=== PATIENT | male | born 1945 | race Caucasian/White ===

== ENCOUNTER → 2017-02-02 | Outpatient (CLI) | payer BC ==
[~2017-02-02] MED LIST: ASPI81TA28 PO; CLOP1TAB5 PO; GLC500 PO; LSN25 PO; METO25TA3 PO; NTRGSL/4 UT; ZCR40 PO; ZTA10 PO
--- NOTE | 2017-02-02 10:43 | DIAGNOSTIC IMAGING REPORT ---
KUB CLINICAL HISTORY: N20.0 [id number] nephrocalcinosis COMPARISON STUDY: 01/15/2016 FINDINGS: Nonobstructive bowel pattern. No evidence for nephrocalcinosis. Stable vascular calcification left lateral soft tissue pelvis IMPRESSION: No evidence for nephrocalcinosis. No change from the prior study. Electronically signed by: Kole Thibodeaux M.D. 02/02/2017 10:42 AM Dictated Date/Time: 02/02/2017 10:41 AM
== END | disposition home or self-care (01) ==
LOC: C.RAD 10:15
PROVIDERS: ATTEND Nurse Practitioner Family
DX: N20.0 Calculus of kidney (principal); R21 Rash and other nonspecific skin eruption

== ENCOUNTER → 2017-02-02 | Outpatient (CLI) | payer BC ==
[2017-02-05 11:11] LABS: 18KDIGG BAND REACTIVE (NONREACTIVE); 23KDIGG BAND NONREACTIVE (NONREACTIVE); 23KDIGM BAND NONREACTIVE (NONREACTIVE); 28KDIGG BAND NONREACTIVE (NONREACTIVE); 30KDIGG BAND REACTIVE (NONREACTIVE); 39KDIGG BAND NONREACTIVE (NONREACTIVE); 39KDIGM BAND NONREACTIVE (NONREACTIVE); 41KDIGG BAND REACTIVE (NONREACTIVE); 41KDIGM BAND NONREACTIVE (NONREACTIVE); 45KDIGG BAND NONREACTIVE (NONREACTIVE); 58KDIGG BAND NONREACTIVE (NONREACTIVE); 66KDIGG BAND NONREACTIVE (NONREACTIVE); 93KDIGG BAND NONREACTIVE (NONREACTIVE)
== END | disposition home or self-care (01) ==
LOC: C.LAB1850 15:06
PROVIDERS: ATTEND Dermatology
DX: R21 Rash and other nonspecific skin eruption (principal)

== ENCOUNTER → 2017-02-10 | Outpatient (CLI) | payer BC ==
[2017-02-10 12:29] LABS: ALT/SGPT 38 U/L (12-78); AST/SGOT 30 U/L (15-37); BLOOD UREA NITROGEN 19 mg/dl (7-18); BUN/CREATININE RATIO 21.8 (10-20); CALCIUM 8.7 mg/dl (8.5-10.1); CARBON DIOXIDE 29 mmol/L (21-32); CHLORIDE 105 mmol/L (98-107); CHOLESTEROL 101 mg/dl (0-200); CREATININE 0.85 mg/dl (0.60-1.40); GLUCOSE 87 mg/dl (70-99); POTASSIUM 4.1 mmol/L (3.5-5.1); SODIUM 140 mmol/L (136-145); TRIGLYCERIDES 59 mg/dl (0-150); VERY LOW DENSITY LIPOPROT CALC 12 mg/dl
[2017-02-10 12:32] LABS: ALB/GLOB RATIO 1.2 (0.9-2); ALKALINE PHOSPHATASE 75 U/L (45-117); CHOLESTEROL/HDL RATIO 2.6; HDL CHOLESTEROL 39 mg/dl; LDL CHOLESTEROL CALCULATED 50 mg/dl
[2017-02-10 13:04] LABS: ESTIMATED AVERAGE GLUCOSE 140 mg/dl; HA1C FLAG Normal (Normal)
== END | disposition home or self-care (01) ==
LOC: C.LABPVFM 08:12
PROVIDERS: ATTEND Internal Medicine Pulmonary Disease
DX: I25.10 Atherosclerotic heart disease of native coronary artery without angina pectoris (principal); E78.5 Hyperlipidemia, unspecified; N40.0 Benign prostatic hyperplasia without lower urinary tract symptoms; I10 Essential (primary) hypertension; E11.65 Type 2 diabetes mellitus with hyperglycemia

== ENCOUNTER → 2017-05-20 | Outpatient (CLI) | payer BC ==
[2017-05-20 13:38] LABS: LYME DISEASE AB IGG NEG (NEG)
[2017-05-20 13:41] LABS: LYME DISEASE AB IGM NEG (NEG)
[2017-05-22 12:39] LABS: 18KDIGG BAND NONREACTIVE (NONREACTIVE); 23KDIGG BAND NONREACTIVE (NONREACTIVE); 23KDIGM BAND NONREACTIVE (NONREACTIVE); 28KDIGG BAND NONREACTIVE (NONREACTIVE); 30KDIGG BAND REACTIVE (NONREACTIVE); 39KDIGG BAND NONREACTIVE (NONREACTIVE); 39KDIGM BAND NONREACTIVE (NONREACTIVE); 41KDIGG BAND REACTIVE (NONREACTIVE); 41KDIGM BAND NONREACTIVE (NONREACTIVE); 45KDIGG BAND NONREACTIVE (NONREACTIVE); 58KDIGG BAND NONREACTIVE (NONREACTIVE); 66KDIGG BAND NONREACTIVE (NONREACTIVE); 93KDIGG BAND NONREACTIVE (NONREACTIVE)
== END | disposition home or self-care (01) ==
LOC: C.LAB1850 11:25
PROVIDERS: ATTEND Dermatology
DX: Z86.19 Personal history of other infectious and parasitic diseases (principal); L82.0 Inflamed seborrheic keratosis

== ENCOUNTER → 2017-05-20 | Outpatient (CLI) | payer BC | END | disposition home or self-care (01) | LOC: C.PATHSPEC 17:20 | PROVIDERS: ATTEND Dermatology | DX: L82.0 Inflamed seborrheic keratosis (principal) ==

== ENCOUNTER → 2017-08-14 | Outpatient (CLI) | payer BC ==
[2017-08-14 13:00] LABS: BASO % 1.7 %; BASO ABS # 0.11 K/uL (0-0.2); COMPLETE YES; EOS % 7.9 %; HEMATOCRIT 45.2 % (42-52); IG% 0.3 %; LYMPH ABS # 1.93 K/uL (1.2-3.4); MEAN CELL VOLUME 88.6 fL (80-100); MEAN CORPUSCULAR HEMOGLOBIN 30.6 pg (25-34); MEAN CORPUSCULAR HGB CONC 34.5 g/dl (32-36); MEAN PLATELET VOLUME 10.1 fL (7.4-10.4); MONO % 8.7 %; NEUT % 51.4 %; PLATELET COUNT 278 K/uL (130-400); WHITE BLOOD COUNT 6.44 K/uL (4.8-10.8)
[2017-08-14 13:13] LABS: ESTIMATED AVERAGE GLUCOSE 143 mg/dl; HA1C FLAG Normal (Normal)
[2017-08-14 13:57] LABS: ALB/GLOB RATIO 1.3 (0.9-2); ALKALINE PHOSPHATASE 66 U/L (45-117); ALT/SGPT 31 U/L (12-78); AST/SGOT 29 U/L (15-37); BLOOD UREA NITROGEN 12 mg/dl (7-18); CALCIUM 8.5 mg/dl (8.5-10.1); CARBON DIOXIDE 26 mmol/L (21-32); CHLORIDE 106 mmol/L (98-107); CHOLESTEROL 86 mg/dl (0-200); CHOLESTEROL/HDL RATIO 2.2; CREATININE 0.75 mg/dl (0.60-1.40); GLUCOSE 91 mg/dl (70-99); HDL CHOLESTEROL 39 mg/dl; LDL CHOLESTEROL CALCULATED 36 mg/dl; SODIUM 140 mmol/L (136-145); TRIGLYCERIDES 54 mg/dl (0-150); VERY LOW DENSITY LIPOPROT CALC 11 mg/dl
== END | disposition home or self-care (01) ==
LOC: C.LABPVFM 08:48
PROVIDERS: ATTEND Internal Medicine Pulmonary Disease
DX: I25.10 Atherosclerotic heart disease of native coronary artery without angina pectoris (principal); E78.5 Hyperlipidemia, unspecified; E11.9 Type 2 diabetes mellitus without complications; I12.9 Hypertensive chronic kidney disease with stage 1 through stage 4 chronic kidney disease, or unspecified chronic kidney disease

== ENCOUNTER → 2018-01-08 | Outpatient (CLI) | payer BC ==
[~2018-01-08] MED LIST changes: -METO25TA3 PO; +METO25TA4 PO
--- NOTE | 2018-01-08 12:21 | DIAGNOSTIC IMAGING REPORT ---
VIDEO SWALLOW HISTORY: Dysphagia DIFFICULTY SWALLING TECHNIQUE: Video fluoroscopic evaluation of swallowing was performed in the AP and lateral projections by the speech pathology staff. The patient is fed nectar-thick and thin liquid barium, a barium coated wafer, and barium pudding. FLUOROSCOPY TIME: 2.2 minutes. COMPARISON STUDY: None. FINDINGS: There is normal hyoid excursion and epiglottic deflection. Mild dysmotility. No evidence for aspiration or significant vallecular pooling. IMPRESSION: 1. Mild esophageal dysmotility and slightly disordered oral motility. No evidence for aspiration. 2. Please see the speech pathologist report for detailed findings and recommendations. The above report was generated using voice recognition software. It may contain grammatical, syntax or spelling errors. Electronically signed by: oKle Thibodeaux M.D. 01/08/2018 12:20 PM Dictated Date/Time: 01/08/2018 12:18 PM
--- NOTE | 2018-01-08 15:17 | SWALLOWING EVALUATION ---
HISTORY: This 72 year old man was referred for a video swallow study at [facility] in order to rule out aspiration and identify the safest consistencies for optimal oral intake. The patient reports episodes of a "spasm" that occurs ~ every 2 weeks where he will have this spasm, and he will be unable to swallow until it passes. He indicates this occurs in his pharynx. He has found that drinking a hot beverage will assist in releasing the spasm. PMH is significant for DM, heart disease, HTN, and kidney stones. Current diet is regular. PROCEDURE: The patient was seen in the Radiology Department of [facility] for the VFSS. Cursory examination of the oral cavity revealed the patient to have natural dentition in good condition. Oral motor function was wnl. The patient was seated upright on a stool and was viewed in both the Anterior-Posterior (A-P) and Lateral planes. Volitional phonation exercises completed in the A-P plane revealed bilateral vocal fold movement. Vocal intensity was wnl. In the lateral plane, the patient was given the following boluses: 1 tsp. thin liquid barium x 2, single swallow thin liquid barium self-presented from a cup, sequential swallows of thin liquid barium self-presented from a straw, 1 tsp. nectar-thick liquid barium, single swallow nectar-thick liquid barium self-presented from a cup, 1 tsp. barium pudding, and 1 club cracker coated in barium pudding. The patient was then repositioned into the A-P plane and given the following boluses: 1 tsp. nectar thick barium and 1 tsp. barium pudding. RESULTS: Oral Stage: Lip closure was adequate. The patient was able to maintain a cohesive liquid bolus in the oral cavity. Mastication was timely and efficient. Lingual motion for bolus transport was also noted to be slow. There was retention lining the tongue and palate after the initial swallow. The initiation of the pharyngeal swallow occurred when the bolus head reached the valleculae. Pharyngeal Stage: Soft palate elevation was complete. Laryngeal elevation revealed partial superior movement of the thyroid cartilage and partial approximation of the arytenoids to the epiglottic base. Anterior hyoid excursion and epiglottic deflection are complete. Laryngeal vestibular closure was complete. The pharyngeal stripping wave was present and complete. Pharyngeal contraction was complete. There was complete distention and duration of the opening to the pharyngoesophageal segment (PES). Tongue base retraction was partially reduced with a trace column of contrast located between the tongue base and pharyngeal wall during the swallow. There was trace retention located in the valleculae and pyriforms after the swallow. There was no evidence of laryngeal penetration or aspiration for this study. The pharyngeal stage of the swallow was essentially wnl. Esophageal stage: The patient presented with mild mid-distal esophageal retention. This is suggestive of esophageal dysmotility. He was also noted to have a prominent cricopharyngeus in the lateral view, suggesting possible reflux. SUMMARY/RECOMMENDATIONS: This patient presents with normal endy-pharyngeal swallowing. He presents with s/s of mild esophageal dysfunction. The following is recommended: 1. Regular diet and thin liquids. 2. GERD precautions. Straws OK. Fully upright for meals and for 30 minutes after meals. Do not lay flat, head of bed elevated to 30 degrees at all times. 3. Consider starting meals with a warm decaffeinated beverage. 4. Consider follow up with GI for further testing/medication management as appropriate. A summary of the results and recommendations was discussed with the patient and his spouse (with patient permission) immediately after the study with verbal understanding. Thank you for referral of this patient. Please contact me at if any additional information is needed.
== END | disposition home or self-care (01) ==
LOC: C.RAD 10:57
PROVIDERS: ATTEND Internal Medicine
DX: R13.10 Dysphagia, unspecified (principal)

== ENCOUNTER → 2018-03-05 | Outpatient (CLI) | payer BC ==
[2018-03-05 12:58] LABS: HEMOGLOBIN A1C 7.1 % (4.5-5.6)
[2018-03-05 13:24] LABS: ALBUMIN 3.9 gm/dl (3.4-5.0); ALT/SGPT 32 U/L (12-78); BLOOD UREA NITROGEN 15 mg/dl (7-18); CALCIUM 8.4 mg/dl (8.5-10.1); CARBON DIOXIDE 28 mmol/L (21-32); CHOLESTEROL 92 mg/dl (0-200); CREATININE 0.85 mg/dl (0.60-1.40); GLUCOSE 79 mg/dl (70-99); POTASSIUM 3.8 mmol/L (3.5-5.1); SODIUM 138 mmol/L (136-145)
[2018-03-05 13:37] LABS: ALKALINE PHOSPHATASE 67 U/L (45-117); AST/SGOT 29 U/L (15-37); LDL CHOLESTEROL CALCULATED 43 mg/dl; TOTAL PROTEIN 6.5 gm/dl (6.4-8.2)
== END | disposition home or self-care (01) ==
LOC: C.LABPVFM 08:17
PROVIDERS: ATTEND Internal Medicine Pulmonary Disease
DX: I10 Essential (primary) hypertension (principal)

== ENCOUNTER → 2018-07-12 | Outpatient (CLI) | payer BC | END | disposition home or self-care (01) | LOC: C.LABPVFM 10:42 | PROVIDERS: ATTEND Physician Assistant Medical | DX: Z86.19 Personal history of other infectious and parasitic diseases (principal) ==

== ENCOUNTER 2019-02-02 10:57 | Inpatient (IN) ==
[2019-02-02 11:42] LABS: Hematocrit (blood only) 48.5 % (42-52); Hemoglobin 16.8 g/dL (14.0-18.0); Mean Corpuscular Hgb Conc 34.6 g/dL (32-36); Mean Corpuscular Volume 87.2 fL (80-100); Mean Platelet Volume 10.2 fL (7.4-10.4); Platelet Count 276 K/uL (130-400); RDW Coefficient of Variation 12.5 % (11.5-14.5); RDW Standard Deviation 39.8 fL (36.4-46.3); Red Blood Count 5.56 M/uL (4.7-6.1); White Blood Count 6.78 K/uL (4.8-10.8)
--- NOTE | 2019-02-02 11:45 | XRay Report ---
SINGLE VIEW CHEST CLINICAL HISTORY: Change in mental status. Atypical chest pain. FINDINGS: An AP, portable, upright chest radiograph is compared to study dated 11/30/2014. The examinat ion is degraded by portable technique and apical lordotic positioning. The heart is top normal for p rojection. A coronary artery stent is noted. The mediastinal contour is within normal limits. There i s mild elevation of the right hemidiaphragm. The lungs and pleural spaces are clear. No pneumothorax is seen. The skeletal structures are osteopenic. The bony thorax is grossly intact. IMPRESSION: No acute cardiopulmonary abnormality. Electronically signed by: Biju Larry M.D. 02/02/2019 11:44 AM
[2019-02-02 11:49] LABS: iSTAT Creatinine 0.8 mg/dl (0.6-1.3); iSTAT Hemoglobin 17.3 g/dl (14.0-18.0); iSTAT Ionized Calcium 1.21 mmol/l (1.12-1.32); iSTAT Potassium 4.2 mEq/L (3.3-5.0)
[2019-02-02 11:55] LABS: INR 1.1 (0.9-1.1); Partial Thromboplastin Time 26.7 Seconds (21.0-31.0); Prothrombin Time 11.1 Seconds (9.0-12.0)
--- NOTE | 2019-02-02 11:55 | CT Scan Report ---
CT head/brain wo con CLINICAL HISTORY: confusion, ataxia COMPARISON STUDY: No previous studies for comparison. TECHNIQUE: Axial CT of the brain is performed from the vertex to the skull base. IV contrast was not administered for this examination. A dose lowering technique was utilized adhering to the principles of ALARA. CT DOSE: 638.56 mGycm FINDINGS: No intra or extra-axial mass lesions are visualized. There is no CT evidence of acute cortical infarc tion. There is no evidence of midline shift. There is no acute hemorrhage. No calvarial fractures ar e visualized. There are minimal white matter hypodensities likely on a small vessel basis. There is minimal ventricular prominence, likely within normal limits for age There is no evidence of acute sinusitis IMPRESSION: No acute intracranial findings Electronically signed by: Sim Oneill M.D. 02/02/2019 11:54 AM
[2019-02-02 11:58] LABS: Albumin Level 3.9 gm/dl (3.4-5.0); BUN Creatinine Ratio 13.1 (10-20); Calcium 8.7 mg/dl (8.5-10.1); Creatinine Clr Calc Pharmacy 70.4 ml/min; Est GFR (African American) 94.6; Est GFR (Non-African American) 81.6; Magnesium 1.8 mg/dl (1.8-2.4); Potassium 4.1 mmol/L (3.5-5.1)
[2019-02-02 12:01] LABS: Albumin Globulin Ratio 1.1 (0.9-2); Bilirubin,Total 0.5 mg/dl (0.2-1); Globulin 3.4 gm/dl (2.5-4.0); Total Protein 7.3 gm/dl (6.4-8.2)
[2019-02-02] MEDS ORDERED: ASPIRIN CHEW 324 MG PO STA (12:24)
--- NOTE | 2019-02-02 12:32 | History & Physical Report ---
Date of Service February 02, 2019 Assessment & Plan (1) Altered mental state: (2) TIA (transient ischemic attack): - Admit to tele for stroke workup -Neurochecks Q2H for today -Check lipid panel and A1c with a.m. labs -Continue on ASA 81 mg daily, Plavix, simvastatin 40 mg daily, ezetimibe 10 mg daily -CT of the head reviewed and is negative for acute findings -will check CTA of the head and neck -Neurology consulted -CXR is negative -EKG reviewed and is negative for acute ST wave changes or signs of ischemia -Pt sx have resolved at the time of my exam: Negative CN testing, no gross motor or sensory deficits, strength testing intact and equal bilaterally, no eye exam findings. (3) Hypertensive urgency: (4) HTN (hypertension): - BP significantly elevated at 209/124 upon presentation - has improved - Pt may have missed morning home medications due to the episode of confusion. - Administer home metoprolol 12.5 mg p.o. now - Allow for permissive HTN in the setting of possible stroke/TIA (5) Diabetes: -Last A1c was 6.8 in September 2018, rechecking -Continue Lantus 18 units QPM, ISS with Accu-Cheks achs L inpatient -Holding metformin (6) Heart disease: (7) Hx of non-ST elevation myocardial infarction (NSTEMI): -Occurred in 2003, follows with Dr. Serrato as outpt -Taxus stent placed in the distal LAD and another in the mid LAD in 2003 -had subsequent N STEMI in 2005 for myocardial infarction however stents were patent at that time. -Most recent echo conducted in April 2012, stress treadmill testing, normal LVEF, negative for myocardial ischemia. -Continue on Plavix, asa -Lipid panel with am labs (8) BPH (benign prostatic hyperplasia): - Stable (9) DVT prophylaxis: - Teds, scds, plavix and aspirin History of Present Illness Chief Complaint: Episode of confusion Primary Care Provider: Osei Garcia MD This is a 73-year-old male with past medical history of an STEMI in 2003, status post 2 stents on Plavix, HTN, HLD, DM type II, history of nephrolithiasis who presents with acute onset of confusion this morning. Patient notes where he was in his normal state of health when he woke up and got a shower this morning. At ~0830 he proceeded to make a pot of coffee, however was unable to complete the task, although he makes coffee every morning normally. Patient is unsure if he took his morning medications, but believes he did not. There was some report of possible facial droop however he denies this. His is unsure if there truly was any facial droop earlier however there is none present now. Patient denies any other symptoms including headache, lightheadedness, visual disturbances, slurred speech, motor weakness, gait abnormality or balance disturbance. CT of the head is negative for acute findings. BP is elevated at 187/26, PRP and CBC are WNL. Allergies Allergy/AdvReac Type Severity Reaction Status Date / Time metoprolol Allergy Unknown HIVES Verified 11/30/14 08:30 Home Medications Home Medications Medication Instructions Recorded Confirmed Type Metformin Hcl (Glucophage *) 1,000 mg PO BID #0 08/15/06 02/02/19 History ASPIRIN (ASPIRIN EC) 81 mg PO DAILY #0 11/21/14 02/02/19 History CLOPIDOGREL BISULFATE (PLAVIX) 75 mg PO Q2D #45 11/21/14 02/02/19 History Ezetimibe (Zetia) 10 mg PO DAILY #90 11/21/14 02/02/19 History Lisinopril 2.5 mg PO DAILY #90 11/21/14 02/02/19 History Metoprolol Succinate (TOPROL XL) 12.5 mg PO DAILY #45 11/21/14 02/02/19 History Simvastatin 40 mg PO DAILY #90 11/21/14 02/02/19 History Nitroglycerin (Nitrostat) 0.4 mg UT PRN #0 btl 11/30/14 02/02/19 History insulin glargine [Lantus Solostar 18 unit SUBCUT QPM 02/02/19 02/02/19 History U-100 Insulin] Past Med/Surg History Medical History Hypertensive urgency BPH (benign prostatic hyperplasia) Hx of non-ST elevation myocardial infarction (NSTEMI) TIA (transient ischemic attack) Altered mental state Diabetes (Chronic) Heart disease (Chronic) HTN (hypertension) (Chronic) Kidney stone (Acute) Surgical History S/P tonsillectomy and adenoidectomy H/O heart artery stent Hx of cataract surgery Family History Other Diabetes Hypertension Prostate cancer Stroke Social History Preferred Language: Pakistani Communication Ability: Effective Body Specialist Required: Yes Beliefs That Will Affect Care: None and Alevism marital status: Current Living Situation: Spouse Current Living Situation Comment: patient lives in [place], [place] 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 Safe at Home: Yes Safety Concerns: Feels Safe At This Time Smoking Status: Never smoker Hx Alcohol Use: No Hx Substance Use: No Review of Systems Constitutional: No fever, sweats or chills Eyes: No diplopia, no worsening or blurred vision ENT: normal hearing, no trouble swallowing Respiratory: No cough, sputum, dyspnea at rest or on exertion Cardiovascular: No chest pain, tightness or palpitations Abdomen: No pain, nausea, vomiting, diarrhea or constipation Musculoskeletal: No joint pain, calf pain, swelling Neurologic: No weakness, numbness/tingling, or balance problems Psychiatric: No anxiety or depression Skin: No rash or itch Physical Exam Vital Signs (Past 24 Hours): Last Vital Signs Temp 36.3 C L 02/02/19 11:00 Pulse 88 02/02/19 11:51 Resp 20 02/02/19 11:51 BP 187/126 H 02/02/19 11:51 Pulse Ox 97 02/02/19 11:51 Physical Exam: General: awake, alert, no apparent distress Head: Normocephalic, atraumatic ENT: PERRL, EOMI, no pharyngeal exudate, mucous membranes moist Chest: Clear to auscultation, on room air, no adventitious breath sounds Cardiac: Regular rate and rhythm, no murmur, no JVD, normal peripheral pulses, good capillary refill Abdominal: NABS x 4 quadrants, soft, nontender to palpation, no rebound, guarding or tenderness Extremities: Normal inspection, no peripheral edema or erythema, calfs nontender to palpation Psych: Normal mood and affect Neuro: AAO x 3, CN II-XII intact, strength intact bilaterally and related 5/5, no motor deficits, speech is clear, no peripheral sensory deficits Constitutional: WD/WN, vitals as above Eyes: normal visual pacheco by confrontation and + anicteric sclerae Neck: normal visual inspection and trachea midline Respiratory: normal respiratory effort, lungs clear to auscultation Cardiovascular: Rate/Rhythm: regular rate and regular rhythm Gastrointestinal (Abdomen): Inspection/Auscultation: abdomen not distended Percussion/Palpation: abdomen soft; abdomen nontender Musculoskeletal: Head/Neck/Chest: normocephalic and head atraumatic Neg for peripheral LE edema, + pedal pulses Skin: no rashes, warm and dry Neurologic: CN's II-XI intact bilaterally and awake; not confused Speech / Cognition: normal speech Psychiatric: A+Ox3, euthymic affect Lymphatic: Exam as done by Kyara Mo DO Results & Data Diagnostic Findings CT head/brain wo con CLINICAL HISTORY: confusion, ataxia COMPARISON STUDY: No previous studies for comparison. TECHNIQUE: Axial CT of the brain is performed from the vertex to the skull base. IV contrast was not administered for this examination. A dose lowering technique was utilized adhering to the principles of ALARA. CT DOSE: 638.56 mGycm FINDINGS: No intra or extra-axial mass lesions are visualized. There is no CT evidence of acute cortical infarction. There is no evidence of midline shift. There is no acute hemorrhage. No calvarial fractures are visualized. There are minimal white matter hypodensities likely on a small vessel basis. There is minimal ventricular prominence, likely within normal limits for age There is no evidence of acute sinusitis IMPRESSION: No acute intracranial findings SINGLE VIEW CHEST CLINICAL HISTORY: Change in mental status. Atypical chest pain. FINDINGS: An AP, portable, upright chest radiograph is compared to study dated 11/30/2014. The examination is degraded by portable technique and apical lordotic positioning. The heart is top normal for projection. A coronary artery stent is noted. The mediastinal contour is within normal limits. There is mild elevation of the right hemidiaphragm. The lungs and pleural spaces are clear. No pneumothorax is seen. The skeletal structures are osteopenic. The bony thorax is grossly intact. IMPRESSION: No acute cardiopulmonary abnormality. ECG Additional Comments: 02-FEB-2019 11:18:11 [facility] Normal sinus rhythm Septal infarct , age undetermined Abnormal ECG When compared with ECG of 30-NOV-2014 09:25, No significant change was found 25mm/s 10mm/mV 150Hz 8.0 SP2 12SL 241 RACHELLE: 16 Referred by: ED Unconfirmed Vent. rate [address] interval 192 ms QRS duration 92 ms QT/QTc 360/433 ms P-R-T axes 51 17 67 Code Status & VTE Plan Code Status Full code- discussed with at bedside. Supervising Physician Co-Signing Physician Notes Pt seen and examined by me. Denies chest pain or SOB. Tolerating PO without issue. States he has had no return of sx. is present and states that he had L sided facial droop but that this has fully resolved. Agree with HPI/ROS as noted by PA See above for my exam in PE section Agree with plan as outlined above CVA vs TIA vs HTN emergency mimicking stroke-like sx Pt is on aspirin/plavix at baseline making CVA and TIA less likely BP 209/124 on presentation It is not certain if he took his meds this AM BP is much improved Imaging pending Advised home cuff with frequent monitoring during the next 4-6 weeks to ensure BP control
[2019-02-02] MEDS ORDERED: PHARMACIST DISCHARGE MED REC CONSULT PRN (12:37)
[2019-02-02] MEDS ORDERED: NITROGLYCERIN SL 0.4 MG/TAB TAB SL PRN (13:15)
[2019-02-02 13:28] LABS: Estimated Average Glucose 169 mg/dl; Hemoglobin A1C 7.5 % (4.5-5.6)
[2019-02-02] MEDS ORDERED: IOVERSOL 100ml IV PRN (14:43)
--- NOTE | 2019-02-02 15:00 | CT Scan Report ---
CT ANGIOGRAM OF THE NECK CLINICAL HISTORY: Strokelike symptoms. COMPARISON STUDY: No priors. TECHNIQUE: Following the IV administration of 118 of Optiray 320, CT angiogram of the neck was perfor med from the aortic arch to the skull base. Images are reviewed in the axial, sagittal, and coronal p lanes. 3-D MIPS images are created and assessed. IV contrast was administered without complication. A ll measurements were calculated based on NASCET criteria. A dose lowering technique was utilized adh ering to the principles of ALARA. FINDINGS: Thoracic aorta: Visualized portions of the thoracic aorta are normal in caliber. The aortic arch demo nstrates standard 3-vessel anatomy. Right carotid arterial system: The right common carotid artery is widely patent, as are the right int ernal and external carotid arteries. Left carotid arterial system: The left common carotid artery is widely patent, as are the left internist medical doctor md al and external carotid arteries. Vertebral arteries: The vertebral arteries are widely patent and codominant. Subclavian arteries: Widely patent bilaterally. Intracranial vasculature: The visualized intracranial vessels at the skull base are clear. Jugular veins: Widely patent bilaterally. Brain parenchyma: The visualized brain parenchyma the skull base is within normal limits. Lung apices: Partially visualized upper lobe lung parenchyma appears clear. Soft tissues: The visualized pharyngeal soft tissues are normal in appearance noting angiographic pha se technique. The oropharyngeal airway appears widely patent. A calcified sialolith is noted in the l eft parotid gland. The salivary and thyroid glands are otherwise normal in appearance. No cervical ly mphadenopathy is seen. Skeletal structures: The skeletal structures are osteopenic. The visualized calvarium at the skull ba se appears intact. The imaged cervical spine is maintained noting mild spondylosis. No lytic or blast ic lesion is seen. IMPRESSION: Unremarkable CT angiogram of the neck. Electronically signed by: Biju Larry M.D. 02/02/2019 2:59 PM
[2019-02-02] MEDS ORDERED: GLUCOSE 40% GEL 15 GM TUBE PO PRN ×2 (15:03→15:15)
[2019-02-02] MEDS ORDERED: DEXTROSE 50% 50 ML SYRINGE IV PRN ×2 (15:03→15:15)
[2019-02-02] MEDS ORDERED: CARBOHYDRATES FOR HYPOGLYCEMIA PO PRN ×2 (15:03→15:15)
[2019-02-02] MEDS ORDERED: GLUCOSE 10 TABS/TUBE PO PRN ×2 (15:03→15:15)
[2019-02-02] MEDS ORDERED: GLUCAGON FOR INJ 1 MG VIAL SQ PRN (15:03)
[2019-02-02] MEDS ORDERED: GLUCAGON FOR INJ 1 MG VIAL IM PRN (15:15)
--- NOTE | 2019-02-02 15:22 | CT Scan Report ---
HEAD CTA HISTORY: Confusion. r/o stroke TECHNIQUE: Multiaxial CT images of the head were performed both before and after the intravenous admi nistration of contrast to evaluate the major cerebral vessels. Maximum intensity projection images we re also obtained. A dose lowering technique was utilized adhering to the principles of ALARA. COMPARISON: None. FINDINGS: There is no mass, hematoma, midline shift, or acute infarct. Visualized intracranial video production intern al carotid arteries and distal vertebral arteries are patent. There is no significant stenosis, occlu ghislaine, or aneurysm seen within the bilateral ACAs, MCAs, or lump roller. The major dural venous sinuses are p atent. Small linear defect within the proximal basilar artery best seen on axial image 57 of 254. IMPRESSION: 1. Small focal linear filling defect seen within the proximal basilar artery. This could represent a focal fenestration or a small focal dissection. Both lumens opacify and there is no significant steno sis or occlusion within the basilar artery. 2. No significant stenosis, occlusion, or aneurysm seen within the bilateral ACAs, MCAs, or lump roller. Electronically signed by: Jeff Guillory M.D. 02/02/2019 3:20 PM
[2019-02-02] MEDS: SIMVASTATIN 40 MG TAB PO SCH (17:04)
[2019-02-02] MEDS: METOPROLOL SUCC 25MG EXT REL TAB PO SCH (17:05)
[2019-02-02] MEDS: LISINOPRIL 2.5 MG TAB PO SCH (17:05)
[2019-02-02] MEDS: EZETIMIBE 10 MG TABLET PO SCH (17:06)
--- NOTE | 2019-02-02 17:09 | Emergency Department Note ---
Entered by Tabitha Mccrary acting as a scribe for Long Tucker DO History of Present Illness General Chief complaint: Confusion Stated complaint: CONFUSED,POSSIBLE STROKE OR REACTION TO INSULIN Source: patient, family and other (nurse) History of Present Illness Onset (ago): day(s) (this morning) Location: head Pain Consistency: + other (episode) Quality: + other (confusion) Associated symptoms: + denies other symptoms (numbness, speech slur) and + other (left eye droop, ataxic for nurse); no weakness The patient is a 73 year old male who presents to the Emergency Room with complaints of an episode of confusion starting this morning. The patients states that the patient was fine before going to bed last night. She states that this morning she woke up to him yelling out in the kitchen that he was confused. She states that when she went to check on him, he couldnt remember how to make the coffee in the Keurig like he has been doing for 2 years. She states that she noticed that all his medications in his pill box for morning and night were gone so she assumed he took them. She reports that while they were getting ready to come here he would ask where his wallet was and then she would say he would have it, but 2 minutes later he would ask ago. She notes that she noticed he had a left eye droop. She denies the patient having a speech slur and any weakness in his arms or legs. The patient states that he remembers being fine before and after showering, but being confused when he tried to make coffee. Nursing staff notes that when they bought him back to the room he was ataxic. Home Medications Home Medications Medication Instructions Recorded Confirmed Type Metformin Hcl (Glucophage *) 1,000 mg PO BID #0 08/15/06 02/02/19 History ASPIRIN (ASPIRIN EC) 81 mg PO DAILY #0 11/21/14 02/02/19 History CLOPIDOGREL BISULFATE (PLAVIX) 75 mg PO Q2D #45 11/21/14 02/02/19 History Ezetimibe (Zetia) 10 mg PO DAILY #90 11/21/14 02/02/19 History Lisinopril 2.5 mg PO DAILY #90 11/21/14 02/02/19 History Metoprolol Succinate (TOPROL XL) 12.5 mg PO DAILY #45 11/21/14 02/02/19 History Simvastatin 40 mg PO DAILY #90 11/21/14 02/02/19 History Nitroglycerin (Nitrostat) 0.4 mg UT PRN #0 btl 11/30/14 02/02/19 History insulin glargine [Lantus Solostar 18 unit SUBCUT QPM 02/02/19 02/02/19 History U-100 Insulin] Allergies Allergy/AdvReac Type Severity Reaction Status Date / Time metoprolol Allergy Unknown HIVES Verified 11/30/14 08:30 Past Med/Surg History Medical History Hypertensive urgency BPH (benign prostatic hyperplasia) Hx of non-ST elevation myocardial infarction (NSTEMI) TIA (transient ischemic attack) Altered mental state Diabetes (Chronic) Heart disease (Chronic) HTN (hypertension) (Chronic) Kidney stone (Acute) Surgical History S/P tonsillectomy and adenoidectomy H/O heart artery stent Hx of cataract surgery Family History Other Diabetes Hypertension Prostate cancer Stroke Social History Preferred Language: Czech Communication Ability: Effective [employer] Required: Yes Beliefs That Will Affect Care: None and Voodoo marital status: Current Living Situation: Spouse Current Living Situation Comment: patient lives in [place], [place] 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 and A total of 10 systems reviewed and were otherwise negative Physical Exam Vital Signs Vital Signs - 24 hr 02/02/19 11:00 02/02/19 11:35 02/02/19 11:51 Temperature 36.3 C L Temperature Source Oral Sepsis Recent Fever Within 48 Hours No Sepsis New/Unexplained Change in Mental Status No Sepsis Action Taken by Nursing No Action Required Pulse Rate 91 H Pulse Rate [Apical] 88 Pulse Rhythm [Apical] Pulse Strength [Apical] Respiratory Rate 20 20 Respiratory Effort / Characteristics Respiratory Depth Respiratory Pattern Blood Pressure 209/124 H Blood Pressure [Left Arm] Blood Pressure [Right Arm] 187/126 H Blood Pressure Mean 152 Blood Pressure Mean [Left Arm] Blood Pressure Mean [Right Arm] 146 Blood Pressure Position [Left Arm] Blood Pressure Position [Right Arm] Pulse Oximetry 97 97 Oxygen Delivery Method Room Air Room Air Room Air 02/02/19 13:35 02/02/19 14:45 02/02/19 15:24 Temperature 37 C 36.6 C Temperature Source Oral Oral Sepsis Recent Fever Within 48 Hours Sepsis New/Unexplained Change in Mental Status Sepsis Action Taken by Nursing Pulse Rate 82 Pulse Rate [Apical] 84 82 79 Pulse Rhythm [Apical] Regular Regular Pulse Strength [Apical] Normal Normal Respiratory Rate 16 16 18 Respiratory Effort / Characteristics Non-Labored Spontaneous Non-Labored Respiratory Depth Normal Normal Normal Respiratory Pattern Regular Blood Pressure 169/85 H Blood Pressure [Left Arm] 157/81 H Blood Pressure [Right Arm] 148/82 H 169/85 H Blood Pressure Mean Blood Pressure Mean [Left Arm] 106 Blood Pressure Mean [Right Arm] 104 113 Blood Pressure Position [Left Arm] Lying Blood Pressure Position [Right Arm] Lying Pulse Oximetry 96 97 98 Oxygen Delivery Method Room Air Room Air Room Air GENERAL: Sitting up in bed, alert, well appearing, well nourished, no distress, non-toxic EYE EXAM: normal conjunctiva. OROPHARYNX: no exudate, no erythema, lips, buccal mucosa, and tongue normal and mucous membranes are moist NECK: supple, no nuchal rigidity, no adenopathy, non-tender LUNGS: Clear to auscultation. Normal chest wall mechanics HEART: no murmurs, S1 normal and S2 normal ABDOMEN: abdomen soft, non-tender, normo-active bowel, sounds, no masses, no rebound or guarding. BACK: Back is symmetrical on inspection and there is no deformity, no midline tenderness, no CVA tenderness. SKIN: no rashes and no bruising UPPER EXTREMITIES: upper extremities are grossly normal. LOWER EXTREMITIES: No pitting edema. NEURO EXAM: Normal sensorium, cranial nerves II-XII intact, normal speech, no weakness of arms, no weakness of legs. No drift. Finger to noseintact. Gross sensation intact. Course ED COURSE: Vital signs were reviewed and showed hypertension. The patients medical record was reviewed The above diagnostic studies were performed and reviewed. ED treatments and interventions as stated above. 1145: The patient was evaluated in room A1. A complete history and physical examination was performed. 1227: I reviewed the patient's case with Dr. Isaías WRIGHT Hospitalist. She will evaluate the patient for further management. 1232: Upon reevaluation, the patient is resting comfortably. I discussed my findings with the patient and he understands and agrees with the treatment plan. Based on the patients age, coexisting illnesses, exam and lab findings the decision to treat as an inpatient was made. The patient remained stable while under my care. The patient will be evaluated for further management. Consultations Consultation #1: I reviewed the patient's case with Dr. Isaías WRIGHT Hospitalist. She will evaluate the patient for further management. Time: 12:27 Administered Medications Ioversol (Optiray 320 100ml) 118 ml IV ONCE PRN PRN Reason: Interaction Checking Stop: 02/06/19 14:42 Last Admin: 02/02/19 14:44 Dose: 118 ml Documented by: [id number] Discontinued Medications Aspirin (Aspirin) 324 mg PO NOW STA Stop: 02/02/19 12:25 Last Admin: 02/02/19 12:38 Dose: 324 mg Documented by: [id number] Medical Decision Making Differential Diagnosis Differential Diagnosis includes but is not limited to ischemic Stroke, hemorrhagic stroke, bells palsy, mass, neoplasm, migraine headache, seizure, subarachnoid hemorrhage, TIA, and transient global amnesia. Medical Records Attestation: I reviewed the patient's medical records. Home Medications Current Medication List: was personally reviewed by me Laboratory Data Attestation: I reviewed the patient's lab results. Result diagrams: 02/02/19 11:25 02/02/19 11:25 Lab Results 02/02/19 02/02/19 02/02/19 Range/Units 11:14 11:25 11:25 WBC 6.78 (4.8-10.8) K/uL RBC 5.56 (4.7-6.1) M/uL Hgb 16.8 (14.0-18.0) g/dL POC Hgb (14.0-18.0) g/dl Hct 48.5 (42-52) % POC Hct (42-52) % MCV 87.2 (80-100) fL MCH 30.2 (25-34) pg MCHC 34.6 (32-36) g/dL RDW Std Deviation 39.8 (36.4-46.3) fL RDW Coeff of Leanna 12.5 (11.5-14.5) % Plt Count 276 (130-400) K/uL MPV 10.2 (7.4-10.4) fL PT 11.1 (9.0-12.0) Seconds INR 1.1 (0.9-1.1) APTT 26.7 (21.0-31.0) Seconds PTT Ratio 1.0 POC Sodium (135-144) mEq/L Sodium (136-145) mmol/L POC Potassium (3.3-5.0) mEq/L Potassium (3.5-5.1) mmol/L POC Chloride (101-112) mEq/L Chloride (98-107) mmol/L Carbon Dioxide (21-32) mmol/L POC Total CO2 (24-31) mEq/l Anion Gap (3-11) POC Anion Gap (16-25) mmol/L POC BUN (7-18) mg/dl BUN (7-18) mg/dl Creatinine (0.6-1.4) mg/dl POC Creatinine (0.6-1.3) mg/dl Est Cr Clr Drug Dosing ml/min Est GFR ( Amer) Est GFR (Non-Af Amer) BUN/Creatinine Ratio (10-20) Glucose (70-99) mg/dl POC Glucose 170 H (70-99) POC Glucose (other) (70-99) mg/dl Estimat Average Glucose mg/dl Hemoglobin A1c (4.5-5.6) % Calcium (8.5-10.1) mg/dl POC Ioniz Calcium Magalys (1.12-1.32) mmol/l Magnesium (1.8-2.4) mg/dl Total Bilirubin (0.2-1) mg/dl AST (15-37) U/L ALT (12-78) U/L Alkaline Phosphatase (45-117) U/L Total Protein (6.4-8.2) gm/dl Albumin (3.4-5.0) gm/dl Globulin (2.5-4.0) gm/dl Albumin/Globulin Ratio (0.9-2) 02/02/19 02/02/19 02/02/19 Range/Units 11:25 11:25 11:36 WBC (4.8-10.8) K/uL RBC (4.7-6.1) M/uL Hgb (14.0-18.0) g/dL POC Hgb 17.3 (14.0-18.0) g/dl Hct (42-52) % POC Hct 51 (42-52) % MCV (80-100) fL MCH (25-34) pg MCHC (32-36) g/dL RDW Std Deviation (36.4-46.3) fL RDW Coeff of Leanna (11.5-14.5) % Plt Count (130-400) K/uL MPV (7.4-10.4) fL PT (9.0-12.0) Seconds INR (0.9-1.1) APTT (21.0-31.0) Seconds PTT Ratio POC Sodium 139 (135-144) mEq/L Sodium 136 (136-145) mmol/L POC Potassium 4.2 (3.3-5.0) mEq/L Potassium 4.1 (3.5-5.1) mmol/L POC Chloride 95 L (101-112) mEq/L Chloride 100 (98-107) mmol/L Carbon Dioxide 32 (21-32) mmol/L POC Total CO2 29 (24-31) mEq/l Anion Gap 4.0 (3-11) POC Anion Gap 19.0 (16-25) mmol/L POC BUN 12 (7-18) mg/dl BUN 12 (7-18) mg/dl Creatinine 0.92 (0.6-1.4) mg/dl POC Creatinine 0.8 (0.6-1.3) mg/dl Est Cr Clr Drug Dosing 70.4 ml/min Est GFR ( Amer) 94.6 Est GFR (Non-Af Amer) 81.6 BUN/Creatinine Ratio 13.1 (10-20) Glucose 185 H (70-99) mg/dl POC Glucose (70-99) POC Glucose (other) 188 H (70-99) mg/dl Estimat Average Glucose 169 mg/dl Hemoglobin A1c 7.5 H (4.5-5.6) % Calcium 8.7 (8.5-10.1) mg/dl POC Ioniz Calcium Magalys 1.21 (1.12-1.32) mmol/l Magnesium 1.8 (1.8-2.4) mg/dl Total Bilirubin 0.5 (0.2-1) mg/dl AST 22 (15-37) U/L ALT 33 (12-78) U/L Alkaline Phosphatase 80 (45-117) U/L Total Protein 7.3 (6.4-8.2) gm/dl Albumin 3.9 (3.4-5.0) gm/dl Globulin 3.4 (2.5-4.0) gm/dl Albumin/Globulin Ratio 1.1 (0.9-2) 02/02/19 Range/Units 16:17 WBC (4.8-10.8) K/uL RBC (4.7-6.1) M/uL Hgb (14.0-18.0) g/dL POC Hgb (14.0-18.0) g/dl Hct (42-52) % POC Hct (42-52) % MCV (80-100) fL MCH (25-34) pg MCHC (32-36) g/dL RDW Std Deviation (36.4-46.3) fL RDW Coeff of Leanna (11.5-14.5) % Plt Count (130-400) K/uL MPV (7.4-10.4) fL PT (9.0-12.0) Seconds INR (0.9-1.1) APTT (21.0-31.0) Seconds PTT Ratio POC Sodium (135-144) mEq/L Sodium (136-145) mmol/L POC Potassium (3.3-5.0) mEq/L Potassium (3.5-5.1) mmol/L POC Chloride (101-112) mEq/L Chloride (98-107) mmol/L Carbon Dioxide (21-32) mmol/L POC Total CO2 (24-31) mEq/l Anion Gap (3-11) POC Anion Gap (16-25) mmol/L POC BUN (7-18) mg/dl BUN (7-18) mg/dl Creatinine (0.6-1.4) mg/dl POC Creatinine (0.6-1.3) mg/dl Est Cr Clr Drug Dosing ml/min Est GFR ( Amer) Est GFR (Non-Af Amer) BUN/Creatinine Ratio (10-20) Glucose (70-99) mg/dl POC Glucose 141 H (70-99) POC Glucose (other) (70-99) mg/dl Estimat Average Glucose mg/dl Hemoglobin A1c (4.5-5.6) % Calcium (8.5-10.1) mg/dl POC Ioniz Calcium Magalys (1.12-1.32) mmol/l Magnesium (1.8-2.4) mg/dl Total Bilirubin (0.2-1) mg/dl AST (15-37) U/L ALT (12-78) U/L Alkaline Phosphatase (45-117) U/L Total Protein (6.4-8.2) gm/dl Albumin (3.4-5.0) gm/dl Globulin (2.5-4.0) gm/dl Albumin/Globulin Ratio (0.9-2) Imaging Data Radiologist's Impression: Radiology results as stated below per my review and the radiologist's interpretation: SINGLE VIEW CHEST CLINICAL HISTORY: Change in mental status. Atypical chest pain. FINDINGS: An AP, portable, upright chest radiograph is compared to study dated 11/30/2014. The examination is degraded by portable technique and apical lordotic positioning. The heart is top normal for projection. A coronary artery stent is noted. The mediastinal contour is within normal limits. There is mild elevation of the right hemidiaphragm. The lungs and pleural spaces are clear. No pneumothorax is seen. The skeletal structures are osteopenic. The bony thorax is grossly intact. IMPRESSION: No acute cardiopulmonary abnormality. Electronically signed by: Biju Larry M.D. 02/02/2019 11:[address] head/brain wo con CLINICAL HISTORY: confusion, ataxia COMPARISON STUDY: No previous studies for comparison. TECHNIQUE: Axial CT of the brain is performed from the vertex to the skull base. IV contrast was not administered for this examination. A dose lowering technique was utilized adhering to the principles of ALARA. CT DOSE: 638.56 mGycm FINDINGS: No intra or extra-axial mass lesions are visualized. There is no CT evidence of acute cortical infarction. There is no evidence of midline shift. There is no acute hemorrhage. No calvarial fractures are visualized. There are minimal white matter hypodensities likely on a small vessel basis. There is minimal ventricular prominence, likely within normal limits for age There is no evidence of acute sinusitis IMPRESSION: No acute intracranial findings Electronically signed by: Sim Oneill M.D. 02/02/2019 11:54 AM ECG Data Attestation: I personally reviewed and interpreted this ECG as follows: Indication: altered mental status Rate (beats per minute): 87 Rhythm: sinus rhythm Findings: + other (normal axis) and + Q waves (septal); no PVC Blood Pressure Blood Pressure Findings: Elevated blood pressure Blood Pressure Disposition: further management by hospitalist MDM Narrative Patient is a 73-year-old male who presents the ER with who notes that patient was confused earlier this morning and did not know how to to make coffee. She also notes that he had some left-sided facial droop. Upon arrival to triage this is also noted by nursing. By the time I was able to evaluate this patient after protocols were in place patient was completely back to b aseline and neurologically intact. There is report of finger past point on the left on initial exam but on my exam that was not present either. Labs show no significant leukocytosis or anemia. BMP along with LFTs bilirubin was unremarkable. CT head was negative. Patient and family were updated at bedside. He was significantly hypertensive but it did allow permissive hypertension with the concern for recent stroke. Patient was discussed with hospitalist admitted for further workup. Impression & Plan TIA (transient ischemic attack) The scribe's documentation has been prepared under my direction and personally reviewed by me in its entirety. I confirm that the note above accurately reflects all work, treatment, procedures, and medical decision making performed by me.
[2019-02-02] MEDS: INSULIN ASPART 100 UNITS/ML 3 ML PEN SC SCH ×2 (17:13→20:42)
[2019-02-02] MEDS ORDERED: INSULIN GLARGINE SOLOSTAR 100 UNITS/ML 3 ML PEN SQ SCH (21:00)
[2019-02-03 06:17] LABS: Basophils # (auto) 0.12 K/uL (0-0.2); Basophils % (auto) 1.5 %; Eosinophils # (auto) 0.51 K/uL (0-0.5); Eosinophils % (auto) 6.3 %; Hematocrit (blood only) 44.6 % (42-52); Hemoglobin 15.3 g/dL (14.0-18.0); Immature Granulocytes # (auto) 0.03 K/uL (0.00-0.02); Immature Granulocytes % (auto) 0.4 %; Lymphocytes # (auto) 3.03 K/uL (1.2-3.4); Lymphocytes % (auto) 37.3 %; Mean Corpuscular Hgb Conc 34.3 g/dL (32-36); Mean Corpuscular Volume 88.1 fL (80-100); Mean Platelet Volume 9.8 fL (7.4-10.4); Monocytes # (auto) 0.62 K/uL (0.11-0.59); Monocytes % (auto) 7.6 %; Neutrophils # (auto) 3.81 K/uL (1.4-6.5); Neutrophils % (auto) 46.9 %; Platelet Count 258 K/uL (130-400); RDW Coefficient of Variation 12.6 % (11.5-14.5); RDW Standard Deviation 40.4 fL (36.4-46.3); Red Blood Count 5.06 M/uL (4.7-6.1); White Blood Count 8.12 K/uL (4.8-10.8)
[2019-02-03 06:53] LABS: Calcium 8.1 mg/dl (8.5-10.1); Creatinine Clr Calc Pharmacy 72.8 ml/min; Est GFR (African American) 97.6; Est GFR (Non-African American) 84.2; Potassium 4.1 mmol/L (3.5-5.1)
[2019-02-03] MEDS: LISINOPRIL 2.5 MG TAB PO SCH (07:42)
[2019-02-03] MEDS: SIMVASTATIN 40 MG TAB PO SCH (07:42)
[2019-02-03] MEDS: METOPROLOL SUCC 25MG EXT REL TAB PO SCH (07:43)
[2019-02-03] MEDS: EZETIMIBE 10 MG TABLET PO SCH (07:43)
[2019-02-03] MEDS: INSULIN ASPART 100 UNITS/ML 3 ML PEN SC SCH ×2 (07:45→12:40)
[2019-02-03] MEDS ORDERED: CLOPIDOGREL BISULFATE 75 MG TAB PO SCH (09:00)
[2019-02-03] MEDS ORDERED: ASPIRIN 81 MG ECTAB PO SCH (09:00)
--- NOTE | 2019-02-03 10:00 | Neurology Consultation ---
Date of Consultation February 03, 2019 Assessment & Plan (1) Altered mental state: Patient has some acute confusion yesterday lasting an hour or 2. Currently, he is back to baseline with no encephalopathy or confusion. He has no focal neurologic findings or meningeal signs. Etiology of his confusion is likely acute Hypertension (hypertensive encephalopathy). I doubt this represents true TIA. There is no evidence on exam for stroke. He does have risk factors for stroke including hypertension, diabetes, and dyslipidemia. (2) Hypertensive urgency: The patient has a history of hypertension with a markedly elevated reading yesterday. Today his blood pressure is back to baseline. There was a concern by the patient's that he had forgot 1 or 2 doses of his medication. (3) Tremor: Patient has a gnpl-vs-pnvvbkif symmetrical action tremor bilaterally. This is likely essential tremor. There is no evidence on examination today for resting tremor, rigidity, bradykinesia, or abnormal gait. Therefore, he has no signs of extra pyramidal disease. Recommendations: 1. Continue 81 milligram aspirin and 75 milligrams clopidogrel daily. 2. Consider MRI of the brain without contrast. 3. Consider echocardiogram 4. Increase activity as able. 5. There is no reason for treatment of his essential tremor at this time. This could be readdressed as an outpatient. 6. Control blood pressure as you are doing, aiming for a mean arterial pressure of approximately 100. 7. Treat hyperglycemia/diabetes aiming to lower his hemoglobin A1c below 7. 8. Lipid levels are quite good and I see no need to increase his current statin dose. Overall, I spent a total of 70 minutes with this case including review of records, review of CT films, direct evaluation the patient at bedside, and discussion of the case with the patient and his was at bedside, clinical staff, and Dr. Wiggins, including differential diagnosis and treatment options. History of Present Illness Reason for Consultation: Patient is a 73-year-old, who I was asked to see at the request of Yumiko Jacobo, for neurologic consultation regarding acute confusion. Requesting Physician: Dr. Mo Attending Physician: Ariel Wiggins History of Present Illness This patient tells me that he has a 15-18 year history of diabetes (on metoprolol, lisinopril, and Zetia) as well as a 10-15 year history of hypertension (on insulin and metformin). He had an [facility] in 2003 and is followed closely by Cardiology. He has had 2 stents for coronary artery disease placed. He has been on 81 milligram aspirin and 75 milligram clopidogrel daily. He also has dyslipidemia for which she takes simvastatin 40 milligrams daily. Patient tells me he has never had a stroke or warning stroke. The patient had a normal day February 01 and went to bed feeling well. He woke in the morning as usual after a good night's sleep on February 02 and showered and dressed as usual. He was downstairs in the kitchen around 0830 trying to make coffee as usual. He could not figure out how the [employer] machine operated however (something he has done for 2 years). He felt confused and knew that he was confused. He just could not figure out how to operate the machine and he was forgetful worry puts things and perhaps what was going on that he was supposed to do. During this time the patient did not have any headache or pain, vision issues or speech problems. He had no numbness or weakness in the arms or legs, balance issues, or incontinence. He was not sick or ill. He called for his who verify that he was not thinking well. She wondered about a little bit of droop of the upper eyelid on the left but was not convinced this. They did not notice any facial droop. He arrived February 02 in the emergency room at 1100 with a temperature 36.3, pulse 91, respiratory rate 20, blood pressure 209/124, and O2 saturation 97 percent. Neurologic examination was unremarkable with no focal signs and his memory was reasonable. He was not described as having any mental status or memory issues. CT scan of the head was unremarkable. Chest x-ray was unremarkable. CT angiography of the neck was unremarkable with no vessel anomalies or stenoses. CT angiography of the head was unremarkable as well although there was some slight abnormality of the basal artery consistent with a small area of fenestration verses small focal dissection. There was no stenosis. CBC was normal. Chem profile was remarkable for glucose of 185. Hemoglobin A1c was elevated at 7.5. Triglyceride was 68, cholesterol 103, LDL 53. The patient believes that his confusion cleared by an hour or 2 with the most and was fine in the hospital. He has had no further episodes and he has been normal since. Blood pressure this morning is 130/77. Additional history from the patient's who is present at bedside suggest the patient has had tremor. He describes this is action tremor with trying to hold drinking glass or eating soup and he has had for about 5 years left greater than right arm. There is no family history of tremor. There is additional history that suggest perhaps the patient has had some mild short-term memory problems in the recent a yearor two. Allergies Allergy/AdvReac Type Severity Reaction Status Date / Time metoprolol Allergy Unknown HIVES Verified 11/30/14 08:30 Home Medications Home Medications Medication Instructions Recorded Confirmed Type Metformin Hcl (Glucophage *) 1,000 mg PO BID #0 08/15/06 02/02/19 History ASPIRIN (ASPIRIN EC) 81 mg PO DAILY #0 11/21/14 02/02/19 History CLOPIDOGREL BISULFATE (PLAVIX) 75 mg PO Q2D #45 11/21/14 02/02/19 History Ezetimibe (Zetia) 10 mg PO DAILY #90 11/21/14 02/02/19 History Lisinopril 2.5 mg PO DAILY #90 11/21/14 02/02/19 History Metoprolol Succinate (TOPROL XL) 12.5 mg PO DAILY #45 11/21/14 02/02/19 History Simvastatin 40 mg PO DAILY #90 11/21/14 02/02/19 History Nitroglycerin (Nitrostat) 0.4 mg UT PRN #0 btl 11/30/14 02/02/19 History insulin glargine [Lantus Solostar 18 unit SUBCUT QPM 02/02/19 02/02/19 History U-100 Insulin] Patient History Medical History Hypertensive urgency BPH (benign prostatic hyperplasia) Hx of non-ST elevation myocardial infarction (NSTEMI) TIA (transient ischemic attack) Altered mental state Diabetes (Chronic) Heart disease (Chronic) HTN (hypertension) (Chronic) Kidney stone (Acute) Surgical History S/P tonsillectomy and adenoidectomy H/O heart artery stent Hx of cataract surgery Social History Preferred Language: Argentine Communication Ability: Effective Byproducts Maker Required: Yes Beliefs That Will Affect Care: None and Jew marital status: Current Living Situation: Spouse Current Living Situation Comment: patient lives in [place], [place] 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[employer] Feels Safe at Home: Yes Safety Concerns: Feels Safe At This Time Smoking Status: Never smoker Hx Alcohol Use: No Hx Substance Use: No Review of Systems Constitutional: no fever, no fatigue and no weakness Eyes: no diplopia, no eye pain and no worsening vision Ear, Nose, Mouth, Throat: no ear pain, no tinnitus, no hearing loss and no dysphagia Respiratory: no cough and no dyspnea Cardiovascular: no chest pain, no dyspnea and no palpitations Gastrointestinal: no abdominal pain, no nausea and no vomiting Genitourinary (Male): no dysuria, no urinary frequency and no urinary incon tinence Musculoskeletal: no back pain, no neck pain, no radicular pain, no myalgia, no muscle weakness and no muscle atrophy Integumentary: no rash and no lesions Neurologic: + tremor(s) and + memory loss; no gait abnormality, no falls, no localized weakness, no generalized weakness, no tingling, no numbness, no abnorm al movements, no dizziness, no headache(s), no abnormal speech, no behavioral changes and no confusion Psychiatric: no depression, no abnormal sleep pattern, no anxiety, no difficulty concentrating, no confusion and no hallucinations Endocrine: no fatigue and no flushing Hematologic / Lymphatic: + easy bruising; no easy bleeding Allergy / Immunological: no urticaria Physical Exam Vital Signs (Past 24 Hours): Last Vital Signs Temp 36.5 C 02/03/19 06:47 Pulse 67 02/03/19 06:47 Resp 18 02/03/19 06:47 BP 130/77 02/03/19 06:47 Pulse Ox 97 02/03/19 03:58 Physical Exam: The patient is left-handed. The patient is awake, alert, and attentive. Speech is normal without any aphasia or dysarthria. Mentation and thought processes are intact, with full orientation and normal fund of knowledge. Attention and concentration are normal. Mood and affect are normal and appropriate. General appearance and grooming are normal. Short and long-term memory seem intact conversation. The discs are sharp with positive venous pulsations bilaterally. There are no exudates, hemorrhages, or blood vessel changes seen. Pupils are 3 mm bilaterally and reactive to light. Extraocular eye muscles are intact without nystagmus. Visual acuity and visual pacheco seem normal grossly to confrontation. There is no evidence for masklike face. There are no deficits to sensation in the face in all 3 distributions of the fifth cranial nerve bilaterally. Corneal reflexes are positive bilaterally. Facial strength and symmetry was normal bilaterally. Hearing seems intact grossly to voice and finger rub bilaterally. Palate moves well without asymmetry. There is normal sternocleidomastoid and trapezius (shoulder shrug) strength bilaterally. Tongue is midline with good strength bilaterally. Neck has a full range of motion without discomfort. There are no cervical bruits bilaterally. There are no cranial or ocular bruits. Heart is without murmur. There is a regular rhythm and rate. Cervical, thoracic, and lumbar spine are nontender to palpation. Gait is narrow based, with good arm swing, turns, and stance. Balance is normal eyes open or closed. There is no bradykinesia in general. With outstretched arms there is no drift. There are no resting tremors. Patient has mild posture and action tremor bilaterally. There is no ataxia with finger to nose testing. There is good facility in the hands. No other abnormal involuntary movements are noted. Motor strength is 5/5 diffusely in the arms bilaterally including deltoids, biceps, triceps, brachioradialis, wrist flexors and extensors, [place], and intrinsic hand muscles. Motor strength is 5/5 diffusely in the legs bilaterally including hip flexors, quadriceps, hamstrings, gastrocnemius, tibialis anterior, tibialis posterior, and Peroneii muscles bilaterally. Toe extensors are normal and there is good bulk in the extensor digitorum brevis muscles bilaterally. The limbs have good tone without rigidity or spasticity. There is no atrophy noted in the muscles. Muscle bulk is normal, there is no tenderness to palpation, no myotonia to percussion, and no fasciculations seen. Sensory examination is intact to touch and pin throughout all 4 limbs diffusely. Reflexes are 2/4 in the biceps, triceps, brachioradialis, quadriceps, and Achilles tendons bilaterally. Toes are downgoing with plantar stimulation bilaterally. Peripheral pulses are present and of normal quality distally in all 4 limbs. There is no peripheral edema noted in the limbs.
--- NOTE | 2019-02-03 14:03 | Magnetic Resonance Report ---
Brain MRI WITHOUT CONTRAST HISTORY: confusion after elevated BP. TECHNIQUE: Multiplanar multisequence MRI of the brain was performed without the use of contrast. COMPARISON STUDY: Head CT and head CTA 02/02/2019. FINDINGS: There is no mass, hematoma, midline shift, or acute infarct. The paranasal sinuses are esmer r. The mastoid air cells are clear. The ventricles and sulci demonstrate mild age-related involutiona l changes. Scattered foci of T2 hyperintensity seen within the periventricular and subcortical white matter are nonspecific but suggestive of mild microvascular ischemic changes. The major vascular flow voids at the skull base are well-maintained. IMPRESSION: No acute intracranial abnormality. Scattered foci of T2 hyperintensity seen within the periventricula r and subcortical white matter are nonspecific but favor microvascular ischemic change. Electronically signed by: Jeff Guillory M.D. 02/03/2019 2:02 PM
[2019-02-03] MEDS ORDERED: STROKE PATIENT DISCHARGE STA (16:32)
--- NOTE | 2019-02-04 06:44 | Discharge Summary ---
Date of Service February 03, 2019 Admission HPI Per Admitting Provider This is a 73-year-old male with past medical history of an STEMI in 2004, status post 2 stents on Plavix, HTN, HLD, DM type II, history of nephrolithiasis who presents with acute onset of confusion this morning. Patient notes where he was in his normal state of health when he woke up and got a shower this morning. At ~0830 he proceeded to make a pot of coffee, however was unable to complete the task, although he makes coffee every morning normally. Patient is unsure if he took his morning medications, but believes he did not. There was some report of possible facial droop however he denies this. His is unsure if there truly was any facial droop earlier however there is none present now. Patient denies any other symptoms including headache, lightheadedness, visual disturbances, slurred speech, motor weakness, gait abnormality or balance disturbance. CT of the head is negative for acute findings. BP is elevated at 187/26, PRP and CBC are WNL. Principal Diagnosis Hypertensive encephalopathy Discharge Exam General: awake, alert, no apparent distress Head: Normocephalic, atraumatic ENT: PERRL, EOMI, no pharyngeal exudate, mucous membranes moist Chest: Clear to auscultation, on room air, no adventitious breath sounds Cardiac: Regular rate and rhythm, no murmur, no JVD, normal peripheral pulses, good capillary refill Abdominal: NABS x 4 quadrants, soft, nontender to palpation, no rebound, guarding or tenderness Extremities: Normal inspection, no peripheral edema or erythema, calfs nontender to palpation Psych: Normal mood and affect Neuro: AAO x 3, CN II-XII intact, strength intact bilaterally and related 5/5, no motor deficits, speech is clear, no peripheral sensory deficits Discharge Data Allergies Allergy/AdvReac Type Severity Reaction Status Date / Time metoprolol Allergy Unknown HIVES Verified 11/30/14 08:30 Consultations 02/02/19 12:24 ED Decision to Admit Stat 02/02/19 12:39 Consult Case Management - Discharge Planning Routine 02/02/19 15:03 Consult Neurology Routine Ordered Studies 02/02/19 11:27 CT head/brain wo con Stat 02/02/19 13:59 CT angio head w con Stat CT angio neck with con Stat 02/03/19 11:25 MR brain wo con Routine Hospital Course (1) Altered mental state: (2) TIA (transient ischemic attack): On 02/02 - Admit to tele for stroke workup -Neurochecks Q2H for today -Check lipid panel and A1c with a.m. labs -Continue on ASA 81 mg daily, Plavix, simvastatin 40 mg daily, ezetimibe 10 mg daily -CT of the head reviewed and is negative for acute findings -will check CTA of the head and neck -Neurology consulted -CXR is negative -EKG reviewed and is negative for acute ST wave changes or signs of ischemia -Pt sx have resolved at the time of my exam: Negative CN testing, no gross motor or sensory deficits, strength testing intact and equal bilaterally, no eye exam findings. On 02/03 Appreciate neuro input: Currently, he is back to baseline with no encephalopathy or confusion. He has no focal neurologic findings or meningeal signs. Etiology of his confusion is likely acute Hypertension (hypertensive encephalopathy). I doubt this represents true TIA. There is no evidence on exam for stroke. MRI of head was negative for stroke. He does have risk factors for stroke including hypertension, diabetes, and dyslipidemia. The patient has a history of hypertension with a markedly elevated reading yesterday. Today his blood pressure is back to baseline. There was a concern by the patient's that he had forgot 1 or 2 doses of his medication. Patient has a [id number]-xa-[id number] symmetrical action tremor bilaterally. This is likely essential tremor. There is no evidence on examination today for resting tremor, rigidity, bradykinesia, or abnormal gait. Therefore, he has no signs of extra pyramidal disease. Will discharge patient today and have hime f/u with his PCP. explained to patient that he needs to continue his antihypertensive meds as prescribed. (3) Hypertensive urgency: (4) HTN (hypertension): - BP significantly elevated at 209/124 upon presentation - has improved - Pt may have missed morning home medications due to the episode of confusion. Will discharge on home regimen. (5) Diabetes: -Last A1c was 6.8 in September 2018, rechecking -Continue Lantus 18 units QPM, ISS with Accu-Cheks achs L inpatient -Holding metformin (6) Heart disease: (7) Hx of non-ST elevation myocardial infarction (NSTEMI): -Occurred in 2003, follows with Dr. Serrato as outpt -Taxus stent placed in the distal LAD and another in the mid LAD in 2003 -had subsequent N STEMI in 2005 for myocardial infarction however stents were patent at that time. -Most recent echo conducted in April 2012, stress treadmill testing, normal LVEF, negative for myocardial ischemia. -Continue on Plavix, asa (8) BPH (benign prostatic hyperplasia): - Stable (9) DVT prophylaxis: - Teds, scds, plavix and aspirin Total Time Total Time Spent Total Time Spent (In Minutes): 31 Total Time Includes: Examination of the Patient, Discharge Planning and Medication Reconciliation Discharge Plan Discharge Items Patient Disposition: Home - Self-Care Reason For Visit: HYPERTENSIVE URGENCY, FACIAL DROOP, AMS Discharge Diagnosis: Elevated blood pressure which likely caused confusion. Discharge Goals: Decrease discomfort Activity: Resume your previous activity Non-emergency contact: Primary Care Provider Call non-emergency contact if: you have any medication questions Follow-up/Referrals: Osei Garcia MD [Primary Care Provider] - Diet: Carb Consistent or DM2 and Heart Healthy Addtl Provider Instructions: You were seen for elevated blood pressure. MRI did not show signs of stroke. You will followup with your PCP in 1-2 weeks. Prescriptions: Continued Metformin Hcl (Glucophage *) 500 MG tablet 1,000 mg PO BID Qty: 0 RF: 0 ASPIRIN (ASPIRIN EC) 81 MG tablet 81 mg PO DAILY Qty: 0 RF: 0 CLOPIDOGREL BISULFATE (PLAVIX) 75 MG tablet 75 mg PO Q2D Qty: 45 RF: 0 Ezetimibe (Zetia) 10 MG tablet 10 mg PO DAILY Qty: 90 RF: 0 Metoprolol Succinate (TOPROL XL) 25 MG [id number] 12.5 mg PO DAILY Qty: 45 RF: 0 Simvastatin 40 MG tablet 40 mg PO DAILY Qty: 90 RF: 0 Nitroglycerin (Nitrostat) 0.4 MG tablet 0.4 mg UT PRN Qty: 0 RF: 0 Lantus Solostar U-100 Insulin 100 unit/mL (3 mL) Insulin Pen 18 unit subcut QPM RF: 0 Changed Lisinopril 2.5 MG tablet 2.5 mg PO HS Qty: 90 RF: 0 Stand-Alone Forms: [facility] Discharge Orders: Discharge Order (Routine); Ordered 02/03/19 Ordered By: Ariel Wiggins Admission Data Admit Date/Time: 02/02/19 12:38 Attending Provider: Ariel Wiggins Admit Provider: Kyara Mo Primary Care Provider: Osei Garcia Other Providers: Chris Tate III ; Kyara Mo Service: Telemetry Other Interventions: Discharge Summary Assessment (RN) Last Done: 02/03/19 16:48 DC Date/Time DO NOT enter until pt leaves facility: 02/03/19 17:15
--- NOTE | 2019-02-14 07:13 | Coding Query ---
CODING QUERY To promote full compliance with coding requirements relating to patient care, provider participation is requested in all cases of music critic uncertainty. Please assist us with the question(s) below: Coding Question(s): Patient admitted with acute onset of mental status changes 1-2 hrs duration. Neurology Consult states likely etiology is hypertensive encephalopathy. Discharge Summary mentions TIA. Discharge diagnosis increased blood pressure which caused mental status changes. Please check below the etiology of the altered mental status . Thank you !! JANICE Pedersen [facility] Physician's Response(s): This was documented on discharge diagnosis. ____x____ hypertensive encephalopathy TIA Cannot clinically correlate if patient had TIA/hypertensive encephalopathy Other: Principal Diagnosis: "that condition established after study, to be chiefly responsible for occasioning the admission of the patient to the hospital for care." Co-Existing Principal Diagnosis: "when two or more diagnoses equally meet the criteria for principal diagnosis as determined by the circumstances of admission, diagnostic work up, and/or therapy provided, and the Alphabetic Index, Tabular List, or another coding guideline does not provide sequencing direction, any one of the diagnoses may be sequenced first." "When the physician has documented what appears to be a current diagnosis in the body of the record, but has not included the diagnosis in the final diagnostic statement, the physician should be asked whether the diagnosis should be added." (Source Coding [facility] 2 QTR90. p3-4) [place]
== END 2019-02-03 17:15 | disposition home or self-care (01) | DRG 79 ==
LOC: ED 10:57 → SUATTDRO 12:38 → 2S 12:38

== ENCOUNTER 2021-09-18 02:54 | Observation (INO) ==
[2021-09-18] MEDS ORDERED: LABETALOL HCL IV 5 MG/ML 20ML IV PRN (03:18)
--- NOTE | 2021-09-18 03:24 | Emergency Department Note ---
Impression & Plan Word finding difficulty Admission ED Provider Note HPI: The patient is a 76-year-old gentleman with history of coronary artery disease s/p stents, HLD, DM, HTN, presents the emergency department with a chief complaint of an episode of confusion earlier this evening. Patient states that he went to bed around 11 PM, he states shortly thereafter he woke up" I did not feel right". Patient tells me "I could not speak coherently". He states the symptoms concerned him and he contacted 911. He states by the time he was in the ambulance his symptoms had resolved. On arrival here to the ED he is alert and oriented, he does not have any focal deficits, he is speaking to me clearly without any slurred speech and he is forming coherent sentences. He ambulates his extremities spontaneously and does not have any focal weakness or numbness. Patient is hypertensive on arrival at 196/105, he is otherwise saturating well on room air and in no acute distress. ROS: -Neuro: Transient episode of altered mentation/difficulty with speech *10 point review systems was conducted and is otherwise negative unless stated above *Outpatient medications and allergy history reviewed PE: General: Alert, NAD HEENT: Normocephalic, atraumatic, trachea midline Eyes: Extraocular eye movement is intact, no scleral erythema Pulmonary: Clear to auscultation bilaterally, no wheezing Cardio: Regular rate and rhythm GI: Abdomen is soft, nontender : No suprapubic tenderness MSK: No evidence of trauma or malformation of the extremities, no edema Skin: No evidence of rash Neuro: Alert, no focal deficits, clear speech, symmetrical facial movements are appreciated, patient does not have any drift of the upper extremities or lower extremities with testing against gravity Psychiatric: Cooperative NIH STROKE SCALE: 1A: Level of consciousness Alert; keenly responsive 0 1B: Ask month and age Both questions right 0 1C: 'Blink eyes' & 'squeeze hands' Performs both tasks 0 2: Horizontal extraocular movements Normal 0 3: Visual pacheco No visual loss 0 4: Facial palsy Normal symmetry 0 5A: Left arm motor drift No drift for 10 seconds 0 5B: Right arm motor drift No drift for 10 seconds 0 6A: Left leg motor drift No drift for 5 seconds 0 6B: Right leg motor drift No drift for 5 seconds 0 7: Limb Ataxia No ataxia 0 8: Sensation Normal; no sensory loss 0 9: Language/aphasia Normal; no aphasia 0 10: Dysarthria Normal 0 11: Extinction/inattention No abnormality 0 TOTAL NIH SCORE = 0 Chest x-ray: No acute process per my interpretation CTA HEAD: No evidence of aneurysm, significant stenosis or major intracranial branch occlusion. Major intracranial venous structures enhance normally. CTA NECK: No evidence of occlusion, significant stenosis or dissection in the major arteries of the neck. CT HEAD: No acute or focal intracranial abnormality. monitoring coordinator: Order placed, patient is noted to be in sinus rhythm on the monitor EKG: Rate: 77 Rhythm: Normal sinus rhythm Intervals: Within normal limits ST changes: No ST elevation Time: 0257 Medical Decision Making: Patient presented to the emergency department with an episode of confusion and word finding difficulty. Patient states that he believes this occurred at some point between 11 PM and midnight although his timeline is unclear. Patient is very specific in stating that he was having some word finding difficulty, he continues to state that he "could not speak in coherent sentences". This concerned him and therefore he contacted the ambulance for transport. His word finding difficulty was transient in nature as he was able to call the ambulance himself. On arrival to the ED the patient does not exhibit any focal deficits, he is alert and oriented x3, he has symmetrical facial movements and no focal motor deficits on my exam. I would not consider him to be a TPA candidate given that his symptoms are resolved and the timeline of his symptoms are somewhat unclear. He was noted to be hypertensive in the 190s systolic for which he was ordered labetalol prn however BP downtrended without this being given. He denies any chest pain or shortness of breath. Stroke work-up was initiated including CT imaging of the head without contrast that does not show any evidence of acute intracranial bleeding, CT angiography of the head and neck does not show any evidence of large vessel occlusion. Patient remained otherwise stable in the ED. EKG does not show any ischemic changes, troponin is negative x1. I do not see any acute pathology on chest x- ray. Patient has had similar episodes in the past although not associated with word finding difficulty, he has had some confusion, he had an MRI done 2 years ago that did not show any evidence of stroke following one of these episodes, it was thought to possibly be secondary to hypertensive encephalopathy. Given his multiple risk factors including hypertension, coronary artery disease, hyperlip idemia, diabetes, I do think repeat MRI imaging for TIA work-up/secondary stroke work-up is indicated. Patient was in agreement to the above plan, he was given aspirin in the ED, he was admitted to the [facility] hospitalist service in stable condition for further management. * Diagnosis: Transient word finding difficulty, possible TIA, hypertensive urgency * Disposition: Admission Kole Brewer DO Emergency Medicine Past Med/Surg History Medical History (Updated 09/18/21 @ 05:45 by Kole Brewer DO) Hx of non-ST elevation myocardial infarction (NSTEMI) Hypertensive urgency Surgical History H/O heart artery stent Hx of cataract surgery S/P tonsillectomy and adenoidectomy Family History Mother , age 91 Stroke CHF (congestive heart failure) Father , age 86 with stroke Stroke Prostate cancer Other Diabetes Hypertension Social History Smoking Status: Never smoker Second Hand Exposure: No; Hx Alcohol Use: No Hx Substance Use: No Preferred Language: Wolof Communication Ability: Effective Hearing Ability: Normal Knocker Out Required: No Beliefs That Will Affect Care: None marital status: Current Living Situation: Spouse Current Living Situation Comment: patient lives in [place], [place] 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[employer] Feels Safe at Home: Yes Childhood Exposure to Second-Hand Smoke: No Seatbelt Use: always Sunscreen Use: No Assistive Devices: Glasses Allergies Allergies Allergy/AdvReac Type Severity Reaction Status Date / Time No Known Drug Allergies Allergy Verified 06/27/21 15:26 Home Meds Home Medications Medication Instructions Recorded Confirmed aspirin 81 mg tablet 81 mg PO DAILY tab 08/28/19 09/18/21 blood sugar diagnostic (OneTouch ea 06/19/21 09/18/21 Ultra Blue Test Strip) clopidogrel 75 mg tablet See Rx Instructions .ROUTE 06/19/21 09/18/21 .COMPLEX tab insulin glargine 100 unit/mL (3 20 unit SUBCUT QPM ml 06/19/21 09/18/21 mL) subcutaneous pen (Lantus Solostar U-100 Insulin) Previous Rx's Medication Instructions Recorded lancets #100 ea 10/12/20 lisinopril 10 mg tablet 10 mg PO QPM #90 tab 10/15/20 metformin 500 mg tablet,extended See Rx Instructions .ROUTE 11/20/20 release 24 hr .COMPLEX #360 tab pen needle, diabetic 32 gauge x #100 ea 01/21/21" (BD Ultra-Fine Bal[place]ina Pen Needle) metoprolol succinate 25 mg See Rx Instructions .ROUTE 03/19/21 tablet,extended release 24 hr .COMPLEX #45 tab simvastatin 40 mg tablet See Rx Instructions .ROUTE 03/19/21 .COMPLEX #90 tab ezetimibe 10 mg tablet 10 mg PO DAILY #90 tab 06/12/21 Results & Data (ED) Vital Signs Vital Signs - 24 hr 09/18/21 02:52 09/18/21 02:55 09/18/21 03:09 Temperature 36.6 C Temperature Source Oral Pulse Rate [Apical] 81 Respiratory Rate 18 Blood Pressure [Right Arm] 196/105 H Blood Pressure Mean [Right Arm] 135 Pulse Oximetry 96 97 Oxygen Delivery Method Room Air Room Air Sepsis Recent Fever Within 48 Hours No Sepsis New/Unexplained Change in Mental Status Yes Sepsis Action Taken by Nursing No Action Required 09/18/21 04:07 09/18/21 05:00 09/18/21 06:08 Temperature Temperature Source Pulse Rate [Apical] 71 69 74 Respiratory Rate 16 18 Blood Pressure [Right Arm] 163/97 H 144/79 H 193/96 H Blood Pressure Mean [Right Arm] 119 100 128 Pulse Oximetry 97 96 96 Oxygen Delivery Method Room Air Room Air Room Air Sepsis Recent Fever Within 48 Hours Sepsis New/Unexplained Change in Mental Status Sepsis Action Taken by Nursing Laboratory Data Result diagrams: 09/18/21 02:45 09/18/21 04:05 Lab Results 09/18/21 09/18/21 09/18/21 Range/Units 02:45 02:45 02:45 WBC 8.38 (4.8-10.8) K/uL RBC 5.77 (4.7-6.1) M/uL Hgb 17.5 (14.0-18.0) g/dL Hct 50.4 (42-52) % MCV 87.3 (80-100) fL MCH 30.3 (25-34) pg MCHC 34.7 (32-36) g/dL RDW Std Deviation 40.1 (36.4-46.3) fL RDW Coeff of Leanna 12.7 (11.5-14.5) % Plt Count 309 (130-400) K/uL MPV 10.5 H (7.4-10.4) fL Immature Gran % (Auto) 0.2 % Neut % (Auto) 48.9 % Lymph % (Auto) 36.4 % [place] % (Auto) 6.8 % Eos % (Auto) 6.3 % Baso % (Auto) 1.4 % Neut # (Auto) 4.09 (1.4-6.5) K/uL Lymph # (Auto) 3.05 (1.2-3.4) K/uL [place] # (Auto) 0.57 (0.11-0.59) K/uL Eos # (Auto) 0.53 H (0-0.5) K/uL Baso # (Auto) 0.12 (0-0.2) K/uL Immature Gran # (Auto) 0.02 (0.00-0.02) K/uL PT Cancelled INR Cancelled APTT Cancelled PTT Ratio Cancelled Sodium 137 (136-145) mmol/L Potassium (3.5-5.1) mmol/L Chloride 102 (98-107) mmol/L Carbon Dioxide 29 (21-32) mmol/L Anion Gap 6.0 (3-11) BUN 12 (7-18) mg/dl Creatinine 0.86 (0.6-1.4) mg/dl Est Cr Clr Drug Dosing 71.9 ml/min Est GFR ( Amer) 96.9 ml/min Est GFR (Non-Af Amer) 83.6 ml/min BUN/Creatinine Ratio 13.5 (10-20) Glucose 143 H (70-99) mg/dl POC Glucose (70-99) mg/dl Calcium 8.9 (8.5-10.1) mg/dl Magnesium (1.8-2.4) mg/dl Total Bilirubin 0.5 (0.2-1) mg/dl AST TNP ALT 38 (12-78) U/L Alkaline Phosphatase 99 (45-117) U/L Troponin I < 0.015 (0-0.045) ng/ml Total Protein 7.4 (6.4-8.2) gm/dl Albumin 4.0 (3.4-5.0) gm/dl Globulin 3.4 (2.5-4.0) gm/dl Albumin/Globulin Ratio 1.2 (0.9-2) COVID-19 Eval Order SARS-CoV-2 (PCR) (Negative) 09/18/21 09/18/21 09/18/21 Range/Units 03:29 04:05 04:05 WBC (4.8-10.8) K/uL RBC (4.7-6.1) M/uL Hgb (14.0-18.0) g/dL Hct (42-52) % MCV (80-100) fL MCH (25-34) pg MCHC (32-36) g/dL RDW Std Deviation (36.4-46.3) fL RDW Coeff of Leanna (11.5-14.5) % Plt Count (130-400) K/uL MPV (7.4-10.4) fL Immature Gran % (Auto) % Neut % (Auto) % Lymph % (Auto) % [place] % (Auto) % Eos % (Auto) % Baso % (Auto) % Neut # (Auto) (1.4-6.5) K/uL Lymph # (Auto) (1.2-3.4) K/uL [place] # (Auto) (0.11-0.59) K/uL Eos # (Auto) (0-0.5) K/uL Baso # (Auto) (0-0.2) K/uL Immature Gran # (Auto) (0.00-0.02) K/uL PT 10.8 INR 1.1 APTT 26.4 PTT Ratio 1.0 Sodium (136-145) mmol/L Potassium 3.9 (3.5-5.1) mmol/L Chloride (98-107) mmol/L Carbon Dioxide (21-32) mmol/L Anion Gap (3-11) BUN (7-18) mg/dl Creatinine (0.6-1.4) mg/dl Est Cr Clr Drug Dosing ml/min Est GFR ( Amer) ml/min Est GFR (Non-Af Amer) ml/min BUN/Creatinine Ratio (10-20) Glucose (70-99) mg/dl POC Glucose 127 H (70-99) mg/dl Calcium (8.5-10.1) mg/dl Magnesium 1.8 (1.8-2.4) mg/dl Total Bilirubin (0.2-1) mg/dl AST 20 ALT (12-78) U/L Alkaline Phosphatase (45-117) U/L Troponin I (0-0.045) ng/ml Total Protein (6.4-8.2) gm/dl Albumin (3.4-5.0) gm/dl Globulin (2.5-4.0) gm/dl Albumin/Globulin Ratio (0.9-2) COVID-19 Eval Order SARS-CoV-2 (PCR) (Negative) 09/18/21 09/18/21 Range/Units 04:14 04:14 WBC (4.8-10.8) K/uL RBC (4.7-6.1) M/uL Hgb (14.0-18.0) g/dL Hct (42-52) % MCV (80-100) fL MCH (25-34) pg MCHC (32-36) g/dL RDW Std Deviation (36.4-46.3) fL RDW Coeff of Leanna (11.5-14.5) % Plt Count (130-400) K/uL MPV (7.4-10.4) fL Immature Gran % (Auto) % Neut % (Auto) % Lymph % (Auto) % [place] % (Auto) % Eos % (Auto) % Baso % (Auto) % Neut # (Auto) (1.4-6.5) K/uL Lymph # (Auto) (1.2-3.4) K/uL [place] # (Auto) (0.11-0.59) K/uL Eos # (Auto) (0-0.5) K/uL Baso # (Auto) (0-0.2) K/uL Immature Gran # (Auto) (0.00-0.02) K/uL PT INR APTT PTT Ratio Sodium (136-145) mmol/L Potassium (3.5-5.1) mmol/L Chloride (98-107) mmol/L Carbon Dioxide (21-32) mmol/L Anion Gap (3-11) BUN (7-18) mg/dl Creatinine (0.6-1.4) mg/dl Est Cr Clr Drug Dosing ml/min Est GFR ( Amer) ml/min Est GFR (Non-Af Amer) ml/min BUN/Creatinine Ratio (10-20) Glucose (70-99) mg/dl POC Glucose (70-99) mg/dl Calcium (8.5-10.1) mg/dl Magnesium (1.8-2.4) mg/dl Total Bilirubin (0.2-1) mg/dl AST ALT (12-78) U/L Alkaline Phosphatase (45-117) U/L Troponin I (0-0.045) ng/ml Total Protein (6.4-8.2) gm/dl Albumin (3.4-5.0) gm/dl Globulin (2.5-4.0) gm/dl Albumin/Globulin Ratio (0.9-2) COVID-19 Eval Order Covid19 at [facility] SARS-CoV-2 (PCR) NEGATIVE (Negative) Administered Medications Discontinued Medications Ioversol (Optiray 320 125ml) 125 ml IV ONCE ONE Stop: 09/18/21 04:46 Last Admin: 09/18/21 04:46 Dose: 119 ml Documented by: [id number] Discharge Plan Visit Data Chief Complaint: Confusion Stated Complaint: CONFUSION ED Provider: Kole Brewer Discharge Problem: Word finding difficulty Forms Stand Alone Forms: My [employer] Prescriptions Prescriptions: No Action lisinopril 10 mg tablet 10 mg PO QPM Qty: 90 RF: 3 metformin 500 mg tablet extended release 24 hr See Rx Instructions .ROUTE .COMPLEX Qty: 360 RF: 3 (DME) pen needle, diabetic [BD Ultra-Fine Balbina Pen Needle] 32 gauge x 5/32" needle See Rx Instructions .ROUTE .MEDSUPPLY Qty: 100 RF: 3 metoprolol succinate 25 mg tablet extended release 24 hr See Rx Instructions .ROUTE .COMPLEX Qty: 45 RF: 3 simvastatin 40 mg tablet See Rx Instructions .ROUTE .COMPLEX Qty: 90 RF: 2 ezetimibe 10 mg tablet 10 mg PO DAILY Qty: 90 RF: 3 (DME) OneTouch Ultra Blue Test Strip Strip See Rx Instructions .ROUTE .MEDSUPPLY RF: 0 clopidogrel 75 mg tablet See Rx Instructions .ROUTE .COMPLEX RF: 0 Lantus Solostar U-100 Insulin 100 unit/mL (3 mL) insulin pen 20 unit subcut QPM RF: 0 aspirin 81 mg tablet 81 mg PO DAILY RF: 0 (DME) lancets Misc See Rx Instructions .ROUTE .MEDSUPPLY Qty: 100 RF: 3 Referrals Referrals: Osei Garcia MD [Primary Care Provider] -
[2021-09-18 03:29] LABS: Basophils # (auto) 0.12 K/uL (0-0.2); Basophils % (auto) 1.4 %; Eosinophils # (auto) 0.53 K/uL (0-0.5); Eosinophils % (auto) 6.3 %; Hematocrit (blood only) 50.4 % (42-52); Hemoglobin 17.5 g/dL (14.0-18.0); Immature Granulocytes # (auto) 0.02 K/uL (0.00-0.02); Immature Granulocytes % (auto) 0.2 %; Lymphocytes # (auto) 3.05 K/uL (1.2-3.4); Lymphocytes % (auto) 36.4 %; Mean Corpuscular Hemoglobin 30.3 pg (25-34); Mean Corpuscular Hgb Conc 34.7 g/dL (32-36); Mean Corpuscular Volume 87.3 fL (80-100); Mean Platelet Volume 10.5 fL (7.4-10.4); Monocytes # (auto) 0.57 K/uL (0.11-0.59); Monocytes % (auto) 6.8 %; Neutrophils # (auto) 4.09 K/uL (1.4-6.5); Neutrophils % (auto) 48.9 %; Platelet Count 309 K/uL (130-400); RDW Coefficient of Variation 12.7 % (11.5-14.5); RDW Standard Deviation 40.1 fL (36.4-46.3); Red Blood Count 5.77 M/uL (4.7-6.1); White Blood Count 8.38 K/uL (4.8-10.8)
[2021-09-18 04:00] LABS: Alanine Aminotransferase 38 U/L (12-78); Alkaline Phosphatase 99 U/L (45-117); BUN Creatinine Ratio 13.5 (10-20); Bilirubin,Total 0.5 mg/dl (0.2-1); Blood Urea Nitrogen 12 mg/dl (7-18); Calcium 8.9 mg/dl (8.5-10.1); Carbon Dioxide 29 mmol/L (21-32); Chloride 102 mmol/L (98-107); Creatinine Clr Calc Pharmacy 71.9 ml/min; Est GFR (African American) 96.9 ml/min; Est GFR (Non-African American) 83.6 ml/min; Globulin 3.4 gm/dl (2.5-4.0); Glucose 143 mg/dl (70-99); Sodium 137 mmol/L (136-145); Total Protein 7.4 gm/dl (6.4-8.2)
[2021-09-18 04:01] LABS: Albumin Globulin Ratio 1.2 (0.9-2); Troponin I < 0.015 ng/ml (0-0.045)
[2021-09-18 04:26] LABS: Potassium 3.9 mmol/L (3.5-5.1)
[2021-09-18 04:28] LABS: INR 1.1 (0.9-1.1); Partial Thromboplastin Time 26.4 Seconds (21.0-31.0); Prothrombin Time 10.8 Seconds (9.0-12.0)
[2021-09-18 04:32] LABS: Magnesium 1.8 mg/dl (1.8-2.4)
[2021-09-18] MEDS ORDERED: OPTIRAY 320 125ml IV ONE (04:45)
--- NOTE | 2021-09-18 05:56 | History & Physical Report ---
Date of Service September 18, 2021 Assessment & Plan (1) TIA (transient ischemic attack): Plan: TIA/resolved 30-minute episode of confusion and disorientation when falling asleep- The patient will be admitted to telemetry for serial cardiac enzymes, serial EKG's, cardiac rhythm monitoring and a 2-D echocardiogram with Dopplers. CT head negative, CTA head neck negative Stroke without TPA order set Consult PT/OT/speech/neurology Continue aspirin 81 mg daily, clopidogrel 75 mg daily Change simvastatin 40 mg to atorvastatin 40 mg for high-dose statin (2) Confusion and disorientation: Plan: His primary symptoms had resolved after 20 to 30 minutes, well before arriving in the emergency department (3) CAD (coronary artery disease): Plan: CAD/hypertension- Continue aspirin, clopidogrel, lisinopril and metoprolol succinate Permissive hypertension (4) HTN (hypertension): Plan: See above (5) Dyslipidemia: Plan: For at least during the admission, change simvastatin to atorvastatin as noted above Continue Zetia 10 mg daily Checking a fasting lipid panel (6) Diabetes type 2, controlled: Plan: Continue glargine 20 units subcu every evening Place on Accu-Cheks before meals and at bedtime with NovoLog coverage per scale Hold Metformin while in hospital Check hemoglobin A1c (7) Antiplatelet or antithrombotic long-term use: Plan: Continue aspirin and Plavix as noted above (8) Depression: Plan: On no specific treatment, but notes that his 9 months ago and has not yet adjusted (9) BPH (benign prostatic hyperplasia): Plan: No recent issues and on no specific treatment History of Present Illness Chief Complaint: The patient presents to the emergency department with complaint of a 20 to 30-minute episode of confusion that occurred as he was falling asleep this evening, reporting that he had a similar but more brief episode of confus ion when walking into his kitchen that lasted a few seconds duration about 3 years ago Primary Care Provider: Osei Garcia MD The patient is a 76-year-old male with a past medical history including nephrolithiasis, intertrigo, depression, CAD, memory deficits, dyslipidemia, diabetes mellitus type 2, tremor, TIA, BPH and hypertension. He presents with symptoms as noted above, but notes that they had resolved completely by the time he was in route to the hospital. He reports taking his medications as directed, including his aspirin and clopidogrel. He denies any recent travels or sick exposures. Chest x-ray: No acute findings CT head, CTA head neck showed no acute findings Laboratory findings of significance: Hemoglobin 17.5, hematocrit 50.4 and glucose 143. COVID-19 testing was negative in the ED Allergies Allergy/AdvReac Type Severity Reaction Status Date / Time No Known Drug Allergies Allergy Verified 06/27/21 15:26 Home Medications Medication Instructions Recorded Confirmed Type aspirin 81 mg tablet 81 mg PO DAILY tab 08/28/19 09/18/21 History lancets #100 ea 10/12/20 09/18/21 Rx lisinopril 10 mg tablet 10 mg PO QPM #90 tab 10/15/20 09/18/21 Rx metformin 500 mg tablet,extended See Rx Instructions .ROUTE 11/20/20 09/18/21 Rx release 24 hr .COMPLEX #360 tab pen needle, diabetic 32 gauge x #100 ea 01/21/21 09/18/21 Rx 5/32" (BD Ultra-Fine [place] Pen Needle) metoprolol succinate 25 mg See Rx Instructions .ROUTE 03/19/21 09/18/21 Rx tablet,extended release 24 hr .COMPLEX #45 tab simvastatin 40 mg tablet See Rx Instructions .ROUTE 03/19/21 09/18/21 Rx .COMPLEX #90 tab ezetimibe 10 mg tablet 10 mg PO DAILY #90 tab 06/12/21 09/18/21 Rx blood sugar diagnostic (OneTouch ea 06/19/21 09/18/21 History Ultra Blue Test Strip) clopidogrel 75 mg tablet See Rx Instructions .ROUTE 06/19/21 09/18/21 History .COMPLEX tab insulin glargine 100 unit/mL (3 20 unit SUBCUT QPM ml 06/19/21 09/18/21 History mL) subcutaneous pen (Lantus Solostar U-100 Insulin) Past Med/Surg History Medical History (Updated 09/18/21 @ 06:21 by Darnell Daniels MD) Hx of non-ST elevation myocardial infarction (NSTEMI) Hypertensive urgency Surgical History H/O heart artery stent Hx of cataract surgery S/P tonsillectomy and adenoidectomy Family History Mother , age 91 Stroke CHF (congestive heart failure) Father , age 86 with stroke Stroke Prostate cancer Other Diabetes Hypertension Social History Smoking Status: Never smoker Second Hand Exposure: No; Hx Alcohol Use: No Hx Substance Use: No Preferred Language: Chadian Communication Ability: Effective Hearing Ability: Normal Manager Communication Required: No Beliefs That Will Affect Care: None marital status: Current Living Situation: Spouse Current Living Situation Comment: patient lives in [place], [place] 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 [employer] Feels Safe at Home: Yes Childhood Exposure to Second-Hand Smoke: No Seatbelt Use: always Sunscreen Use: No Assistive Devices: Glasses Review of Systems Review of Systems: The patient denies chest pain, palpitations, shortness of breath, dyspnea on exertion, cough, lower extremity swelling, sore throat, fevers, chills, sweats, weight change, fatigue, nausea, vomiting, diarrhea , constipation, abdominal pain, pelvic pain, blood in urine or stool, dysuria, urinary frequency or urgency, loss of consciousness, rash, abnormal bruising or bleeding, imbalance, focal or generalized weakness, numbness or tingling in arms or legs, generalized arthralgias or myalgias, back or neck pain, or night sweats. The review of systems is otherwise negative other than for that already noted above, and at least 10 systems have been reviewed. Physical Exam Physical Exam: The patient is awake, alert and oriented 3, well developed and well nourished, normocephalic and atraumatic, lying in bed and in no acute distress. HEENT--PERRL, EOMI, mucous membranes and oropharynx normal. Neck--supple. No JVD. No bruits. Thyroid normal, trachea midline, no adenopathy. Heart--normal S1 and S2. No murmurs, rubs or gallops. Lungs--clear bilaterally, no respiratory distress, no accessory muscle use. Abdomen--normal bowel sounds and soft. Nontender. Nondistended, no hernias or masses, no organomegaly. Extremities--no cyanosis or clubbing. No edema. There are good distal pulses b/l. Dermatologic--normal skin turgor, normal color, no abnormal lymph nodes, no rash. Neurologic--cranial nerves II through XII grossly intact. BET noted bilateral upper extremities Rheumatologic--normal range of motion. Psychiatric--normal affect. Results & Data Results & Data ([facility]) Vital Signs (Past 12 Hours) Vital Signs Temp Pulse Resp BP Pulse Ox 09/18/21 05:00 69 144/79 H 96 09/18/21 04:07 71 16 163/97 H 97 09/18/21 03:09 97 09/18/21 02:55 97.9 F 81 18 196/105 H 96 Laboratory Results Laboratory Results WBC 8.38 K/uL (4.8-10.8) 09/18/21 02:45 RBC 5.77 M/uL (4.7-6.1) 09/18/21 02:45 Hgb 17.5 g/dL (14.0-18.0) 09/18/21 02:45 Hct 50.4 % (42-52) 09/18/21 02:45 MCV 87.3 fL (80-100) 09/18/21 02:45 MCH 30.3 pg (25-34) 09/18/21 02:45 MCHC 34.7 g/dL (32-36) 09/18/21 02:45 RDW Std Deviation 40.1 fL (36.4-46.3) 09/18/21 02:45 RDW Coeff of Leanna 12.7 % (11.5-14.5) 09/18/21 02:45 Plt Count 309 K/uL (130-400) 09/18/21 02:45 MPV 10.5 fL (7.4-10.4) H 09/18/21 02:45 Immature Gran % (Auto) 0.2 % 09/18/21 02:45 Neut % (Auto) 48.9 % 09/18/21 02:45 Lymph % (Auto) 36.4 % 09/18/21 02:45 [place] % (Auto) 6.8 % 09/18/21 02:45 Eos % (Auto) 6.3 % 09/18/21 02:45 Baso % (Auto) 1.4 % 09/18/21 02:45 Neut # (Auto) 4.09 K/uL (1.4-6.5) 09/18/21 02:45 Lymph # (Auto) 3.05 K/uL (1.2-3.4) 09/18/21 02:45 [place] # (Auto) 0.57 K/uL (0.11-0.59) 09/18/21 02:45 Eos # (Auto) 0.53 K/uL (0-0.5) H 09/18/21 02:45 Baso # (Auto) 0.12 K/uL (0-0.2) 09/18/21 02:45 Immature Gran # (Auto) 0.02 K/uL (0.00-0.02) 09/18/21 02:45 PT 10.8 Seconds (9.0-12.0) 09/18/21 04:05 INR 1.1 (0.9-1.1) 09/18/21 04:05 APTT 26.4 Seconds (21.0-31.0) 09/18/21 04:05 PTT Ratio 1.0 09/18/21 04:05 Sodium 137 mmol/L (136-145) 09/18/21 02:45 Potassium 3.9 mmol/L (3.5-5.1) 09/18/21 04:05 Chloride 102 mmol/L (98-107) 09/18/21 02:45 Carbon Dioxide 29 mmol/L (21-32) 09/18/21 02:45 Anion Gap 6.0 (3-11) 09/18/21 02:45 BUN 12 mg/dl (7-18) 09/18/21 02:45 Creatinine 0.86 mg/dl (0.6-1.4) 09/18/21 02:45 Est Cr Clr Drug Dosing 71.9 ml/min 09/18/21 02:45 Est GFR ( Amer) 96.9 ml/min 09/18/21 02:45 Est GFR (Non-Af Amer) 83.6 ml/min 09/18/21 02:45 BUN/Creatinine Ratio 13.5 (10-20) 09/18/21 02:45 Glucose 143 mg/dl (70-99) H 09/18/21 02:45 POC Glucose 127 mg/dl (70-99) H 09/18/21 03:29 Calcium 8.9 mg/dl (8.5-10.1) 09/18/21 02:45 Magnesium 1.8 mg/dl (1.8-2.4) 09/18/21 04:05 Total Bilirubin 0.5 mg/dl (0.2-1) 09/18/21 02:45 AST 20 U/L (15-37) 09/18/21 04:05 ALT 38 U/L (12-78) 09/18/21 02:45 Alkaline Phosphatase 99 U/L (45-117) 09/18/21 02:45 Troponin I < 0.015 ng/ml (0-0.045) 09/18/21 02:45 Total Protein 7.4 gm/dl (6.4-8.2) 09/18/21 02:45 Albumin 4.0 gm/dl (3.4-5.0) 09/18/21 02:45 Globulin 3.4 gm/dl (2.5-4.0) 09/18/21 02:45 Albumin/Globulin Ratio 1.2 (0.9-2) 09/18/21 02:45 COVID-19 Eval Order Covid19 at [facility] 09/18/21 04:14 SARS-CoV-2 (PCR) NEGATIVE (Negative) 09/18/21 04:14 Diagnostic Findings [facility] Patient: SOHAIL VAZ (Male) : 43 Status: ER Date: 09/18/21 04:48 Room #: History: CONFUSION, WEAKNESS ON RIGHT SIDE Slices: 59 Priors: Tech: Kwabena Manriquez @ [phone] Exams: CT HEAD Contrast: Accession Numbers: [id number] Referring Physician: REFERRED SELF Preliminary Findings Only See Final Report For Complete Findings CT HEAD: No acute or focal intracranial abnormality. Radiologist: Murray Brown MD Study ready at 04:50 and initial results transmitted at 05:18 *This report constitutes a preliminary interpretation only. Non-acute findings felt to be unrelated to the clinical presentation may not be discussed in this report. The study will be interpreted and a final report will be generated by the local Radiologist the following shift. To reach the hospital radiology department call [phone]. If a discrepancy is found between the preliminary and final interpretations of this study, please notify us via our Client Portal at [email or web address], under [email or web address].You can also fax this report with a description of the discrepancy, or include the final report, to our daytime fax number [phone].If faxing, please indicate the severity of discrepancy using one of the following categories: [ ] 1 - Agree/Informational [ ] 2 - Unlikely to Affect Management [ ] 3 - Possible Eventual Change of Management [ ] 4 - Probable Immediate Change of Management For all other patient related information, please fax us at [phone]. [id number] [facility] Patient: SOHAIL VAZ (Male) : 43 Status: ER Date: 09/18/21 04:49 Room #: History: CONFUSION AND WEAKNESS RIGHT SIDE Slices: [phone] Priors: Tech: Kwabena Manriquez @ [phone] Exams: CTA NECK Contrast: IV Amt: 119 ML OPTIRAY 320 Accession Numbers: [id number] Referring Physician: REFERRED SELF Preliminary Findings Only See Final Report For Complete Findings CTA NECK: No evidence of occlusion, significant stenosis or dissection in the major arteries of the neck. Radiologist: Murray Brown MD Study ready at 04:52 and initial results transmitted at 05:19 *This report constitutes a preliminary interpretation only. Non-acute findings felt to be unrelated to the clinical presentation may not be discussed in this report. The study will be interpreted and a final report will be generated by the local Radiologist the following shift. To reach the hospital radiology department call [phone]. If a discrepancy is found between the preliminary and final interpretations of this study, please notify us via our Client Portal at [email or web address].You can also fax this report with a description of the discrepancy, or include the final report, to our daytime fax number [phone].If faxing, please indicate the severity of discrepancy using one of the following categories: [ ] 1 - Agree/Informational [ ] 2 - Unlikely to Affect Management [ ] 3 - Possible Eventual Change of Management [ ] 4 - Probable Immediate Change of Management For all other patient related information, please fax us at [phone]. [id number] [facility] Patient: SOHAIL VAZ (Male) : 43 Status: ER Date: 09/18/21 04:50 Room #: History: CONFUSION AND WEAKNESS ON RIGHT SIDE Slices: 486 Priors: Tech: Kwabena Manriquez @ [phone] Exams: CTA HEAD Contrast: IV Amt: 119 ML OPTIRAY 320 Accession Numbers: [id number] Referring Physician: REFERRED SELF Preliminary Findings Only See Final Report For Complete Findings CTA HEAD: No evidence of aneurysm, significant stenosis or major intracranial branch occlusion. Major intracranial venous structures enhance normally. Radiologist: Murray Brown MD Study ready at 04:52 and initial results transmitted at 05:20 *This report constitutes a preliminary interpretation only. Non-acute findings felt to be unrelated to the clinical presentation may not be discussed in this report. The study will be interpreted and a final report will be generated by the local Radiologist the following shift. To reach the hospital radiology department call [phone]. If a discrepancy is found between the preliminary and final interpretations of this study, please notify us via our Client Portal at [email or web address].You can also fax this report with a description of the discrepancy, or include the final report, to our daytime fax number [phone].If faxing, please indicate the severity of discrepancy using one of the following categories: [ ] 1 - Agree/Informational [ ] 2 - Unlikely to Affect Management [ ] 3 - Possible Eventual Change of Management [ ] 4 - Probable Immediate Change of Management For all other patient related information, please fax us at [phone]. [id number] Code Status & VTE Plan Code Status Full code VTE Prophylaxis Plan VTE Prophylaxis will be ordered: Yes PG Care Time/CCT Total # of Minutes Spent Total Time Spent with Patient: Total time spent is greater than 50% in coordin ation of care (as documented) at patient's floor/unit and/or counseling patient: Coding Level of Care Code INT OBSERVATION CARE 70M LVL 3 Diagnoses TIA (transient ischemic attack) G45.9 BPH (benign prostatic hyperplasia) N40.0 HTN (hypertension) I10 CAD (coronary artery disease) I25.10 Depression F32.9 Dyslipidemia E78.5 Diabetes type 2, controlled E11.9 Confusion and disorientation R41.0 Antiplatelet or antithrombotic long-term use Z79.02
[2021-09-18] MEDS ORDERED: ASPIRIN CHEW 324 MG PO STA (06:16)
--- NOTE | 2021-09-18 06:46 | XRay Report ---
XR chest 1V portable CLINICAL HISTORY: Stroke Like Symptoms COMPARISON STUDY: Chest radiograph February 02, 2019. FINDINGS: Lung volumes are normal. Lungs are clear. There is no pneumothorax or pleural effusion. Car diac size is normal. Mediastinal contours are normal. There is no evidence for pulmonary edema. IMPRESSION: No acute cardiopulmonary findings. ACT 112: Negative or not required by law. Electronically signed by: Blake Summers M.D. 09/18/2021 6:45 AM
--- NOTE | 2021-09-18 06:46 | CT Scan Report ---
CT OF THE HEAD WITHOUT CONTRAST CLINICAL HISTORY: Stroke Like Symptoms COMPARISON STUDY: Head CT, CTA of the head February 02, 2019. MRI of the brain February 03, 2019. TECHNIQUE: Helical axial images of the head were obtained without IV contrast. Automated exposure con trol was utilized for the study. A dose lowering technique was utilized adhering to the principles o f ALARA. FINDINGS: No acute intracranial hemorrhage, midline shift or mass effect is present. The ventricular system is stable. The basal cisterns are patent. No extra-axial collections are present. There are no findings to suggest acute dural sinus thrombosis or acute territorial infarct. No significant calvar ial abnormalities are present. Visualized portions of the sinuses and mastoid air cells are clear. IMPRESSION: No acute intracranial findings. ACT 112: Negative or not required by law. Electronically signed by: Blake Summers M.D. 09/18/2021 6:44 AM
--- NOTE | 2021-09-18 07:11 | CT Scan Report ---
CT angio neck with con, CT angio head w con CLINICAL HISTORY: 76 years-old Male with Stroke Like Symptoms. Acute strokelike symptoms COMPARISON STUDY: Head CT of same day, CTA head and neck 02/02/2019 TECHNIQUE: Following the IV administration of 119 mL of Optiray, CT angiogram of the head and neck wa s performed from the aortic arch to the skull apex. Images are reviewed in the axial, sagittal, and c oronal planes. 3-D MIPS images are created and assessed. IV contrast was administered without complic ation. All measurements were calculated based on NASCET criteria. A dose lowering technique was util ized adhering to the principles of ALARA. CT DOSE: 1096.50 mGy.cm FINDINGS: Mild atherosclerosis of the thoracic aorta. There is patency of the innominate and imaged subclavian arteries. The common and internal carotid arteries are patent. Mild atherosclerotic plaque of the pro ximal cervical segment left ICA with additional mild atherosclerosis of the supraclinoid segments of the internal carotid arteries. The middle and anterior cerebral arteries are patent. Codominant and p atent vertebral arteries. There is mild multifocal atherosclerosis of the left vertebral artery witho ut high-grade stenosis. Unchanged small filling defects within the basilar artery on image 368 series 6 suggestive of a small fenestration. The basilar artery is otherwise unremarkable. Patent posterior cerebral arteries. Cerebral venous sinuses are patent. There is no abnormal intracranial enhancement . No pneumothorax. Subcentimeter hypodense thyroid nodules. Unremarkable soft tissues of the neck. Dege nerative changes of the cervical spine. IMPRESSION: 1. Mild atherosclerosis without aneurysm, dissection, high-grade stenosis or arterial occlusion. 2. 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 ACT 112: Negative or not required by law. The above report was generated using voice recognition software. It may contain grammatical, syntax o r spelling errors. Electronically signed by: Volodymyr Bianchi M.D. 09/18/2021 7:10 AM
[2021-09-18] MEDS ORDERED: DEXTROSE 50% 50 ML SYRINGE IV PRN (07:40)
[2021-09-18] MEDS ORDERED: ONDANSETRON INJ 2 MG/ML 2 ML VIAL IV PRN (07:40)
[2021-09-18] MEDS ORDERED: PHARMACIST DISCHARGE MED REC CONSULT PRN (07:40)
[2021-09-18] MEDS ORDERED: GLUCOSE 10 TABS/TUBE PO PRN (07:40)
[2021-09-18] MEDS ORDERED: GLUCOSE 40% GEL 15 GM TUBE PO PRN (07:40)
[2021-09-18] MEDS ORDERED: GLUCAGON FOR INJ 1 MG VIAL SQ PRN (07:40)
[2021-09-18] MEDS ORDERED: CARBOHYDRATES FOR HYPOGLYCEMIA PO PRN (07:40)
[2021-09-18] MEDS ORDERED: ACETAMINOPHEN 325 MG TAB PO PRN (07:40)
[2021-09-18] MEDS: ASPIRIN 81 MG ECTAB PO SCH (08:04)
[2021-09-18] MEDS: INSULIN ASPART 100 UNITS/ML 3 ML PEN SC SCH ×4 (08:27→21:04)
[2021-09-18] MEDS: CLOPIDOGREL BISULFATE 75 MG TAB PO SCH (09:25)
[2021-09-18] MEDS: HEPARIN SOD 5,000 UNIT/0.5 ML VIAL SQ SCH ×2 (09:26→20:58)
--- NOTE | 2021-09-18 11:18 | Neurology Consultation ---
Date of Consultation September 18, 2021 Assessment & Plan (1) TIA (transient ischemic attack): (2) Tremor: Patient's reported symptoms are potentially consistent with a TIA presenting with what sounds like an episode of expressive aphasia, but without associated hemiparesis or other obvious neurologic deficits. He does have several stroke risk factors and is already taking dual antiplatelet therapy and two cholesterol-lowering medications. This patient's simvastatin has been discontinued in favor of atorvastatin which is reasonable. His clopidogrel and low-dose aspirin have been continued which is reasonable as well. He does not have any significant vascular lesions on CT angiography of the head and neck. Patient will need a brain MRI and up-to-date echocardiogram. Would also recommend 30-day mobile cardiac outpatient telemetry. It is notable that his symptoms began while he was in bed and he may have been in the early stages of sleep at symptom onset. I wonder if a REM sleep behavioral disorder or other abnormality of sleep architecture could be responsible for his symptoms. I see that during an admission to the [facility] in January 2019, he had neurological symptoms upon awakening in the morning characterized by yelling and confusion and associated amnesia. It may be worthwhile to refer this patient for a sleep medicine assessment as an outpatient. Patient may follow-up with Dr. Tate in the outpatient setting for further ongoing neurologic care. History of Present Illness Reason for Consultation: TIA Requesting Physician: Darnell Daniels MD Attending Physician: Darnell Daniels MD History of Present Illness The patient is a 76-year-old male with a chief complaint of confusion. Symptoms began at around 12 or 12:30 last night, he was lying in bed at that time, thinks he may have been about to fall asleep at symptom onset. Recalls feeling confused, attempted to speak but could not find words. He does live by himself, for the past 8 months. He recalls feeling a little off balance as well but otherwise denies any other specific or focal neurologic symptoms. No vision loss, diplopia, focal weakness, vertigo, or dysarthria. He waited about half hour or so prior to calling emergency medical services. His symptoms resolved by the time he was assessed in the emergency department, however. He was hypertensive. He had an intact neurological examination. CT of the head and CT angiography of the head and neck were completed and were unremarkable. No hemorrhage or acute process. Does have mild atherosclerotic change although no significant stenosis or occlusive disease. This patient did have a brain MRI completed this past January for confusion occurring in the context of hypertensive urgency. The study had revealed chronic small vessel ischemic disease and was otherwise negative for acute or subacute infarct. Past medical history is notable for hypertension, dyslipidemia, insulin-dependent diabetes mellitus and coronary artery disease. He is prescribed dual antiplatelet therapy as an out patient and is also taking Zetia and Zocor. This morning, the patient denies experiencing any recurrence of word finding difficulty. He does relate a history of tremor for which she has been evaluated by Dr. Tate in the past although he is not prescribed any specific medication. He does complain of some subtle difficulty focusing his vision, perhaps more so with the right eye than the left. He also complains of a low-grade headache. Allergies Allergy/AdvReac Type Severity Reaction Status Date / Time No Known Drug Allergies Allergy Verified 06/27/21 15:26 Home Medications Medication Instructions Recorded Confirmed Type aspirin 81 mg tablet 81 mg PO DAILY tab 08/28/19 09/18/21 History lancets #100 ea 10/12/20 09/18/21 Rx lisinopril 10 mg tablet 10 mg PO QPM #90 tab 10/15/20 09/18/21 Rx metformin 500 mg tablet,extended See Rx Instructions .ROUTE 11/20/20 09/18/21 Rx release 24 hr .COMPLEX #360 tab pen needle, diabetic 32 gauge x #100 ea 01/21/21 09/18/21 Rx 5/32" (BD Ultra-Fine [place] Pen Needle) metoprolol succinate 25 mg See Rx Instructions .ROUTE 03/19/21 09/18/21 Rx tablet,extended release 24 hr .COMPLEX #45 tab simvastatin 40 mg tablet See Rx Instructions .ROUTE 03/19/21 09/18/21 Rx .COMPLEX #90 tab ezetimibe 10 mg tablet 10 mg PO DAILY #90 tab 06/12/21 09/18/21 Rx blood sugar diagnostic (OneTouch ea 06/19/21 09/18/21 History Ultra Blue Test Strip) clopidogrel 75 mg tablet See Rx Instructions .ROUTE 06/19/21 09/18/21 History .COMPLEX tab insulin glargine 100 unit/mL (3 20 unit SUBCUT QPM ml 06/19/21 09/18/21 History mL) subcutaneous pen (Lantus Solostar U-100 Insulin) Patient History Medical History (Updated 09/18/21 @ 06:21 by Darnell Daniels MD) Hx of non-ST elevation myocardial infarction (NSTEMI) Hypertensive urgency Surgical History H/O heart artery stent Hx of cataract surgery S/P tonsillectomy and adenoidectomy Family History Mother , age 91 Stroke CHF (congestive heart failure) Father , age 86 with stroke Stroke Prostate cancer Other Diabetes Hypertension Social History Smoking Status: Never smoker Second Hand Exposure: No; Hx Alcohol Use: No Hx Substance Use: No Preferred Language: Panamanian Communication Ability: Effective Hearing Ability: Normal Video Poker Floorman Required: No Beliefs That Will Affect Care: None marital status: Current Living Situation: Alone Current Living Situation Comment: for 9 months 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 [employer] Feels Safe at Home: Yes Childhood Exposure to Second-Hand Smoke: No Seatbelt Use: always Sunscreen Use: No Assistive Devices: Glasses Review of Systems Constitutional: no fever and no chills Eyes: no blind spots and no diplopia Ear, Nose, Mouth, Throat: no ear pain and no hearing loss Respiratory: no cough and no dyspnea Cardiovascular: no chest pain and no palpitations Gastrointestinal: no constipation and no diarrhea/loose stools Genitourinary: no urinary incontinence or no urinary urgency Musculoskeletal: no muscle weakness and no muscle atrophy Integumentary: no rash and no lesions Neurologic: as per Subjective / HPI Psychiatric: no behavioral changes, no depression, no abnormal sleep pattern and no anxiety Hematologic / Lymphatic: no easy bruising and no lymphadenopathy Exam (Neuro) Constitutional: well developed and well nourished; no acute distress Eyes: normal visual pacheco by confrontation, PERRL, normal accommodation and EOM intact bilaterally; no fundoscopic abnormality, no nystagmus and no papilledema Cardiovascular: Vessels: normal carotid upstroke; no carotid bruit Neurologic: Oriented to:: Person, Place and Time Memory: Short Term Intact and Remote Intact Attention: Span Intact and Concentration Intact Language: Naming Objects and Repeating Phrases Speech Fluency: negative Dysarthria Speech Aphasia: negative Aphasia Fund of Knowledge: Current Events, Past History and Vocabulary Cranial Nerves: Normal II (Visual pacheco full to confrontation, visual acuity normal), III, IV, (Pupils equal round reactive to light and accommodation, eye movements normal), V (Facial sensation intact), VII (There is no facial droop or weakness), VIII (Hearing intact), IX, X (Palate elevates to midline), XI (Shoulder shrug intact) and XII (Tongue protrudes to midline) Motor Strength: Normal Lower Extremities and Normal Upper Extremities; negative Pronator Drift Motor Tone: Normal Lower Extremities and Normal Upper Extremities Muscle Bulk/Involuntary Movements: Action Tremor; negative Muscle Atrophy or Rest Tremor (Arm) Sensation: Light Touch Intact, Pain/Temperature Intact, Vibration Intact and Proprioception Intact Coordination: Normal; negative Limited Balance, Dysdiadochokinesia, Finger-Nose Abnormal or Heel-Rubi Abnormal Deep Tendon Reflexes: Rt Triceps: 1+, Lt Triceps: 1+, Rt Biceps: 1+, Lt Biceps: 1+, Rt Brachioradialis: 1+, Lt Brachioradialis: 1+, Rt Patellar: 1+, Lt Patellar: 1+, Rt Ankle: 1+ and Lt Ankle: 1+ Special Tests: negative Babinski Present Gait: Normal Station and Gait Results & Data ([facility]) Vital Signs (Past 12 Hours) Vital Signs Temp Pulse Pulse Resp BP BP BP 09/18/21 10:51 36.6 C 74 16 154/85 H 09/18/21 07:44 36.6 C 73 20 161/91 H 09/18/21 07:43 74 09/18/21 06:30 68 20 151/88 H 09/18/21 06:08 74 18 193/96 H 09/18/21 05:00 69 144/79 H 09/18/21 04:07 71 16 163/97 H 09/18/21 03:09 09/18/21 02:55 36.6 C 81 18 196/105 H Pulse Ox 09/18/21 10:51 09/18/21 07:44 98 09/18/21 07:43 09/18/21 06:30 96 09/18/21 06:08 96 09/18/21 05:00 96 09/18/21 04:07 97 09/18/21 03:09 97 09/18/21 02:55 96 Laboratory Results WBC 8.38, hemoglobin 17.5, hematocrit 50.4, platelet count 309, sodium 137, potassium 3.9, BUN 12, creatinine 0.86, glucose 143, hemoglobin A1c 7.7, magnesium 1.8, AST 20, ALT [address] of the head and CT angiography of the head and neck have been reviewed and are as described in the history of present illness. 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 I reviewed the images as well as the radiologist interpretation of these tests. Electrocardiogram reveals a normal sinus rhythm, 77 bpm. Coding Level of Care Code 61342 Initial Inpt Care Lvl 3 Diagnoses TIA (transient ischemic attack) G45.9 Tremor R25.1
[2021-09-18] MEDS: ATORVASTATIN 40 MG TAB PO SCH (12:26)
--- NOTE | 2021-09-18 13:06 | XCELERA ---
[id number]
--- NOTE | 2021-09-18 14:52 | Magnetic Resonance Report ---
MR brain wo con CLINICAL HISTORY: TIA episode of confusion and difficulty speaking this morning, symptoms have since resolved. TECHNIQUE: Multiplanar and multisequence MR images of the brain were obtained without intravenous con trast. Comparison: Comparison is made to MRI brain 02/03/2019 FINDINGS: No abnormal restricted diffusion is identified. Foci of T2 and FLAIR hyperintensity are noted in the paraventricular areas consistent with chronic small vessel ischemic disease. Ex vacuo ventriculomegal y and sulcal enlargement is noted compatible with diffuse encephalomalacia. Hemorrhage No extra axial fluid collections are seen. There are no masses, mass effect, or midline shift. The corpus callosum , pituitary gland, and cerebellar tonsils appear grossly unremarkable. Flow voids of the major intracranial arterial vessels are identified. The imaged portions of the para nasal sinuses, mastoid air cells, and orbits are unremarkable. 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 No evidence of acute infarct. ACT 112: Negative or not required by law. Electronically signed by: Bony Rahman M.D. 09/18/2021 2:51 PM
--- NOTE | 2021-09-18 19:21 | Communication Note ---
Date of Service: September 18, 2021 Patient was admitted early this morning for confusion and disorientation. This episode resolved spontaneously and has not returned throughout the day. MRI negative for CVA. Echo without abnormality. Work-up has been unremarkable. Will monitor on telemetry for any arrythmia and plan for outpatient event monitor to assess for any contribution (afib/flutter). As well, may benefit from sleep medicine referral as a sleep disturbance may be contributing. No focal neurological deficits appreciated. Anticipate ability to return home tomorrow. Asked if he would like anyone updated and he said he would be able to do that.
--- NOTE | 2021-09-19 05:44 | Electrocardiogram Report ---
Test Reason : Blood Pressure : / mmHG Vent. Rate : 077 BPM Atrial Rate : 077 BPM P-R Int : 192 ms QRS Dur : 088 ms QT Int : 374 ms P-R-T Axes : 045 002 058 degrees QTc Int : 423 ms Normal sinus rhythm Anteroseptal infarct (cited on or before 02-FEB-2019) Abnormal ECG When compared with ECG of 02-FEB-2019 11:18, Questionable change in initial forces of Anterior leads Confirmed by Kristopher Pitts ([id number]) on 09/19/2021 5:44:20 AM Referred By: REFERRED SELF Confirmed By:Kristopher Pitts
[2021-09-19 06:33] LABS: Basophils # (auto) 0.09 K/uL (0-0.2); Basophils % (auto) 1.2 %; Eosinophils # (auto) 0.34 K/uL (0-0.5); Eosinophils % (auto) 4.5 %; Hematocrit (blood only) 45.2 % (42-52); Hemoglobin 15.9 g/dL (14.0-18.0); Immature Granulocytes # (auto) 0.02 K/uL (0.00-0.02); Immature Granulocytes % (auto) 0.3 %; Lymphocytes # (auto) 2.09 K/uL (1.2-3.4); Lymphocytes % (auto) 27.8 %; Mean Corpuscular Hemoglobin 30.1 pg (25-34); Mean Corpuscular Hgb Conc 35.2 g/dL (32-36); Mean Corpuscular Volume 85.6 fL (80-100); Mean Platelet Volume 10.3 fL (7.4-10.4); Monocytes # (auto) 0.64 K/uL (0.11-0.59); Monocytes % (auto) 8.5 %; Neutrophils # (auto) 4.34 K/uL (1.4-6.5); Neutrophils % (auto) 57.7 %; Platelet Count 307 K/uL (130-400); RDW Standard Deviation 40.6 fL (36.4-46.3); Red Blood Count 5.28 M/uL (4.7-6.1); White Blood Count 7.52 K/uL (4.8-10.8)
[2021-09-19 07:05] LABS: Albumin Level 3.5 gm/dl (3.4-5.0); BUN Creatinine Ratio 17.7 (10-20); Calcium 8.9 mg/dl (8.5-10.1); Creatinine Clr Calc Pharmacy 79.3 ml/min; Est GFR (African American) 100.9 ml/min; Est GFR (Non-African American) 87.1 ml/min; Potassium 3.8 mmol/L (3.5-5.1)
[2021-09-19 07:08] LABS: Albumin Globulin Ratio 1.2 (0.9-2); Bilirubin,Total 0.6 mg/dl (0.2-1); Globulin 2.9 gm/dl (2.5-4.0); Total Protein 6.4 gm/dl (6.4-8.2)
[2021-09-19 07:26] LABS: Estimated Average Glucose 183 mg/dl
[2021-09-19] MEDS: ASPIRIN 81 MG ECTAB PO SCH (08:04)
[2021-09-19] MEDS: CLOPIDOGREL BISULFATE 75 MG TAB PO SCH (08:05)
[2021-09-19] MEDS: ATORVASTATIN 40 MG TAB PO SCH (08:05)
[2021-09-19] MEDS: INSULIN ASPART 100 UNITS/ML 3 ML PEN SC SCH ×3 (08:07→17:19)
[2021-09-19] MEDS ORDERED: METOPROLOL SUCC 25MG EXT REL TAB PO SCH (09:00)
[2021-09-19] MEDS: HEPARIN SOD 5,000 UNIT/0.5 ML VIAL SQ SCH (09:23)
[2021-09-19 15:11] VITALS: BP 183/91; TEMP 98.2; O2SAT 97
[2021-09-19] MEDS ORDERED: lisinopril 10 MG TAB PO STA (15:51)
[2021-09-19] MEDS ORDERED: STROKE PATIENT DISCHARGE STA (16:05)
[2021-09-19 16:57] VITALS: PULSE 80
--- NOTE | 2021-09-19 19:29 | Discharge Summary ---
Date of Service September 19, 2021 Admission HPI Per Admitting Provider The patient is a 76-year-old male with a past medical history including nephrolithiasis, intertrigo, depression, CAD, memory deficits, dyslipidemia, diabetes mellitus type 2, tremor, TIA, BPH and hypertension. He presents with symptoms as noted above, but notes that they had resolved completely by the time he was in route to the hospital. He reports taking his medications as directed, including his aspirin and clopidogrel. He denies any recent travels or sick exposures. Chest x-ray: No acute findings CT head, CTA head neck showed no acute findings Laboratory findings of significance: Hemoglobin 17.5, hematocrit 50.4 and glucose 143. COVID-19 testing was negative in the ED Principal Diagnosis Possible TIA; Possible Sleep Disturbance vs Depression vs Cognitive Decline Discharge Exam PHYSICAL EXAM General Appearance: WDWN in NAD who is A&O x 3 HEENT: Head is normocephalic/atraumatic; Hearing grossly intact; Mucous membranes moist Neck: Supple; Trachea midline; Neg JVD Heart: RRR with no M/G/R Lungs: CTA in all lung pacheco bilaterally; Respirations unlabored; Neg accessory muscle use Abdomen: Soft, non-tender, non-distended; Positive BS x 4 quadrants Extremities: Neg cyanosis or edema Neurological: Speech clear; Gross motor/sensory function intact; Neg focal neurologic deficits; gait is steady Psychiatric: Appropriate mood/affect; short term memory deficit (forgetful) however alert and oriented and when given time his recall is accurate Skin: Normal Color; Warm/Dry Discharge Data Allergies Allergy/AdvReac Type Severity Reaction Status Date / Time No Known Drug Allergies Allergy Verified 06/27/21 15:26 Consultations 09/18/21 06:31 ED Decision to Admit Stat 09/18/21 07:40 Consult Neurology Routine Ordered Studies Chest X-Ray 09/18/21 03:18 XR chest 1V portable CLINICAL HISTORY: Stroke Like Symptoms COMPARISON STUDY: Chest radiograph February 02, 2019. FINDINGS: Lung volumes are normal. Lungs are clear. There is no pneumothorax or pleural effusion. Cardiac size is normal. Mediastinal contours are normal. There is no evidence for pulmonary edema. IMPRESSION: No acute cardiopulmonary findings. ACT 112: Negative or not required by law. Electronically signed by: Blake Summers M.D. 09/18/2021 6:[address] 09/18/21 03:18 CT OF THE HEAD WITHOUT CONTRAST CLINICAL HISTORY: Stroke Like Symptoms COMPARISON STUDY: Head CT, CTA of the head February 02, 2019. MRI of the brain February 03, 2019. TECHNIQUE: Helical axial images of the head were obtained without IV contrast. Automated exposure control was utilized for the study. A dose lowering technique was utilized adhering to the principles of ALARA. FINDINGS: No acute intracranial hemorrhage, midline shift or mass effect is present. The ventricular system is stable. The basal cisterns are patent. No extra-axial collections are present. There are no findings to suggest acute dural sinus thrombosis or acute territorial infarct. No significant calvarial abnormalities are present. Visualized portions of the sinuses and mastoid air cells are clear. IMPRESSION: No acute intracranial findings. ACT 112: Negative or not required by law. Electronically signed by: Blake Summers M.D. 09/18/2021 6:44 AM Head CTA 09/18/21 03:18 CT angio neck with con, CT angio head w con CLINICAL HISTORY: 76 years-old Male with Stroke Like Symptoms. Acute strokelike symptoms COMPARISON STUDY: Head CT of same day, CTA head and neck 02/02/2019 TECHNIQUE: Following the IV administration of 119 mL of Optiray, CT angiogram of the head and neck was performed from the aortic arch to the skull apex. Images are reviewed in the axial, sagittal, and coronal planes. 3-D MIPS images are created and assessed. IV contrast was administered without complication. All measurements were calculated based on NASCET criteria. A dose lowering technique was utilized adhering to the principles of ALARA. CT DOSE: 1096.50 mGy.cm FINDINGS: Mild atherosclerosis of the thoracic aorta. There is patency of the innominate and imaged subclavian arteries. The common and internal carotid arteries are patent. Mild atherosclerotic plaque of the proximal cervical segment left ICA with additional mild atherosclerosis of the supraclinoid segments of the internal carotid arteries. The middle and anterior cerebral arteries are patent. Codominant and patent vertebral arteries. There is mild multifocal atheroscleros is of the left vertebral artery without high-grade stenosis. Unchanged small filling defects within the basilar artery on image 368 series 6 suggestive of a small fenestration. The basilar artery is otherwise unremarkable. Patent posterior cerebral arteries. Cerebral venous sinuses are patent. There is no abnormal intracranial enhancement. No pneumothorax. Subcentimeter hypodense thyroid nodules. Unremarkable soft tissues of the neck. Degenerative changes of the cervical spine. IMPRESSION: 1. Mild atherosclerosis without aneurysm, dissection, high-grade stenosis or arterial occlusion. 2. 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 ACT 112: Negative or not required by law. The above report was generated using voice recognition software. It may contain grammatical, syntax or spelling errors. Electronically signed by: Volodymyr Bianchi M.D. 09/18/2021 7:10 AM Neck CTA 09/18/21 03:18 CT angio neck with con, CT angio head w con CLINICAL HISTORY: 76 years-old Male with Stroke Like Symptoms. Acute strokelike symptoms COMPARISON STUDY: Head CT of same day, CTA head and neck 02/02/2019 TECHNIQUE: Following the IV administration of 119 mL of Optiray, CT angiogram of the head and neck was performed from the aortic arch to the skull apex. Images are reviewed in the axial, sagittal, and coronal planes. 3-D MIPS images are created and assessed. IV contrast was administered without complication. All measurements were calculated based on NASCET criteria. A dose lowering technique was utilized adhering to the principles of ALARA. CT DOSE: 1096.50 mGy.cm FINDINGS: Mild atherosclerosis of the thoracic aorta. There is patency of the innominate and imaged subclavian arteries. The common and internal carotid arteries are patent. Mild atherosclerotic plaque of the proximal cervical segment left ICA with additional mild atherosclerosis of the supraclinoid segments of the internal carotid arteries. The middle and anterior cerebral arteries are patent. Codominant and patent vertebral arteries. There is mild multifocal atherosclerosis of the left vertebral artery without high-grade stenosis. Unchanged small filling defects within the basilar artery on image 368 series 6 suggestive of a small fenestration. The basilar artery is otherwise unremarkable. Patent posterior cerebral arteries. Cerebral venous sinuses are patent. There is no abnormal intracranial enhancement. No pneumothorax. Subcentimeter hypodense thyroid nodules. Unremarkable soft tissues of the neck. Degenerative changes of the cervical spine. IMPRESSION: 1. Mild atherosclerosis without aneurysm, dissection, high-grade stenosis or arterial occlusion. 2. 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 ACT 112: Negative or not required by law. The above report was generated using voice recognition software. It may contain grammatical, syntax or spelling errors. Electronically signed by: Volodymyr Bianchi M.D. 09/18/2021 7:10 AM Brain MRI 09/18/21 07:40 MR brain wo con CLINICAL HISTORY: TIA episode of confusion and difficulty speaking this morning, symptoms have since resolved. TECHNIQUE: Multiplanar and multisequence MR images of the brain were obtained without intravenous contrast. Comparison: Comparison is made to MRI brain 02/03/2019 FINDINGS: No abnormal restricted diffusion is identified. Foci of T2 and FLAIR hyperintensity are noted in the paraventricular areas consistent with chronic small vessel ischemic disease. Ex vacuo ventriculomegaly and sulcal enlargement is noted compatible with diffuse encephalomalacia. Hemorrhage No extra axial fluid collections are seen. There are no masses, mass effect, or midline shift. The corpus callosum, pituitary gland, and cerebellar tonsils appear grossly unremarkable. Flow voids of the major intracranial arterial vessels are identified. The imaged portions of the paranasal sinuses, mastoid air cells, and orbits are unremarkable. 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 No evidence of acute infarct. ACT 112: Negative or not required by law. Electronically signed by: Bony Rahman M.D. 09/18/2021 2:51 PM Hospital Course (1) TIA (transient ischemic attack): - Patient awoke from his sleep with disorientation that spontaneously resolved in about 30 minutes - no focal deficits just disorientation - Work-up has been unremarkable except for age related changed on MRI - it is possible this was a TIA as it cannot be excluded - Continue ASA and Plavix. Converted Simvastatin to Atorvastatin - Per neurology recommendations - recommend outpatient ekg monitor tech and sleep evaluation given that this has happened a couple times with sleep Extensive time spent with patient today and talking with great-nephew Valentin and Daughter Anna Marie. During admission, patient would be forgetful (kept forgetting he didn't have shoes here, how he got here, etc.). Most forgetfulness revolved around short term events. However, if given the time to rationalize he would be able to piece everything together accurately to the point of recalling his elevated blood pressure readings overnight, talking with Dr. Milton and Dr. Jennings, the events that led him to the hospital, etc. I walked the hallways with him for about 20 minutes today just talking about random topics which he exhibits good executive functioning but again some short term recall was challenging. I feel the hospital environment may have exacerbated some of these findings. He also reports he has had poor sleep. Waking up frequently at night and feeling tired in the AM. Discussed with his daughter in [place] and she states she noticed his sleeping may have worsened after the loss of his . She has noted his memory has be gradually worsening (short term) for quite some time. Even notes that when he comes to [place] to visit he gets confused more easily. However, when he is in his normal environment his seems to function well. 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 He looks well-nourished and well kept. The nephew also reports he has noticed intermittent short term memory issues and has been visiting with him periodically over the last couple weeks. This could be multifactorial. I suspect some underlying memory deficits. However, given the recent passing of his and one daughter he has been relatively isolated according to family and do wonder if depression is playing a role. In addition, poor sleep habits. There is no obvious source of infection and neurological test was unremarkable. He is in agreement for services and will discuss with case management as they were gone for the day by the time of discharge. He may benefit from OOA evaluation. He is alert and oriented and can recall recommendations and I cannot say he is incompetent to make the decision to go home. Discussed with Anna Marie that sometimes phone calls to just have a familiar voice can help keep him grounded. His nephew stated he can check on him and help him settle in as well. Did bridge the topic that he may need independent living or an environment that would allow for more monitoring possibly in the near future. Would recommend sleep evaluation and possibly consider treatment for depression. Will try and arrange close follow-up with PCP and will try and reach out to Dr. Garcia tomorrow. Mr. Woodson is at high risk for coming back to the hospital however is medically stable for discharge at this time. (2) Confusion and disorientation: - His primary symptoms had resolved after 20 to 30 minutes, well before arriving in the emergency department - Does have intermittent forgetfulness during admission - see above (3) CAD (coronary artery disease): - CAD/hypertension- - Continue aspirin, clopidogrel, lisinopril and metoprolol succinate (4) HTN (hypertension): See above (5) Dyslipidemia: Change to Atorvastatin Continue Zetia 10 mg daily (6) Diabetes type 2, controlled: - Continue home regimen (7) Antiplatelet or antithrombotic long-term use: Continue aspirin and Plavix as noted above (8) Depression: - Situational given the loss of his daughter and less than a year ago - See above (9) BPH (benign prostatic hyperplasia): No recent issues and on no specific treatment Total Time Total Time Spent Total Time Spent (In Minutes): Spent greater than 30 minutes preparing patient for discharge. This includes discussion with patient/family, assessment, intervention, medication reconciliation, and coordination of care. Discharge Plan Discharge Items Patient Disposition: Home - Self-Care Reason For Visit: TIA Discharge Diagnosis: Transient Ischemic Attack Activity: Resume your previous activity Non-emergency contact: Primary Care Provider Call non-emergency contact if: you have any medication questions, your symptoms worsen and you have a fever Follow-up/Referrals: Osei Garcia MD [Primary Care Provider] - (Please arrange close follow-up -- 5 days if possible) Diet: Regular Addtl Attending Provider Instructions: Transient Ischemic Attack: - Some people may call this a mini-stroke. However, it is when you have neurological symptoms that resolve without causing any changes to your brain - Thankfully your imaging does not show any strokes, just age related changed which is to be expected - You will continue you home medications. The only change was we changed your Simvastatin over to Atorvastatin because it has slightly better control to help prevent mini-strokes or strokes in the future - We also will discuss with your family doctor about seeing to get sleep studies completed as this may be contributing to your episodes since they predominantly happen when you wake up -- If you are not getting good sleep that definitely could cause you to have some disorientation and forgetfulness - We will also coordinate for a heart monitor to be delivered to your house to see if any abnormal heart rhythms could be contributing. Risk Factors for Stroke: You can reduce your chances of stroke by working with your medical provider to adopt a healthy lifestyle. Some specific ways to lower your chance of stroke are: * If you are a smoker, now is the time to stop smoking cigarettes * If you are diabetic, improve the control of your blood sugars * Avoid excessive amounts of alcohol * Control high blood pressure * Lose weight if you are overweight * Be sure to lead an active lifestyle * Eat a healthy diet low in salt, cholesterol and fat You should know about other risk factors for stroke that you are unable to control. These include: * Age 55 years or older * Male gender * Certain racial groups: , or / * Family History of Stroke, Mini stroke or Heart Attack * Sickle Cell Disease Follow Up: It is important for you to keep your follow up appointments with your medical provider. Who to Call and When: Medical Emergencies: Call 911 immediately if you experience any of the following warning signs and symptoms of Stroke: * Sudden numbness or weakness of the face, arm or leg, especially on one side of the body * Sudden confusion, trouble speaking or understanding * Sudden trouble seeing in one or both eyes * Sudden trouble walking, dizziness, loss of balance or coordination * Sudden severe headache with no cause Do not delay calling 911 if you experience any warning signs or symptoms of a stroke. Delay in seeking medical attention may affect what treatments can be given to you. . . Pending Studies at Discharge: No Stand-Alone Forms: My [facility], Smoking Cessation Medications and DC Order Prescriptions: New atorvastatin 40 mg Tablet 40 mg PO QAM 30 Days Qty: 30 RF: 0 Continued lisinopril 10 mg tablet 10 mg PO QPM Qty: 90 RF: 3 metformin 500 mg tablet extended release 24 hr See Rx Instructions .ROUTE .COMPLEX Qty: 360 RF: 3 (DME) pen needle, diabetic [BD Ultra-Fine Balb[place] Pen Needle] 32 gauge x 5/32" needle See Rx Instructions .ROUTE .MEDSUPPLY Qty: 100 RF: 3 metoprolol succinate 25 mg tablet extended release 24 hr See Rx Instructions .ROUTE .COMPLEX Qty: 45 RF: 3 ezetimibe 10 mg tablet 10 mg PO DAILY Qty: 90 RF: 3 (DME) OneTouch Ultra Blue Test Strip Strip See Rx Instructions .ROUTE .MEDSUPPLY RF: 0 clopidogrel 75 mg tablet See Rx Instructions .ROUTE .COMPLEX RF: 0 Lantus Solostar U-100 Insulin 100 unit/mL (3 mL) insulin pen 20 unit subcut QPM RF: 0 aspirin 81 mg tablet 81 mg PO DAILY RF: 0 (DME) lancets Misc See Rx Instructions .ROUTE .MEDSUPPLY Qty: 100 RF: 3 Discontinued simvastatin 40 mg tablet See Rx Instructions .ROUTE .COMPLEX Qty: 90 RF: 2 Discharge Orders: Discharge Order (Routine); Ordered 09/19/21 Ordered By: Galina Abdi/Other Patient Handouts: A1C, Managing Type 2 Diabetes Admission Data Admit Date/Time: 09/18/21 05:55 Attending Provider: Bony Milton Admit Provider: Darnell Daniels Primary Care Provider: Osei Garcia Other Providers: Darnell Daniels ; Eddi Jennings Other Interventions: Discharge Summary Assessment (RN) Last Done: 09/19/21 16:56 Supervising Physician Co-Signing Physician Notes Attending note: patient seen and examined with Galina Akins PA-C. I agree with her discharge summary. I personally reviewed the labs and imaging findings. patient likely with some sleep disturbances and cognitive impairment no evidence of stroke on MRI brain, could not rule out TIA Galinameghann Akins spoke with his family, cognitive decline has been a concern, likely worsened by the loss of his daughter and then his this past year - Transient confusion, happens when he wakes up TIA vs sleep disturbance vs mild cognitive impairment no stroke on MRI, no significant findings on echo or imaging of carotids will get Holter as outpatient refer to sleep medicine Coding Level of Care Code D/C DAY MANAGEMENT >30 MINS Diagnoses TIA (transient ischemic attack) G45.9 Confusion and disorientation R41.0 CAD (coronary artery disease) I25.10 HTN (hypertension) I10 Dyslipidemia E78.5 Diabetes type 2, controlled E11.9 Antiplatelet or antithrombotic long-term use Z79.02 Depression F32.9 BPH (benign prostatic hyperplasia) N40.0
[2021-09-19] MEDS ORDERED: lisinopril 10 MG TAB PO SCH (21:00)
== END 2021-09-19 19:14 | disposition home or self-care (01) ==
LOC: 2N 02:54 → ED 02:54 → SUATTDRO 05:55 → 2N 06:44

== ENCOUNTER 2022-10-08 09:05 | Inpatient (IN) ==
[2022-10-08 09:28] LABS: Basophils # (auto) 0.11 K/uL (0-0.2); Basophils % (auto) 1.8 %; Eosinophils # (auto) 0.24 K/uL (0-0.50); Eosinophils % (auto) 3.8 %; Hematocrit (blood only) 44.9 % (40.1-51.0); Hemoglobin 15.4 g/dl (14.0-18.0); Immature Granulocytes # (auto) 0.02 K/uL (0.00-0.02); Immature Granulocytes % (auto) 0.3 %; Lymphocytes # (auto) 1.44 K/uL (1.2-3.4); Mean Corpuscular Hemoglobin 30.3 pg (25.0-34.0); Mean Corpuscular Hgb Conc 34.3 g/dL (32.0-36.0); Mean Corpuscular Volume 88.2 fL (80.0-100.0); Mean Platelet Volume 9.7 fL (9.4-12.4); Monocytes # (auto) 0.56 K/uL (0.24-0.82); Monocytes % (auto) 8.9 %; Neutrophils % (auto) 62.2 %; Platelet Count 289 K/uL (130-400); RDW Coefficient of Variation 11.7 % (11.5-14.5); RDW Standard Deviation 37.4 fL (36.4-46.3); Red Blood Count 5.09 M/uL (4.63-6.08); White Blood Count 6.27 K/ul (4.8-10.8)
[2022-10-08 09:51] LABS: INR 1.2 (0.9-1.1); Partial Thromboplastin Time 27.4 Seconds (21.0-31.0); Prothrombin Time 12.2 Seconds (9.0-12.0)
[2022-10-08 09:57] LABS: Albumin Globulin Ratio 1.8 (0.9-2); BUN Creatinine Ratio 13.5 (10-20); Bilirubin,Total 0.8 mg/dl (0.2-1.0); Calcium 8.6 mg/dl (8.5-10.1); Creatinine Clr Calc Pharmacy 77.5 ml/min; Est GFR (African American) 102.4 ml/min; Est GFR (Non-African American) 88.3 ml/min; Globulin 2.2 gm/dl (2.5-4.0); Potassium 3.8 mmol/L (3.5-5.1); Total Protein 6.2 gm/dl (6.0-8.3)
--- NOTE | 2022-10-08 10:39 | Emergency Department Note ---
Impression & Plan Acute confusion ED Provider Note INFORMANT: Patient and family ED PROVIDER(S): Osei Robert MD CHIEF COMPLAINT: Confusion PLAN: Disposition: Admitted Condition: Good Outpatient prescription management: none Referral: None MEDICAL DECISION MAKING: patient presented because of confusion. He was feeling better than he had the last few days. On physical examination there were no focal findings. He underwent a work-up. His laboratory testing did not reveal any acute lab normalities. The patient's CT imaging including angiography was negative for acute process. Patient's ECG showed No acute ST changes. Given the abrupt change as noted per family and consolation of symptoms I discussed further management in the hospital. Patient was in agreement. Consultation was made with Dr. Wesley Mojica of the [facility] service. Patient was evaluated in the ER for further management. Triage Nursing notes reviewed and agree them. Vital Signs: reviewed and remarkable for no significant abnormalities Differential diagnosis: CVA, TIA, infection, dehydration, metabolic abnormality, hypo/hyperglycemia, electrolyte disturbance, anemia, hypoxia, cardiac sources, intracerebral event, toxicologic, neurologic, dementia, as well as other pathologies. Diagnostics interpreted by me: ECG: Twelve-lead ECG reveals a normal sinus rhythm at 81 bpm. Low voltage QRS. Septal Q waves. No ST elevation or depression. Cardiac Monitoring: Cardiac monitoring ordered by me: The patient was placed on continuous cardiac monitoring and observed. It revealed a normal sinus rhythm at 81 beats per minute without ectopy or evidence of dysrhythmia. Imaging studies: Chest x-ray. Findings: A chest x-ray was performed and revealed no pneumothorax, effusion, infiltrate, pulmonary edema, free air under the diaphragm, or wide m ediastinum. Impression: No acute disease. Head CT: A noncontrast CT scan of the head was performed and was negative for tumor, fracture, intracranial hemorrhage, or other acute pathology. CT angiography negative for acute process. I refer you to the EMR for further details. HPI: The patient is a 77-year old male who presents to the Emergency Room with complaints of confusion. This started about 3 days ago and is worsening. The patient also notes the following associated symptoms, mild headache that started today. The patient has taken no medication for relieving factors. Current pain is rated as 6/10. Patient has a history of TIA/stroke and was concerned. States that he was having trouble calculating and his family member thought he was not making sense. Pt denies LOC, trauma, fevers, chills, diaphoresis, visual changes, neck pain, chest pain, breathing difficulties, nausea, vomiting, abdominal pain, back pain, melena, hematochezia, urinary symptoms, numbness, weakness, lymphadenopathy, rash, or other complaints. ROS: See above HPI for pertinent positives & negatives. A total of 10 systems reviewed and were otherwise negative. PAST MEDICAL HISTORY:See Below , hypertension, CAD, diabetes PAST SURGICAL HISTORY:See Below, FAMILY HISTORY:See Below SOCIAL HISTORY:See Below, . Lives alone HOME MEDICATIONS:See Below ALLERGIES:See Below VITALS:See Below PHYSICAL EXAMINATION: GENERAL: Awake, alert, nontoxic-appearing, in no distress HENT: Normocephalic, atraumatic. Oropharynx unremarkable. EYES: Normal conjunctiva. Sclera non-icteric. PERRLA. EOMI. NECK: Inspection normal. Non-tender. Supple. No nuchal rigidity. FROM. No masses. RESPIRATORY: Clear to auscultation. No wheezes. No rales. Normal respiratory effort. CARDIAC: Normal rate. Normal rhythm. No murmurs. No rubs. Extremities warm and well perfused. Pulses equal. No JVD. GI: Soft, non-distended. No tenderness to palpation. No rebound or guarding. No masses. RECTAL: Deferred. MUSCULOSKELETAL: Atraumatic. Chest examination reveals no tenderness. The back is symmetrical on inspection without obvious abnormality. There is no CVA tenderness to palpation. No joint edema. LOWER EXTREMITIES: Calves are equal size bilaterally and non-tender. No edema. No discoloration. NEURO: Normal sensorium. No sensory or motor deficits noted. No drift. Normal speech. Normal rapid alternating movements. SKIN: No rash or jaundice noted. Osei Robert MD Past Med/Surg History Medical History Depression HTN (hypertension) Hx of non-ST elevation myocardial infarction (NSTEMI) Hypertensive urgency Surgical History H/O heart artery stent Hx of cataract surgery S/P tonsillectomy and adenoidectomy Family History Mother Stroke CHF (congestive heart failure) Father Stroke Prostate cancer Myocardial infarction Daughter Breast cancer Other Diabetes Hypertension Denies family history of Ovarian cancer Colorectal cancer Social History Smoking Status: Never smoker Second Hand Exposure: No; Hx Alcohol Use: No Hx Substance Use: No Preferred Language: Uzbek Communication Ability: Effective Visual Impairment: No Limitations Hearing Ability: Normal 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 Feels Safe at Home: Yes Childhood Exposure to Second-Hand Smoke: No Dental Care, Regularly: Yes Physical Activity Frequency: 5-6 Times per Week Seatbelt Use: always Sunscreen Use: No Assistive Devices: None Allergies Allergies Allergy/AdvReac Type Severity Reaction Status Date / Time No Known Drug Allergies Allergy Verified 09/01/22 10:36 Home Meds Home Medications Medication Instructions Recorded Confirmed aspirin 81 mg tablet 81 mg PO DAILY 08/28/19 10/08/22 clopidogrel 75 mg tablet 75 mg .Route .every other day 02/27/22 10/08/22 insulin glargine 100 unit/mL (3 See Rx Instructions .Route .COMPLEX 05/14/22 10/08/22 mL) subcutaneous pen (Lantus Solostar U-100 Insulin) Previous Rx's Medication Instructions Recorded lancets #100 ea 10/12/20 lisinopril 10 mg tablet 10 mg PO QPM #90 tabs 09/23/21 metformin 500 mg tablet,extended See Rx Instructions .Route 10/14/21 release 24 hr .COMPLEX #360 tabs pen needle, diabetic 32 gauge x #100 ea 11/26/21" (BD Ultra-Fine Balbina Pen Needle) metoprolol succinate 25 mg See Rx Instructions .Route 12/30/21 tablet,extended release 24 hr .COMPLEX #45 tabs nitroglycerin 0.4 mg sublingual 0.4 mg sublingual Q5M PRN chest 01/28/22 tablet pain #25 tabs blood sugar diagnostic #25 ea 02/11/22 ezetimibe 10 mg tablet 10 mg PO DAILY #90 tabs 04/08/22 atorvastatin 40 mg tablet See Rx Instructions .Route 07/29/22 .COMPLEX #90 tabs Results & Data (ED) Vital Signs Vital Signs - 24 hr 10/08/22 09:18 10/08/22 09:18 10/08/22 09:18 Temperature 36.9 C 36.9 C Temperature Source Oral Oral Pulse Rate 81 Pulse Rate [Apical] 81 Pulse Rhythm Regular Pulse Strength Normal Respiratory Rate 17 17 Respiratory Effort / Characteristics Non-Labored Respiratory Depth Normal Respiratory Pattern Regular Blood Pressure 177/124 H Blood Pressure [Right Arm] 177/124 H Blood Pressure Mean 141 Blood Pressure Mean [Right Arm] 141 Blood Pressure Position Sitting Pulse Oximetry 97 97 97 Oxygen Delivery Method Room Air Room Air Sepsis Recent Fever Within 48 Hours No Sepsis New/Unexplained Change in Mental Status N/A Sepsis Action Taken by Nursing No Action Required 10/08/22 09:32 10/08/22 11:08 10/08/22 13:00 Temperature Temperature Source Pulse Rate Pulse Rate [Apical] 74 77 Pulse Rhythm Pulse Strength Respiratory Rate 18 18 Respiratory Effort / Characteristics Respiratory Depth Respiratory Pattern Blood Pressure Blood Pressure [Right Arm] 151/88 H 139/83 156/95 H Blood Pressure Mean Blood Pressure Mean [Right Arm] 109 101 115 Blood Pressure Position Pulse Oximetry 97 98 Oxygen Delivery Method Room Air Room Air Sepsis Recent Fever Within 48 Hours Sepsis New/Unexplained Change in Mental Status Sepsis Action Taken by Nursing Laboratory Data Result diagrams: 10/08/22 09:16 10/08/22 09:16 Lab Results 10/08/22 10/08/22 10/08/22 Range/Units 09:16 09:16 09:16 WBC 6.27 (4.8-10.8) K/ul RBC 5.09 (4.63-6.08) M/uL Hgb 15.4 (14.0-18.0) g/dl Hct 44.9 (40.1-51.0) % MCV 88.2 (80.0-100.0) fL MCH 30.3 (25.0-34.0) pg MCHC 34.3 (32.0-36.0) g/dL RDW Std Deviation 37.4 (36.4-46.3) fL RDW Coeff of Leanna 11.7 (11.5-14.5) % Plt Count 289 (130-400) K/uL MPV 9.7 (9.4-12.4) fL Immature Gran % (Auto) 0.3 % Neut % (Auto) 62.2 % Lymph % (Auto) 23.0 % [place] % (Auto) 8.9 % Eos % (Auto) 3.8 % Baso % (Auto) 1.8 % Neut # (Auto) 3.90 (1.4-6.5) K/uL Lymph # (Auto) 1.44 (1.2-3.4) K/uL [place] # (Auto) 0.56 (0.24-0.82) K/uL Eos # (Auto) 0.24 (0-0.50) K/uL Baso # (Auto) 0.11 (0-0.2) K/uL Immature Gran # (Auto) 0.02 (0.00-0.02) K/uL PT 12.2 H (9.0-12.0) Seconds INR 1.2 H (0.9-1.1) APTT 27.4 (21.0-31.0) Seconds PTT Ratio 1.0 Sodium 136 (136-145) mmol/L Potassium 3.8 (3.5-5.1) mmol/L Chloride 104 (98-107) mmol/L Carbon Dioxide 27 (21-32) mmol/L Anion Gap 5 (3-11) BUN 10 (6-23) mg/dl Creatinine 0.74 (0.6-1.4) mg/dl Est Cr Clr Drug Dosing 77.5 ml/min Est GFR ( Amer) 102.4 ml/min Est GFR (Non-Af Amer) 88.3 ml/min BUN/Creatinine Ratio 13.5 (10-20) Glucose 154 H (70-99(Fasting)) mg/dl Calcium 8.6 (8.5-10.1) mg/dl Total Bilirubin 0.8 (0.2-1.0) mg/dl AST 20 (13-39) U/L ALT 23 (7-52) U/L Alkaline Phosphatase 74 (34-104) U/L Total Protein 6.2 (6.0-8.3) gm/dl Albumin 4.0 (3.4-5.0) gm/dl Globulin 2.2 L (2.5-4.0) gm/dl Albumin/Globulin Ratio 1.8 (0.9-2) Urine Color Urine Appearance (Clear) Urine pH (4.5-7.5) Ur Specific [place] (1.000-1.030) Urine Protein (Negative) Urine Glucose (UA) (Negative) Urine Ketones (Negative) Urine Blood (Negative) Urine Nitrite (Negative) Urine Bilirubin (Negative) Urine Urobilinogen (Negative) Ur Leukocyte Esterase (Negative) SARS-CoV-2, RNA, NAAT (NEGATIVE) 10/08/22 10/08/22 Range/Units 11:34 13:47 WBC (4.8-10.8) K/ul RBC (4.63-6.08) M/uL Hgb (14.0-18.0) g/dl Hct (40.1-51.0) % MCV (80.0-100.0) fL MCH (25.0-34.0) pg MCHC (32.0-36.0) g/dL RDW Std Deviation (36.4-46.3) fL RDW Coeff of Leanna (11.5-14.5) % Plt Count (130-400) K/uL MPV (9.4-12.4) fL Immature Gran % (Auto) % Neut % (Auto) % Lymph % (Auto) % [place] % (Auto) % Eos % (Auto) % Baso % (Auto) % Neut # (Auto) (1.4-6.5) K/uL Lymph # (Auto) (1.2-3.4) K/uL [place] # (Auto) (0.24-0.82) K/uL Eos # (Auto) (0-0.50) K/uL Baso # (Auto) (0-0.2) K/uL Immature Gran # (Auto) (0.00-0.02) K/uL PT (9.0-12.0) Seconds INR (0.9-1.1) APTT (21.0-31.0) Seconds PTT Ratio Sodium (136-145) mmol/L Potassium (3.5-5.1) mmol/L Chloride (98-107) mmol/L Carbon Dioxide (21-32) mmol/L Anion Gap (3-11) BUN (6-23) mg/dl Creatinine (0.6-1.4) mg/dl Est Cr Clr Drug Dosing ml/min Est GFR ( Amer) ml/min Est GFR (Non-Af Amer) ml/min BUN/Creatinine Ratio (10-20) Glucose (70-99(Fasting)) mg/dl Calcium (8.5-10.1) mg/dl Total Bilirubin (0.2-1.0) mg/dl AST (13-39) U/L ALT (7-52) U/L Alkaline Phosphatase (34-104) U/L Total Protein (6.0-8.3) gm/dl Albumin (3.4-5.0) gm/dl Globulin (2.5-4.0) gm/dl Albumin/Globulin Ratio (0.9-2) Urine Color Yellow Urine Appearance Clear (Clear) Urine pH 6.5 (4.5-7.5) Ur Specific [place] > 1.045 H (1.000-1.030) Urine Protein Negative (Negative) Urine Glucose (UA) Negative (Negative) Urine Ketones Negative (Negative) Urine Blood Negative (Negative) Urine Nitrite Negative (Negative) Urine Bilirubin Negative (Negative) Urine Urobilinogen Negative (Negative) Ur Leukocyte Esterase Negative (Negative) SARS-CoV-2, RNA, NAAT NEGATIVE (NEGATIVE) Administered Medications Lactated Ringer's (Lr) 1,000 mls @ 80 mls/hr IV .[id number] DEBI Stop: 10/09/22 14:59 Last Admin: 10/08/22 14:18 Dose: 80 mls/hr Documented By: QGV Discontinued Medications Ioversol (Optiray 320 500ml) 110 ml IV ONCE ONE Stop: 10/08/22 10:52 Last Admin: 10/08/22 10:51 Dose: 110 ml Documented By: MANOJ Imaging Data Radiologist's Impression: Head CT 10/08/22 09:52 CT angio neck with con, CT angio head w con, CT head/brain wo con CLINICAL HISTORY: confusion TECHNIQUE: Contiguous axial CT images of the head were acquired from the base of the skull to the vertex without intravenous contrast administration. CT angiography of the head and neck was performed following intravenous admini stration of iodinated contrast. Coronal and sagittal MIPS were obtained from the axial data set and were submitted for review. Automated dose lowering techniques and/or adjustment according to patient size were utilized for this examination. All measurements were calculated based on NASCET criteria. CT DOSE: 1247.57 mGy.cm Comparison: Comparison is made to MRI brain 09/18/2021 FINDINGS: CT head: Areas of decreased attenuation are present in the periventricular and subcortical white matter bilaterally consistent with small vessel ischemic disease. Generalized cerebral atrophy with commensurate enlargement of the ventricles, sulci, and cisterns is also present. There is no acute intracranial hemorrhage or evidence of acute territorial infarction. No shift of the midline structures, mass effect, or extra-axial abnormalities are shown. Atherosclerotic calcifications are present in the intracranial segments of the internal carotid arteries. Small thyroid nodules are seen which do not require follow-up by ACR criteria. CTA Neck: A 3 vessel aortic arch is shown. Atherosclerotic plaque is present in the aortic arch and at the origin of the great vessels. The common carotid, external carotid, cervical segments of the internal carotid arteries, and the cervical segments of the vertebral arteries are patent without hemodynamically significant stenosis. The left vertebral artery is dominant. CTA Head: The anterior and posterior cerebral circulations are patent. No hemodynamically significant stenosis, aneurysm, dissection, or arteriovenous malformation is shown. IMPRESSION: 1. No acute intracranial hemorrhage, evidence of acute territorial infarction, or other acute intracranial disease process. 2. No occlusion, hemodynamically significant stenosis, or dissection in the major cervical arteries. 3. No occlusion, hemodynamically significant stenosis, aneurysm, dissection, or arteriovenous malformation in the major intracranial arteries. Assessment of stenosis of the internal carotid arteries is based on NASCET criteria. ACT 112: Negative or not required by law. Electronically signed by: Bony Rahman M.D. 10/08/2022 11:07 AM Head CTA 10/08/22 09:53 CT angio neck with con, CT angio head w con, CT head/brain wo con CLINICAL HISTORY: confusion TECHNIQUE: Contiguous axial CT images of the head were acquired from the base of the skull to the vertex without intravenous contrast administration. CT angiography of the head and neck was performed following intravenous administration of iodinated contrast. Coronal and sagittal MIPS were obtained from the axial data set and were submitted for review. Automated dose lowering techniques and/or adjustment according to patient size were utilized for this examination. All measurements were calculated based on NASCET criteria. CT DOSE: 1247.57 mGy.cm Comparison: Comparison is made to MRI brain 09/18/2021 FINDINGS: CT head: Areas of decreased attenuation are present in the periventricular and subcortical white matter bilaterally consistent with small vessel ischemic disease. Generalized cerebral atrophy with commensurate enlargement of the ventricles, sulci, and cisterns is also present. There is no acute intracranial hemorrhage or evidence of acute territorial infarction. No shift of the midline structures, mass effect, or extra-axial abnormalities are shown. Atherosclerotic calcifications are present in the intracranial segments of the internal carotid arteries. Small thyroid nodules are seen which do not require follow-up by ACR criteria. CTA Neck: A 3 vessel aortic arch is shown. Atherosclerotic plaque is present in the aortic arch and at the origin of the great vessels. The common carotid, external carotid, cervical segments of the internal carotid arteries, and the cervical segments of the vertebral arteries are patent without hemodynamically significant stenosis. The left vertebral artery is dominant. CTA Head: The anterior and posterior cerebral circulations are patent. No hemodynamically significant stenosis, aneurysm, dissection, or arteriovenous malformation is shown. IMPRESSION: 1. No acute intracranial hemorrhage, evidence of acute territorial infarction, or other acute intracranial disease process. 2. No occlusion, hemodynamically significant stenosis, or dissection in the major cervical arteries. 3. No occlusion, hemodynamically significant stenosis, aneurysm, dissection, or arteriovenous malformation in the major intracranial arteries. Assessment of stenosis of the internal carotid arteries is based on NASCET criteria. ACT 112: Negative or not required by law. Electronically signed by: Bony Rahman M.D. 10/08/2022 11:07 AM Neck CTA 10/08/22 09:53 CT angio neck with con, CT angio head w con, CT head/brain wo con CLINICAL HISTORY: confusion TECHNIQUE: Contiguous axial CT images of the head were acquired from the base of the skull to the vertex without intravenous contrast administration. CT angiography of the head and neck was performed following intravenous administration of iodinated contrast. Coronal and sagittal MIPS were obtained from the axial data set and were submitted for review. Automated dose lowering techniques and/or adjustment according to patient size were utilized for this examination. All measurements were calculated based on NASCET criteria. CT DOSE: 1247.57 mGy.cm Comparison: Comparison is made to MRI brain 09/18/2021 FINDINGS: CT head: Areas of decreased attenuation are present in the periventricular and subcortical white matter bilaterally consistent with small vessel ischemic disease. Generalized cerebral atrophy with commensurate enlargement of the ventricles, sulci, and cisterns is also present. There is no acute intracranial hemorrhage or evidence of acute territorial infarction. No shift of the midline structures, mass effect, or extra-axial abnormalities are shown. Atherosclerotic calcifications are present in the intracranial segments of the internal carotid arteries. Small thyroid nodules are seen which do not require follow-up by ACR criteria. CTA Neck: A 3 vessel aortic arch is shown. Atherosclerotic plaque is present in the aortic arch and at the origin of the great vessels. The common carotid, external carotid, cervical segments of the internal carotid arteries, and the cervical segments of the vertebral arteries are patent without hemodynamically significant stenosis. The left vertebral artery is dominant. CTA Head: The anterior and posterior cerebral circulations are patent. No hemodynamically significant stenosis, aneurysm, dissection, or arteriovenous malformation is shown. IMPRESSION: 1. No acute intracranial hemorrhage, evidence of acute territorial infarction, or other acute intracranial disease process. 2. No occlusion, hemodynamically significant stenosis, or dissection in the major cervical arteries. 3. No occlusion, hemodynamically significant stenosis, aneurysm, dissection, or arteriovenous malformation in the major intracranial arteries. Assessment of stenosis of the internal carotid arteries is based on NASCET criteria. ACT 112: Negative or not required by law. Electronically signed by: Bony Rahman M.D. 10/08/2022 11:07 AM Chest X-Ray 10/08/22 13:04 SINGLE VIEW CHEST CLINICAL HISTORY: Change in mental status. FINDINGS: An AP, portable, upright chest radiograph is compared to study dated 09/18/2021. The examination is degraded by portable technique and apical lordotic positioning. The heart is enlarged noting atherosclerotic calcification of the thoracic aorta. The pulmonary vasculature is noncongested. Chronic interstitial thickening is similar to previous. The lungs and pleural spaces are clear. No pneumothorax is seen. The skeletal structures are osteopenic. The bony thorax is grossly intact. IMPRESSION: Cardiomegaly with no acute cardiopulmonary abnormality identified. ACT 112: Negative or not required by law. Electronically signed by: Biju Larry M.D. 10/08/2022 1:26 PM Discharge Plan Visit Data Chief Complaint: Confusion Stated Complaint: CONFUSION ED Provider: Osei Robert Discharge Problem: Acute confusion Forms Stand Alone Forms: [facility] [employer] Prescriptions Prescriptions: No Action metformin 500 mg tablet extended release 24 hr See Rx Instructions .ROUTE .COMPLEX Qty: 360 3RF Dose Instruction: TAKE 2 TABLETS BY MOUTH TWICE DAILY Rx Instructions: TAKE 2 TABLETS BY MOUTH TWICE DAILY (DME) pen needle, diabetic [BD Ultra-Fine Balbina Pen Needle] 32 gauge x 5/32" needle See Rx Instructions .ROUTE .MEDSUPPLY Qty: 100 3RF Rx Instructions: use one daily metoprolol succinate 25 mg tablet extended release 24 hr See Rx Instructions .ROUTE .COMPLEX Qty: 45 3RF Dose Instruction: TAKE 1/2 TABLET BY MOUTH ONCE DAILY Rx Instructions: TAKE 1/2 TABLET BY MOUTH ONCE DAILY nitroglycerin 0.4 mg tablet, sublingual 0.4 mg sublingual Q5M PRN (Reason: chest pain) Qty: 25 1RF Rx Instructions: until response; do not exceed 3 doses per episode ezetimibe 10 mg tablet 10 mg PO DAILY Qty: 90 3RF atorvastatin 40 mg tablet See Rx Instructions .ROUTE .COMPLEX Qty: 90 3RF Dose Instruction: TAKE ONE TABLET BY MOUTH EVERY MORNING Rx Instructions: TAKE ONE TABLET BY MOUTH EVERY MORNING Lantus Solostar U-100 Insulin 100 unit/mL (3 mL) insulin pen See Rx Instructions .ROUTE .COMPLEX Dose Instruction: INJECT 19 UNITS SUBCUTANEOUSLY IN THE EVENING Rx Instructions: INJECT 21 UNITS SUBCUTANEOUSLY IN THE EVENING (DME) blood sugar diagnostic Strip See Rx Instructions .ROUTE .MEDSUPPLY Qty: 25 11RF Rx Instructions: test 3 times weekly aspirin 81 mg tablet 81 mg PO DAILY (DME) lancets Misc See Rx Instructions .ROUTE .MEDSUPPLY Qty: 100 3RF Rx Instructions: testing three times daily clopidogrel 75 mg tablet 75 mg .ROUTE .every other day Rx Instructions: 75 mg .every other day; lisinopril 10 mg tablet 10 mg PO QPM Qty: 90 3RF Referrals Referrals: Osei Garcia MD [Primary Care Provider] -
[2022-10-08] MEDS ORDERED: OPTIRAY 320 500ml IV ONE (10:51)
--- NOTE | 2022-10-08 11:08 | CT Scan Report ---
CT angio neck with con, CT angio head w con, CT head/brain wo con CLINICAL HISTORY: confusion TECHNIQUE: Contiguous axial CT images of the head were acquired from the base of the skull to the jimmy emily without intravenous contrast administration. CT angiography of the head and neck was performed f ollowing intravenous administration of iodinated contrast. Coronal and sagittal MIPS were obtained fr om the axial data set and were submitted for review. Automated dose lowering techniques and/or adjus tment according to patient size were utilized for this examination. All measurements were calculated based on NASCET criteria. CT DOSE: 1247.57 mGy.cm Comparison: Comparison is made to MRI brain 09/18/2021 FINDINGS: CT head: Areas of decreased attenuation are present in the periventricular and subcortical white reica er bilaterally consistent with small vessel ischemic disease. Generalized cerebral atrophy with comme nsurate enlargement of the ventricles, sulci, and cisterns is also present. There is no acute intracr anial hemorrhage or evidence of acute territorial infarction. No shift of the midline structures, mas s effect, or extra-axial abnormalities are shown. Atherosclerotic calcifications are present in the intracranial segments of the internal carotid arteries. Small thyroid nodules are seen which do not require follow-up by ACR criteria. CTA Neck: A 3 vessel aortic arch is shown. Atherosclerotic plaque is present in the aortic arch and at the origin of the great vessels. The common carotid, external carotid, cervical segments of the i nternal carotid arteries, and the cervical segments of the vertebral arteries are patent without hemo dynamically significant stenosis. The left vertebral artery is dominant. CTA Head: The anterior and posterior cerebral circulations are patent. No hemodynamically significan t stenosis, aneurysm, dissection, or arteriovenous malformation is shown. IMPRESSION: 1. No acute intracranial hemorrhage, evidence of acute territorial infarction, or other acute intrac ranial disease process. 2. No occlusion, hemodynamically significant stenosis, or dissection in the major cervical arteries. 3. No occlusion, hemodynamically significant stenosis, aneurysm, dissection, or arteriovenous malfor mation in the major intracranial arteries. Assessment of stenosis of the internal carotid arteries is based on NASCET criteria. ACT 112: Negative or not required by law. Electronically signed by: Bony Rahman M.D. 10/08/2022 11:07 AM
[2022-10-08 11:52] LABS: Appearance Urine Clear (Clear); Bilirubin Urine Negative (Negative); Blood Urine Negative (Negative); Color Urine Yellow; Glucose Urine UA Negative (Negative); Ketones Urine Negative (Negative); Leukocyte Esterase Urine Negative (Negative); Nitrite Urine Negative (Negative); Protein Urine Negative (Negative); Specific Gravity Urine > 1.045 (1.000-1.030); Urobilinogen Urine Negative (Negative); pH Urine 6.5 (4.5-7.5)
--- NOTE | 2022-10-08 13:15 | History & Physical Report ---
Date of Service October 08, 2022 Assessment & Plan (1) Memory deficits: Plan: -Admit to [facility] tele -Patient is currently afebrile, hemodynamically stable, and stable on RA -At this time it is unclear what is causing the patient's increased confusion over the past few days. It does appear that he has a history of previous TIA and previous memory issues. He is actively trying to place himself into the [facility] at [facility] because of these issues. The patient does not appear to have an infective source, metabolic source, or acute finding on CT of the head and CTA of the head/neck. Cannot rule polypharmacy out at this time if he has been more confused and possibly taking his medications incorrectly at home. He has no focal neuro defects on exam and has findgins consistent with chronic microvessel disease on CT today. -Will obtain MRI of the brain WO contrast and TTE with bubble study for further evaluation -Patient appears dry on exam and his UA looks as though he is dehydrated. Will start light hydration of LR X 2 bags now -If the rest of his workup is negative could consider Neurology consultation -Will consult CM to help assist patient with application to the [facility], PT/OT consults placed as well -AM CBC and BMP (2) HTN (hypertension): Plan: -Hemodynamically stable -Continue lisinopril and metoprolol (3) CAD (coronary artery disease): Plan: -Continue Aspirin and plavix (4) Dyslipidemia: Plan: -Continue Zetia and atorvastatin (5) Diabetes type 2, controlled: Plan: -Hold metformin -Patient normally on 21 units HS glargine at home -Will decrease dose of Lantus to 5 units BID for now and can increase as needed -Continue with correction factor of 55 and carb ratio of 19 -BSG checks ACHS (6) Tremor: Plan: -At baseline, currently not on medication (7) BPH (benign prostatic hyperplasia): Plan: -Does not appear to be on medication -No current urinary issues, if any while admitted could start flomax Plan The patient was discussed with Dr. mojica at the time of the admisison History of Present Illness Chief Complaint: Confusion Primary Care Provider: Osei Garcia MD Juan Diego is a 77 year old male with PMH significant for Depression, previous TIA, DMII, memory deficits, BPH, CAD, hyperlipidemia, and HTN who presented to the [facility] ED on 10/08/22 with a chief complaint of confusion. In the ED the patient was found to be afebrile, hemodynamically stable, and stable on RA. Labs were remarkable for WBC WNL, INR of 1.2, stable renal function and electrolytes, glucose of 154, and Urine Specific gravity >1.045. CT of the head, and CTA of the head and neck were negative for acute findings. The patient was given no medications prior to admission. At the time of the exam the patient was resting comfortably in bed in no acute distress, history was obtained from the patient. He states that over the past year he has had moments of forgetfulness and intermittent memory loss which has slowly progressed. Because of this he has been trying to apply to live at the [facility]. The patient said over the past three days he has been trying to work on the financial paperwork for the Village but it is more difficult and taking longer to complete than normal. 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 He feels as though he has noticed his confusion more over the past 3 days due to the fact that he has been trying to work on the financial information. He notes that due to the stress of the application process he has not been sleeping well over the past few days. He has been taking his medications as prescribed and notes that he took all of his medications yesterday. He takes 21 units of Lantus at night and does remember taking it last night. He checked his blood sugar last night due to his confusion and noted that it was 147. He woke up today and was the most confused he has been to the point that he didn't get out of bed. He denies having any new weakness or issues with movement. He checked his blood sugar while in bed and it was 118, which he was pleasantly surprised with. He called his Great Nephew (Valentin Bee III) who lives in town and helps care for him, his Great Nephew thought he was more conf used than baseline and told him to call EMS. At the time of my exam the patient feels as though his confusions is slightly improved compared to this morning. He has not had anything to eat or drink yet today, but notes he has been eating and drinking well recently. He has a baseline tremor of which he was diagnosed by Dr. Tate of [facility] Neurology in the past. He denies recent fevers, chills, changes in vision, hearing, taste, and smell, chest pain, SOB, abdominal pain, nausea, vomiting, diarrhea, dysuria, hematuria, melena, and recent falls. During my exam the patient was speaking fluently and without issue. His speech was coherent and on topic throughout. He did have periods of time where he had to pause and think for a prolonged period of time before resending. He had good awareness of recent events and has detailed memories of the past. However, he was repeating himself towards the end of my exam when speaking about checking his blood sugar and doing the application for the Village. I spoke to the patient regarding code status as he does not appear acutely confused or disoriented at the time of my exam. He clearly stated that he would like to be a Full Code. His Daughter (Anna Marie Moore [phone]) is his POA and would make decisions for him if he could not make them himself. Please refer to Dr. Mojica's attestation for any changes to the treatment plan. Allergies Allergy/AdvReac Type Severity Reaction Status Date / Time No Known Drug Allergies Allergy Verified 09/01/22 10:36 Home Medications Medication Instructions Recorded Confirmed Type aspirin 81 mg tablet 81 mg PO DAILY 08/28/19 10/08/22 History lancets #100 ea 10/12/20 09/01/22 Rx lisinopril 10 mg tablet 10 mg PO QPM #90 tabs 09/23/21 10/08/22 Rx metformin 500 mg tablet,extended See Rx Instructions .Route 10/14/21 10/08/22 Rx release 24 hr .COMPLEX #360 tabs pen needle, diabetic 32 gauge x #100 ea 11/26/21 09/01/22 Rx 5/32" (BD Ultra-Fine Balbina Pen Needle) metoprolol succinate 25 mg See Rx Instructions .Route 12/30/21 10/08/22 Rx tablet,extended release 24 hr .COMPLEX #45 tabs nitroglycerin 0.4 mg sublingual 0.4 mg sublingual Q5M PRN chest 01/28/22 10/08/22 Rx tablet pain #25 tabs blood sugar diagnostic #25 ea 02/11/22 09/01/22 Rx clopidogrel 75 mg tablet 75 mg .Route .every other day 02/27/22 10/08/22 History ezetimibe 10 mg tablet 10 mg PO DAILY #90 tabs 04/08/22 10/08/22 Rx insulin glargine 100 unit/mL (3 See Rx Instructions .Route .COMPLEX 05/14/22 10/08/22 History mL) subcutaneous pen (Lantus Solostar U-100 Insulin) atorvastatin 40 mg tablet See Rx Instructions .Route 07/29/22 10/08/22 Rx .COMPLEX #90 tabs Past Med/Surg History Medical History Depression HTN (hypertension) Hx of non-ST elevation myocardial infarction (NSTEMI) Hypertensive urgency Surgical History H/O heart artery stent Hx of cataract surgery S/P tonsillectomy and adenoidectomy Family History Mother Stroke CHF (congestive heart failure) Father Stroke Prostate cancer Myocardial infarction Daughter Breast cancer Other Diabetes Hypertension Denies family history of Ovarian cancer Colorectal cancer Social History Smoking Status: Never smoker Second Hand Exposure: No; Hx Alcohol Use: No Hx Substance Use: No Preferred Language: Greenlandic Communication Ability: Effective Visual Impairment: No Limitations Hearing Ability: Normal Operations Architect Required: No Beliefs That Will Affect Care: None marital status: / Current Living Situation: Alone Current Living Situation Comment: passed in 11/2020 current occupational status: retired 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 All systems have been reviewed and are otherwise negative. Physical Exam Physical Exam: Physical Exam: General: In no acute distress, stated age, well-nourished, good hygiene HEENT: Normocephalic, atraumatic, no scleral icterus, pupils around round, symmetrical, and reactive to light, dry mucus membranes, trachea midline, no thyromegaly Chest/Pulm: No respiratory distress, symmetrical chest expansion, clear breath sounds throughout Cardiac: RRR, no murmurs noted Abdomen: Negative for ascites and bruising, normoactive bowel sounds, soft, non-tender to palpation throughout Musculoskeletal: Symmetrical and without signs of acute trauma, upper and lower extremities with full ROM, no atrophy, spasticity, or flaccidity Extremities: Radial, dorsalis pedis, and posterior tibial pulses are intact and symmetrical, no edema noted in the BL LE's Skin: Warm, dry, no rashes , lesions, or scars noted Neuro: Alert and oriented to person, place, month, year, and president, no focal defects, CN II-XII tested and intact, finger to nose test negative, baseline essential tremor Psych: No acute distress, calm and cooperative during the exam Results & Data Results & Data ([facility]) Vital Signs (Past 12 Hours) Vital Signs Temp Pulse Pulse Resp BP BP Pulse Ox 10/08/22 11:08 74 18 139/83 97 10/08/22 09:32 151/88 H 10/08/22 09:18 36.9 C 81 17 177/124 H 97 10/08/22 09:18 97 10/08/22 09:18 36.9 C 81 17 177/124 H 97 O2 Del Method 10/08/22 11:08 Room Air 10/08/22 09:32 10/08/22 09:18 10/08/22 09:18 Room Air 10/08/22 09:18 Room Air Laboratory Results Abnormal lab results 10/08/22 10/08/22 10/08/22 Range/Units 09:16 09:16 11:34 PT 12.2 H (9.0-12.0) Seconds INR 1.2 H (0.9-1.1) Glucose 154 H (70-99(Fasting)) mg/dl Globulin 2.2 L (2.5-4.0) gm/dl Ur Specific [place] > 1.045 H (1.000-1.030) Diagnostic Findings Head CT 10/08/22 09:52 CT angio neck with con, CT angio head w con, CT head/brain wo con CLINICAL HISTORY: confusion TECHNIQUE: Contiguous axial CT images of the head were acquired from the base of the skull to the vertex without intravenous contrast administration. CT angiography of the head and neck was performed following intravenous administration of iodinated contrast. Coronal and sagittal MIPS were obtained from the axial data set and were submitted for review. Automated dose lowering techniques and/or adjustment according to patient size were utilized for this e xamination. All measurements were calculated based on NASCET criteria. CT DOSE: 1247.57 mGy.cm Comparison: Comparison is made to MRI brain 09/18/2021 FINDINGS: CT head: Areas of decreased attenuation are present in the periventricular and subcortical white matter bilaterally consistent with small vessel ischemic disease. Generalized cerebral atrophy with commensurate enlargement of the ventricles, sulci, and cisterns is also present. There is no acute intracranial hemorrhage or evidence of acute territorial infarction. No shift of the midline structures, mass effect, or extra-axial abnormalities are shown. Atherosclerotic calcifications are present in the intracranial segments of the internal carotid arteries. Small thyroid nodules are seen which do not require follow-up by ACR criteria. CTA Neck: A 3 vessel aortic arch is shown. Atherosclerotic plaque is present in the aortic arch and at the origin of the great vessels. The common carotid, external carotid, cervical segments of the internal carotid arteries, and the cervical segments of the vertebral arteries are patent without hemodynamically significant stenosis. The left vertebral artery is dominant. CTA Head: The anterior and posterior cerebral circulations are patent. No hemodynamically significant stenosis, aneurysm, dissection, or arteriovenous malformation is shown. IMPRESSION: 1. No acute intracranial hemorrhage, evidence of acute territorial infarction, or other acute intracranial disease process. 2. No occlusion, hemodynamically significant stenosis, or dissection in the major cervical arteries. 3. No occlusion, hemodynamically significant stenosis, aneurysm, dissection, or arteriovenous malformation in the major intracranial arteries. Assessment of stenosis of the internal carotid arteries is based on NASCET criteria. ACT 112: Negative or not required by law. Electronically signed by: Bony Rahman M.D. 10/08/2022 11:07 AM Head CTA 10/08/22 09:53 CT angio neck with con, CT angio head w con, CT head/brain wo con CLINICAL HISTORY: confusion TECHNIQUE: Contiguous axial CT images of the head were acquired from the base of the skull to the vertex without intravenous contrast administration. CT angiography of the head and neck was performed following intravenous administration of iodinated contrast. Coronal and sagittal MIPS were obtained from the axial data set and were submitted for review. Automated dose lowering techniques and/or adjustment according to patient size were utilized for this examination. All measurements were calculated based on NASCET criteria. CT DOSE: 1247.57 mGy.cm Comparison: Comparison is made to MRI brain 09/18/2021 FINDINGS: CT head: Areas of decreased attenuation are present in the periventricular and subcortical white matter bilaterally consistent with small vessel ischemic disease. Generalized cerebral atrophy with commensurate enlargement of the ventricles, sulci, and cisterns is also present. There is no acute intracranial hemorrhage or evidence of acute territorial infarction. No shift of the midline structures, mass effect, or extra-axial abnormalities are shown. Athe rosclerotic calcifications are present in the intracranial segments of the internal carotid arteries. Small thyroid nodules are seen which do not require follow-up by ACR criteria. CTA Neck: A 3 vessel aortic arch is shown. Atherosclerotic plaque is present in the aortic arch and at the origin of the great vessels. The common carotid, external carotid, cervical segments of the internal carotid arteries, and the cervical segments of the vertebral arteries are patent without hemodynamically significant stenosis. The left vertebral artery is dominant. CTA Head: The anterior and posterior cerebral circulations are patent. No hemodynamically significant stenosis, aneurysm, dissection, or arteriovenous malformation is shown. IMPRESSION: 1. No acute intracranial hemorrhage, evidence of acute territorial infarction, or other acute intracranial disease process. 2. No occlusion, hemodynamically significant stenosis, or dissection in the major cervical arteries. 3. No occlusion, hemodynamically significant stenosis, aneurysm, dissection, or arteriovenous malformation in the major intracranial arteries. Assessment of stenosis of the internal carotid arteries is based on NASCET criteria. ACT 112: Negative or not required by law. Electronically signed by: Bony Rahman M.D. 10/08/2022 11:07 AM Neck CTA 10/08/22 09:53 CT angio neck with con, CT angio head w con, CT head/brain wo con CLINICAL HISTORY: confusion TECHNIQUE: Contiguous axial CT images of the head were acquired from the base of the skull to the vertex without intravenous contrast administration. CT angiography of the head and neck was performed following intravenous administration of iodinated contrast. Coronal and sagittal MIPS were obtained from the axial data set and were submitted for review. Automated dose lowering techniques and/or adjustment according to patient size were utilized for this examination. All measurements were calculated based on NASCET criteria. CT DOSE: 1247.57 mGy.cm Comparison: Comparison is made to MRI brain 09/18/2021 FINDINGS: CT head: Areas of decreased attenuation are present in the periventricular and subcortical white matter bilaterally consistent with small vessel ischemic disease. Generalized cerebral atrophy with commensurate enlargement of the ventricles, sulci, and cisterns is also present. There is no acute intracranial hemorrhage or evidence of acute territorial infarction. No shift of the midline structures, mass effect, or extra-axial abnormalities are shown. Atherosclerotic calcifications are present in the intracranial segments of the internal carotid arteries. Small thyroid nodules are seen which do not require follow-up by ACR criteria. CTA Neck: A 3 vessel aortic arch is shown. Atherosclerotic plaque is present in the aortic arch and at the origin of the great vessels. The common carotid, external carotid, cervical segments of the internal carotid arteries, and the cervical segments of the vertebral arteries are patent without hemodynamically significant stenosis. The left vertebral artery is dominant. CTA Head: The anterior and posterior cerebral circulations are patent. No hemodynamically significant stenosis, aneurysm, dissection, or arteriovenous malformation is shown. IMPRESSION: 1. No acute intracranial hemorrhage, evidence of acute territorial infarction, or other acute intracranial disease process. 2. No occlusion, hemodynamically significant stenosis, or dissection in the major cervical arteries. 3. No occlusion, hemodynamically significant stenosis, aneurysm, dissection, or arteriovenous malformation in the major intracranial arteries. Assessment of stenosis of the internal carotid arteries is based on NASCET criteria. ACT 112: Negative or not required by law. Electronically signed by: Bony Rahman M.D. 10/08/2022 11:07 AM ECG Additional Comments: Normal sinus rhythm Low voltage QRS Septal infarct (cited on or before 02-FEB-2019) Abnormal ECG When compared with ECG of 18-SEP-2021 02:57, Questionable change in initial forces of Septal leads Code Status & VTE Plan Code Status Full code Supervising Physician Co-Signing Physician Notes I personally saw and examined the patient. I verified all inman points and agree with Kahlil Cehn PA-C with the following exceptions and/or additions: 77 year old male presents to the ER with acute on chronic confusion. Memory issues for the last 2-3 years. Repeating the same story multiple times during our conversation and. He reports his grand-nephew (Valentin Bee [phone]) is the best person to call for collateral history. Acutely worsened memory over the last 2 weeks although this has coincided with him trying to put together the paperwork to move to the village. He reports difficulty understanding why his alonso cannot put the paperwork in the right "format" for the Village. He feels he just needs everything in one place and he needs to concentrate on it more and he will be able to get it done. Difficulty concentrating the last 2 weeks - difficulty understanding why he just can't get things done. He reports odd hours of sleep chronically - not new. O/E PERRL, HS1+2, no murmurs, Chest CTAB, Abdo SNT, no extremity weakness or change in sensation, CN 2-> 12 intact. A/P Acute confusion - no reversible cause found on imaging, lab work or from history. Suspect most likely he has underlying dementia given size of ventricles on CT and MRI and history of memory issues. B12 with AM labs. Best explanation for acute confusion is increased stress and workload with trying to do the paperwork for the Village. Consider neurology consult inpatient/outpatient depending on improvement. PG Care Time/CCT Total # of Minutes Spent Total Time Spent with Patient: Total time spent is greater than 50% in coordination of care (as documented) at patient's floor/unit and/or counseling patient: [place] [address] Initial Inpt Care Lvl 3 Patient Type Established Medical Decision Making High Complexity Diagnoses Memory deficits R41.3 HTN (hypertension) I10 CAD (coronary artery disease) I25.10 Dyslipidemia E78.5 Diabetes type 2, controlled E11.9 Tremor R25.1 BPH (benign prostatic hyperplasia) N40.0
--- NOTE | 2022-10-08 13:27 | XRay Report ---
SINGLE VIEW CHEST CLINICAL HISTORY: Change in mental status. FINDINGS: An AP, portable, upright chest radiograph is compared to study dated 09/18/2021. The examin ation is degraded by portable technique and apical lordotic positioning. The heart is enlarged noting atherosclerotic calcification of the thoracic aorta. The pulmonary vasculature is noncongested. Bobbin Cleaner santi interstitial thickening is similar to previous. The lungs and pleural spaces are clear. No pneumo thorax is seen. The skeletal structures are osteopenic. The bony thorax is grossly intact. IMPRESSION: Cardiomegaly with no acute cardiopulmonary abnormality identified. ACT 112: Negative or not required by law. Electronically signed by: Biju Larry M.D. 10/08/2022 1:26 PM
--- NOTE | 2022-10-08 14:05 | Electrocardiogram Report ---
Test Reason : Blood Pressure : / mmHG Vent. Rate : 081 BPM Atrial Rate : 081 BPM P-R Int : 196 ms QRS Dur : 080 ms QT Int : 370 ms P-R-T Axes : 060 -02 049 degrees QTc Int : 429 ms Poor data quality, interpretation may be adversely affected Normal sinus rhythm Low voltage QRS Septal infarct (cited on or before 02-FEB-2019) Abnormal ECG When compared with ECG of 18-SEP-2021 02:57, No significant change Confirmed by Mauro Teran ([id number]) on 10/08/2022 2:04:59 PM Referred By: REFERRED SELF Confirmed By:Mauro Teran
[2022-10-08] MEDS: LACTATED RINGER'S 1,000 ML IV SCH (14:18)
--- NOTE | 2022-10-08 17:20 | Magnetic Resonance Report ---
MR brain wo con CLINICAL HISTORY: stroke workup TECHNIQUE: Multiplanar and multisequence MR images of the brain were obtained without intravenous con trast. Comparison: Comparison is made to MRI brain 09/18/2021 FINDINGS: Exam is limited by patient motion. No abnormal restricted diffusion is identified. Foci of T2 and FLAIR hyperintensity are noted in the paraventricular areas consistent with chronic small vessel ischemic disease. Ex vacuo ventriculomegal y and sulcal enlargement is noted compatible with diffuse encephalomalacia. No mass is seen. There is no mass effect or midline shift. There is no evidence of acute intraparenchymal hemorrhage. No extra axial fluid collections are seen. The corpus callosum, pituitary gland, and cerebellar tonsils appea r grossly unremarkable. Flow voids of the major intracranial arterial vessels are identified. The imaged portions of the para nasal sinuses, mastoid air cells, and orbits are unremarkable. IMPRESSION: No acute abnormalities. ACT 112: Negative or not required by law. Electronically signed by: Bony Rahman M.D. 10/08/2022 5:19 PM
[2022-10-08] MEDS ORDERED: ACETAMINOPHEN 325 MG TAB PO PRN (17:54)
[2022-10-08] MEDS ORDERED: CARBOHYDRATES FOR HYPOGLYCEMIA PO PRN (17:54)
[2022-10-08] MEDS ORDERED: GLUCOSE 10 TAB/TUBE PO PRN (17:54)
[2022-10-08] MEDS ORDERED: GLUCOSE 40% GEL 15 GM TUBE PO PRN (17:54)
[2022-10-08] MEDS ORDERED: GLUCAGON FOR INJ 1 MG VIAL SQ PRN (17:54)
[2022-10-08] MEDS ORDERED: PHARMACIST DISCHARGE MED REC CONSULT PRN (17:54)
[2022-10-08] MEDS ORDERED: DEXTROSE 50% 50 ML SYRINGE IV PRN (17:54)
[2022-10-08] MEDS ORDERED: CLOPIDOGREL BISULFATE 75 MG TAB PO SCH (18:15)
[2022-10-08] MEDS ORDERED: ENOXAPARIN INJ 40 MG/0.4 ML SYR SQ SCH (18:30)
[2022-10-08] MEDS: ATORVASTATIN 40 MG TAB PO SCH (20:12)
[2022-10-08] MEDS: ASPIRIN 81 MG ECTAB PO SCH (20:12)
[2022-10-08] MEDS: INSULIN ASPART PER UNIT SC SCH ×2 (20:42→23:12)
[2022-10-08] MEDS: LANTUS PER UNIT CHARGE SQ SCH (20:43)
[2022-10-08] MEDS ORDERED: lisinopril 10 MG TAB PO SCH (21:00)
[2022-10-08] MEDS ORDERED: LANTUS PER UNIT CHARGE SQ SCH (21:00)
[2022-10-09] MEDS: LACTATED RINGER'S 1,000 ML IV SCH (02:48)
[2022-10-09 07:13] LABS: Hematocrit (blood only) 42.4 % (40.1-51.0); Hemoglobin 14.6 g/dl (14.0-18.0); Mean Corpuscular Hemoglobin 30.4 pg (25.0-34.0); Mean Corpuscular Hgb Conc 34.4 g/dL (32.0-36.0); Mean Corpuscular Volume 88.1 fL (80.0-100.0); Mean Platelet Volume 9.6 fL (9.4-12.4); Platelet Count 262 K/uL (130-400); RDW Coefficient of Variation 11.8 % (11.5-14.5); RDW Standard Deviation 37.7 fL (36.4-46.3); Red Blood Count 4.81 M/uL (4.63-6.08); White Blood Count 6.58 K/ul (4.8-10.8)
[2022-10-09 07:37] LABS: BUN Creatinine Ratio 11.7 (10-20); Calcium 8.5 mg/dl (8.5-10.1); Creatinine Clr Calc Pharmacy 76.5 ml/min; Est GFR (African American) 100.7 ml/min; Est GFR (Non-African American) 86.9 ml/min
[2022-10-09] MEDS: ATORVASTATIN 40 MG TAB PO SCH (08:27)
[2022-10-09] MEDS: ASPIRIN 81 MG ECTAB PO SCH (08:27)
[2022-10-09] MEDS: INSULIN ASPART PER UNIT SC SCH ×2 (08:33→12:13)
[2022-10-09] MEDS: LANTUS PER UNIT CHARGE SQ SCH (08:34)
[2022-10-09 08:47] LABS: Estimated Average Glucose 217 mg/dl; Hemoglobin A1C 9.2 % (4.5-5.6)
[2022-10-09] MEDS ORDERED: EZETIMIBE 10 MG TABLET PO SCH (09:00)
[2022-10-09] MEDS ORDERED: METOPROLOL SUCC 25MG EXT REL TAB PO SCH (09:00)
--- NOTE | 2022-10-09 12:28 | Neurology Consultation ---
Date of Consultation October 09, 2022 Assessment & Plan (1) Memory deficits: (2) Tremor: Plan 77-year-old male who complains of ongoing difficulty with short-term memory, problematic for the past few years, but perhaps becoming acutely worse over the past few days prompting [facility] He is , lives alone, has been looking into [facility]. In spite of his cognitive complaints/symptoms, he continues to function in dependently, still able to drive, no difficulty with basic and instrumental ADLs although does endorse some difficulty with completion of complex forms which have been required recently in anticipation of moving to the [facility]. He actually did very well this morning, completely oriented, no difficulty with delayed recall testing at bedside. He is able to provide a fairly detailed coherent medical history. His brain MRI does reveal generalized atrophy with an element of bilateral hippocampal atrophy. Nonetheless, I think he more likely has mild cognitive impairment, based on reported symptoms, rather than a significant degenerative dementia, at least at this time. He informs me that he does have an appointment pending with Dr. Edmonds for formal neuropsychological testing. This testing was apparently recommended by Dr. Tate previously. Patient should follow-up with this testing, would verify that he is still on Dr. Edmonds's schedule. I would not recommend starting a cholinesterase inhibitor or other symptomatic treatment for dementia at this time. In terms of his tremor, he appears to have a bilateral upper extremity postural/action tremor. Does not have signs or symptoms suggestive of Parkinson's disease. He is already on metoprolol which may be providing some tremor dampening. I would not recommend starting primidone or other medication for his tremor at this point in time. Again, please verify that patient does have an appointment with Dr. Edmonds for formal neuropsychological evaluation of memory loss. Encourage patient to keep this appointment. This testing was apparently ordered by Dr. Tate who has seen him previously in neurology clinic. Patient should also schedule an outpatient follow-up with either Dr. Tate or one of our SARA's. History of Present Illness Reason for Consultation: memory loss Requesting Physician: Dr. Mcadams Attending Physician: Murray Mcadams MD History of Present Illness The patient is a 77-year-old male who is known to the neurology service, who is followed with Dr. Tate previously for memory loss and tremor. He had previously been referred for formal neuropsychological evaluation although this testing has not been completed yet. He informs me that he is scheduled to see Dr. Edmonds shortly for this purpose, however. I did see Mr. Woodson as well during the hospitalization last August for confusion, possible TIA, unremarkable evaluation at that time. He tends to do fairly well on outpatient screening mini cognitive testing done intermittently over the past few years. Nonetheless, he does complain of ongoing difficulty with short-term memory. He has been for the past 2 years, lives alone. He also informs me that his daughter a few years ago due to complications related to breast cancer. He does not endorse significant depression or issues with mood. He informs me that he has been in the process of applying to live at the [facility]. He has been thinking about his ability to continue to live independently going forward. Currently, he continues to drive, and manages household. He endorses difficulty completing complex forms, but no particular difficulty paying bills, managing medications, etc. He presented to the emergency department yesterday for further assessment of ongoing confusion, potentially worse over the previous 3 days. Also complained of a low-grade headache. No other associated neurologic symptoms, however. He did not have any obvious neurologic deficits during his initial assessment in the emergency department and had unremarkable imaging including CT angiography of the head and neck and CT of the head. A brain MRI was negative for acute process but did reveal generalized atrophy, described in further detail below. Allergies Allergy/AdvReac Type Severity Reaction Status Date / Time No Known Drug Allergies Allergy Verified 09/01/22 10:36 Home Medications Medication Instructions Recorded Confirmed Type aspirin 81 mg tablet 81 mg PO DAILY 08/28/19 10/08/22 History lancets #100 ea 10/12/20 09/01/22 Rx lisinopril 10 mg tablet 10 mg PO QPM #90 tabs 09/23/21 10/08/22 Rx metformin 500 mg tablet,extended See Rx Instructions .Route 10/14/21 10/08/22 Rx release 24 hr .COMPLEX #360 tabs pen needle, diabetic 32 gauge x #100 ea 11/26/21 09/01/22 Rx 5/32" (BD Ultra-Fine Balbina Pen Needle) metoprolol succinate 25 mg See Rx Instructions .Route 12/30/21 10/08/22 Rx tablet,extended release 24 hr .COMPLEX #45 tabs nitroglycerin 0.4 mg sublingual 0.4 mg sublingual Q5M PRN chest 01/28/22 10/08/22 Rx tablet pain #25 tabs blood sugar diagnostic #25 ea 02/11/22 09/01/22 Rx clopidogrel 75 mg tablet 75 mg .Route .every other day 02/27/22 10/08/22 History ezetimibe 10 mg tablet 10 mg PO DAILY #90 tabs 04/08/22 10/08/22 Rx insulin glargine 100 unit/mL (3 See Rx Instructions .Route .COMPLEX 05/14/22 10/08/22 History mL) subcutaneous pen (Lantus Solostar U-100 Insulin) atorvastatin 40 mg tablet See Rx Instructions .Route 07/29/22 10/08/22 Rx .COMPLEX #90 tabs Patient History Medical History Depression HTN (hypertension) Hx of non-ST elevation myocardial infarction (NSTEMI) Hypertensive urgency Surgical History H/O heart artery stent Hx of cataract surgery S/P tonsillectomy and adenoidectomy Family History Mother Stroke CHF (congestive heart failure) Father Stroke Prostate cancer Myocardial infarction Daughter Breast cancer Other Diabetes Hypertension Denies family history of Ovarian cancer Colorectal cancer Social History Smoking Status: Never smoker Second Hand Exposure: No; Hx Alcohol Use: No Hx Substance Use: No Preferred Language: Bangladeshi Communication Ability: Effective Visual Impairment: No Limitations Hearing 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: Normal 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 Beliefs That Will Affect Care: None marital status: / Current Living Situation: Alone Current Living Situation Comment: passed in 11/2020 current occupational status: retired 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 Feels Safe at Home: Yes Safety Concerns: Feels Safe At This Time Childhood Exposure to Second-Hand Smoke: No Dental Care, Regularly: Yes Physical Activity Frequency: 5-6 Times per Week Seatbelt Use: always Sunscreen Use: No Assistive Devices: None Review of Systems Constitutional: no fever and no chills Eyes: no blind spots and no diplopia Ear, Nose, Mouth, Throat: no hearing loss Respiratory: no cough and no dyspnea Cardiovascular: no chest pain and no palpitations Gastrointestinal: no nausea and no vomiting Genitourinary: no urinary incontinence Musculoskeletal: no myalgia Integumentary: no rash and no lesions Neurologic: + tremor(s), + headache(s), + confusion and + memory loss; no gait abnormality, no localized weakness and no loss of sensation Psychiatric: no depression and no anxiety Hematologic / Lymphatic: no easy bleeding and no easy bruising Exam (Neuro) Constitutional: well developed and well nourished; no acute distress Eyes: normal visual pacheco by confrontation, PERRL, normal accommodation and EOM intact bilaterally; no fundoscopic abnormality, no nystagmus and no papilledema Cardiovascular: Vessels: normal carotid upstroke; no carotid bruit Neurologic: Oriented to:: Person, Place and Time Memory: Short Term Intact and Remote Intact Attention: Span Intact and Concentration Intact Language: Naming Objects and Repeating Phrases Speech Fluency: negative Dysarthria Speech Aphasia: negative Aphasia Fund of Knowledge: Current Events, Past History and Vocabulary Cranial Nerves: Normal II (Visual pacheco full to confrontation, visual acuity normal), III, IV, (Pupils equal round reactive to light and accommodation, eye movements normal), V (Facial sensation intact), VII (There is no facial droop or weakness), VIII (Hearing intact), IX, X (Palate elevates to midline), XI (Shoulder shrug intact) and XII (Tongue protrudes to midline) Motor Strength: Normal Lower Extremities and Normal Upper Extremities; negative Pronator Drift Motor Tone: Normal Lower Extremities and Normal Upper Extremities Muscle Bulk/Involuntary Movements: Action Tremor; negative Muscle Atrophy or Pill Rolling Tremor Sensation: Light Touch Intact, Pain/Temperature Intact, Vibration Intact and Proprioception Intact Coordination: Normal; negative Limited Balance, Dysdiadochokinesia, Finger-Nose Abnormal or Heel-Rubi Abnormal Deep Tendon Reflexes: Rt Triceps: 2+, Lt Triceps: 2+, Rt Biceps: 2+, Lt Biceps: 2+, Rt Brachioradialis: 2+, Lt Brachioradialis: 2+, Rt Patellar: 2+, Lt Patellar: 2+, Rt Ankle: 2+ and Lt Ankle: 2+ Special Tests: negative Babinski Present Gait: Normal Station and Gait Results & Data ([facility]) Vital Signs (Past 12 Hours) Vital Signs Temp Pulse Pulse Resp BP BP Pulse Ox 10/09/22 11:14 36.9 C 86 18 183/94 H 94 10/09/22 08:30 10/09/22 07:52 36.7 C 69 18 149/82 H 96 10/09/22 07:04 62 10/09/22 03:37 36.8 C 67 16 138/79 95 O2 Del Method 10/09/22 11:14 Room Air 10/09/22 08:30 Room Air 10/09/22 07:52 Room Air 10/09/22 07:04 10/09/22 03:37 Room Air Laboratory Results WBC 6.58, hemoglobin 14.6, hematocrit 42.4, MCV 88.1, platelet count 262, sodium 139, potassium 4.0, BUN 9, creatinine 0.77, glucose 128, hemoglobin A1c 9.2, calcium 8.5, AST 20, ALT 23, vitamin B12 300, TSH 1.691, SARS-CoV-[address] angiography of the head and neck negative for hemorrhage or acute process, no significant vascular lesion identified. I independently reviewed the brain MRI, no abnormal restricted diffusion, no pathologic blooming artifact. There is generalized atrophy with associated hydrocephalus ex vacuo, bilateral hippocampal atrophy. There is mild chronic microvascular ischemic disease. Electrocardiogram reveals a normal sinus rhythm, 81 bpm. Coding Level of Care Code 77933 Initial Inpt Care Lvl 3 Diagnoses Memory deficits R41.3 Tremor R25.1
--- NOTE | 2022-10-09 12:36 | Discharge Summary ---
Date of Service October 09, 2022 Admission HPI Per Admitting Provider Juan Diego is a 77 year old male with PMH significant for Depression, previous TIA, DMII, memory deficits, BPH, CAD, hyperlipidemia, and HTN who presented to the [facility] ED on 10/08/22 with a chief complaint of confusion. In the ED the patient was found to be afebrile, hemodynamically stable, and stable on RA. Labs were remarkable for WBC WNL, INR of 1.2, stable renal function and electrolytes, glucose of 154, and Urine Specific gravity >1.045. CT of the head, and CTA of the head and neck were negative for acute findings. The patient was given no medications prior to admission. At the time of the exam the patient was resting comfortably in bed in no acute distress, history was obtained from the patient. He states that over the past year he has had moments of forgetfulness and intermittent memory loss which has slowly progressed. Because of this he has been trying to apply to live at the [facility] at [facility]. The patient said over the past three days he has been trying to work on the financial paperwork for the [facility] but it is more difficult and taking longer to complete than normal. 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 He feels as though he has noticed his confusion more over the past 3 days due to the fact that he has been trying to work on the financial information. He notes that due to the stress of the application process he has not been sleeping well over the past few days. He has been taking his medications as prescribed and notes that he took all of his medications yesterday. He takes 21 units of Lantus at night and does remember taking it last night. He checked his blood sugar last night due to his confusion and noted that it was 147. He woke up today and was the most confused he has been to the point that he didn't get out of bed. He denies having any new weakness or issues with movement. He checked his blood sugar while in bed and it was 118, which he was pleasantly surprised with. He called his Great Nephew (Valentin Bee III) who lives in town and helps care for him, his Great Nephew thought he was more confused than baseline and told him to call EMS. At the time of my exam the patient feels as though his confusions is slightly improved compared to this morning. He has not had anything to eat or drink yet today, but notes he has been eating and drinking well recently. He has a baseline tremor of which he was diagnosed by Dr. Tate of [facility] in the past. He denies recent fevers, chills, changes in vision, hearing, taste, and smell, chest pain, SOB, abdominal pain, nausea, vomiting, diarrhea, dysuria, hematuria, melena, and recent falls. During my exam the patient was speaking fluently and without issue. His speech was coherent and on topic throughout. He did have periods of time where he had to pause and think for a prolonged period of time before resending. He had good awareness of recent events and has detailed memories of the past. However, he was repeating himself towards the end of my exam when speaking about checking his blood sugar and doing the application for the [facility]. I spoke to the patient regarding code status as he does not appear acutely confused or disoriented at the time of my exam. He clearly stated that he would like to be a Full Code. His Daughter (Anna Marie Moore [phone]) is his POA and would make decisions for him if he could not make them himself. Please refer to Dr. Mojica's attestation for any changes to the treatment plan. Principal Diagnosis Acute exacerbation memory loss Discharge Exam General-alert and oriented x3, no fevers, no chills HEENT-head atraumatic and normocephalic, pupils equal and reactive to light, extraocular muscles intact Neck-no lymphadenopathy or thyromegaly, trachea midline Chest-clear to auscultation percussion. No rales wheezing or rhonchi Cardiac-regular rate and rhythm, normal S1 and S2, no murmurs Abdomen-normal bowel sounds, nontender, no hepatosplenomegaly Extremities-no cyanosis, clubbing, or edema Neuro-cranial nerves II through XII intact, motor and sensory function within normal limits, strength symmetrical , no focal deficits Psych-normal affect, normal mood Discharge Data Allergies Allergy/AdvReac Type Severity Reaction Status Date / Time No Known Drug Allergies Allergy Verified 09/01/22 10:36 Consultations 10/08/22 13:40 ED Decision to Admit Stat 10/09/22 08:34 Consult Neurology Routine Ordered Studies 10/08/22 09:52 CT head/brain wo con Stat 10/08/22 09:53 CT angio head w con Stat CT angio neck with con Stat 10/08/22 15:24 MR brain wo con Routine Diabetes Follow up Diabetes Follow-up Needed for HgbA1c >9% Hospital Course (1) Memory deficits: The patient appears to be alert and oriented at this time. He has been seen by neurology and the case was discussed with neurology. MRI scan reveals only age- related changes. He is scheduled for further outpatient testing. Statin therapy has been discontinued since this can contribute to memory issues. (2) HTN (hypertension): Hemodynamically stable . Continue lisinopril and metoprolol (3) CAD (coronary artery disease): Stable.Continue Aspirin and plavix (4) Dyslipidemia: Continue Zetia . Atorvastatin has been discontinued since statins can contribute to memory issues in the elderly (5) Diabetes type 2, controlled: ADA diet. Sliding scale coverage. Metformin was held while hospitalized. Continue other usual home medications (6) Tremor: At baseline, currently not on medication (7) BPH (benign prostatic hyperplasia): Currently asymptomatic. Does not appear to be on medication Plan The patient will be discharged home today, October 09. He has plans to enter the [facility] in the near future and has outpatient neurocognitive testing scheduled by his primary care provider. Total Time Total Time Spent Total Time Spent (In Minutes): 35 minutes Discharge Plan Discharge Items Patient Disposition: Home - Self-Care Reason For Visit: AMS Discharge Diagnosis: Acute on chronic memory loss Activity: Resume your previous activity Non-emergency contact: Primary Care Provider Call non-emergency contact if: you have any medication questions Follow-up/Referrals: Osei Garcia MD [Primary Care Provider] - Diet: Carb Consistent or DM2 and Heart Healthy Addtl Attending Provider Instructions: Atorvastatin has been discontinued since this can contribute to memory loss in the elderly Pending Studies at Discharge: No Stand-Alone Forms: My [employer], Smoking Cessation Medications and DC Order Prescriptions: Continued metformin 500 mg tablet extended release 24 hr See Rx Instructions .ROUTE .COMPLEX Qty: 360 3RF Dose Instruction: TAKE 2 TABLETS BY MOUTH TWICE DAILY Rx Instructions: TAKE 2 TABLETS BY MOUTH TWICE DAILY (DME) pen needle, diabetic [BD Ultra-Fine Balbina Pen Needle] 32 gauge x 5/32" needle See Rx Instructions .ROUTE .MEDSUPPLY Qty: 100 3RF Rx Instructions: use one daily metoprolol succinate 25 mg tablet extended release 24 hr See Rx Instructions .ROUTE .COMPLEX Qty: 45 3RF Dose Instruction: TAKE 1/2 TABLET BY MOUTH ONCE DAILY Rx Instructions: TAKE 1/2 TABLET BY MOUTH ONCE DAILY nitroglycerin 0.4 mg tablet, sublingual 0.4 mg sublingual Q5M PRN (Reason: chest pain) Qty: 25 1RF Rx Instructions: until response; do not exceed 3 doses per episode ezetimibe 10 mg tablet 10 mg PO DAILY Qty: 90 3RF Lantus Solostar U-100 Insulin 100 unit/mL (3 mL) insulin pen See Rx Instructions .ROUTE .COMPLEX Dose Instruction: INJECT 19 UNITS SUBCUTANEOUSLY IN THE EVENING Rx Instructions: INJECT 21 UNITS SUBCUTANEOUSLY IN THE EVENING (DME) blood sugar diagnostic Strip See Rx Instructions .ROUTE .MEDSUPPLY Qty: 25 11RF Rx Instructions: test 3 times weekly aspirin 81 mg tablet 81 mg PO DAILY (DME) lancets Misc See Rx Instructions .ROUTE .MEDSUPPLY Qty: 100 3RF Rx Instructions: testing three times daily clopidogrel 75 mg tablet 75 mg .ROUTE .every other day Rx Instructions: 75 mg .every other day; lisinopril 10 mg tablet 10 mg PO QPM Qty: 90 3RF Discontinued atorvastatin 40 mg tablet See Rx Instructions .ROUTE .COMPLEX Qty: 90 3RF Dose Instruction: TAKE ONE TABLET BY MOUTH EVERY MORNING Rx Instructions: TAKE ONE TABLET BY MOUTH EVERY MORNING Discharge Orders: Discharge Order (Routine); Ordered 10/09/22 Ordered By: Murray Mcadams Admission Data Admit Date/Time: 10/08/22 13:18 Attending Provider: Murray Mcadams Admit Provider: Wesley Mojica Primary Care Provider: Osei Garcia Other Providers: Wesley Mojica ; Eddi Jennings ; Chris Tate ; Inge Ortiz ; Milka Becerra ; Osei Ring Kathleen ; Navid Gaines ; Jazmin Ortega ; Ken Hood ; Ira Guan ; Kera Boyle ; Osei Elam Coding Level of Care Code D/C DAY MANAGEMENT >30 MINS Diagnoses Memory deficits R41.3 HTN (hypertension) I10 CAD (coronary artery disease) I25.10 Dyslipidemia E78.5 Diabetes type 2, controlled E11.9 Tremor R25.1 BPH (benign prostatic hyperplasia) N40.0
[2022-10-09] MEDS ORDERED: STROKE PATIENT DISCHARGE STA (12:37)
== END 2022-10-09 15:32 | disposition home or self-care (01) | DRG 948 ==
LOC: ED 09:05 → 2N 13:18 → SUATTDRO 13:18 → 2N 15:56

== ENCOUNTER 2023-11-11 15:53 | Observation (INO) ==
[2023-11-11] MEDS ORDERED: SODIUM CHLORIDE 0.9% 500 ML IV ONE (16:20)
--- NOTE | 2023-11-11 16:25 | Emergency Department Note ---
Impression & Plan Syncope, Hyperglycemia ED Provider Note NAME: SOHAIL VAZ AGE: 78 SEX: M : 1945 ARRIVES VIA: Ambulance INFORMANT: Patient ED PROVIDER(S): Long Tucker DO CHIEF COMPLAINT: syncope HPI: Patient is a 78-year-old male who presents ER with past medical history of diabetes, hypertension, CAD, hyperlipidemia for an episode where he became unresponsive. He notes that he was sitting in his car when he felt a little hot. The next thing he knew was simply was knocking on the window waking him up. He denies any headache or change in vision. No chest pain or shortness of breath preceding or following this episode. No belly pain. No nausea, vomiting, or diarrhea. No dysuria, urgency, or frequency. No other exacerbating or remitting factors. ADDITIONAL HISTORY OBTAINED: Per HPI Chronic Medical/Social Conditions Affecting Care: Per HPI PAST MEDICAL HISTORY:See Below PAST SURGICAL HISTORY:See Below FAMILY HISTORY:See Below SOCIAL HISTORY:See Below HOME MEDICATIONS:See Below ALLERGIES:See Below VITALS:See Below PHYSICAL EXAMINATION: GENERAL: Sitting up in bed, alert, well appearing, well nourished, no distress, non-toxic EYE EXAM: normal conjunctiva. PERRL and EOM's intact. OROPHARYNX: mucous membranes are moist NECK: supple, no nuchal rigidity, no adenopathy, non-tender LUNGS: Clear to auscultation. Normal chest wall mechanics HEART: no murmurs, S1 normal and S2 normal ABDOMEN: abdomen soft, non-tender, normo-active bowel sounds, no masses, no rebound or guarding. UPPER EXTREMITIES: upper extremities are grossly normal. LOWER EXTREMITIES: No pitting edema. NEURO EXAM: Normal sensorium, cranial nerves II-XII intact, normal speech, no weakness of arms, no weakness of legs. No drift. Finger to nose intact. Gross sensation intact. MEDICAL DECISION MAKING: Patient is a 78-year-old male who presents to the ER for an unresponsive episode. IV was established blood work was obtained. Labs show no significant leukocytosis or anemia. BMP along LFTs bilirubin and lipase is unremarkable. Troponin was negative. EKG was nondiagnostic. Chest x-ray was unremarkable. Patient was updated bedside. Patient was given IV fluids. Was monitored closely while in the ER. Patient has multiple cardiac risk factors. With the syncopal episode case was discussed with the hospitalist for further observation. Consults/Care Managements Discussions: Per MDM Triage Nursing notes reviewed. Limited review of prior medical records performed Vital Signs: reviewed and remarkable for HTN Differential diagnosis: Differential diagnosis includes etiologies such as vasovagal event, infection, hypoglycemia, electrolyte abnormalities, cardiac sources, intracerebral event, toxicologic, neurologic, as well as others were entertained. ER treatment provided: See below Diagnostics interpreted by me include EKG and cardiac monitoring as listed below: -Cardiac Monitoring: An order was placed for continuous cardiac monitoring. The monitor shows a rate of 72 with sinus rhythm. -ECG: Sinus rhythm rate 73 Normal axis No PVCs QTc 405 -Laboratory studies:Interpreted by me as stated above in MDM and shown below. Imaging studies: Xrays: As interpreted by me: Portable AP upright 1 view of the chest shows no focal infiltrate CTs show: CT head was negative Procedures:none Critical Care: None Past Med/Surg History Medical History BPH (benign prostatic hyperplasia) CAD (coronary artery disease) Depression Diabetes type 2, controlled Dyslipidemia HTN (hypertension) Hx of non-ST elevation myocardial infarction (NSTEMI) Hypertensive urgency Memory deficits Tremor Surgical History H/O heart artery stent Hx of cataract surgery S/P tonsillectomy and adenoidectomy Family History Mother Stroke CHF (congestive heart failure) Father Stroke Prostate cancer Myocardial infarction Daughter Breast cancer Sister Psychiatric problem Other Diabetes Hypertension Denies family history of Ovarian cancer Colorectal cancer Social History Smoking Status: Never smoker Second Hand Exposure: No; Do You Dip or Chew Tobacco: No; Hx Alcohol Use: No Hx Substance Use: No Preferred Language: Mongolian Communication Ability: Effective Visual Impairment: No Limitations Hearing Ability: Normal Pressfitter Required: No Beliefs That Will Affect Care: None marital status: / Current Living Situation: Alone Current Living Situation Comment: passed in 11/2020, is now living at the [facility] current occupational status: retired 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 Feels Safe at Home: Yes Childhood Exposure to Second-Hand Smoke: No Diet: regular Dental Care, Regularly: Yes Physical Activity Frequency: 3-4 Times per Week Seatbelt Use: always Sunscreen Use: No Assistive Devices: None Allergies Allergies Allergy/AdvReac Type Severity Reaction Status Date / Time No Known Allergies Allergy Verified 11/11/23 19:01 Home Meds Home Medications Medication Instructions Recorded Confirmed clopidogrel 75 mg tablet 75 mg PO .EVERY OTHER DAY 04/10/23 11/11/23 ezetimibe 10 mg tablet 10 mg PO DAILY 05/31/23 11/11/23 aspirin 81 mg tablet,delayed 81 mg PO QAM 11/11/23 11/11/23 release metformin 500 mg tablet,extended 1,000 mg PO BID 11/11/23 11/11/23 release 24 hr rosuvastatin 10 mg tablet 10 mg PO HS 11/11/23 11/11/23 Previous Rx's Medication Instructions Recorded lancets #100 ea 10/12/20 lancets 33 gauge (OneTouch Delica #200 ea 11/27/22 Lancets) blood sugar diagnostic (OneTouch #200 ea 07/10/23 Verio test strips) lisinopril 10 mg tablet 10 mg PO HS #90 tabs 08/19/23 insulin glargine 100 unit/mL (3 22 unit (0.22 mL) subcut HS #15 mL 09/21/23 mL) subcutaneous pen (Lantus Solostar U-100 Insulin) propranolol 80 mg capsule,24 80 mg PO DAILY #90 caps 09/21/23 hr,extended release nitroglycerin 0.4 mg sublingual 0.4 mg sublingual Q5M PRN chest 10/29/23 tablet pain #25 tabs pen needle, diabetic 32 gauge x #100 ea 11/10/2332" (Comfort EZ Pen [place]) Results & Data (ED) Vital Signs Vital Signs - 24 hr 11/11/23 15:45 11/11/23 16:08 11/11/23 16:35 Temperature 36.6 C Temperature Source Oral Pulse Rate - Lying Pulse Rate - Sitting Pulse Rate - Standing Pulse Rate 72 72 68 Pulse Rate from SpO2 Sensor Respiratory Rate 18 18 Respiratory Effort / Characteristics Non-Labored Spontaneous Respiratory Depth Normal Respiratory Pattern Regular Blood Pressure - Lying Blood Pressure - Sitting Blood Pressure- Standing Blood Pressure 173/104 H 159/82 H Blood Pressure Mean 127 107 Pulse Oximetry 98 96 Oxygen Delivery Method Room Air Room Air Sepsis Recent Fever Within 48 Hours No Sepsis New/Unexplained Change in Mental Status N/A Sepsis Action Taken by Nursing No Action Required 11/11/23 17:00 11/11/23 17:45 11/11/23 19:00 Temperature Temperature Source Pulse Rate - Lying Pulse Rate - Sitting Pulse Rate - Standing Pulse Rate 72 67 Pulse Rate from SpO2 Sensor Respiratory Rate 21 21 Respiratory Effort / Characteristics Respiratory Depth Respiratory Pattern Blood Pressure - Lying Blood Pressure - Sitting Blood Pressure- Standing Blood Pressure 177/90 H 175/103 H Blood Pressure Mean 119 127 Pulse Oximetry 95 97 Oxygen Delivery Method Room Air Room Air Room Air Sepsis Recent Fever Within 48 Hours Sepsis New/Unexplained Change in Mental Status Sepsis Action Taken by Nursing 11/11/23 19:30 11/11/23 20:00 11/11/23 20:12 Temperature Temperature Source Pulse Rate - Lying Pulse Rate - Sitting Pulse Rate - Standing Pulse Rate 66 65 66 Pulse Rate from SpO2 Sensor 65 65 Respiratory Rate 17 20 Respiratory Effort / Characteristics Respiratory Depth Respiratory Pattern Blood Pressure - Lying Blood Pressure - Sitting Blood Pressure- Standing Blood Pressure 149/87 H 153/89 H Blood Pressure Mean 107 110 Pulse Oximetry 98 98 Oxygen Delivery Method Room Air Room Air Sepsis Recent Fever Within 48 Hours Sepsis New/Unexplained Change in Mental Status Sepsis Action Taken by Nursing 11/11/23 20:55 Temperature Temperature Source Pulse Rate - Lying 74 Pulse Rate - Sitting 77 Pulse Rate - Standing 79 Pulse Rate Pulse Rate from SpO2 Sensor Respiratory Rate Respiratory Effort / Characteristics Respiratory Depth Respiratory Pattern Blood Pressure - Lying 189/104 H Blood Pressure - Sitting 187/102 H Blood Pressure- Standing 181/106 H Blood Pressure Blood Pressure Mean Pulse Oximetry Oxygen Delivery Method Sepsis Recent Fever Within 48 Hours Sepsis New/Unexplained Change in Mental Status Sepsis Action Taken by Nursing Laboratory Data 11/11/23 16:20 11/11/23 16:20 Lab Results 11/11/23 Range/Units 16:20 WBC 8.71 (4.8-10.8) K/ul RBC 5.57 (4.70-6.10) M/uL Hgb 16.6 (14.0-18.0) g/dl Hct 48.1 (42.0-52.0) % MCV 86.4 (80.0-100.0) fL MCH 29.8 (25.0-34.0) pg MCHC 34.5 (32.0-36.0) g/dL RDW Std Deviation 38.4 (36.4-46.3) fL RDW Coeff of Leanna 12.0 (11.5-14.5) % Plt Count 307 (130-400) K/uL MPV 10.4 (9.4-12.4) fL Immature Gran % (Auto) 0.3 % Neut % (Auto) 60.5 % Lymph % (Auto) 25.8 % [place] % (Auto) 7.3 % Eos % (Auto) 4.7 % Baso % (Auto) 1.4 % Neut # (Auto) 5.26 (1.40-6.50) K/uL Lymph # (Auto) 2.25 (1.20-3.40) K/uL [place] # (Auto) 0.64 H (0.11-0.59) K/uL Eos # (Auto) 0.41 (0.00-0.50) K/uL Baso # (Auto) 0.12 (0.00-0.20) K/uL Immature Gran # (Auto) 0.03 (0.01-0.20) K/uL Sodium 135 L (136-145) mmol/L Potassium 3.9 (3.5-5.1) mmol/L Chloride 99 (98-107) mmol/L Carbon Dioxide 29 (21-32) mmol/L Anion Gap 7 (3-11) BUN 15 (6-23) mg/dl Creatinine 0.97 (0.6-1.4) mg/dl Est Cr Clr Drug Dosing 60.7 ml/min Est GFR ( Amer) 85.7 ml/min Est GFR (Non-Af Amer) 73.9 ml/min BUN/Creatinine Ratio 15.5 (10-20) Glucose 200 H (70-99(Fasting)) mg/dl Calcium 9.0 (8.6-10.3) mg/dl Total Bilirubin 0.4 (0.2-1.0) mg/dl AST 19 (13-39) U/L ALT 24 (7-52) U/L Alkaline Phosphatase 91 (34-104) U/L Troponin I High Sens 4.1 (0-20) pg/ml Total Protein 6.8 (6.0-8.3) gm/dl Albumin 4.4 (3.4-5.0) gm/dl Globulin 2.4 L (2.5-4.0) gm/dl Albumin/Globulin Ratio 1.8 (0.9-2) Lipase 41 (11-82) U/L Administered Medications Discontinued Medications Sodium Chloride (Nss) 500 mls @ 999 mls/hr IV .Q31M ONE Stop: 11/11/23 16:50 Last Infusion: 11/11/23 17:32 Dose: Infused Documented By: Admin: 11/11/23 16:38 Dose: 999 mls/hr Documented By: TBS Imaging Data Radiologist's Impression: Chest X-Ray 11/11/23 16:07 XR chest 1V portable CLINICAL HISTORY: Chest pain, nonspecific TECHNIQUE: Single frontal radiograph of the chest was obtained. Comparison: Comparison is made to chest radiograph 05/31/2023 FINDINGS: No lines and tubes are seen. The cardiomediastinal silhouette is normal. The lungs are clear. No evidence of pleural effusion or pneumothorax. IMPRESSION: No acute chest disease. ACT 112: Negative or not required by law. Electronically signed by: Bony Rahman M.D. 11/11/2023 5:[address] 11/11/23 16:21 CT head/brain wo con CLINICAL HISTORY: +loc Technique: Contiguous axial CT images of the head were acquired from the base of the skull to the vertex without intravenous contrast administration. Images were viewed in brain, subdural and bone windows. Automated dose lowering techniques and/or adjustment according to patient size were utilized for this exam. Comparison: None available at the time of this dictation. Findings: Areas of decreased attenuation are present in the periventricular and subcortical white matter bilaterally consistent with small vessel ischemic disease. Generalized cerebral atrophy with commensurate enlargement of the ventricles, sulci, and cisterns is also present. There is no acute intracranial hemorrhage or evidence of acute territorial infarction. No shift of the midline structures, mass effect, or extra-axial abnormalities are shown. Atherosclerotic calcifications are present in the intracranial segments of the internal carotid arteries. Imaged portions of the paranasal sinuses and mastoid air cells are clear. The orbits appear normal. There are no acute fractures of the calvaria or scalp swelling. Impression: No acute intracranial hemorrhage, no evidence of acute territorial infarction or other acute intracranial disease process. ACT 112: Negative or not required by law. Electronically signed by: Bony Rahman M.D. 11/11/2023 5:23 PM Discharge Plan Visit Data Chief Complaint: Syncope Stated Complaint: SYNCOPE; [facility]PONS[facility] AT [facility] ED Provider: Long Tucker Discharge Problem: Syncope, Hyperglycemia Forms Stand Alone Forms: [facility] [facility] Prescriptions Prescriptions: No Action (DME) lancets [OneTouch Delica Lancets] 33 gauge misc See Rx Instructions .Route Qty: 200 11RF Rx Instructions: Test 3 times a day insulin glargine [Lantus Solostar U-100 Insulin] 100 unit/mL (3 mL) insulin pen 22 unit subcut HS Qty: 15 5RF nitroglycerin 0.4 mg tablet, sublingual 0.4 mg sublingual Q5M PRN (Reason: chest pain) Qty: 25 1RF Rx Instructions: until response; do not exceed 3 doses per episode (DME) pen needle, diabetic [Comfort EZ Pen [place]] 32 gauge x 5/32" needle See Rx Instructions .ROUTE .COMPLEX Qty: 100 3RF Dose Instruction: use one daily Rx Instructions: use one daily clopidogrel 75 mg tablet 75 mg PO .EVERY OTHER DAY Dose Instruction: TAKE 1 TABLET BY MOUTH DAILY propranolol 80 mg capsule,extended release 24hr 80 mg PO DAILY Qty: 90 3RF lisinopril 10 mg tablet 10 mg PO HS Qty: 90 1RF (DME) lancets Misc See Rx Instructions .ROUTE .MEDSUPPLY Qty: 100 3RF Rx Instructions: testing three times daily (DME) OneTouch Verio test strips Strip See Rx Instructions .ROUTE .MEDSUPPLY Qty: 200 3RF Rx Instructions: Check blood sugars 2x a day ezetimibe 10 mg tablet 10 mg PO DAILY aspirin 81 mg Tablet,Delayed Release (Dr/Ec) 81 mg PO QAM metformin 500 mg tablet extended release 24 hr 1,000 mg PO BID Rx Instructions: TAKE 2 TABLETS BY MOUTH TWICE DAILY rosuvastatin 10 mg tablet 10 mg PO HS Referrals Referrals: Osei Garcia MD [Primary Care Provider] - Discharge Problem: Syncope Qualifiers: Syncope type: unspecified Qualified Code(s): R55 - Syncope and collapse
[2023-11-11 16:53] LABS: Basophils # (auto) 0.12 K/uL (0.00-0.20); Basophils % (auto) 1.4 %; Eosinophils # (auto) 0.41 K/uL (0.00-0.50); Eosinophils % (auto) 4.7 %; Hematocrit (blood only) 48.1 % (42.0-52.0); Hemoglobin 16.6 g/dl (14.0-18.0); Immature Granulocytes # (auto) 0.03 K/uL (0.01-0.20); Immature Granulocytes % (auto) 0.3 %; Lymphocytes # (auto) 2.25 K/uL (1.20-3.40); Lymphocytes % (auto) 25.8 %; Mean Corpuscular Hemoglobin 29.8 pg (25.0-34.0); Mean Corpuscular Hgb Conc 34.5 g/dL (32.0-36.0); Mean Corpuscular Volume 86.4 fL (80.0-100.0); Mean Platelet Volume 10.4 fL (9.4-12.4); Monocytes # (auto) 0.64 K/uL (0.11-0.59); Monocytes % (auto) 7.3 %; Neutrophils # (auto) 5.26 K/uL (1.40-6.50); Neutrophils % (auto) 60.5 %; Platelet Count 307 K/uL (130-400); RDW Standard Deviation 38.4 fL (36.4-46.3); Red Blood Count 5.57 M/uL (4.70-6.10); White Blood Count 8.71 K/ul (4.8-10.8)
[2023-11-11 17:10] LABS: Albumin Globulin Ratio 1.8 (0.9-2); Albumin Level 4.4 gm/dl (3.4-5.0); BUN Creatinine Ratio 15.5 (10-20); Bilirubin,Total 0.4 mg/dl (0.2-1.0); Creatinine Clr Calc Pharmacy 60.7 ml/min; Est GFR (African American) 85.7 ml/min; Est GFR (Non-African American) 73.9 ml/min; Globulin 2.4 gm/dl (2.5-4.0); Potassium 3.9 mmol/L (3.5-5.1); Total Protein 6.8 gm/dl (6.0-8.3)
[2023-11-11 17:16] LABS: Troponin I High Sensitivity 4.1 pg/ml (0-20)
--- NOTE | 2023-11-11 17:26 | CT Scan Report ---
CT head/brain wo con CLINICAL HISTORY: +loc Technique: Contiguous axial CT images of the head were acquired from the base of the skull to the jimmy emily without intravenous contrast administration. Images were viewed in brain, subdural and bone [facility]. Automated dose lowering techniques and/or adjustment according to patient size were utilized for this exam. Comparison: None available at the time of this dictation. Findings: Areas of decreased attenuation are present in the periventricular and subcortical white matter bilate rally consistent with small vessel ischemic disease. Generalized cerebral atrophy with commensurate e nlargement of the ventricles, sulci, and cisterns is also present. There is no acute intracranial hem orrhage or evidence of acute territorial infarction. No shift of the midline structures, mass effect, or extra-axial abnormalities are shown. Atherosclerotic calcifications are present in the intracran ial segments of the internal carotid arteries. Imaged portions of the paranasal sinuses and mastoid air cells are clear. The orbits appear normal. There are no acute fractures of the calvaria or scalp swelling. Impression: No acute intracranial hemorrhage, no evidence of acute territorial infarction or other acute intracra nial disease process. ACT 112: Negative or not required by law. Electronically signed by: Bony Rahman M.D. 11/11/2023 5:23 PM
--- NOTE | 2023-11-11 17:51 | XRay Report ---
XR chest 1V portable CLINICAL HISTORY: Chest pain, nonspecific TECHNIQUE: Single frontal radiograph of the chest was obtained. Comparison: Comparison is made to chest radiograph 05/31/2023 FINDINGS: No lines and tubes are seen. The cardiomediastinal silhouette is normal. The lungs are clear. No evid ence of pleural effusion or pneumothorax. IMPRESSION: No acute chest disease. ACT 112: Negative or not required by law. Electronically signed by: Bony Rahman M.D. 11/11/2023 5:49 PM
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
[2023-11-11 21:33] LABS: Magnesium 1.8 mg/dl (1.7-2.4)
[2023-11-12] MEDS ORDERED: ENOXAPARIN INJ 40 MG/0.4 ML SYR SQ SCH (00:43)
[2023-11-12] MEDS ORDERED: ACETAMINOPHEN 325 MG TAB PO PRN (00:43)
[2023-11-12] MEDS ORDERED: GLUCOSE 10 TAB/TUBE PO PRN (00:43)
[2023-11-12] MEDS ORDERED: DEXTROSE 50% 50 ML SYRINGE IV PRN (00:43)
[2023-11-12] MEDS ORDERED: NITROGLYCERIN SL 0.4 MG/TAB TAB SL PRN (00:43)
[2023-11-12] MEDS ORDERED: GLUCAGON FOR INJ 1 MG VIAL SQ PRN (00:43)
[2023-11-12] MEDS ORDERED: lisinopril 10 MG TAB PO SCH (00:43)
[2023-11-12] MEDS ORDERED: CARBOHYDRATES FOR HYPOGLYCEMIA PO PRN (00:43)
[2023-11-12] MEDS ORDERED: ROSUVASTATIN CALCIUM 10 MG TAB PO SCH (00:43)
[2023-11-12] MEDS ORDERED: GLUCOSE 40% GEL 15 GM TUBE PO PRN (00:43)
--- NOTE | 2023-11-12 00:46 | Magnetic Resonance Report ---
Exam(s): MRI HEAD Without Contrast EXAM: MR Head Without Intravenous Contrast CLINICAL HISTORY: Reason for exam: CVA/TIA workup. TECHNIQUE: Magnetic resonance images of the head/brain without intravenous contrast in multiple planes. COMPARISON: Comparison made to prior head CT from November 11, 2023. FINDINGS: Brain: Mild nonspecific white matter changes. The flow voids at the base of the brain are intact. No mass. No hemorrhage. No acute infarct. 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 Ventricles: Moderate ventriculomegaly. Bones/joints: Unremarkable. No acute fracture. Sinuses: Chronic left maxillary sinusitis. No acute sinusitis. Mastoid air cells: Unremarkable as visualized. No mastoid effusion. Orbits: Bilateral lens replacements. IMPRESSION: No evidence of acute intracranial pathology. Electronically signed by: Barbara Shea MD 11/12/23 00:46 AM
[2023-11-12] MEDS: LANTUS PER UNIT CHARGE SQ SCH ×2 (01:10→09:09)
[2023-11-12] MEDS: INSULIN ASPART PER UNIT CHARGE SC SCH ×3 (01:10→12:52)
[2023-11-12 06:28] LABS: Basophils % (auto) 1.3 %; Eosinophils # (auto) 0.42 K/uL (0.00-0.50); Eosinophils % (auto) 5.3 %; Hematocrit (blood only) 43.2 % (42.0-52.0); Immature Granulocytes # (auto) 0.02 K/uL (0.01-0.20); Immature Granulocytes % (auto) 0.3 %; Lymphocytes # (auto) 2.21 K/uL (1.20-3.40); Lymphocytes % (auto) 28.1 %; Mean Corpuscular Hemoglobin 29.8 pg (25.0-34.0); Mean Corpuscular Hgb Conc 34.7 g/dL (32.0-36.0); Mean Corpuscular Volume 85.7 fL (80.0-100.0); Mean Platelet Volume 10.5 fL (9.4-12.4); Monocytes # (auto) 0.74 K/uL (0.11-0.59); Monocytes % (auto) 9.4 %; Neutrophils # (auto) 4.37 K/uL (1.40-6.50); Neutrophils % (auto) 55.6 %; Platelet Count 250 K/uL (130-400); RDW Coefficient of Variation 11.9 % (11.5-14.5); RDW Standard Deviation 37.2 fL (36.4-46.3); Red Blood Count 5.04 M/uL (4.70-6.10); White Blood Count 7.86 K/ul (4.8-10.8)
[2023-11-12 07:10] LABS: Estimated Average Glucose 226 mg/dl; Hemoglobin A1C 9.5 % (4.5-5.6)
[2023-11-12 07:54] LABS: BUN Creatinine Ratio 19.5 (10-20); Calcium 8.3 mg/dl (8.6-10.3); Creatinine Clr Calc Pharmacy 77.8 ml/min; Est GFR (Non-African American) 86.3 ml/min; Potassium 3.9 mmol/L (3.5-5.1)
[2023-11-12] MEDS ORDERED: EZETIMIBE 10 MG TAB PO SCH (09:00)
[2023-11-12] MEDS ORDERED: PROPRANOLOL HCL LA 80 MG CAPCR PO SCH (09:00)
[2023-11-12] MEDS ORDERED: CLOPIDOGREL BISULFATE 75 MG TAB PO SCH (09:00)
[2023-11-12] MEDS ORDERED: ASPIRIN 81 MG ECTAB PO SCH (09:00)
[2023-11-12 11:12] LABS: Troponin I High Sensitivity 4.1 pg/ml (0-20)
--- NOTE | 2023-11-12 11:22 | XCELERA ---
[id number]
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
--- NOTE | 2023-11-13 19:18 | Electrocardiogram Report ---
Test Reason : Blood Pressure : / mmHG Vent. Rate : 073 BPM Atrial Rate : 073 BPM P-R Int : 208 ms QRS Dur : 080 ms QT Int : 368 ms P-R-T Axes : 056 004 068 degrees QTc Int : 405 ms Sinus rhythm with 1st degree A-V block Possible Left atrial enlargement Low voltage QRS Cannot rule out Anteroseptal infarct (cited on or before 11-NOV-2023) Abnormal ECG When compared with ECG of 31-MAY-2023 06:18, Questionable change in initial forces of Septal leads Confirmed by Kristopher Pitts ([id number]) on 11/13/2023 7:17:50 PM Referred By: Osei Garcia Confirmed By:Kristopher Pitts
== END 2023-11-12 17:45 | disposition home or self-care (01) ==
LOC: 2W 15:53 → ED 15:53 → SUATTDRO 20:47 → 2W 11-12 00:16

== ENCOUNTER 2024-02-16 11:19 | Observation (INO) ==
--- NOTE | 2024-02-16 12:07 | Emergency Department Note ---
Impression & Plan SOB (shortness of breath), Chest pain, Hyperglycemia ED Provider Note NAME: SOHAIL VAZ AGE: 78 SEX: M : 1945 ARRIVES VIA: Ambulance INFORMANT: Patient ED PROVIDER(S): Long Tucker DO CHIEF COMPLAINT: chest tightness and SOB HPI: Patient is a 78-year-old male with a past medical history of cognitive impairment, diabetes, CAD, MS in 2001, hypertension and hyperlipidemia that presents to the ER for shortness of breath which has been going on for over a week. He notes he gets chest tightness with this. It resolves within about an hour to 2. He got it again today. He denies any belly pain, nausea, vomiting, or diarrhea. No dysuria, urgency, or frequency. No other exacerbating or remitting factors. ADDITIONAL HISTORY OBTAINED: Per HPI Chronic Medical/Social Conditions Affecting Care: Per HPI PAST MEDICAL HISTORY:See Below PAST SURGICAL HISTORY:See Below FAMILY HISTORY:See Below SOCIAL HISTORY:See Below HOME MEDICATIONS:See Below ALLERGIES:See Below VITALS:See Below PHYSICAL EXAMINATION: GENERAL: Sitting up in bed, alert, well appearing, well nourished, no distress, non-toxic EYE EXAM: normal conjunctiva. PERRL and EOM's grossly intact. OROPHARYNX: mucous membranes are moist NECK: supple, no nuchal rigidity, no adenopathy, non-tender LUNGS: Clear to auscultation. Normal chest wall mechanics HEART: no murmurs, S1 normal and S2 normal ABDOMEN: abdomen soft, non-tender, normo-active bowel sounds, no masses, no rebound or guarding. UPPER EXTREMITIES: upper extremities are grossly normal. LOWER EXTREMITIES: No pitting edema. Calves are equal bilaterally NEURO EXAM: Normal sensorium, cranial nerves II-XII intact, normal speech, no gross weakness of arms, no gross weakness of legs. MEDICAL DECISION MAKING: Patient is a 78-year-old male who presents ER for shortness of breath and chest pressure which has been going off and on for the past week. He feels similar to his previous MS but nowhere near as bad. He does not believe that this is exertional but he cannot say for sure. IV was established blood work was obtained. Labs show no significant leukocytosis or anemia. D-dimer was negative. BMP with slightly elevated glucose at 340 which trended down to 250. LFTs bilirubin was unremarkable. Initial troponin was negative. Chest x-ray was clean. EKG was nondiagnostic. He was updated bedside and he was discussed with the hospitalist for further evaluation management treatment. Patient was pain-free upon arrival. He did receive aspirin prior to arrival. Consults/Care Managements Discussions: Per [facility] Triage Nursing notes reviewed. Limited review of prior medical records performed Vital Signs: reviewed and remarkable for no significant abnormalities Differential diagnosis: Cardiac ischemia, aortic dissection, pulmonary embolism, pneumothorax, pneumonia, pericarditis, myocarditis, esophageal rupture, GERD, cholecystitis, pancreatitis, musculoskeletal, as well as other pathologies. ER treatment provided: See below Diagnostics interpreted by me include EKG and cardiac monitoring as listed below: -Cardiac Monitoring: An order was placed for continuous cardiac monitoring. The monitor shows a rate of 70 with sinus rhythm. -ECG: Sinus rhythm rate 76 Normal axis No PVCs Septal Q waves QTc 409 -Laboratory studies:Interpreted by me as stated above in MDM and shown below. Imaging studies: Xrays: As interpreted by me: Portable AP upright 1 view of the chest shows no focal infiltrate CTs show: none Procedures:none Critical Care: None Past Med/Surg History Medical History Depression CAD (coronary artery disease) Memory deficits Dyslipidemia Diabetes type 2, controlled Tremor Hypertensive urgency BPH (benign prostatic hyperplasia) Hx of non-ST elevation myocardial infarction (NSTEMI) HTN (hypertension) Surgical History S/P tonsillectomy and adenoidectomy H/O heart artery stent Hx of cataract surgery Family History Mother , age 91 Stroke CHF (congestive heart failure) Father , age 86 with stroke Stroke Prostate cancer Myocardial infarction Daughter Breast cancer Sister Psychiatric problem Other Diabetes Hypertension Denies family history of Ovarian cancer Colorectal cancer Social History Smoking Status: Unknown if ever smoked Second Hand Exposure: No; Do You Dip or Chew Tobacco: No; Hx Alcohol Use: No Hx Substance Use: No Preferred Language: Surinamese Communication Ability: Effective Visual Impairment: No Limitations Hearing Ability: Normal Customer Account 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 Required: No Beliefs That Will Affect Care: None marital status: / Current Living Situation: Alone Current Living Situation Comment: passed in 11/2020, is now living at the [facility] current occupational status: retired 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 Feels Safe at Home: Yes Childhood Exposure to Second-Hand Smoke: No Diet: regular Dental Care, Regularly: Yes Physical Activity Frequency: 3-4 Times per Week Seatbelt Use: always Sunscreen Use: No Assistive Devices: None Allergies Allergies Allergy/AdvReac Type Severity Reaction Status Date / Time No Known Allergies Allergy Verified 02/04/24 10:53 Home Meds Home Medications Medication Instructions Recorded Confirmed aspirin 81 mg tablet,delayed 81 mg PO QAM 11/11/23 02/16/24 release rosuvastatin 10 mg tablet 10 mg PO HS 11/11/23 02/16/24 insulin glargine 100 unit/mL (3 24 unit subcut HS 02/16/24 02/16/24 mL) subcutaneous pen (Lantus Solostar U-100 Insulin) Previous Rx's Medication Instructions Recorded lancets #100 ea 10/12/20 lancets 33 gauge (OneTouch Delica #200 ea 11/27/22 Lancets) blood sugar diagnostic (OneTouch #200 ea 07/10/23 Verio test strips) propranolol 80 mg capsule,24 80 mg PO DAILY #90 caps 09/21/23 hr,extended release nitroglycerin 0.4 mg sublingual 0.4 mg sublingual Q5M PRN chest 10/29/23 tablet pain #25 tabs pen needle, diabetic 32 gauge x #100 ea 11/10/23" (Comfort EZ Pen [place]) lisinopril 10 mg tablet See Rx Instructions .Route 11/25/23 .COMPLEX #90 tabs clopidogrel 75 mg tablet 75 mg PO .EVERY OTHER DAY #90 tabs 01/18/24 ezetimibe 10 mg tablet 10 mg PO DAILY #90 tabs 01/18/24 metformin 500 mg tablet,extended 1,000 mg (2 x 500 mg) PO BID #360 01/18/24 release 24 hr tabs Results & Data (ED) Vital Signs Vital Signs - 24 hr 02/16/24 11:32 02/16/24 11:39 02/16/24 11:39 Temperature 36.8 C Temperature Source Oral Pulse Rate 81 Pulse Rhythm Regular Pulse Strength Normal Respiratory Rate 15 Respiratory Effort / Characteristics Non-Labored Spontaneous Non-Labored Spontaneous Respiratory Depth Normal Normal Respiratory Pattern Regular Regular Blood Pressure 187/105 H Blood Pressure Mean 132 Blood Pressure Position Lying Pulse Oximetry 97 97 Oxygen Delivery Method Room Air Room Air Room Air Sepsis Recent Fever Within 48 Hours No Sepsis New/Unexplained Change in Mental Status No Sepsis Action Taken by Nursing No Action Required 02/16/24 11:48 02/16/24 11:54 02/16/24 12:00 Temperature Temperature Source Pulse Rate 78 76 Pulse Rhythm Pulse Strength Respiratory Rate 15 Respiratory Effort / Characteristics Respiratory Depth Respiratory Pattern Blood Pressure Blood Pressure Mean Blood Pressure Position Pulse Oximetry 97 Oxygen Delivery Method Sepsis Recent Fever Within 48 Hours Sepsis New/Unexplained Change in Mental Status Sepsis Action Taken by Nursing 02/16/24 13:00 02/16/24 13:37 02/16/24 13:37 Temperature Temperature Source Pulse Rate 67 67 Pulse Rhythm Pulse Strength Respiratory Rate 15 19 Respiratory Effort / Characteristics Respiratory Depth Respiratory Pattern Blood Pressure 157/91 H Blood Pressure Mean 108 Blood Pressure Position Pulse Oximetry Oxygen Delivery Method Sepsis Recent Fever Within 48 Hours Sepsis New/Unexplained Change in Mental Status Sepsis Action Taken by Nursing 02/16/24 16:07 Temperature Temperature Source Pulse Rate 66 Pulse Rhythm Pulse Strength Respiratory Rate Respiratory Effort / Characteristics Respiratory Depth Respiratory Pattern Blood Pressure Blood Pressure Mean Blood Pressure Position Pulse Oximetry Oxygen Delivery Method Sepsis Recent Fever Within 48 Hours Sepsis New/Unexplained Change in Mental Status Sepsis Action Taken by Nursing Laboratory Data 02/16/24 12:12 02/16/24 12:12 Lab Results 02/16/24 02/16/24 02/16/24 Range/Units 12:12 13:42 15:51 WBC 7.14 (4.8-10.8) K/ul RBC 5.66 (4.70-6.10) M/uL Hgb 16.5 (14.0-18.0) g/dl Hct 48.4 (42.0-52.0) % MCV 85.5 (80.0-100.0) fL MCH 29.2 (25.0-34.0) pg MCHC 34.1 (32.0-36.0) g/dL RDW Std Deviation 37.1 (36.4-46.3) fL RDW Coeff of Leanna 11.9 (11.5-14.5) % Plt Count 270 (130-400) K/uL MPV 10.3 (9.4-12.4) fL Immature Gran % (Auto) 0.4 % Neut % (Auto) 65.6 % Lymph % (Auto) 19.9 % Mcdonald % (Auto) 7.4 % Eos % (Auto) 5.3 % Baso % (Auto) 1.4 % Neut # (Auto) 4.68 (1.40-6.50) K/uL Lymph # (Auto) 1.42 (1.20-3.40) K/uL Mcdonald # (Auto) 0.53 (0.11-0.59) K/uL Eos # (Auto) 0.38 (0.00-0.50) K/uL Baso # (Auto) 0.10 (0.00-0.20) K/uL Immature Gran # (Auto) 0.03 (0.01-0.20) K/uL D-Dimer < 190 (0-500) ug/L FEU Sodium 133 L (136-145) mmol/L Potassium 4.4 (3.5-5.1) mmol/L Chloride 99 (98-107) mmol/L Carbon Dioxide 29 (21-32) mmol/L Anion Gap 5 (3-11) BUN 13 (6-23) mg/dl Creatinine 0.80 (0.6-1.4) mg/dl Est Cr Clr Drug Dosing 73.7 ml/min Est GFR ( Amer) 98.5 ml/min Est GFR (Non-Af Amer) 85.0 ml/min BUN/Creatinine Ratio 16.3 (10-20) Glucose 340 H* (70-99(Fasting)) mg/dl POC Glucose 251 H (70-99) mg/dl Calcium 9.3 (8.6-10.3) mg/dl Total Bilirubin 0.5 (0.2-1.0) mg/dl AST 25 (13-39) U/L ALT 34 (7-52) U/L Alkaline Phosphatase 79 (34-104) U/L Troponin I High Sens 18.9 43.8 H D (0-20) pg/ml Total Protein 6.5 (6.0-8.3) gm/dl Albumin 4.1 (3.4-5.0) gm/dl Globulin 2.4 L (2.5-4.0) gm/dl Albumin/Globulin Ratio 1.7 (0.9-2) Lipase 61 (11-82) U/L Imaging Data Radiologist's Impression: Chest X-Ray 02/16/24 11:54 SINGLE VIEW CHEST CLINICAL HISTORY: Atypical chest pain. FINDINGS: An AP, portable, upright chest radiograph is compared to study dated 02/13/2024. The cardiomediastinal silhouette is unremarkable. Chronic interstitial thickening is similar to previous. There is mild bibasilar scarring/atelectasis. The lungs and pleural spaces are otherwise clear. No pneumothorax is seen. The skeletal structures are osteopenic. The bony thorax is grossly intact. IMPRESSION: No acute cardiopulmonary abnormality. ACT 112: Negative or not required by law. Electronically signed by: Biju Larry M.D. 02/16/2024 12:20 PM Discharge Plan Visit Data Chief Complaint: Shortness of Breath/Dyspnea ED Provider: Long Tucker Discharge Problem: SOB (shortness of breath), Chest pain, Hyperglycemia Patient Disposition: Admitted As Inpatient Discharge Instructions Interventions: ED Discharge Assessment Last Done: 02/16/24 17:16 Forms Stand Alone Forms: My [facility] [employer] Analysis Prescriptions Prescriptions: No Action (DME) lancets [OneTouch Delica Lancets] 33 gauge misc See Rx Instructions .Route Qty: 200 11RF Rx Instructions: Test 3 times a day nitroglycerin 0.4 mg tablet, sublingual 0.4 mg sublingual Q5M PRN (Reason: chest pain) Qty: 25 1RF Rx Instructions: until response; do not exceed 3 doses per episode (DME) pen needle, diabetic [Comfort EZ Pen [place]] 32 gauge x 5/32" needle See Rx Instructions .ROUTE .COMPLEX Qty: 100 3RF Dose Instruction: use one daily Rx Instructions: use one daily lisinopril 10 mg tablet See Rx Instructions .ROUTE .COMPLEX Qty: 90 1RF Dose Instruction: TAKE 1 TABLET BY MOUTH ONCE DAILY AT BEDTIME Rx Instructions: TAKE 1 TABLET BY MOUTH ONCE DAILY AT BEDTIME clopidogrel 75 mg tablet 75 mg PO .EVERY OTHER DAY Qty: 90 3RF Dose Instruction: TAKE 1 TABLET BY MOUTH DAILY ezetimibe 10 mg tablet 10 mg PO DAILY Qty: 90 3RF metformin 500 mg tablet extended release 24 hr 1,000 mg PO BID Qty: 360 3RF Rx Instructions: TAKE 2 TABLETS BY MOUTH TWICE DAILY propranolol 80 mg capsule,extended release 24hr 80 mg PO DAILY Qty: 90 3RF (DME) lancets Misc See Rx Instructions .ROUTE .MEDSUPPLY Qty: 100 3RF Rx Instructions: testing three times daily (DME) OneTouch Verio test strips Strip See Rx Instructions .ROUTE .MEDSUPPLY Qty: 200 3RF Rx Instructions: Check blood sugars 2x a day aspirin 81 mg Tablet,Delayed Release (Dr/Ec) 81 mg PO QAM rosuvastatin 10 mg tablet 10 mg PO HS insulin glargine [Lantus Solostar U-100 Insulin] 100 unit/mL (3 mL) insulin pen 24 unit subcut HS Referrals Referrals: Osei Garcia MD [Primary Care Provider] - Discharge Problem: Chest pain Qualifiers: Chest pain type: unspecified Qualified Code(s): R07.9 - Chest pain, unspecified
--- NOTE | 2024-02-16 12:21 | XRay Report ---
SINGLE VIEW CHEST CLINICAL HISTORY: Atypical chest pain. FINDINGS: An AP, portable, upright chest radiograph is compared to study dated 02/13/2024. The cardiom ediastinal silhouette is unremarkable. Chronic interstitial thickening is similar to previous. There is mild bibasilar scarring/atelectasis. The lungs and pleural spaces are otherwise clear. No pneumoth orax is seen. The skeletal structures are osteopenic. The bony thorax is grossly intact. IMPRESSION: No acute cardiopulmonary abnormality. ACT 112: Negative or not required by law. Electronically signed by: Biju Larry M.D. 02/16/2024 12:20 PM
[2024-02-16 12:33] LABS: Basophils % (auto) 1.4 %; Eosinophils # (auto) 0.38 K/uL (0.00-0.50); Eosinophils % (auto) 5.3 %; Hematocrit (blood only) 48.4 % (42.0-52.0); Hemoglobin 16.5 g/dl (14.0-18.0); Immature Granulocytes # (auto) 0.03 K/uL (0.01-0.20); Immature Granulocytes % (auto) 0.4 %; Lymphocytes # (auto) 1.42 K/uL (1.20-3.40); Lymphocytes % (auto) 19.9 %; Mean Corpuscular Hemoglobin 29.2 pg (25.0-34.0); Mean Corpuscular Hgb Conc 34.1 g/dL (32.0-36.0); Mean Corpuscular Volume 85.5 fL (80.0-100.0); Mean Platelet Volume 10.3 fL (9.4-12.4); Monocytes # (auto) 0.53 K/uL (0.11-0.59); Monocytes % (auto) 7.4 %; Neutrophils # (auto) 4.68 K/uL (1.40-6.50); Neutrophils % (auto) 65.6 %; Platelet Count 270 K/uL (130-400); RDW Coefficient of Variation 11.9 % (11.5-14.5); RDW Standard Deviation 37.1 fL (36.4-46.3); Red Blood Count 5.66 M/uL (4.70-6.10); White Blood Count 7.14 K/ul (4.8-10.8)
[2024-02-16 12:53] LABS: Albumin Globulin Ratio 1.7 (0.9-2); Albumin Level 4.1 gm/dl (3.4-5.0); BUN Creatinine Ratio 16.3 (10-20); Bilirubin,Total 0.5 mg/dl (0.2-1.0); Calcium 9.3 mg/dl (8.6-10.3); Creatinine Clr Calc Pharmacy 73.7 ml/min; Est GFR (African American) 98.5 ml/min; Globulin 2.4 gm/dl (2.5-4.0); Potassium 4.4 mmol/L (3.5-5.1); Total Protein 6.5 gm/dl (6.0-8.3)
[2024-02-16 12:54] LABS: D Dimer < 190 ug/L FEU (0-500)
[2024-02-16 12:58] LABS: Troponin I High Sensitivity 18.9 pg/ml (0-20)
--- NOTE | 2024-02-16 13:27 | Electrocardiogram Report ---
Test Reason : Blood Pressure : / mmHG Vent. Rate : 076 BPM Atrial Rate : 076 BPM P-R Int : 214 ms QRS Dur : 080 ms QT Int : 364 ms P-R-T Axes : 062 -02 087 degrees QTc Int : 409 ms Sinus rhythm with 1st degree A-V block Low voltage QRS Septal infarct (cited on or before 11-NOV-2023) Abnormal ECG When compared with ECG of 13-FEB-2024 10:13, No significant change was found Confirmed by Gallo Valentine ([id number]) on 02/16/2024 1:27:07 PM Referred By: Confirmed By:Gallo Valentine
--- NOTE | 2024-02-16 14:43 | History & Physical Report ---
Date of Service February 16, 2024 Assessment & Plan (1) Chest pain, rule out acute myocardial infarction: Plan: Serial troponin overnight, if > 100 start low dose heparin with bolus Will preliminary order stress echocardiogram tomorrow but ultimately consult cardiology to decide EKG with no significant change (2) Uncontrolled type 2 diabetes mellitus with hyperglycemia, with long-term current use of insulin: Plan: HbA1C 9.5 in October, repeat with AM labs Given glucose 340 on admission and uncontrolled at baseline will continue his usual Lantus dosing despite NPO and hospital food Continue Lantus 24 units HS Add Novolog: --Goal BSG Range: Low 110 mg/dL, High 140 mg/dL --Correction Factor: 45 mg/dL/unit --Carbohydrate ratio = 15 g/unit --BSGs ACHS if eating, q6h if npo Hold metformin (3) CAD (coronary artery disease): Plan: Continue ASA, clopidogrel, lisinopril, propranolol, rosuvastatin Plan VTE Prophylaxis - deferred due to possible need for heparin IV Diet - heart healthy, T2DM, NPO after midnight Disposition - observation to PCU Admission and Anticipated Discharge Date Admission Date: February 16, 2024 History of Present Illness Chief Complaint: Shortness of breath Chest pain Primary Care Provider: Osei Garcia MD Juan Diego Woodson is a 78 year old male who presents to the ER with chest pain, shortness of breath and dizziness. He reports very intermittent chest pains over the last year. Over the last 2 days he had 2 episodes of chest pain with associated shortness of breath. Lasted for seconds yesterday but more severe this morning and lasted for a few hours, severity 2/10, worse on exertion. He went to wellness clinic at [facility] and RN recommended going to the ER. No wheezing, diaphoresis, nausea. No cough, sinus pain. Chronic nasal congestion. No abdominal pain, diarrhea, nausea, vomiting. No urinary symptoms, back pain. No headaches or weakness. He has known coronary artery disease with acute myocardiac infarction s/p stents placed in distal LAD and mid LAD. He has significant ongoing risk factors i ncluding diabetes and hypertension. Allergies Allergy/AdvReac Type Severity Reaction Status Date / Time No Known Allergies Allergy Verified 02/04/24 10:53 Home Medications Medication Instructions Recorded Confirmed Type lancets #100 ea 10/12/20 02/04/24 Rx lancets 33 gauge (OneTouch Delica #200 ea 11/27/22 02/04/24 Rx Lancets) blood sugar diagnostic (OneTouch #200 ea 07/10/23 02/04/24 Rx Verio test strips) propranolol 80 mg capsule,24 80 mg PO DAILY #90 caps 09/21/23 02/16/24 Rx hr,extended release nitroglycerin 0.4 mg sublingual 0.4 mg sublingual Q5M PRN chest 10/29/23 02/16/24 Rx tablet pain #25 tabs pen needle, diabetic 32 gauge x #100 ea 11/10/23 02/04/24 Rx 5/32" (Comfort EZ Pen [place]) aspirin 81 mg tablet,delayed 81 mg PO QAM 11/11/23 02/16/24 History release rosuvastatin 10 mg tablet 10 mg PO HS 11/11/23 02/16/24 History lisinopril 10 mg tablet See Rx Instructions .Route 11/25/23 02/16/24 Rx .COMPLEX #90 tabs clopidogrel 75 mg tablet 75 mg PO .EVERY OTHER DAY #90 tabs 01/18/24 02/16/24 Rx ezetimibe 10 mg tablet 10 mg PO DAILY #90 tabs 01/18/24 02/16/24 Rx metformin 500 mg tablet,extended 1,000 mg (2 x 500 mg) PO BID #360 01/18/24 02/16/24 Rx release 24 hr tabs insulin glargine 100 unit/mL (3 24 unit subcut HS 02/16/24 02/16/24 History mL) subcutaneous pen (Lantus Solostar U-100 Insulin) Past Med/Surg History Medical History Depression CAD (coronary artery disease) Memory deficits Dyslipidemia Diabetes type 2, controlled Tremor Hypertensive urgency BPH (benign prostatic hyperplasia) Hx of non-ST elevation myocardial infarction (NSTEMI) HTN (hypertension) Surgical History S/P tonsillectomy and adenoidectomy H/O heart artery stent Hx of cataract surgery Family History Mother , age 91 Stroke CHF (congestive heart failure) Father , age 86 with stroke Stroke Prostate cancer Myocardial infarction Daughter Breast cancer Sister Psychiatric problem Other Diabetes Hypertension Denies family history of Ovarian cancer Colorectal cancer Social History Smoking Status: Never smoker Second Hand Exposure: No; Do You Dip or Chew Tobacco: No; Hx Alcohol Use: No Hx Substance Use: No Preferred Language: Gabonese Communication Ability: Effective Visual Impairment: No Limitations Hearing Ability: Normal Financial Services Counselor Required: No Beliefs That Will Affect Care: None marital status: / Current Living Situation: Alone Current Living Situation Comment: passed in 11/2020, is now living at the [facility] current occupational status: retired 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 Other Information That Helps Us Care for You: No 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 Feels Safe at Home: Yes Safety Concerns: Feels Safe At This Time Childhood Exposure to Second-Hand Smoke: No Diet: regular Dental Care, Regularly: Yes Physical Activity Frequency: 3-4 Times per Week Seatbelt Use: always Sunscreen Use: No Assistive Devices: Glasses Review of Systems Review of Systems: All systems reviewed & are unremarkable except as noted in HPI & below Physical Exam Constitutional: WD/WN, vitals as above ENMT: external ear and nose normal, oropharynx normal Respiratory: normal respiratory effort, lungs clear to auscultation Cardiovascular: RRR, no murmur, no edema Gastrointestinal (Abdomen): normal bowel sounds, soft, nontender, no hepatosplenomegaly Musculoskeletal: no cyanosis or clubbing, extremities motor strength 5/5 Skin: no rashes, warm and dry Neurologic: moves all extremities and awake; not confused Psychiatric: A+Ox3, euthymic affect Results & Data Results & Data Vital Signs (Past 12 Hours) Vital Signs Temp Pulse Resp BP Pulse Ox O2 Del Method 02/16/24 13:37 157/91 H 02/16/24 13:37 67 19 02/16/24 13:00 67 15 02/16/24 12:00 76 15 02/16/24 11:54 97 02/16/24 11:48 78 02/16/24 11:39 97 Room Air 02/16/24 11:39 Room Air 02/16/24 11:32 36.8 C 81 15 187/105 H 97 Room Air Laboratory Results Abnormal lab results 02/16/24 02/16/24 Range/Units 12:12 13:42 Sodium 133 L (136-145) mmol/L Glucose 340 H* (70-99(Fasting)) mg/dl POC Glucose 251 H (70-99) mg/dl Globulin 2.4 L (2.5-4.0) gm/dl Diagnostic Findings SINGLE VIEW CHEST CLINICAL HISTORY: Atypical chest pain. FINDINGS: An AP, portable, upright chest radiograph is compared to study dated 02/13/2024. The cardiomediastinal silhouette is unremarkable. Chronic interstitial thickening is similar to previous. There is mild bibasilar scarring/atelectasis. The lungs and pleural spaces are otherwise clear. No pneumothorax is seen. The skeletal structures are osteopenic. The bony thorax is grossly intact. IMPRESSION: No acute cardiopulmonary abnormality. Medications Administered ER medications given: None ECG Rate (beats per minute): 76 Rhythm: normal sinus Findings: + 1st degree AV block Comparison ECG Date: from (February 13, 2024) Change: no significant change Code Status & VTE Plan Code Status Full VTE Prophylaxis Plan VTE Prophylaxis will be ordered: Yes PG Care Time/CCT Total # of Minutes Spent Total Time Spent with Patient: Total time spent is greater than 50% in coordination of care (as documented) at patient's floor/unit and/or counseling patient: Coding Level of Care Code 28180 INT INP/OBS CARE 2/55MIN Diagnoses Chest pain, rule out acute myocardial infarction R07.9 Uncontrolled type 2 diabetes mellitus with hyperglycemia, with long-term current use of insulin E11.65; Z79.4 CAD (coronary artery disease) I25.10
[2024-02-16] MEDS ORDERED: ONDANSETRON INJ 2 MG/ML 2 ML VIAL IV PRN (17:52)
[2024-02-16] MEDS ORDERED: NITROGLYCERIN SL 0.4 MG/TAB TAB SL PRN (17:52)
[2024-02-16] MEDS ORDERED: GLUCAGON FOR INJ 1 MG VIAL SQ PRN (19:34)
[2024-02-16] MEDS ORDERED: GLUCOSE 10 TAB/TUBE PO PRN (19:34)
[2024-02-16] MEDS ORDERED: GLUCOSE 40% GEL 15 GM TUBE PO PRN (19:34)
[2024-02-16] MEDS ORDERED: DEXTROSE 50% 50 ML SYRINGE IV PRN (19:34)
[2024-02-16] MEDS ORDERED: CARBOHYDRATES FOR HYPOGLYCEMIA PO PRN (19:34)
[2024-02-16] MEDS: ROSUVASTATIN CALCIUM 10 MG TAB PO SCH (21:02)
[2024-02-16] MEDS: lisinopril 10 MG TAB PO SCH (21:02)
[2024-02-16] MEDS: INSULIN ASPART PER UNIT CHARGE SC SCH (21:12)
[2024-02-16] MEDS: LANTUS PER UNIT CHARGE SQ SCH (21:13)
[2024-02-17 01:13] LABS: INR 1.1 (0.9-1.1); Partial Thromboplastin Time 27 Seconds (21-31); Prothrombin Time 11.9 Seconds (9.0-12.0)
[2024-02-17 06:52] LABS: Basophils # (auto) 0.13 K/uL (0.00-0.20); Basophils % (auto) 1.5 %; Eosinophils # (auto) 0.52 K/uL (0.00-0.50); Eosinophils % (auto) 6.1 %; Hematocrit (blood only) 48.9 % (42.0-52.0); Hemoglobin 16.5 g/dl (14.0-18.0); Immature Granulocytes # (auto) 0.03 K/uL (0.01-0.20); Immature Granulocytes % (auto) 0.4 %; Lymphocytes % (auto) 25.7 %; Mean Corpuscular Hemoglobin 29.3 pg (25.0-34.0); Mean Corpuscular Hgb Conc 33.7 g/dL (32.0-36.0); Mean Corpuscular Volume 86.7 fL (80.0-100.0); Mean Platelet Volume 10.8 fL (9.4-12.4); Neutrophils # (auto) 5.09 K/uL (1.40-6.50); Neutrophils % (auto) 59.3 %; Platelet Count 282 K/uL (130-400); RDW Coefficient of Variation 11.9 % (11.5-14.5); RDW Standard Deviation 37.8 fL (36.4-46.3); Red Blood Count 5.64 M/uL (4.70-6.10); White Blood Count 8.57 K/ul (4.8-10.8)
[2024-02-17 07:26] LABS: BUN Creatinine Ratio 16.3 (10-20); Chol HDL Ratio 2.7 (0-5); Creatinine Clr Calc Pharmacy 74.9 ml/min; Est GFR (African American) 98.5 ml/min; Potassium 4.8 mmol/L (3.5-5.1)
[2024-02-17 07:35] LABS: Estimated Average Glucose 258 mg/dl; Hemoglobin A1C 10.6 % (4.5-5.6)
[2024-02-17] MEDS: ASPIRIN 81 MG ECTAB PO SCH (08:40)
[2024-02-17] MEDS: EZETIMIBE 10 MG TAB PO SCH (08:41)
[2024-02-17] MEDS: PROPRANOLOL HCL LA 80 MG CAPCR PO SCH (08:41)
[2024-02-17] MEDS: CLOPIDOGREL BISULFATE 75 MG TAB PO SCH (08:41)
--- NOTE | 2024-02-17 08:55 | Cardiology Consultation ---
Date of Consultation February 17, 2024 Assessment & Plan (1) Chest pain: - unclear etiology at this time, but mildly concerning for cardiac cause given worsening symptoms and no other clear etiology - CXR on admission; unremark - EKG on admission; 1st degree heart block - trop on admission; 43 -> 45 -> 34 - per last cardio visit 12/2023; last stress echocardiogram 05/21/2012 negative for evidence of myocardial ischemia at 96% maximum predicted heart rate - last echo was 10/2023, EF 60-65% with no wall motion abnormalities - will do stress echo today (2) CAD (coronary artery disease): - s/p stent to LAD mid/distal branches in 2001 - continue home medications - aspirin 81 mg qam - clopidogrel 75 mg every other day - ezetimibe 10 mg daily - lisinopril 10 mg daily - propranolol ER 80 mg daily - rosuvastatin 10 mg HS - nitroglycerin prn chest pain Supervising Physician Co-Signing Physician Notes Patient seen and examined. Agree with assessment and plan. Unfortunately, left ventricular systolic function did not augment with exercise, and a septal wall motion abnormality was identified. Reviewed with Dr. Cristobal. Will proceed with a cardiac catheterization later today. Patient understands and agrees. History of Present Illness Reason for Consultation: Chest pain Requesting Physician: Dr. Wesley Mojica Attending Physician: Wesley Braun MD History of Present Illness Pt is a 78 yo male with a past med hx of CAD s/p mid and distal LAD stent in 2001, DMT2 insulin dependent, HTN, hx TIA, and vascular dementia who presents to the hospital on 02/16/24 for chest discomfort. Also noted to have a visit on 02/13/24 for chest discomfort at well. Today, pt states that he normally sees Dr. Serrato and is due to see him next month or so. He states that he last saw him in June and at that time had been feeling okay. He states that since then he notices that he gets brief episodes of nonradiating chest pain in the middle of his chest for 5-10 seconds maybe 1x per week or so. He states that typically they go away spontaneously and cause no real issue so he has not been overly concerned about them. Yesterday, however, he states he had an episode of chest pain that may have lasted an hour or two. Again, it was nonradiating and really did not bother him too much so he went to the clinic at [facility] and he came in because they told him to and because he was concerned about his memory and had a question about one of his medications that he can no longer recall. He states that he does not really recall coming to the ER on 02/12 for chest pain, he states he thought that he came in to ask about one of his diabetic medications. He states he has had no recurrence of chest pain since being here and today he feels great. Chest pain d oes not seem correlated with activity and he thinks episodes have happened at any point. Pain is typically a 2/10. He does get heartburn and reflux from time to time but the chest pain episodes feel different, but he cannot describe how. He emphasizes that the chest pain is very mild and really does not bother him that much. No associated shortness of breath. No recent illnesses that he recalls. Denies syncope or feeling he may pass out with the episodes. No further questions or complaints at this time. Pt is not the best historian. Allergies Allergy/AdvReac Type Severity Reaction Status Date / Time No Known Allergies Allergy Verified 02/04/24 10:53 Home Medications Medication Instructions Recorded Confirmed Type lancets #100 ea 10/12/20 02/04/24 Rx lancets 33 gauge (OneTouch Delica #200 ea 11/27/22 02/04/24 Rx Lancets) [facility] 07/10/23 02/04/24 Rx Verio test strips) propranolol 80 mg capsule,24 80 mg PO DAILY #90 caps 09/21/23 02/16/24 Rx hr,extended release nitroglycerin 0.4 mg sublingual 0.4 mg sublingual Q5M PRN chest 10/29/23 02/16/24 Rx tablet pain #25 tabs pen needle, diabetic 32 gauge x #100 ea 11/10/23 02/04/24 Rx 5/32" (Comfort EZ Pen [place]) aspirin 81 mg tablet,delayed 81 mg PO QAM 11/11/23 02/16/24 History release rosuvastatin 10 mg tablet 10 mg PO HS 11/11/23 02/16/24 History lisinopril 10 mg tablet See Rx Instructions .Route 11/25/23 02/16/24 Rx .COMPLEX #90 tabs clopidogrel 75 mg tablet 75 mg PO .EVERY OTHER DAY #90 tabs 01/18/24 02/16/24 Rx ezetimibe 10 mg tablet 10 mg PO DAILY #90 tabs 01/18/24 02/16/24 Rx metformin 500 mg tablet,extended 1,000 mg (2 x 500 mg) PO BID #360 01/18/24 02/16/24 Rx release 24 hr tabs insulin glargine 100 unit/mL (3 24 unit subcut HS 02/16/24 02/16/24 History mL) subcutaneous pen (Lantus Solostar U-100 Insulin) Patient History Medical History Depression CAD (coronary artery disease) Memory deficits Dyslipidemia Diabetes type 2, controlled Tremor Hypertensive urgency BPH (benign prostatic hyperplasia) Hx of non-ST elevation myocardial infarction (NSTEMI) HTN (hypertension) Surgical History S/P tonsillectomy and adenoidectomy H/O heart artery stent Hx of cataract surgery Family History Mother , age 91 Stroke CHF (congestive heart failure) Father , age 86 with stroke Stroke Prostate cancer Myocardial infarction Daughter Breast cancer Sister Psychiatric problem Other Diabetes Hypertension Denies family history of Ovarian cancer Colorectal cancer Social History Smoking Status: Never smoker Second Hand Exposure: No; Do You Dip or Chew Tobacco: No; Hx Alcohol Use: No Hx Substance Use: No Preferred Language: Tongan Communication Ability: Effective Visual Impairment: No Limitations Hearing Ability: Normal 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 Beliefs That Will Affect Care: None marital status: / Current Living Situation: Alone Current Living Situation Comment: passed in 11/2020, is now living at the [facility] current occupational status: retired 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 Other Information That Helps Us Care for You: No 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 Feels Safe at Home: Yes Safety Concerns: Feels Safe At This Time Childhood Exposure to Second-Hand Smoke: No Diet: regular Dental Care, Regularly: Yes Physical Activity Frequency: 3-4 Times per Week Seatbelt Use: always Sunscreen Use: No Assistive Devices: Glasses Review of Systems Review of Systems: Constitutional: denies fever, chills, Cardio: denies chest pain, palpitations Resp: denies shortness of breath, GI: denies abdominal pain, nausea, vomiting, Physical Exam Physical Exam: General:Alert and oriented, no acute distress, pleasant but has difficulty with recall of recent events HEENT: Normocephalic, moist oral mucosa, Cardio: Regular rate and rhythm, no murmur, no peripheral edema noted Resp:Lungs clear to auscultation b/l, no wheezes or rhonchi, GI: Soft and nontender, nondistended, bowel sounds active Skin: Warm, pink, dry, Results & Data Vital Signs (Past 12 Hours) Vital Signs Temp Pulse Pulse Resp BP BP Pulse Ox 02/17/24 07:15 36.3 C L 70 19 177/89 H 96 02/17/24 02:45 168/95 H 02/17/24 02:30 36.8 C 68 20 192/91 H 94 02/16/24 23:00 36.4 C L 72 21 186/88 H 94 02/16/24 22:00 68 O2 Del Method 02/17/24 07:15 Room Air 02/17/24 02:45 02/17/24 02:30 Room Air 02/16/24 23:00 Room Air 02/16/24 22:00 PG Care Time/CCT Total # of Minutes Spent Total Time Spent with Patient: Total time spent is greater than 50% in coordination of care (as documented) at patient's floor/unit and/or counseling patient: Coding Level of Care Code 52794 INT INP/OBS CARE 3/75MIN Diagnoses Chest pain R07.9 Chest pain type: unspecified CAD (coronary artery disease) I25.10 Resident Activity Tracking Resident Involvement: Resident Care Provided Care Provided: Adult Hospital Medicine (1) Chest pain Chest pain type: unspecified Qualified Code(s): R07.9 - Chest pain, unspecified
[2024-02-17] MEDS: SODIUM CHLORIDE 0.9% 1,000 ML IV SCH (10:40)
[2024-02-17] MEDS: lisinopril 10 MG TAB PO SCH (10:41)
--- NOTE | 2024-02-17 14:30 | XCELERA ---
[id number]
--- NOTE | 2024-02-17 14:37 | Pre Anesthesia Assessment ---
Date of Service February 17, 2024 Pre Sedation Assessment Vital Signs Temp Pulse Pulse Resp BP BP Pulse Ox 02/17/24 10:54 97.9 F 80 19 143/81 H 93 02/17/24 09:43 68 02/17/24 07:15 97.3 F L 70 19 177/89 H 96 02/17/24 02:45 168/95 H 02/17/24 02:30 98.2 F 68 20 192/91 H 94 02/16/24 23:00 97.5 F L 72 21 186/88 H 94 02/16/24 22:00 68 02/16/24 19:00 98.2 F 70 18 165/84 H 95 02/16/24 18:23 75 02/16/24 17:54 97.3 F L 70 16 169/90 H 96 02/16/24 16:07 66 O2 Del Method 02/17/24 10:54 Room Air 02/17/24 09:43 02/17/24 07:15 Room Air 02/17/24 02:45 02/17/24 02:30 Room Air 02/16/24 23:00 Room Air 02/16/24 22:00 02/16/24 19:00 Room Air 02/16/24 18:23 02/16/24 17:54 Room Air 02/16/24 16:07 Cardiovascular + regular rate Respiratory + respiratory effort normal Pre-Sedation Airway Assessment Smoking Status: Never smoker Hx Sleep Apnea: No Hx Difficult Intubation: No Short, Thick Neck: No Thyromental Distance: > or= 3.5 Finger Breadths Oral Cavity: + WNL Mallampati Class: III ASA: ASA3 Procedure Planning Contraindications for Sedation: none Current Medications Reviewed: Yes Notes The planned sedation has been discussed with the patient. Informed Consent was obtained. I have identified the patient, determined the appropriateness of sedation and have assessed the patient immediately prior to the procedure. All medicine(s) and interventions are by my order.
[2024-02-17] MEDS: HEPARIN (PORCINE) 1000 UNIT/ML 10 ML (CATH LAB USE ONLY) ONE (15:57)
[2024-02-17] MEDS: MIDAZOLAM HCL 1 MG/ML 2ML VIAL ONE (15:58)
[2024-02-17] MEDS: niCARdipine HCL INJ 2.5 MG/ML 10 ML AMP ONE (15:58)
[2024-02-17] MEDS: fentaNYL citrate PF 100 MCG/2 ML VIAL ONE (15:58)
[2024-02-17] MEDS: NITROGLYCERIN/D5W 100MCG/ML 20ML SYR ONE (15:59)
[2024-02-17] MEDS: OPTIRAY 350 ONE (15:59)
[2024-02-17] MEDS: LIDOCAINE 1% LOCAL 20 ML VIAL ONE (16:00)
[2024-02-17] MEDS ORDERED: Heparin IV Adult Wt-Based Standard *NO* INITIAL Bolus Protocol IV STA (16:06)
[2024-02-17] MEDS: HEPARIN 25000 UNIT/500 ML D5W IV ONE (16:08)
--- NOTE | 2024-02-17 16:11 | Post Anesthesia Assessment ---
Date of Service February 17, 2024 Post Sedation Assessment Vital Signs Temp Pulse Pulse Resp BP BP BP 02/17/24 14:54 64 16 158/95 H 02/17/24 14:30 69 02/17/24 10:54 97.9 F 80 19 143/81 H 02/17/24 09:43 68 02/17/24 07:15 97.3 F L 70 19 177/89 H 02/17/24 02:45 168/95 H 02/17/24 02:30 98.2 F 68 20 192/91 H 02/16/24 23:00 97.5 F L 72 21 186/88 H 02/16/24 22:00 68 02/16/24 19:00 98.2 F 70 18 165/84 H 02/16/24 18:23 75 02/16/24 17:54 97.3 F L 70 16 169/90 H Pulse Ox O2 Del Method 02/17/24 14:54 96 Room Air 02/17/24 14:30 02/17/24 10:54 93 Room Air 02/17/24 09:43 02/17/24 07:15 96 Room Air 02/17/24 02:45 02/17/24 02:30 94 Room Air 02/16/24 23:00 94 Room Air 02/16/24 22:00 02/16/24 19:00 95 Room Air 02/16/24 18:23 02/16/24 17:54 96 Room Air Recovery Score Activity: Moves 4 extremities Respiration: Deep Breath/Cough Circulation: +/-20% PreAnes Value Consciousness: Fully Awake Oxygen Saturation: O2 needed for >90% Discharge Sedation Level of Care: Fast Track Phase II Post Sedation Plan On clinical assessment, the patient appears to have tolerated the sedation without complications. Patient is recovering as anticipated. Patient will continue to be monitored by nursing and may be discharged when sedation discharge criteria are met per below protocol. Upon Completions of procedure up to 15 minutes continue every 5 minute vital signs and the P.A.R. score; then discharge to a Phase I or Fast Track to Phase II per the following guidelines: * Discharge Patient to appropriate Phase II area if PAR is 8 or greater or return to pre- procedure baseline. The post - procedure orders will be as directed. * If PAR score is less than 8 or not return to pre-procedure baseline then patient will follow Phase I monitoring till PAR is reached for Phase II. The Phase I may be done in procedure room or may call to secure a Phase I area. * If naloxone or flumazenil are used for reversal, hold in Phase I for continued monitoring from when last reversal dose was given for a minimum of 60 minutes or longer pending the nurse and/or physician discretion of patient condition before discharge to Phase II. Please call the Sedation Physician to re-evaluate and complete post-note for discharge to Phase II area. Do NOT discharge from procedure sedation or Phase 1 until post- sedation evaluation note is complete by procedure /sedation MD Sedation Discharge Instructions to be given to the patient at discharge to home.
--- NOTE | 2024-02-17 16:16 | Cardiac Catheterization ---
[facility] Data: Chief Cook Cardiac Status Clinical evaluation leading to the procedure CAD Presenation: Unstable angina Anginal Classification: CCS IV Diagnostic Physicians Name: Alvaro Cristobal MD Closure Device Recommendations: PCI without planned CABG Cardiac Cath Procedure Full Procedure Date February 17, 2024 Pre-Procedure Diagnosis Pre-Procedure Diagnosis: Acute Coronary Syndrome AUC Score AUC Score: 7 Post-Procedure Diagnosis Post-Procedure Diagnosis: Severe CAD and Normal Intracardiac Pressures Procedure(s) Performed Procedure(s) Performed: Coronary Angiography and Left Heart Cath Drywall Application Supervisor Alvaro Cristobal MD [employer] Machine Operator(s) [place] Estimated Blood Loss Estimated Blood Loss: 15 Medication(s) Medication(s): Fentanyl, Heparin, Lidocaine 1%, Nicardipine, Nitroglycerin and Versed Summary of Findings Indication: Acute coronary syndrome Access: 6 Fr right radial artery Catheters: [place] Findings: LM -normal caliber, 50 to 60% distal stenosis just before bifurcation LAD -medium caliber vessel, 95+% ostial stenosis, diffuse 30 to 40% proximal to mid disease. Mid stent widely patent without ISR. Latemid stent widely patent with 80-90% focal stenosis at distal aspect of stent. Distal vessel tapers to apex with MARY II flow. Small to medium D1 with 60% ostial/proximal disease. Circumflex -large caliber, 3040% ostial/proximal disease. Mid segment luminal irregularities. Left PLB without significant disease. RCA -dominant, large caliber, 30% proximal stenosis, latemid 30% disease. Distal vessel without significant disease. 30% ostial RPDA. 30% ostial R-PAV branch. LVEDP -2 Arterial Closure: TR band Summary: 1. Multivessel coronary artery disease -50-60% distal left main 95+% ostial LAD, patent mid LAD stents, 80% latemid stenosis at distal edge of prior stent 30-40% ostial circumflex 30% proximal RCA 2. Normal intracardiac filling pressure Recommendations: Referral to [facility] for consideration of CABG versus complex PCI with patient comorbidities. Hemodynamics Rest Ao:: 93/54/71 Final Ao: 77/43/50 LV: 74/2 Recommendations Recommendations: PCI without planned CABG Specimens Specimens: None Radiation Exposure (mGy) 424 Contrast (mls) 30 Anesthesia Moderate [id number] Procedural Complication(s) None Disposition PCU I attest to the content of the Intraoperative Record and any orders documented therein. Any exceptions are noted below. [facility] Card Cath Procedure Codes Cardiac Catheterization Procedure 1: Cardiovascular Cath Procedures: 68802 Coronaries and LHC (+/-LV) Moderate Sedation Procedure 1: Sedation/Anesthesia: 55032 Mod Sedation by the same physician;Init15 Min Child Age 5 & Up PG Care Time/CCT Total # of Minutes Spent Total Time Spent with Patient: Total time spent is greater than 50% in coordination of care (as documented) at patient's floor/unit and/or counseling patient:
[2024-02-17] MEDS: HEPARIN SODIUM/DEXTROSE 25,000 UNITS/500 ML BAG IV SCH (16:42)
--- NOTE | 2024-02-17 18:13 | Discharge Summary ---
Date of Service February 17, 2024 Admission HPI Per Admitting Provider Juan Diego Woodson is a 78 year old male who presents to the ER with chest pain, shortness of breath and dizziness. He reports very intermittent chest pains over the last year. Over the last 2 days he had 2 episodes of chest pain with associated shortness of breath. Lasted for seconds yesterday but more severe this morning and lasted for a few hours, severity 2/10, worse on exertion. He went to wellness clinic at [facility] and RN recommended going to the ER. No wheezing, diaphoresis, nausea. No cough, sinus pain. Chronic nasal congestion. No abdominal pain, diarrhea, nausea, vomiting. No urinary symptoms, back pain. No headaches or weakness. He has known coronary artery disease with acute myocardiac infarction s/p stents placed in distal LAD and mid LAD. He has significant ongoing risk factors inc luding diabetes and hypertension. Discharge Data Allergies Allergy/AdvReac Type Severity Reaction Status Date / Time No Known Allergies Allergy Verified 02/04/24 10:53 Consultations 02/16/24 14:14 ED Decision to Admit Stat 02/16/24 17:52 Consult Cardiology Routine 02/17/24 16:50 Burn CD for patient Stat Procedures Performed Operation Date: 02/17/24 13:30 Actual Procedures p Cath, Left with Cors and Vent(Right) - Alvaro Cristobal MD s Cineradiography w/Routine Exam - Alvaro Cristobal MD Ordered Studies 02/17/24 11:28 CL Cath Imgs for PACS use only Stat Discharge Plan Discharge Items Reason For Visit: CHEST PAIN RULE OUT CA Follow-up/Referrals: Osei Garcia MD [Primary Care Provider] - Medications and DC Order Prescriptions: No Action (DME) lancets [OneTouch Delica Lancets] 33 gauge misc See Rx Instructions .Route Qty: 200 11RF Rx Instructions: Test 3 times a day nitroglycerin 0.4 mg tablet, sublingual 0.4 mg sublingual Q5M PRN (Reason: chest pain) Qty: 25 1RF Rx Instructions: until response; do not exceed 3 doses per episode (DME) pen needle, diabetic [Comfort EZ Pen [place]] 32 gauge x 5/32" needle See Rx Instructions .ROUTE .COMPLEX Qty: 100 3RF Dose Instruction: use one daily Rx Instructions: use one daily lisinopril 10 mg tablet See Rx Instructions .ROUTE .COMPLEX Qty: 90 1RF Dose Instruction: TAKE 1 TABLET BY MOUTH ONCE DAILY AT BEDTIME Rx Instructions: TAKE 1 TABLET BY MOUTH ONCE DAILY AT BEDTIME clopidogrel 75 mg tablet 75 mg PO .EVERY OTHER DAY Qty: 90 3RF Dose Instruction: TAKE 1 TABLET BY MOUTH DAILY ezetimibe 10 mg tablet 10 mg PO DAILY Qty: 90 3RF metformin 500 mg tablet extended release 24 hr 1,000 mg PO BID Qty: 360 3RF Rx Instructions: TAKE 2 TABLETS BY MOUTH TWICE DAILY propranolol 80 mg capsule,extended release 24hr 80 mg PO DAILY Qty: 90 3RF (DME) lancets Misc See Rx Instructions .ROUTE .MEDSUPPLY Qty: 100 3RF Rx Instructions: testing three times daily (DME) OneTouch Verio test strips Strip See Rx Instructions .ROUTE .MEDSUPPLY Qty: 200 3RF Rx Instructions: Check blood sugars 2x a day aspirin 81 mg Tablet,Delayed Release (Dr/Ec) 81 mg PO QAM rosuvastatin 10 mg tablet 10 mg PO HS insulin glargine [Lantus Solostar U-100 Insulin] 100 unit/mL (3 mL) insulin pen 24 unit subcut HS Admission Data Admit Date/Time: 02/16/24 15:02 Attending Provider: Wesley Braun Admit Provider: Wesley Mojica Primary Care Provider: Osei Garcia Other Providers: Wesley Mojica; Gallo Valentine Coding
[2024-02-17] MEDS: NITROGLYCERIN 2% OINTMENT 30GM TUBE EXT ONE (19:48)
== END 2024-02-17 20:00 | disposition short-term general hospital (02) ==
LOC: 2S 11:19 → ED 11:19 → SUATTDRO 15:02 → 2S 17:16 → 2E 02-17 12:47

== ENCOUNTER 2024-02-21 20:14 | Inpatient (IN) ==
[2024-02-21 21:20] LABS: Basophils # (auto) 0.12 K/uL (0.00-0.20); Basophils % (auto) 1.6 %; Eosinophils # (auto) 0.43 K/uL (0.00-0.50); Eosinophils % (auto) 5.8 %; Hematocrit (blood only) 48.7 % (42.0-52.0); Hemoglobin 16.3 g/dl (14.0-18.0); Immature Granulocytes # (auto) 0.03 K/uL (0.01-0.20); Immature Granulocytes % (auto) 0.4 %; Lymphocytes # (auto) 1.96 K/uL (1.20-3.40); Lymphocytes % (auto) 26.4 %; Mean Corpuscular Hemoglobin 29.2 pg (25.0-34.0); Mean Corpuscular Hgb Conc 33.5 g/dL (32.0-36.0); Mean Corpuscular Volume 87.3 fL (80.0-100.0); Mean Platelet Volume 10.6 fL (9.4-12.4); Monocytes # (auto) 0.68 K/uL (0.11-0.59); Monocytes % (auto) 9.2 %; Neutrophils % (auto) 56.6 %; Platelet Count 337 K/uL (130-400); RDW Coefficient of Variation 11.9 % (11.5-14.5); RDW Standard Deviation 38.3 fL (36.4-46.3); Red Blood Count 5.58 M/uL (4.70-6.10); White Blood Count 7.42 K/ul (4.8-10.8)
--- NOTE | 2024-02-21 21:35 | Emergency Department Note ---
ED Visit Note NAME: SOHAIL VAZ AGE: 78 SEX: Male INFORMANT: Patient and family ED PROVIDER(S): Osei Robert MD CHIEF COMPLAINT: Confusion PLAN: Disposition: Admitted Outpatient prescription management: none Referral: None MEDICAL DECISION MAKING: Patient presented because of acute confusion. He just underwent coronary stenting at . Patient was relating visual and auditory hallucinations. ECG showed a normal sinus rhythm without acute ischemia. Blood work, chest x-ray and CT imaging of the head ordered. Patient's blood work and imaging were unremarkable. Given his hallucinations and recent procedure further management in the hospital was felt to be appropriate. Family in agreement. Patient in agreement. Consultation was made with Dr. Darnell Daniels of the [facility] service. Patient was evaluated in the ER for further management. Care/management discussed with: manager application Level of care consideration(s): After review of the information above and other included data, I feel the patient requires escalation of care to admission Triage Nursing notes: reviewed and agree them. Vital Signs: reviewed and remarkable for no significant abnormalities Additional History obtained from: Family. They note his prior history was for some mild short-term memory loss however his level of confusion today is significantly different than baseline. Chronic Medical/Social Conditions affecting care: CAD Prior/ Outside/ External records reviewed: Cardiac cath report reviewed.Multivessel coronary artery disease -50-60% distal left main 95+% ostial LAD, patent mid LAD stents, 80% latemid stenosis at distal edge of prior stent 30-40% ostial circumflex 30% proximal RCA Differential Diagnosis: Infection, hypoglycemia, electrolyte abnormalities, overdose, toxicologic, cardiac sources, intracerebral event, neurologic, trauma, as well as other pathologies. Diagnostics, independently interpreted by me: ECG: Twelve-lead ECG reveals a normal sinus rhythm at 74 bpm. Anteroseptal Q waves present. No ST elevation or depression. Cardiac Monitoring: Cardiac monitoring ordered by me: The patient was placed on continuous cardiac monitoring and observed. It revealed a normal sinus rhythm at 73 beats per minute without ectopy or evidence of dysrhythmia. Medical decision rules: none Imaging studies: Head CT: A noncontrast CT scan of the head was performed and was negative for tumor, fracture, intracranial hemorrhage, or other acute pathology. HPI: 78 year old Male arrives for evaluation of confusion. Patient was admitted to the hospital and transferred to [place] for cardiac evaluation. Patient underwent coronary stenting. He was noted to have some confusion on his discharge summary and it was felt that he has a baseline memory impairment and the stress of the new facility was the reason. Family states he does have some short-term memory loss but when they picked him up today he was dramatically more confused. Patient relates seeing a homeless person sitting in the window of his room. He denies any pain. Family notes this is not typical for him. Pt denies LOC, headache, fevers, chills, diaphoresis, visual changes, neck pain, chest pain, breathing difficulties, nausea, vomiting, abdominal pain, back pain, urinary symptoms, numbness, weakness, lymphadenopathy, rash, or other complaints. PAST MEDICAL HISTORY: See Below, CAD PAST SURGICAL HISTORY: See Below, SOCIAL HISTORY: See Below, retired HOME MEDICATIONS: See Below ALLERGIES: See Below VITALS: See Below PHYSICAL EXAMINATION: GENERAL: Awake, alert, well-appearing, in no distress HENT: Normocephalic, atraumatic. Oropharynx unremarkable. EYES: Normal conjunctiva. Sclera non-icteric. PERRLA. EOMI. NECK: Inspection normal. Non-tender. Supple. No nuchal rigidity. FROM. No masses. RESPIRATORY: Clear to auscultation. No wheezes. No rales. Normal respiratory effort. CARDIAC: Normal rate. Normal rhythm. No murmurs. No rubs. Extremities warm and well perfused. Pulses equal. No JVD. GI: Soft, non-distended. No tenderness to palpation. No rebound or guarding. No masses. RECTAL: Deferred. MUSCULOSKELETAL: Atraumatic except for bruising noted in the right wrist area likely secondary to cardiac catheterization chest examination reveals no tenderness. The back is symmetrical on inspection without obvious abnormality. There is no CVA tenderness to palpation. No joint edema. LOWER EXTREMITIES: Calves are equal size bilaterally and non-tender. No edema. No discoloration. NEURO: Mildly confused sensorium. No focal sensory or motor deficits noted. Speech normal. SKIN: No rash or jaundice noted. PROCEDURES: none CRITICAL CARE: none OBSERVATION NOTE: none .
[2024-02-21 21:37] LABS: Albumin Globulin Ratio 1.6 (0.9-2); Albumin Level 4.4 gm/dl (3.4-5.0); BUN Creatinine Ratio 20.2 (10-20); Bilirubin,Total 0.7 mg/dl (0.2-1.0); Calcium 9.5 mg/dl (8.6-10.3); Creatinine Clr Calc Pharmacy 60.5 ml/min; Est GFR (African American) 83.6 ml/min; Est GFR (Non-African American) 72.1 ml/min; Globulin 2.7 gm/dl (2.5-4.0); Magnesium 2.1 mg/dl (1.7-2.4); Potassium 4.4 mmol/L (3.5-5.1); Total Protein 7.1 gm/dl (6.0-8.3)
[2024-02-21 21:41] LABS: Appearance Urine Clear (Clear); Bilirubin Urine Negative (Negative); Blood Urine Negative (Negative); Color Urine Yellow; Glucose Urine UA 3+ (Negative); Ketones Urine Trace (Negative); Leukocyte Esterase Urine Negative (Negative); Nitrite Urine Negative (Negative); Protein Urine Negative (Negative); Specific Gravity Urine 1.031 (1.000-1.030); Urobilinogen Urine Negative (Negative)
[2024-02-21 21:44] LABS: Troponin I High Sensitivity 17.3 pg/ml (0-20)
[2024-02-21 21:48] LABS: Partial Thromboplastin Time 27 Seconds (21-31); Prothrombin Time 11.4 Seconds (9.0-12.0)
--- NOTE | 2024-02-21 22:51 | CT Scan Report ---
Exam(s): CT HEAD Without Contrast EXAM: CT Head Without Intravenous Contrast CLINICAL HISTORY: Reason for exam: confusion. TECHNIQUE: Axial computed tomography images of the head/brain without intravenous contrast. CTDI is 37.32 mGy and DLP is 546.36 mGy-cm. Automated exposure control was utilized for the study. A dose lowering technique was utilized adhering to the principles of ALARA. COMPARISON: No relevant prior studies available. FINDINGS: No acute intracranial hemorrhage. No midline shift or mass effect. The territorial blair-white matter differentiation is maintained throughout. Age-related cerebral volume loss. Periventricular and subcortical white matter hypoattenuation, consistent with chronic microangiopathy. The visualized orbits appear grossly unremarkable. The calvarium is intact. The visualized paranasal sinuses and mastoid air cells are grossly clear. IMPRESSION: No acute intracranial hemorrhage, midline shift, or mass effect. Electronically signed by: Gonzalo Bajwa MD 02/21/24 22:50 PM
--- NOTE | 2024-02-22 00:48 | History & Physical Report ---
Date of Service February 22, 2024 Assessment & Plan (1) Cognitive impairment: (2) Vascular dementia: (3) Confusion and disorientation: (4) Hallucinations, visual: (5) Uncontrolled type 2 diabetes mellitus with hyperglycemia, with long-term current use of insulin: (6) CAD (coronary artery disease): (7) H/O heart artery stent: Plan Confusion with disorientation/cognitive impairment/vascular dementia/visual hallucinations- Patient reportedly had worsening of the above symptoms since having undergone cardiac catheterization on 02/16 and 02/18, as noted per family. Symptomatology is most consistent with metabolic encephalopathy, however, no overt cause found at this time other than hyperglycemia CT scan of head is negative MRI brain is temporarily on hold due to radiology guidelines of no MRI for 6 weeks after coronary artery stent placement Continue aspirin and Plavix NSS + KCl 20 mill equivalents at 80 mL/h x 1 L Work on controlling blood sugar and rehydrate, and see if any improvement in responses If symptoms are persistent, can consider consult to psychiatry or neurology for their opinion CAD/hypertension- PCI with CARMEN to left main and LAD on 02/18 Continue propranolol, aspirin and Plavix, and rosuvastatin/Zetia Diabetes mellitus- Hold metformin continue glargine at reduced dosing from 24 to 16 units subcu History of Present Illness Chief Complaint: The patient is brought to the emergency department due to family concerns regarding visual and auditory hallucinations, and acute confusion, with history of dementia, the family reports is worse since his recent procedure of coronary stenting at [facility] Primary Care Provider: Osei Garcia MD The patient is a 78-year-old male with a past medical history including CAD status post 2 stents at [facility], diabetes mellitus, syncope, cognitive impairment, BPH, vascular dementia, history of confusion and disorientation, word finding difficulty and TIA. Patient had initially undergone cardiac catheterization on 02/17/2024, and then was referred to [facility], where he underwent cardiac catheterization on 02/19/24, with placement of 2 stents. He was noted to have disorientation and confusion with agitation while at [facility], and when he was returned back to the intermediate, family felt he was more confused and disoriented than when he left, and patient was noted to have visual and auditory hallucinations per his description. Patient does not show any signs of agitation in the emergency department this evening Allergies Allergy/AdvReac Type Severity Reaction Status Date / Time No Known Allergies Allergy Verified 02/21/24 23:56 Home Medications Medication Instructions Recorded Confirmed Type lancets #100 ea 10/12/20 02/21/24 Rx lancets 33 gauge (OneTouch Delica #200 ea 11/27/22 02/21/24 Rx Lancets) blood sugar diagnostic (OneTouch #200 ea 07/10/23 02/21/24 Rx Verio test strips) propranolol 80 mg capsule,24 80 mg PO DAILY #90 caps 09/21/23 02/21/24 Rx hr,extended release nitroglycerin 0.4 mg sublingual 0.4 mg sublingual Q5M PRN chest 10/29/23 02/21/24 Rx tablet pain #25 tabs pen needle, diabetic 32 gauge x #100 ea 11/10/23 02/21/24 Rx 5/32" (Comfort EZ Pen [place]) aspirin 81 mg tablet,delayed 81 mg PO QAM 11/11/23 02/21/24 History release rosuvastatin 10 mg tablet 10 mg PO HS 11/11/23 02/21/24 History clopidogrel 75 mg tablet 75 mg PO .EVERY OTHER DAY #90 tabs 01/18/24 02/21/24 Rx ezetimibe 10 mg tablet 10 mg PO DAILY #90 tabs 01/18/24 02/21/24 Rx metformin 500 mg tablet,extended 1,000 mg (2 x 500 mg) PO BID #360 01/18/24 02/21/24 Rx release 24 hr tabs insulin glargine 100 unit/mL (3 24 unit subcut HS 02/16/24 02/21/24 History mL) subcutaneous pen (Lantus Solostar U-100 Insulin) Past Med/Surg History Medical History (Updated 02/22/24 @ 04:25 by Darnell Daniels MD) Depression CAD (coronary artery disease) Memory deficits Dyslipidemia Diabetes type 2, controlled Tremor Hypertensive urgency BPH (benign prostatic hyperplasia) Hx of non-ST elevation myocardial infarction (NSTEMI) HTN (hypertension) Surgical History (Updated 02/22/24 @ 04:25 by Darnell Daniels MD) H/O heart artery stent S/P tonsillectomy and adenoidectomy Hx of cataract surgery Family History Mother , age 91 Stroke CHF (congestive heart failure) Father , age 86 with stroke Stroke Prostate cancer Myocardial infarction Daughter Breast cancer Sister Psychiatric problem Other Diabetes Hypertension Denies family history of Ovarian cancer Colorectal cancer Social History Smoking Status: Never smoker Second Hand Exposure: No; Do You Dip or Chew Tobacco: No; Hx Alcohol Use: No Hx Substance Use: No Preferred Language: Latvian Communication Ability: Effective Visual Impairment: No Limitations Hearing Ability: Normal Patient Registration Clerk Required: No Beliefs That Will Affect Care: None marital status: / Current Living Situation: Alone Current Living Situation Comment: passed in 11/2020, is now living at the [facility] current occupational status: retired 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 Physical Exam Physical Exam: The patient is confused and disoriented, well developed and well nourished, normocephalic and atraumatic, lying in bed and in no acute distress. HEENT--PERRL, EOMI, mucous membranes and oropharynx dry. Neck--supple. No JVD. No bruits. Thyroid normal, trachea midline, no adenopathy. Heart--normal S1 and S2. No murmurs, rubs or gallops. Lungs--clear bilaterally, no respiratory distress, no accessory muscle use. Abdomen--normal bowel sounds and soft. Nontender. Nondistended Extremities--no cyanosis or clubbing. No edema. Dermatologic--normal skin turgor, normal color, no abnormal lymph nodes, no rash. Neurologic--cranial nerves II through XII grossly intact. Rheumatologic--normal range of motion. Psychiatric--confused and disoriented with hallucinations Results & Data Results & Data Vital Signs (Past 12 Hours) Vital Signs Temp Pulse Pulse Resp BP BP Pulse Ox 02/22/24 00:28 69 144/86 H 96 02/21/24 23:10 101 H 14 96 02/21/24 23:00 68 14 152/86 H 98 02/21/24 23:00 68 10 L 98 02/21/24 22:50 67 19 97 02/21/24 22:40 68 18 99 02/21/24 22:39 66 16 135/83 98 02/21/24 22:39 66 16 98 02/21/24 22:30 67 16 95 02/21/24 22:29 69 22 96 02/21/24 22:10 68 19 100 02/21/24 22:00 67 14 110/68 98 02/21/24 22:00 67 14 98 02/21/24 21:50 69 19 100 02/21/24 21:40 69 19 96 02/21/24 21:31 71 21 85 L 02/21/24 21:30 69 02/21/24 20:54 73 12 169/92 H 98 02/21/24 20:51 99 02/21/24 20:31 36.8 C 75 20 137/79 97 O2 Del Method 02/22/24 00:28 Room Air 02/21/24 23:10 02/21/24 23:00 02/21/24 23:00 02/21/24 22:50 02/21/24 22:40 02/21/24 22:39 02/21/24 22:39 02/21/24 22:30 02/21/24 22:29 02/21/24 22:10 02/21/24 22:00 02/21/24 22:00 02/21/24 21:50 02/21/24 21:40 02/21/24 21:31 02/21/24 21:30 02/21/24 20:54 02/21/24 20:51 Room Air 02/21/24 20:31 Room Air Laboratory Results Laboratory Results WBC 7.42 K/ul (4.8-10.8) 02/21/24 20:43 RBC 5.58 M/uL (4.70-6.10) 02/21/24 20:43 Hgb 16.3 g/dl (14.0-18.0) 02/21/24 20:43 Hct 48.7 % (42.0-52.0) 02/21/24 20:43 MCV 87.3 fL (80.0-100.0) 02/21/24 20:43 MCH 29.2 pg (25.0-34.0) 02/21/24 20:43 MCHC 33.5 g/dL (32.0-36.0) 02/21/24 20:43 RDW Std Deviation 38.3 fL (36.4-46.3) 02/21/24 20:43 RDW Coeff of Leanna 11.9 % (11.5-14.5) 02/21/24 20:43 Plt Count 337 K/uL (130-400) 02/21/24 20:43 MPV 10.6 fL (9.4-12.4) 02/21/24 20:43 Immature Gran % (Auto) 0.4 % 02/21/24 20:43 Neut % (Auto) 56.6 % 02/21/24 20:43 Lymph % (Auto) 26.4 % 02/21/24 20:43 [place] % (Auto) 9.2 % 02/21/24 20:43 Eos % (Auto) 5.8 % 02/21/24 20:43 Baso % (Auto) 1.6 % 02/21/24 20:43 Neut # (Auto) 4.20 K/uL (1.40-6.50) 02/21/24 20:43 Lymph # (Auto) 1.96 K/uL (1.20-3.40) 02/21/24 20:43 [place] # (Auto) 0.68 K/uL (0.11-0.59) H 02/21/24 20:43 Eos # (Auto) 0.43 K/uL (0.00-0.50) 02/21/24 20:43 Baso # (Auto) 0.12 K/uL (0.00-0.20) 02/21/24 20:43 Immature Gran # (Auto) 0.03 K/uL (0.01-0.20) 02/21/24 20:43 PT 11.4 Seconds (9.0-12.0) 02/21/24 20:43 INR 1.0 (0.9-1.1) 02/21/24 20:43 APTT 27 Seconds (21-31) 02/21/24 20:43 PTT Ratio 1.0 02/21/24 20:43 Sodium 135 mmol/L (136-145) L 02/21/24 20:43 Potassium 4.4 mmol/L (3.5-5.1) 02/21/24 20:43 Chloride 101 mmol/L (98-107) 02/21/24 20:43 Carbon Dioxide 27 mmol/L (21-32) 02/21/24 20:43 Anion Gap 7 (3-11) 02/21/24 20:43 BUN 20 mg/dl (6-23) 02/21/24 20:43 Creatinine 0.99 mg/dl (0.6-1.4) 02/21/24 20:43 Est Cr Clr Drug Dosing 60.5 ml/min 02/21/24 20:43 Est GFR ( Amer) 83.6 ml/min 02/21/24 20:43 Est GFR (Non-Af Amer) 72.1 ml/min 02/21/24 20:43 BUN/Creatinine Ratio 20.2 (10-20) H 02/21/24 20:43 Glucose 270 mg/dl (70-99(Fasting)) H 02/21/24 20:43 POC Glucose 286 mg/dl (70-99) H 02/22/24 04:12 Calcium 9.5 mg/dl (8.6-10.3) 02/21/24 20:43 Magnesium 2.1 mg/dl (1.7-2.4) 02/21/24 20:43 Total Bilirubin 0.7 mg/dl (0.2-1.0) 02/21/24 20:43 AST 42 U/L (13-39) H 02/21/24 20:43 ALT 41 U/L (7-52) 02/21/24 20:43 Alkaline Phosphatase 76 U/L (34-104) 02/21/24 20:43 Troponin I High Sens 17.3 pg/ml (0-20) 02/21/24 20:43 Total Protein 7.1 gm/dl (6.0-8.3) 02/21/24 20:43 Albumin 4.4 gm/dl (3.4-5.0) 02/21/24 20:43 Globulin 2.7 gm/dl (2.5-4.0) 02/21/24 20:43 Albumin/Globulin Ratio 1.6 (0.9-2) 02/21/24 20:43 Urine Color Yellow 02/21/24 20:59 Urine Appearance Clear (Clear) 02/21/24 20:59 Urine pH 5.0 (4.5-7.5) 02/21/24 20:59 Ur Specific [place] 1.031 (1.000-1.030) H 02/21/24 20:59 Urine Protein Negative (Negative) 02/21/24 20:59 Urine Glucose (UA) 3+ (Negative) H 02/21/24 20:59 Urine Ketones Trace (Negative) H 02/21/24 20:59 Urine Blood Negative (Negative) 02/21/24 20:59 Urine Nitrite Negative (Negative) 02/21/24 20:59 Urine Bilirubin Negative (Negative) 02/21/24 20:59 Urine Urobilinogen Negative (Negative) 02/21/24 20:59 Ur Leukocyte Esterase Negative (Negative) 02/21/24 20:59 Lyme Disease Screen Negative (Negative) 02/21/[address] 02/21/24 20:55 Exam(s): CT HEAD Without Contrast EXAM: CT Head Without Intravenous Contrast CLINICAL HISTORY: Reason for exam: confusion. TECHNIQUE: Axial computed tomography images of the head/brain without intravenous contrast. CTDI is 37.32 mGy and DLP is 546.36 mGy-cm. Automated exposure control was utilized for the study. A dose lowering technique was utilized adhering to the principles of ALARA. COMPARISON: No relevant prior studies available. FINDINGS: No acute intracranial hemorrhage. No midline shift or mass effect. The territorial blair-white matter differentiation is maintained throughout. Age-related cerebral volume loss. Periventricular and subcortical white matter hypoattenuation, consistent with chronic microangiopathy. The visualized orbits appear grossly unremarkable. The calvarium is intact. The visualized paranasal sinuses and mastoid air cells are grossly clear. IMPRESSION: No acute intracranial hemorrhage, midline shift, or mass effect. Electronically signed by: Gonzalo Bajwa MD 02/21/24 22:50 PM Code Status & VTE Plan Code Status Full code VTE Prophylaxis Plan VTE Prophylaxis will be ordered: Yes PG Care Time/CCT Total # of Minutes Spent Total Time Spent with Patient: Total time spent is greater than 50% in coordination of care (as documented) at patient's floor/unit and/or counseling patient: Coding Level of Care Code 55640 INT INP/OBS CARE MIN Diagnoses Cognitive impairment R41.89 Vascular dementia F01.50 Confusion and disorientation R41.0 Hallucinations, visual R44.1 Uncontrolled type 2 diabetes mellitus with hyperglycemia, with long-term current use of insulin E11.65; Z79.4 CAD (coronary artery disease) I25.10 H/O heart artery stent Z95.5
[2024-02-22] MEDS ORDERED: GLUCAGON FOR INJ 1 MG VIAL SQ PRN (04:11)
[2024-02-22] MEDS ORDERED: GLUCOSE 40% GEL 15 GM TUBE PO PRN (04:11)
[2024-02-22] MEDS ORDERED: NITROGLYCERIN SL 0.4 MG/TAB TAB SL PRN (04:11)
[2024-02-22] MEDS ORDERED: ONDANSETRON INJ 2 MG/ML 2 ML VIAL IV PRN (04:11)
[2024-02-22] MEDS ORDERED: CARBOHYDRATES FOR HYPOGLYCEMIA PO PRN (04:11)
[2024-02-22] MEDS ORDERED: DEXTROSE 50% 50 ML SYRINGE IV PRN (04:11)
[2024-02-22] MEDS ORDERED: GLUCOSE 10 TAB/TUBE PO PRN (04:11)
[2024-02-22] MEDS: NSS + 20MEQ KCL 20 MEQ/1,000 ML BAG IV SCH (05:05)
--- NOTE | 2024-02-22 07:24 | Hospitalist Progress Note ---
Date of Service February 22, 2024 Assessment & Plan (1) H/O heart artery stent: (2) Hallucinations, visual: (3) Hyperglycemia: (4) Vascular dementia: Plan Confusion with disorientation/cognitive impairment/vascular dementia/visual hallucinations -Patient reportedly had worsening of the above symptoms since having undergone cardiac catheterization on 02/16 and 02/18, as noted per family. -Symptomatology is most consistent with delirium, considering two recent admiss ions to [facility] and [facility] in the past few days -Discussed with daughter, Maribell, who notes that patient lives in independent living at the [facility]. There is concern with his ability to take his own medic ations, etc at home at this time -Level of delirium/confusion will likely wax and wane, will follow progress to ensure safe placement at [facility] -CT scan of head is negative -Discussed MRI brain with health information technologist, obtained CXR and KUB in anticipation of MRI Brain but waiting on report from [facility] prior to obtaining MRI -Continue aspirin and Plavix CAD/hypertension -PCI with CARMEN to left main and LAD on 02/18 -Continue propranolol, aspirin and Plavix, and rosuvastatin/Zetia Diabetes Mellitus -Hold home metformin -Will continue glargine at reduced dosing Admission and Anticipated Discharge Date Admission Date: February 22, 2024 Supervising Physician Co-Signing Physician Notes Attending Physician Supervision Note: I independently interviewed and examined the patient and verified the inman history and physical, reviewed labs and image studies and agree with findings and care plan noted above. Confusion/Delirium - s/p recent hospital hospitalizations at [facility] and [facility]. Negative CT head. Unable to do MRI brain d/t recent stent. -likely with significant underlying dementia. -case management to assess outpatient support. Subjective Patient was seen and examined at bedside. No acute events reported overnight. No significant agitation, patient is oriented to self (name, date) and time (year, month) but not oriented to location. He denies chest pain, shortness of breath, abdominal discomfort or urinary symptoms. Patient denies any other concerns at this time. Review of Systems 2 Review of Systems: As per above Physical Exam Constitutional: WD/WN, vitals as above Eyes: + anicteric sclerae; no conjunctival abn ormality ENMT: Ears: no external ear abnormality Nose: no external nose abnormality moist mucous membranes Respiratory: normal respiratory effort, lungs clear to auscultation Cardiovascular: Rate/Rhythm: regular rate and regular rhythm Extremities: no edema Skin: no rashes, warm and dry Neurologic: Speech / Cognition: + abnormal cognition Psychiatric: Orientation: oriented to person and oriented to time; + not oriented to place Results & Data Results & Data Vital Signs (Past 12 Hours) Vital Signs Temp Pulse Pulse Resp BP BP Pulse Ox 02/22/24 04:25 02/22/24 04:14 36.5 C 71 18 179/84 H 98 02/22/24 03:50 36.7 C 62 19 122/54 L 97 02/22/24 02:00 69 24 142/81 H 94 02/22/24 01:47 66 02/22/24 00:28 69 144/86 H 96 02/21/24 23:30 68 20 132/78 97 02/21/24 23:10 101 H 14 96 02/21/24 23:00 68 14 152/86 H 98 02/21/24 23:00 68 10 L 98 02/21/24 22:50 67 19 97 02/21/24 22:40 68 18 99 02/21/24 22:39 66 16 135/83 98 02/21/24 22:39 66 16 98 02/21/24 22:30 67 16 95 02/21/24 22:29 69 22 96 02/21/24 22:10 68 19 100 02/21/24 22:00 67 14 110/68 98 02/21/24 22:00 67 14 98 02/21/24 21:50 69 19 100 02/21/24 21:40 69 19 96 02/21/24 21:31 71 21 85 L 02/21/24 21:30 69 02/21/24 20:54 73 12 169/92 H 98 02/21/24 20:51 99 02/21/24 20:31 36.8 C 75 20 137/79 97 O2 Del Method 02/22/24 04:25 Room Air 02/22/24 04:14 Room Air 02/22/24 03:50 Room Air 02/22/24 02:00 Room Air 02/22/24 01:47 02/22/24 00:28 Room Air 02/21/24 23:30 Room Air 02/21/24 23:10 02/21/24 23:00 02/21/24 23:00 02/21/24 22:50 02/21/24 22:40 02/21/24 22:39 02/21/24 22:39 02/21/24 22:30 02/21/24 22:29 02/21/24 22:10 02/21/24 22:00 02/21/24 22:00 02/21/24 21:50 02/21/24 21:40 02/21/24 21:31 02/21/24 21:30 02/21/24 20:54 02/21/24 20:51 Room Air 02/21/24 20:31 Room Air Resident Activity Tracking Resident Involvement: Resident Care Provided Care Provided: Adult Hospital Medicine
[2024-02-22] MEDS: EZETIMIBE 10 MG TAB PO SCH (08:21)
[2024-02-22] MEDS: ASPIRIN 81 MG ECTAB PO SCH (08:21)
[2024-02-22] MEDS: PROPRANOLOL HCL LA 80 MG CAPCR PO SCH (08:21)
[2024-02-22] MEDS: INSULIN ASPART PER UNIT CHARGE SC SCH (08:26)
--- NOTE | 2024-02-22 09:45 | XRay Report ---
XR KUB pre MRI HISTORY: 78 years-old Male Dementia, MRI needed screening for MRI COMPARISON: 01/10/2022 TECHNIQUE: KUB radiograph FINDINGS: Mild gaseous distention of the stomach. Nonobstructive bowel gas pattern. No renal or ureteral calcul i identified. Unchanged left pelvic basin calcifications. Degenerative changes of the spine, pelvis a nd hips. No opaque foreign bodies of the abdomen. Coronary arterial stenting. Vascular calcifications . IMPRESSION: 1. Nonobstructive bowel gas pattern. 2. No opaque foreign bodies. ACT 112: Negative or not required by law. The above report was generated using voice recognition software. It may contain grammatical, syntax o r spelling errors. Electronically signed by: Volodymyr Bianchi M.D. 02/22/2024 9:43 AM
--- NOTE | 2024-02-22 10:16 | XRay Report ---
XR chest 1V portable CLINICAL HISTORY: Demented, MRI needed COMPARISON STUDY: Chest radiograph February 16, 2024. FINDINGS: Lung volumes are normal. Lungs are clear. There is no pneumothorax or pleural effusion. Car diac size is normal. Mediastinal contours are normal. There is no evidence for pulmonary edema. There is no contraindication to MRI within the chest. IMPRESSION: 1. No acute cardiopulmonary findings. 2. No contraindication to MRI within the chest. ACT 112: Negative or not required by law. Electronically signed by: Blake Summers M.D. 02/22/2024 10:14 AM
[2024-02-22 10:19] LABS: Basophils # (auto) 0.09 K/uL (0.00-0.20); Basophils % (auto) 1.6 %; Eosinophils # (auto) 0.47 K/uL (0.00-0.50); Eosinophils % (auto) 8.6 %; Hematocrit (blood only) 40.9 % (42.0-52.0); Immature Granulocytes # (auto) 0.02 K/uL (0.01-0.20); Immature Granulocytes % (auto) 0.4 %; Lymphocytes # (auto) 1.57 K/uL (1.20-3.40); Lymphocytes % (auto) 28.6 %; Mean Corpuscular Hemoglobin 29.2 pg (25.0-34.0); Mean Corpuscular Hgb Conc 34.2 g/dL (32.0-36.0); Mean Corpuscular Volume 85.2 fL (80.0-100.0); Mean Platelet Volume 10.4 fL (9.4-12.4); Monocytes # (auto) 0.59 K/uL (0.11-0.59); Monocytes % (auto) 10.7 %; Neutrophils # (auto) 2.75 K/uL (1.40-6.50); Neutrophils % (auto) 50.1 %; Platelet Count 272 K/uL (130-400); RDW Standard Deviation 37.8 fL (36.4-46.3); White Blood Count 5.49 K/ul (4.8-10.8)
[2024-02-22 10:48] LABS: Albumin Level 3.5 gm/dl (3.4-5.0); Calcium 8.6 mg/dl (8.6-10.3); Creatinine Clr Calc Pharmacy 71.3 ml/min; Est GFR (African American) 96.5 ml/min; Est GFR (Non-African American) 83.3 ml/min; Magnesium 1.9 mg/dl (1.7-2.4); Phosphorus 2.9 mg/dl (2.5-4.9); Potassium 4.4 mmol/L (3.5-5.1)
[2024-02-22] MEDS: LANTUS PER UNIT CHARGE SQ SCH (20:49)
[2024-02-22] MEDS: ROSUVASTATIN CALCIUM 10 MG TAB PO SCH (20:50)
[2024-02-22] MEDS ORDERED: LANTUS PER UNIT CHARGE SQ SCH (21:00)
[2024-02-22] MEDS: ACETAMINOPHEN 325 MG TAB PO PRN (23:30)
--- NOTE | 2024-02-23 07:27 | Hospitalist Progress Note ---
Date of Service February 23, 2024 Assessment & Plan (1) H/O heart artery stent: (2) Hallucinations, visual: (3) Hyperglycemia: (4) Vascular dementia: Plan Confusion with disorientation/cognitive impairment/vascular dementia/visual hallucinations -Patient reportedly had worsening of the above symptoms since having undergone cardiac catheterization on 02/16 and 02/18, as noted per family. -Symptomatology is most consistent with delirium, considering two recent admiss ions to [facility] [place] [facility] [place] the past few [place] -Discussed with daughter, Maribell, who notes that patient lives in independent living at the [facility]. There is concern with his ability to take his own medic ations, etc at home at this time -Level of delirium/confusion will likely wax and wane, will follow progress to ensure safe placement at [facility] -CT scan of head is negative -Discussed MRI brain with commercial hvac technician, obtained CXR and KUB in anticipation of MRI Brain but waiting on report from [facility] prior to obtaining MRI -02/22: MRI completed, "punctate focus of signal abnormality within the left frontal lobe". Discussed this new finding with neurology, felt it was clinically irrelevant. Recommended outpatient follow up with neurology. -Discussed with patient's grand nephew- hopefully he will be able to transition back to the [facility] with assisted living as his current needs are greater -Continue aspirin and Plavix CAD/hypertension -PCI with CARMEN to left main and LAD on 02/18 -Continue propranolol, aspirin and Plavix, and rosuvastatin/Zetia Diabetes Mellitus -Hold home metformin -Will continue glargine at reduced dosing Admission and Anticipated Discharge Date Admission Date: February 22, 2024 Supervising Physician Co-Signing Physician Notes Attending Physician Supervision Note: I independently interviewed and examined the patient and verified the inman history and physical, reviewed labs and image studies and agree with findings and care plan noted above. Left frontal punctate punctate lesions - Noted on MRI. Likely acute to subacute strokes. -Already on DAPT, statin. -BP well controlled. -A1c 10.6 - blood glucose well controlled here. Suspect nonadherence due to dementia. -PT/OT eval ordered. No speech deficit. -SCD -To have outpatient neurology evaluation. Metabolic encephalopathy - due to stroke and underlying dementia in setting of recent hospitalizations at [facility] and [facility]. Case mx for discharge planning. Subjective No acute events reported overnight. Talked with patient and his great nephew at bedside this afternoon. His great nephew expressed concern that his baseline has been declining over the past few weeks to months and he has concern that his medications may have not been administered as prescribed as the patient has been managing this himself. Review of Systems Review of Systems: As per above Physical Exam Constitutional: WD/WN, vitals as above Eyes: + anicteric sclerae; no conjunctival abn ormality ENMT: Ears: no external ear abnormality Nose: no external nose abnormality Respiratory: normal respiratory effort, lungs clear to auscultation Cardiovascular: Extremities: no edema Chest (Breasts): Additional Comments: limbs well perfused Skin: no rashes, warm and dry Neurologic: Speech / Cognition: + abnormal cognition Psychiatric: Orientation: oriented to person and oriented to time; + not oriented to place Results & Data Results & Data Vital Signs (Past 12 Hours) Vital Signs Temp Pulse Pulse Resp BP Pulse Ox O2 Del Method 02/23/24 07:20 36.3 C L 87 14 172/99 H 94 Room Air 02/23/24 07:07 78 02/23/24 04:11 36.5 C 79 18 182/105 H 96 Room Air 02/23/24 01:47 72 02/22/24 23:40 36.8 C 81 18 179/92 H 96 Room Air Diagnostic Findings Head CT 02/21/24 20:55 Exam(s): CT HEAD Without Contrast EXAM: CT Head Without Intravenous Contrast CLINICAL HISTORY: Reason for exam: confusion. TECHNIQUE: Axial computed tomography images of the head/brain without intravenous contrast. CTDI is 37.32 mGy and DLP is 546.36 mGy-cm. Automated exposure control was utilized for the study. A dose lowering technique was utilized adhering to the principles of ALARA. COMPARISON: No relevant prior studies available. FINDINGS: No acute intracranial hemorrhage. No midline shift or mass effect. The territorial blair-white matter differentiation is maintained throughout. Age-related cerebral volume loss. Periventricular and subcortical white matter hypoattenuation, consistent with chronic microangiopathy. The visualized orbits appear grossly unremarkable. The calvarium is intact. The visualized paranasal sinuses and mastoid air cells are grossly clear. IMPRESSION: No acute intracranial hemorrhage, midline shift, or mass effect. Electronically signed by: Gonzalo Bajwa MD 02/21/24 22:50 PM Brain MRI 02/22/24 00:34 MRI OF THE BRAIN WITHOUT CONTRAST CLINICAL HISTORY: altered mentation, cardiac stent placement COMPARISON STUDY: MRI of the brain October 12, 2023. Head CT February 21, 2024. TECHNIQUE: Utilizing a 1.5 Myranda magnet and dedicated coil, multiplanar, multiecho imaging of the brain was performed without IV contrast. FINDINGS: This exam is mildly compromised by motion artifact although is diagnostic. There is a punctate hyperintense focus within the left frontal lobe on axial diffusion-weighted sequence image 18 of 23. Correlation with the ADC map is difficult given its small size. No additional foci of restricted diffusion are present. Basal cisterns are patent. There are no extra-axial collections. Flow-voids for the major intracranial vessels are present. No i ntracranial masses are identified on unenhanced exam. White matter T2 hyperintense foci are unchanged since MRI November 11, 2023. Ventricular dilatation is unchanged from earlier exams and likely due to atrophy. Calvarial signal is normal. IMPRESSION: 1. Punctate focus of signal abnormality within the left frontal lobe on diffusion-weighted sequence. Characterization is difficult given its small size however this favors a punctate acute to subacute infarct. 2. Otherwise, no change in appearance of the brain since MRI of November 11, 2023. ACT 112: Negative or not required by law. Electronically signed by: Blake Summers M.D. 02/23/2024 9:18 AM Chest X-Ray 02/22/24 09:11 XR chest 1V portable CLINICAL HISTORY: Demented, MRI needed COMPARISON STUDY: Chest radiograph February 16, 2024. FINDINGS: Lung volumes are normal. Lungs are clear. There is no pneumothorax or pleural effusion. Cardiac size is normal. Mediastinal contours are normal. There is no evidence for pulmonary edema. There is no contraindication to MRI within the chest. IMPRESSION: 1. No acute cardiopulmonary findings. 2. No contraindication to MRI within the chest. ACT 112: Negative or not required by law. Electronically signed by: Blake Summers M.D. 02/22/2024 10:14 AM KUB X-Ray 02/22/24 09:11 XR KUB pre MRI HISTORY: 78 years-old Male Dementia, MRI needed screening for MRI COMPARISON: 01/10/2022 TECHNIQUE: KUB radiograph FINDINGS: Mild gaseous distention of the stomach. Nonobstructive bowel gas pattern. No renal or ureteral calculi identified. Unchanged left pelvic basin calcifications. Degenerative changes of the spine, pelvis and hips. No opaque foreign bodies of the abdomen. Coronary arterial stenting. Vascular calcifications. IMPRESSION: 1. Nonobstructive bowel gas pattern. 2. No opaque foreign bodies. ACT 112: Negative or not required by law. The above report was generated using voice recognition software. It may contain grammatical, syntax or spelling errors. Electronically signed by: Volodymyr Bianchi M.D. 02/22/2024 9:43 AM Resident Activity Tracking Resident Involvement: Resident Care Provided Care Provided: Adult Hospital Medicine
[2024-02-23 07:40] LABS: Basophils # (auto) 0.11 K/uL (0.00-0.20); Basophils % (auto) 1.4 %; Eosinophils # (auto) 0.51 K/uL (0.00-0.50); Eosinophils % (auto) 6.5 %; Hematocrit (blood only) 44.8 % (42.0-52.0); Hemoglobin 15.8 g/dl (14.0-18.0); Immature Granulocytes # (auto) 0.02 K/uL (0.01-0.20); Immature Granulocytes % (auto) 0.3 %; Lymphocytes % (auto) 23.1 %; Mean Corpuscular Hemoglobin 29.2 pg (25.0-34.0); Mean Corpuscular Hgb Conc 35.3 g/dL (32.0-36.0); Mean Corpuscular Volume 82.7 fL (80.0-100.0); Mean Platelet Volume 10.5 fL (9.4-12.4); Monocytes # (auto) 0.65 K/uL (0.11-0.59); Monocytes % (auto) 8.3 %; Neutrophils # (auto) 4.71 K/uL (1.40-6.50); Neutrophils % (auto) 60.4 %; Platelet Count 314 K/uL (130-400); RDW Coefficient of Variation 11.8 % (11.5-14.5); RDW Standard Deviation 35.5 fL (36.4-46.3); Red Blood Count 5.42 M/uL (4.70-6.10)
[2024-02-23 08:58] LABS: BUN Creatinine Ratio 19.1 (10-20); Creatinine Clr Calc Pharmacy 88.1 ml/min; Est GFR (African American) 105.3 ml/min; Est GFR (Non-African American) 90.8 ml/min; Magnesium 1.8 mg/dl (1.7-2.4); Phosphorus 3.1 mg/dl (2.5-4.9); Potassium 3.9 mmol/L (3.5-5.1)
--- NOTE | 2024-02-23 09:19 | Magnetic Resonance Report ---
MRI OF THE BRAIN WITHOUT CONTRAST CLINICAL HISTORY: altered mentation, cardiac stent placement COMPARISON STUDY: MRI of the brain October 12, 2023. Head CT February 21, 2024. TECHNIQUE: Utilizing a 1.5 Myranda magnet and dedicated coil, multiplanar, multiecho imaging of the bra in was performed without IV contrast. FINDINGS: This exam is mildly compromised by motion artifact although is diagnostic. There is a punct ate hyperintense focus within the left frontal lobe on axial diffusion-weighted sequence image 18 of . Correlation with the ADC map is difficult given its small size. No additional foci of restricted diffusion are present. Basal cisterns are patent. There are no extra-axial collections. Flow-voids fo r the major intracranial vessels are present. No intracranial masses are identified on unenhanced exa m. White matter T2 hyperintense foci are unchanged since MRI November 11, 2023. Ventricular dilatatio n is unchanged from earlier exams and likely due to atrophy. Calvarial signal is normal. IMPRESSION: 1. Punctate focus of signal abnormality within the left frontal lobe on diffusion-weighted sequence. Characterization is difficult given its small size however this favors a punctate acute to subacute i nfarct. 2. Otherwise, no change in appearance of the brain since MRI of November 11, 2023. ACT 112: Negative or not required by law. Electronically signed by: Blake Summers M.D. 02/23/2024 9:18 AM
[2024-02-23] MEDS: CLOPIDOGREL BISULFATE 75 MG TAB PO SCH (09:26)
[2024-02-24 07:10] LABS: Basophils # (auto) 0.12 K/uL (0.00-0.20); Basophils % (auto) 1.6 %; Eosinophils # (auto) 0.51 K/uL (0.00-0.50); Eosinophils % (auto) 6.6 %; Hemoglobin 15.3 g/dl (14.0-18.0); Immature Granulocytes # (auto) 0.02 K/uL (0.01-0.20); Immature Granulocytes % (auto) 0.3 %; Lymphocytes # (auto) 2.89 K/uL (1.20-3.40); Lymphocytes % (auto) 37.5 %; Mean Corpuscular Hemoglobin 29.1 pg (25.0-34.0); Mean Corpuscular Volume 85.6 fL (80.0-100.0); Mean Platelet Volume 10.4 fL (9.4-12.4); Monocytes # (auto) 0.81 K/uL (0.11-0.59); Monocytes % (auto) 10.5 %; Neutrophils # (auto) 3.35 K/uL (1.40-6.50); Neutrophils % (auto) 43.5 %; Platelet Count 289 K/uL (130-400); RDW Standard Deviation 37.5 fL (36.4-46.3); Red Blood Count 5.26 M/uL (4.70-6.10)
[2024-02-24 08:15] LABS: Albumin Level 3.7 gm/dl (3.4-5.0); BUN Creatinine Ratio 16.7 (10-20); Calcium 8.9 mg/dl (8.6-10.3); Creatinine Clr Calc Pharmacy 62.4 ml/min; Est GFR (African American) 86.8 ml/min; Est GFR (Non-African American) 74.9 ml/min; Phosphorus 3.9 mg/dl (2.5-4.9); Potassium 3.9 mmol/L (3.5-5.1)
[2024-02-24] MEDS ORDERED: PHARMACY GLYCEMIC MGMT CONSULT PRN (12:16)
--- NOTE | 2024-02-24 12:44 | Pharmacy Report ---
Pharmacy Glycemic Short Note 2 - Date of Service February 24, 2024 - Glycemic Short BSG Results (Last 24 hours): 02/23/24 02/23/24 02/24/24 17:07 20:48 06:43 Glucose 172 H POC Glucose 191 H 254 H 02/24/24 02/24/24 02/24/24 08:26 12:07 12:10 Glucose POC Glucose 156 H 302 H* 265 H OUTPATIENT ANTIDIABETIC REGIMEN: * Lantus 24 units SQ HS * metformin 1gm PO BID HbA1C: 10.6% (02/17/24) ASSESSMENT: * Pt is a 78 year old male admitted with confusion and hallucinations. History of DM2- pharmacy consulted to assist with inpatient glycemic management. * BSGs [phone]/dL the last 24h: received 16 units of basal and 29 units of bolus insulin yesterday. * Tolerating diet, other stressors stable. * Increase Lantus to 20 units HS. Novolog tightened to 20/8 and goal BSG range adjusted. PLAN FOR INPATIENT GLYCEMIC CONTROL: * Hold outpatient oral diabetes medications * Basal insulin * Lantus 20 units SQ HS * Bolus insulin * NovoLog per scale ACHS or Q6hrs while NPO * Goal Range: Low 110 mg/dL - High 140 mg/dL * Correction Factor: 20 mg/dL/unit * Nutritional / Prandial insulin per carb ratio of 1 unit per 8 grams CHO consumed
--- NOTE | 2024-02-24 13:13 | Electrocardiogram Report ---
Test Reason : Blood Pressure : / mmHG Vent. Rate : 074 BPM Atrial Rate : 074 BPM P-R Int : 194 ms QRS Dur : 070 ms QT Int : 376 ms P-R-T Axes : 063 021 076 degrees QTc Int : 417 ms Normal sinus rhythm Anteroseptal infarct (cited on or before 11-NOV-2023) Abnormal ECG When compared with ECG of 16-FEB-2024 11:30, Questionable change in initial forces of Anterior leads Confirmed by Mauro Teran ([id number]) on 02/24/2024 1:13:24 PM Referred By: Osei Garcia Confirmed By:Mauro Teran
--- NOTE | 2024-02-24 14:41 | Hospitalist Progress Note ---
Date of Service February 24, 2024 Assessment & Plan (1) H/O heart artery stent: (2) Hallucinations, visual: (3) Hyperglycemia: (4) Vascular dementia: Plan Confusion with disorientation/cognitive impairment/vascular dementia/visual hallucinations -Patient reportedly had worsening of the above symptoms since having undergone cardiac catheterization on 02/16 and 02/18, as noted per family. -Symptomatology is most consistent with delirium, considering two recent admiss ions to [facility] and [facility] in the past few days -Discussed with daughter, Maribell, who notes that patient lives in independent living at the [facility]. There is concern with his ability to take his own medic ations, etc at home at this time -Level of delirium/confusion will likely wax and wane, will follow progress to ensure safe placement at discharge. PT/OT consulted. Case management assistance appreciated. -CT scan of head is negative -Discussed MRI brain with computer technologist, obtained CXR and KUB in anticipation of MRI Brain but waiting on report from [facility] prior to obtaining MRI -02/22: MRI completed, "punctate focus of signal abnormality within the left frontal lobe". Discussed this new finding with neurology, felt it was clinically irrelevant. Recommended outpatient follow up with neurology. -Discussed with patient's grand nephew- hopefully he will be able to transition back to the [facility] with assisted living as his current needs are greater -Continue aspirin and Plavix CAD/hypertension -PCI with CARMEN to left main and LAD on 02/18 at [facility] -Continue propranolol, aspirin and Plavix, and rosuvastatin/Zetia Diabetes Mellitus -Hold home metformin -Some hyperglycemia ongoing, last A1c >10%. Concern that increased confusion/progression of dementia has lead to poor medication compliance. Family in agreement that he will need assistance with medication administration at time of discharge including with diabetes management. -Glycemic consult placed Admission and Anticipated Discharge Date Admission Date: February 23, 2024 Supervising Physician Co-Signing Physician Notes Attending Physician Supervision Note: I independently interviewed and examined the patient and verified the inman history and physical, reviewed labs and image studies and agree with findings and care plan noted above. Postprocedural cerebrovascular infarction following cardiac cath with stent insertion Left frontal punctate punctate lesions - Noted on MRI. Likely acute to subacute strokes. -Already on DAPT, statin. -BP well controlled. -A1c 10.6 - blood glucose well controlled here. Suspect nonadherence due to dementia. -PT/OT eval ordered. No speech deficit. -SCD -To have outpatient neurology evaluation. Metabolic encephalopathy - due to stroke and underlying dementia in setting of recent hospitalizations at [facility] and [facility]. -supportive care Case mx for discharge planning. Subjective Patient seen and examined at bedside. Overnight, patient had refused telemetry monitors. Patient had finished breakfast and was sitting comfortably in bed at time of encounter. He has intermittent confusion, but is comfortable and in no acute distress. Denies chest pain/shortness of breath. Review of Systems Review of Systems: As per above Physical Exam Constitutional: WD/WN, vitals as above Eyes: + anicteric sclerae; no conjunctival abn ormality ENMT: Ears: no external ear abnormality Nose: no external nose abnormality Respiratory: normal respiratory effort, lungs clear to auscultation Cardiovascular: Rate/Rhythm: regular rate and regular rhythm Extremities: no edema Skin: no rashes, warm and dry Neurologic: Speech / Cognition: + abnormal cognition Psychiatric: Orientation: oriented to person and oriented to time; + not oriented to place Results & Data Results & Data Vital Signs (Past 12 Hours) Vital Signs Temp Pulse Pulse Resp BP Pulse Ox O2 Del Method 02/24/24 11:14 36.6 C 81 16 137/86 94 Room Air 02/24/24 10:15 72 02/24/24 09:42 Room Air 02/24/24 07:27 36.5 C 70 14 166/81 H 97 Room Air 02/24/24 03:11 36.8 C 72 18 106/54 L 94 Room Air Resident Activity Tracking Resident Involvement: Resident Care Provided Care Provided: Adult Hospital Medicine
[2024-02-24] MEDS: LANTUS PER UNIT CHARGE SQ SCH (20:53)
[2024-02-24] MEDS ORDERED: POLYETHYLENE (MIRALAX) 17 GM PACK PO SCH (21:00)
[2024-02-24] MEDS: INSULIN ASPART PER UNIT CHARGE SC SCH (23:20)
--- NOTE | 2024-02-25 07:48 | Hospitalist Progress Note ---
Date of Service February 25, 2024 Assessment & Plan (1) H/O heart artery stent: (2) Hallucinations, visual: (3) Hyperglycemia: (4) Vascular dementia: Plan Confusion with disorientation/cognitive impairment/vascular dementia/visual hallucinations -Patient reportedly had worsening of the above symptoms since having undergone cardiac catheterization on 02/16 and 02/18, as noted per family. -Symptomatology is most consistent with delirium, considering two recent admiss ions to [facility] [place] [facility] [place] the [place] days -Discussed with daughter, Maribell, who notes that patient lives in independent living at the [facility]. There is concern with his ability to take his own medic ations, etc at home at this time -Level of delirium/confusion will likely wax and wane, will follow progress to ensure safe placement at discharge. PT/OT consulted. Case management assistance appreciated. -CT scan of head is negative -Discussed MRI brain with ct scan technologist, obtained CXR and KUB in anticipation of MRI Brain but waiting on report from [facility] prior to obtaining MRI -02/22: MRI completed, "punctate focus of signal abnormality within the left frontal lobe". Discussed this new finding with neurology, felt it was clinically irrelevant. Recommended outpatient follow up with neurology. -Discussed with patient's grand nephew- hopefully he will be able to transition back to the [facility] with assisted living as his current needs are greater -Continue aspirin and Plavix CAD/hypertension -PCI with CARMEN to left main and LAD [place] 02/18 [place] [facility] -Continue propranolol, aspirin and Plavix, and rosuvastatin/Zetia Diabetes Mellitus -Hold home metformin -Some hyperglycemia ongoing, last A1c >10%. Concern that increased confusion/progression of dementia has lead to poor medication compliance. Family in agreement that he will need assistance with medication administration at time of discharge including with diabetes management. -Glycemic consult placed Admission and Anticipated Discharge Date Admission Date: February 23, 2024 Review of Systems Review of Systems: As per above Physical Exam Constitutional: WD/WN, vitals as above Eyes: + anicteric sclerae; no conjunctival abn ormality ENMT: Ears: no external ear abnormality Nose: no external nose abnormality Respiratory: normal respiratory effort, lungs clear to auscultation Cardiovascular: Rate/Rhythm: regular rate and regular rhythm Extremities: no edema Skin: no rashes, warm and dry Neurologic: Speech / Cognition: + abnormal cognition Psychiatric: Orientation: oriented to person and oriented to time; + not oriented to place Results & Data Results & Data Vital Signs (Past 12 Hours) Vital Signs Temp Pulse Pulse Resp BP Pulse Ox O2 Del Method 02/25/24 07:05 69 02/25/24 03:28 36.6 C 66 18 176/88 H 95 Room Air 02/24/24 23:48 Room Air 02/24/24 23:12 36.5 C 62 20 170/88 H 96 Room Air 02/24/24 23:06 67 Resident Activity Tracking Resident Involvement: Resident Care Provided Care Provided: Adult Hospital Medicine
[2024-02-25 08:07] LABS: Hematocrit (blood only) 47.5 % (42.0-52.0); Mean Corpuscular Hemoglobin 28.9 pg (25.0-34.0); Mean Corpuscular Hgb Conc 33.7 g/dL (32.0-36.0); Mean Corpuscular Volume 85.7 fL (80.0-100.0); Mean Platelet Volume 10.4 fL (9.4-12.4); Platelet Count 322 K/uL (130-400); RDW Standard Deviation 37.5 fL (36.4-46.3); Red Blood Count 5.54 M/uL (4.70-6.10); White Blood Count 7.84 K/ul (4.8-10.8)
[2024-02-25 08:30] LABS: BUN Creatinine Ratio 17.6 (10-20); Creatinine Clr Calc Pharmacy 70.5 ml/min; Est GFR (African American) 96.1 ml/min; Est GFR (Non-African American) 82.9 ml/min; Potassium 3.9 mmol/L (3.5-5.1)
[2024-02-25] MEDS: POLYETHYLENE (MIRALAX) 17 GM PACK PO PRN (12:31)
--- NOTE | 2024-02-25 13:27 | Discharge Summary ---
Date of Service February 25, 2024 Admission HPI Per Admitting Provider The patient is a 78-year-old male with a past medical history including CAD status post 2 stents at [facility], diabetes mellitus, syncope, cognitive impairment, BPH, vascular dementia, history of confusion and disorientation, word finding difficulty and TIA. Patient had initially undergone cardiac catheterization on 02/17/2024, and then was referred to [facility], where he underwent cardiac catheterization on 02/19/24, with placement of 2 stents. He was noted to have disorientation and confusion with agitation while at [facility], and when he was returned back to the detention, family felt he was more confused and disoriented than when he left, and patient was noted to have visual and auditory hallucinations per his description. Patient does not show any signs of agitation in the emergency department this evening Admission Exam Per Admitting Provider The patient is confused and disoriented, well developed and well nourished, normocephalic and atraumatic, lying in bed and in no acute distress. HEENT--PERRL, EOMI, mucous membranes and oropharynx dry. Neck--supple. No JVD. No bruits. Thyroid normal, trachea midline, no adenopathy. Heart--normal S1 and S2. No murmurs, rubs or gallops. Lungs--clear bilaterally, no respiratory distress, no accessory muscle use. Abdomen--normal bowel sounds and soft. Nontender. Nondistended Extremities--no cyanosis or clubbing. No edema. Dermatologic--normal skin turgor, normal color, no abnormal lymph nodes, no rash. Neurologic--cranial nerves II through XII grossly intact. Rheumatologic--normal range of motion. Psychiatric--confused and disoriented with hallucinations Principal Diagnosis delirium Discharge Exam Constitutional WD/WN, vitals as above Eyes + anicteric sclerae; no conjunctival abnormality ENMT Ears: no external ear abnormality Nose: no external nose abnormality Respiratory normal respiratory effort, lungs clear to auscultation Cardiovascular Rate/Rhythm: regular rate and regular rhythm Extremities: no edema Skin no rashes, warm and dry Neurologic Speech / Cognition: + abnormal cognition Psychiatric Orientation: oriented to person and oriented to time; + not oriented to place Discharge Data Allergies Allergy/AdvReac Type Severity Reaction Status Date / Time No Known Allergies Allergy Verified 02/21/24 23:56 Consultations 02/22/24 00:06 ED Decision to Admit Stat Ordered Studies 02/21/24 20:55 CT head/brain wo con Stat 02/22/24 00:34 MRI Brain [MR brain wo con] Stat Head CT 02/21/24 20:55 Exam(s): CT HEAD Without Contrast EXAM: CT Head Without Intravenous Contrast CLINICAL HISTORY: Reason for exam: confusion. TECHNIQUE: Axial computed tomography images of the head/brain without intravenous contrast. CTDI is 37.32 mGy and DLP is 546.36 mGy-cm. Automated exposure control was utilized for the study. A dose lowering technique was utilized adhering to the principles of ALARA. COMPARISON: No relevant prior studies available. FINDINGS: No acute intracranial hemorrhage. No midline shift or mass effect. The territorial blair-white matter differentiation is maintained throughout. Age-related cerebral volume loss. Periventricular and subcortical white matter hypoattenuation, consistent with chronic microangiopathy. The visualized orbits appear grossly unremarkable. The calvarium is intact. The visualized paranasal sinuses and mastoid air cells are grossly clear. IMPRESSION: No acute intracranial hemorrhage, midline shift, or mass effect. Electronically signed by: Gonzalo Bajwa MD 02/21/24 22:50 PM Brain MRI 02/22/24 00:34 MRI OF THE BRAIN WITHOUT CONTRAST CLINICAL HISTORY: altered mentation, cardiac stent placement COMPARISON STUDY: MRI of the brain October 12, 2023. Head CT February 21, 2024. TECHNIQUE: Utilizing a 1.5 Myranda magnet and dedicated coil, multiplanar, multiecho imaging of the brain was performed without IV contrast. FINDINGS: This exam is mildly compromised by motion artifact although is diagnostic. There is a punctate hyperintense focus within the left frontal lobe on axial diffusion-weighted sequence image 18 of 23. Correlation with the ADC map is difficult given its small size. No additional foci of restricted diffusion are present. Basal cisterns are patent. There are no extra-axial collections. Flow-voids for the major intracranial vessels are present. No intracranial masses are identified on unenhanced exam. White matter T2 hyp erintense foci are unchanged since MRI November 11, 2023. Ventricular dilatation is unchanged from earlier exams and likely due to atrophy. Calvarial signal is normal. IMPRESSION: 1. Punctate focus of signal abnormality within the left frontal lobe on diffusion-weighted sequence. Characterization is difficult given its small size however this favors a punctate acute to subacute infarct. 2. Otherwise, no change in appearance of the brain since MRI of November 11, 2023. ACT 112: Negative or not required by law. Electronically signed by: Blake Summers M.D. 02/23/2024 9:18 AM Chest X-Ray 02/22/24 09:11 XR chest 1V portable CLINICAL HISTORY: Demented, MRI needed COMPARISON STUDY: Chest radiograph February 16, 2024. FINDINGS: Lung volumes are normal. Lungs are clear. There is no pneumothorax or pleural effusion. Cardiac size is normal. Mediastinal contours are normal. There is no evidence for pulmonary edema. There is no contraindication to MRI within the chest. IMPRESSION: 1. No acute cardiopulmonary findings. 2. No contraindication to MRI within the chest. ACT 112: Negative or not required by law. Electronically signed by: Blake Summers M.D. 02/22/2024 10:14 AM KUB X-Ray 02/22/24 09:11 XR KUB pre MRI HISTORY: 78 years-old Male Dementia, MRI needed screening for MRI COMPARISON: 01/10/2022 TECHNIQUE: KUB radiograph FINDINGS: Mild gaseous distention of the stomach. Nonobstructive bowel gas pattern. No renal or ureteral calculi identified. Unchanged left pelvic basin calcifications. Degenerative changes of the spine, pelvis and hips. No opaque foreign bodies of the abdomen. Coronary arterial stenting. Vascular calcifications. IMPRESSION: 1. Nonobstructive bowel gas pattern. 2. No opaque foreign bodies. ACT 112: Negative or not required by law. The above report was generated using voice recognition software. It may contain grammatical, syntax or spelling errors. Electronically signed by: Volodymyr Bianchi M.D. 02/22/2024 9:43 AM Hospital Course (1) H/O heart artery stent: (2) Hallucinations, visual: (3) Hyperglycemia: (4) Vascular dementia: Plan Confusion with disorientation/cognitive impairment/vascular dementia/visual hallucinations Patient reportedly had worsening of the above symptoms since having undergone cardiac catheterization on 02/16 and 02/18, as noted per family. Symptomatology is most consistent with delirium, considering two recent admissions to [facility] and [facility] in the past few days. Level of delirium/confusion does wax and wane, Anticipate acute delirium could last for several weeks. 4/2: MRI completed, "punctate focus of signal abnormality within the left frontal lobe". Discussed this new finding with neurology, felt it was clinically irrelevant. Recommended outpatient follow up with neurology. Neurology expressed concerns that his current symptoms are delirium secondary to multiple hospitalizations/cardiac cath procedures as well as some progression of baseline vascular dementia. Continue aspirin and Plavix CAD/hypertension PCI with CARMEN to left main and LAD on 02/18 at [facility]. Continue propranolol, aspirin and Plavix, and rosuvastatin/Zetia Diabetes Mellitus Held home insulin while inpatient. Some hyperglycemia ongoing, last A1c 10.6%. Concern that increased confusion/progression of dementia has lead to poor medication compliance. Family in agreement that he will need assistance with medication administration at time of discharge including with diabetes management. BSG managed while inpatient with Lantus 20 qhs, bolus insulin (No volog) with correction factor of 20mg/dL/unit and carb ratio of 1 unit per 8 grams CHO. Would recommend continuing with meal time/bolus insulin at time of discharge to achieve goal BSGs 110-140. Can resume Metformin at discharge, but may eventually need to adjust insulin requirements after resuming his metformin Total Time Total Time Spent Total Time Spent (In Minutes): . Discharge Plan Discharge Items Patient Disposition: Transfer [facility] Living Fac Reason For Visit: CONFUSION AND DISORIENTATION Discharge Diagnosis: delirium Activity: Per Instructions section Non-emergency contact: Primary Care Provider and Neurologist Call non-emergency contact if: you have any medication questions and your symptoms worsen Follow-up/Referrals: Chris Tate MD [Physician] - (Please schedule follow up appointment) Osei Garcia MD [Primary Care Provider] - (please schedule hospital discharge follow up appointment ) Diet: Carb Consistent or DM2 Addtl Attending Provider Instructions: Confusion with disorientation/cognitive impairment/vascular dementia/visual hallucinations -Patient reportedly had worsening of the above symptoms since having undergone cardiac catheterization on 02/16 and 02/18, as noted per family. -Symptomatology is most consistent with delirium, considering two recent admissions to [facility] and [facility] in the past few days -Level of delirium/confusion does wax and wane, Anticipate acute delirium could last for several weeks. -02/22: MRI completed, "punctate focus of signal abnormality within the left frontal lobe". Discussed this new finding with neurology, felt it was clinically irrelevant. Recommended outpatient follow up with neurology. Neurology expressed concerns that his current symptoms are delirium secondary to multiple hospitalizations/cardiac cath procedures as well as some progression of baseline vascular dementia. -Continue aspirin and Plavix CAD/hypertension -PCI with CARMEN to left main and LAD on 02/18 at [facility] -Continue propranolol, aspirin and Plavix, and rosuvastatin/Zetia Diabetes Mellitus -Held home insulin while inpatient -Some hyperglycemia ongoing, last A1c 10.6%. Concern that increased confusion/progression of dementia has lead to poor medication compliance. Family in agreement that he will need assistance with medication administration at time of discharge including with diabetes management. -BSG managed while inpatient with Lantus 20 qhs, bolus insulin (Novolog) with correction factor of 20mg/dL/unit and carb ratio of 1 unit per 8 grams CHO -Would recommend continuing with meal time/bolus insulin at time of discharge to achieve goal BSGs 110-140 -Can resume Metformin at discharge, but may eventually need to adjust insulin requirements after resuming his metformin Pending Studies at Discharge: No Stand-Alone Forms: My [facility] Skilled Items Patient informed of condition?: Yes DNR: No Discharge Level of Care: Skilled Communicable Disease: No Discharge Prognosis: Stable Lines: None Urinary Catheter: No Medications and DC Order Prescriptions: New insulin aspart U-100 100 unit/mL (3 mL) insulin pen 1 sliding scale dose subcut ACHS Qty: 15 0RF Rx Instructions: Goal BSG 110-140 Carb ratio: 1 unit per 8 grams CHO correction factor: 20 mg/dL/unit Continued (DME) lancets [OneTouch Delica Lancets] 33 gauge misc See Rx Instructions .Route Qty: 200 11RF Rx Instructions: Test 3 times a day nitroglycerin 0.4 mg tablet, sublingual 0.4 mg sublingual Q5M PRN (Reason: chest pain) Qty: 25 1RF Rx Instructions: until response; do not exceed 3 doses per episode (DME) pen needle, diabetic [Comfort EZ Pen [place]] 32 gauge x 5/32" needle See Rx Instructions .ROUTE .COMPLEX Qty: 100 3RF Dose Instruction: use one daily Rx Instructions: use one daily clopidogrel 75 mg tablet 75 mg PO .EVERY OTHER DAY Qty: 90 3RF Hold Instructions: hold unless your providers at [facility] recommend to resume Dose Instruction: TAKE 1 TABLET BY MOUTH DAILY ezetimibe 10 mg tablet 10 mg PO DAILY Qty: 90 3RF metformin 500 mg tablet extended release 24 hr 1,000 mg PO BID Qty: 360 3RF Hold Instructions: hold until your providers at [facility] recommend to resume Rx Instructions: TAKE 2 TABLETS BY MOUTH TWICE DAILY propranolol 80 mg capsule,extended release 24hr 80 mg PO DAILY Qty: 90 3RF (DME) lancets Misc See Rx Instructions .ROUTE .MEDSUPPLY Qty: 100 3RF Rx Instructions: testing three times daily (DME) OneTouch Verio test strips Strip See Rx Instructions .ROUTE .MEDSUPPLY Qty: 200 3RF Rx Instructions: Check blood sugars 2x a day aspirin 81 mg Tablet,Delayed Release (Dr/Ec) 81 mg PO QAM rosuvastatin 10 mg tablet 10 mg PO HS Changed insulin glargine [Lantus Solostar U-100 Insulin] 100 unit/mL (3 mL) insulin pen 20 unit subcut HS Qty: 3 0RF Discharge Orders: Discharge Order (Routine); Ordered 02/25/24 Ordered By: Trista Abdi/Other Patient Handouts: High Blood Sugar (Hyperglycemia), Hypoglycemia (Low Blood Sugar), Managing Type 2 Diabetes Admission Data Admit Date/Time: 02/23/24 15:57 Attending Provider: Rocio Shepard Admit Provider: Darnell Daniels Primary Care Provider: Osei Garcia [facility]arnell Daniels[facility] Other Interventions: Discharge Summary Assessment (RN) Last Done: 02/25/24 13:37 Supervising Physician Co-Signing Physician Notes Attending Physician Supervision Note: I independently interviewed and examined the patient and verified the inman history and physical, reviewed labs and image studies and agree with findings and care plan noted above. 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 -Already on DAPT, statin. -BP well controlled. -A1c 10.6 - blood glucose well controlled here. Suspect nonadherence due to dementia. Insulin dose adjusted on discharge. -PT/OT eval ordered. No speech deficit. -MRI findings - Likely acute to subacute strokes per radiology report. On verbal communication with neurology - MRI findings of uncertain significance. -To have outpatient neurology evaluation. Metabolic encephalopathy - due to stroke and underlying dementia in setting of recent hospitalizations at [facility] and [facility]. -supportive care Discharged to SNF
== END 2024-02-25 14:57 | DRG 884 ==
LOC: ED 20:14 → 2N 20:14 → SUATTDRO 02-22 00:47 → 2N 02-22 03:50

== ENCOUNTER 2024-05-14 13:19 | Observation (INO) ==
--- NOTE | 2024-05-14 13:38 | Emergency Department Note ---
Impression & Plan Word finding difficulty, HTN (hypertension) ED Provider Note Provider: Delio Belcher MD DATE OF SERVICE: 05/14/2024 CHIEF COMPLAINT: Speech issues HISTORY OF PRESENT ILLNESS: Patient is a 78-year-old gentleman history of type 2 diabetes, BPH, and cognitive impairment [place]. Evidently states he has been fine recently. Saw his doctor yesterday. Woke up this morning and had breakfast and was doing his normal routine. Around 9 AM or so noticed he was not speaking quite as clearly. Went down to the central cafeteria type area for lunch and they noted his speech was off and he is having difficulty getting his words out. Expresses frustration with being able to speak. Denies visual change or dizziness. Denies nausea. Denies any chest pain. Denies new numbness or weakness in the extremities or difficulty walking. States maybe once in the past he had some slight speech issues but cannot give me a lot of details. No hallucinations reported. No falls reported. Denies headache. PAST MEDICAL HISTORY: As noted above MEDICATIONS: Reviewed home medication list SOCIAL HISTORY: Resides at [facility] PHYSICAL EXAM: GENERAL: alert and oriented in no acute distress on stretcher Head: normocephalic and atraumatic EYES: No injection, discharge or icterus. PERRL, EOMI. NECK: Trachea midline. ENT: Mucous membranes pink and moist. LUNGS: Airway patent. No retractions. Breath sounds clear with good air entry bilaterally. HEART: Regular rate and rhythm. No chest wall tenderness ABDOMEN: Soft and non-tender, without guarding or rebound. SKIN: Acyanotic, warm, dry, without rashes EXTREMITIES: Without swelling, tenderness or deformity NEUROLOGICAL: No focal deficits moving all extremities. Perhaps mild aphasia and slightly slow to talk.. No facial droop or slurred speech. Normal strength and tone in the extremities. Sensation to gross touch normal. Ambulatory. EK bpm sinus rhythm first-degree AV block. QTc 407. No acute ST segment elevation or depression. No PVC or PAC. CONTINUOUS CARDIAC MONITORING: was ordered and showed a heart rate of 60-70 bpm in sinus rhythm first-degree AV block Patient's laboratory studies and imaging reviewed. Differential includes Infection, dehydration, metabolic abnormality, hypo/hyperglycemia, electrolyte disturbance, anemia, hypoxia, cardiac sources, intracerebral event, toxicologic, neurologic, as well as other pathologies. IMPRESSION/MEDICAL DECISION MAKING: Patient with new onset speech issues/aphasia. Able to hold a conversation but a bit slow occasionally speaking. Stresses frustration with this. No obvious visual deficits or numbness or weakness in the extremities. No obvious facial droop. Patient states maybe had a bit of slurred speech. History from the computer does not again the patient is history of cognitive impairment vascular dementia. Admitted earlier this year for what appeared to be delirium versus small subacute CVA. Will send for CT and CT angiogram of the head and neck concern for occult CVA. Last known well at 9 AM if not earlier outside the window for thrombolytics. Does not seem to have significant findings indicative of an LVO but again will obtain angiograms. Certainly has risk factors for CVA. Will look for possible infectious etiology or metabolic abnormality as well. Diagnosis occlusion be his underlying cognitive impairment/dementia. CT head and CT angiograms without significant acute findings per the radiology reports. No significant leukocytosis or anemia. No severe electrolyte abnormalities mild hyponatremia 133. Blood sugar elevated in the 300s and likely has a pseudohyponatremia related to his poorly controlled diabetes. Troponin is normal. Given some gentle hydration with the hyperglycemia. Discussed with him staying for further neurological evaluation given his word finding issues. Did have a stroke in February although on further discussion with the states he was quite confused at that time. Patient agreeable to stay for further evaluation. On reevaluation speech seems may be a little more fluent than previously during H&P by myself with the patient. Blood pressure is elevated but will allow given possibility of stroke at this time (permissive hypertension). Discussed with the hospitalist and MRI be completed for further evaluation. Patient to be observed. DIAGNOSIS: Word finding difficulty, hypertension DISPOSITION: Hospitalist will evaluate Patient was agreeable with this plan. Past Med/Surg History Problem List (Updated 05/14/24 @ 18:22 by Delio Belcher M.D.) HTN (hypertension) (Acute) Dysarthria Status post insertion of drug-eluting stent into left anterior descending (LAD) artery B12 deficiency Vitamin D deficiency Stroke Elevated troponin H/O heart artery stent Hallucinations, visual Chest pain (Acute) Cognitive impairment Syncope (Acute) Uncontrolled type 2 diabetes mellitus, with long-term current use of insulin Mild cognitive impairment BPH (benign prostatic hyperplasia) Vascular dementia Grief reaction Left flank pain Sleep disturbances Confusion and disorientation Word finding difficulty (Acute) Antiplatelet or antithrombotic long-term use History of nephrolithiasis Intertrigo TIA (transient ischemic attack) (Acute) Medical History Uncontrolled type 2 diabetes mellitus with hyperglycemia, with long-term current use of insulin Depression CAD (coronary artery disease) Memory deficits Dyslipidemia Diabetes type 2, controlled Tremor Hypertensive urgency Hx of non-ST elevation myocardial infarction (NSTEMI) HTN (hypertension) Surgical History S/P tonsillectomy and adenoidectomy Hx of cataract surgery Family History Mother Stroke CHF (congestive heart failure) Father Stroke Prostate cancer Myocardial infarction Daughter Breast cancer Sister Psychiatric problem Other Diabetes Hypertension Denies family history of Ovarian cancer Colorectal cancer Social History Smoking Status: Never smoker Second Hand Exposure: No; Do You Dip or Chew Tobacco: No; Hx Alcohol Use: No Hx Substance Use: No Preferred Language: Sami Communication Ability: Effective Communication Ability Comment: CONFUSED/HALLUCINATING Visual Impairment: No Limitations Hearing Ability: Normal Informatics Coordinator Required: No Beliefs That Will Affect Care: None marital status: / Current Living Situation: Alone Current Living Situation Comment: passed in 11/2020, is now living at the [facility] current occupational status: retired 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 Feels Safe at Home: Yes Childhood Exposure to Second-Hand Smoke: No Diet: regular Dental Care, Regularly: Yes Physical Activity Frequency: 3-4 Times per Week Seatbelt Use: always Sunscreen Use: No Assistive Devices: Glasses Allergies Allergies Allergy/AdvReac Type Severity Reaction Status Date / Time No Known Allergies Allergy Verified 05/13/24 15:01 Home Meds Home Medications Medication Instructions Recorded Confirmed aspirin 81 mg tablet,delayed 81 mg PO QAM 11/11/23 05/14/24 release Previous Rx's Medication Instructions Recorded lancets #100 ea 10/12/20 lancets 33 gauge (OneTouch Delica #200 ea 11/27/22 Lancets) blood sugar diagnostic (OneTouch #200 ea 07/10/23 Verio test strips) propranolol 80 mg capsule,24 80 mg PO DAILY #90 caps 09/21/23 hr,extended release nitroglycerin 0.4 mg sublingual 0.4 mg sublingual Q5M PRN chest 10/29/23 tablet pain #25 tabs pen needle, diabetic 32 gauge x #100 ea 11/10/23" (Comfort EZ Pen [place]) clopidogrel 75 mg tablet 75 mg PO .EVERY OTHER DAY #90 tabs 01/18/24 ezetimibe 10 mg tablet 10 mg PO DAILY #90 tabs 01/18/24 metformin 500 mg tablet,extended 1,000 mg (2 x 500 mg) PO BID #360 01/18/24 release 24 hr tabs insulin aspart U-100 100 unit/mL 1 sliding scale dose subcut ACHS 02/25/24 (3 mL) subcutaneous pen #15 mL insulin glargine 100 unit/mL (3 20 unit (0.2 mL) subcut HS #3 mL 02/25/24 mL) subcutaneous pen (Lantus Solostar U-100 Insulin) cyanocobalamin (vitamin B-12) 1,000 mcg PO DAILY #30 caps 03/22/24 1,000 mcg capsule rosuvastatin 40 mg tablet 40 mg PO DAILY #90 tabs 04/13/24 Results & Data (ED) Vital Signs Vital Signs - 24 hr 05/14/24 13:24 05/14/24 13:28 05/14/24 14:30 Temperature 37.1 C Temperature Source Oral Pulse Rate 73 65 Pulse Rate [Apical] Pulse Rhythm [Apical] Pulse Strength [Apical] Respiratory Rate 17 Respiratory Effort / Characteristics Non-Labored Respiratory Depth Normal Respiratory Pattern Blood Pressure 164/103 H Blood Pressure [Right Arm] Blood Pressure Mean 123 Blood Pressure Mean [Right Arm] Blood Pressure Position [Right Arm] Pulse Oximetry 100 96 Oxygen Delivery Method Room Air Room Air Sepsis Recent Fever Within 48 Hours No Sepsis New/Unexplained Change in Mental Status Yes Sepsis Action Taken by Nursing No Action Required 05/14/24 15:44 05/14/24 15:45 05/14/24 17:00 Temperature Temperature Source Pulse Rate Pulse Rate [Apical] 72 67 Pulse Rhythm [Apical] Regular Regular Pulse Strength [Apical] Normal Normal Respiratory Rate 17 17 Respiratory Effort / Characteristics Non-Labored Spontaneous Non-Labored Spontaneous Respiratory Depth Normal Normal Respiratory Pattern Regular Regular Blood Pressure Blood Pressure [Right Arm] 188/100 H 173/96 H Blood Pressure Mean Blood Pressure Mean [Right Arm] 129 121 Blood Pressure Position [Right Arm] Semi-fowlers Semi-fowlers Pulse Oximetry 98 99 Oxygen Delivery Method Room Air Room Air Sepsis Recent Fever Within 48 Hours Sepsis New/Unexplained Change in Mental Status Sepsis Action Taken by Nursing Laboratory Data 05/14/24 13:25 05/14/24 13:25 Lab Results 05/14/24 05/14/24 05/14/24 Range/Units 13:23 13:25 15:47 WBC 8.18 (4.8-10.8) K/ul RBC 5.38 (4.70-6.10) M/uL Hgb 15.8 (14.0-18.0) g/dl Hct 45.8 (42.0-52.0) % MCV 85.1 (80.0-100.0) fL MCH 29.4 (25.0-34.0) pg MCHC 34.5 (32.0-36.0) g/dL RDW Std Deviation 36.4 (36.4-46.3) fL RDW Coeff of Leanna 11.9 (11.5-14.5) % Plt Count 247 (130-400) K/uL MPV 10.3 (9.4-12.4) fL Immature Gran % (Auto) 0.2 % Neut % (Auto) 61.1 % Lymph % (Auto) 23.7 % Loup % (Auto) 10.0 % Eos % (Auto) 3.8 % Baso % (Auto) 1.2 % Neut # (Auto) 4.99 (1.40-6.50) K/uL Lymph # (Auto) 1.94 (1.20-3.40) K/uL Loup # (Auto) 0.82 H (0.11-0.59) K/uL Eos # (Auto) 0.31 (0.00-0.50) K/uL Baso # (Auto) 0.10 (0.00-0.20) K/uL Immature Gran # (Auto) 0.02 (0.01-0.20) K/uL PT 12.0 (9.0-12.0) Seconds INR 1.1 (0.9-1.1) APTT 27 (21-31) Seconds PTT Ratio 1.0 Sodium 133 L (136-145) mmol/L Potassium 4.2 (3.5-5.1) mmol/L Chloride 100 (98-107) mmol/L Carbon Dioxide 28 (21-32) mmol/L Anion Gap 5 (3-11) BUN 14 (6-23) mg/dl Creatinine 0.77 (0.6-1.4) mg/dl Est Cr Clr Drug Dosing 77.8 ml/min Est GFR ( Amer) 100.0 ml/min Est GFR (Non-Af Amer) 86.3 ml/min BUN/Creatinine Ratio 18.2 (10-20) Glucose 372 H* (70-99(Fasting)) mg/dl POC Glucose 311 H* (70-99) mg/dl Calcium 9.2 (8.6-10.3) mg/dl Magnesium 1.8 (1.7-2.4) mg/dl Total Bilirubin 0.5 (0.2-1.0) mg/dl AST 24 (13-39) U/L ALT 33 (7-52) U/L Alkaline Phosphatase 80 (34-104) U/L Troponin I High Sens 3.6 (0-20) pg/ml Total Protein 6.2 (6.0-8.3) gm/dl Albumin 4.0 (3.4-5.0) gm/dl Globulin 2.2 L (2.5-4.0) gm/dl Albumin/Globulin Ratio 1.8 (0.9-2) SARS-CoV-2, RNA, NAAT NEGATIVE (NEGATIVE) 05/14/24 Range/Units 16:42 WBC (4.8-10.8) K/ul RBC (4.70-6.10) M/uL Hgb (14.0-18.0) g/dl Hct (42.0-52.0) % MCV (80.0-100.0) fL MCH (25.0-34.0) pg MCHC (32.0-36.0) g/dL RDW Std Deviation (36.4-46.3) fL RDW Coeff of Leanna (11.5-14.5) % Plt Count (130-400) K/uL MPV (9.4-12.4) fL Immature Gran % (Auto) % Neut % (Auto) % Lymph % (Auto) % Loup % (Auto) % Eos % (Auto) % Baso % (Auto) % Neut # (Auto) (1.40-6.50) K/uL Lymph # (Auto) (1.20-3.40) K/uL Loup # (Auto) (0.11-0.59) K/uL Eos # (Auto) (0.00-0.50) K/uL Baso # (Auto) (0.00-0.20) K/uL Immature Gran # (Auto) (0.01-0.20) K/uL PT (9.0-12.0) Seconds INR (0.9-1.1) APTT (21-31) Seconds PTT Ratio Sodium (136-145) mmol/L Potassium (3.5-5.1) mmol/L Chloride (98-107) mmol/L Carbon Dioxide (21-32) mmol/L Anion Gap (3-11) BUN (6-23) mg/dl Creatinine (0.6-1.4) mg/dl Est Cr Clr Drug Dosing ml/min Est GFR ( Amer) ml/min Est GFR (Non-Af Amer) ml/min BUN/Creatinine Ratio (10-20) Glucose (70-99(Fasting)) mg/dl POC Glucose 242 H (70-99) mg/dl Calcium (8.6-10.3) mg/dl Magnesium (1.7-2.4) mg/dl Total Bilirubin (0.2-1.0) mg/dl AST (13-39) U/L ALT (7-52) U/L Alkaline Phosphatase (34-104) U/L Troponin I High Sens (0-20) pg/ml Total Protein (6.0-8.3) gm/dl Albumin (3.4-5.0) gm/dl Globulin (2.5-4.0) gm/dl Albumin/Globulin Ratio (0.9-2) SARS-CoV-2, RNA, NAAT (NEGATIVE) Administered Medications Insulin Aspart (Insulin Aspart Per Unit Charge) 0 units SC ACHS DEBI Stop: 06/13/24 16:29 Last Admin: 05/14/24 16:49 Dose: 3 units Documented By: RUDI Co-signed By: LAURENCE Discontinued Medications Sodium Chloride (Nss) 500 mls @ 999 mls/hr IV .Q31M ONE Stop: 05/14/24 15:50 Last Admin: 05/14/24 15:41 Dose: 999 mls/hr Documented By: RUDI Insulin Aspart (Insulin Aspart Per Unit Charge) 5 units SC NOW STA Stop: 05/14/24 16:37 Last Admin: 05/14/24 16:50 Dose: 5 units Documented By: RUDI Co-signed By: LAURENCE Ioversol (Optiray 320 125ml) 120 ml IV ONCE ONE Stop: 05/14/24 14:48 Last Admin: 05/14/24 14:47 Dose: 120 ml Documented By: VIVIANE Imaging Data Radiologist's Impression: Head CT 05/14/24 13:[address] OF THE BRAIN; CT ANGIOGRAM OF THE BRAIN; CT ANGIOGRAM OF THE NECK CLINICAL HISTORY: Neurologic deficit. Stroke like symptoms. Aphasia. COMPARISON STUDY: CT urogram of the head and neck dated 10/08/2022. CT of the brain dated 02/21/2024. MRI of the brain dated 02/23/2024. TECHNIQUE: Unenhanced axial CT scan of the brain is performed. Subsequently, following the IV administration of 120 of Optiray 320, CT angiogram of the head and neck was performed from the aortic arch to the vertex. Images are reviewed in the axial, sagittal, and coronal planes. 3-D MIPS images are created and assessed. IV contrast was administered without complication. All measurements were calculated based on NASCET criteria. A dose lowering technique was utilized adhering to the principles of ALARA. CT DOSE: 1149.05 mGy.cm FINDINGS: Brain parenchyma: There is age-related involutional change noting mild to moderate subcortical and periventricular microangiopathic disease. There is no hemorrhage, mass effect, or evidence of acute territorial ischemia by CT criteria. There is no evidence of enhancing mass lesion on the angiogram phase images. The ventricles, sulci, and cisterns are prominent secondary to involutional change. Yancey-white matter differentiation is preserved. No extra- axial fluid collection is seen. Thoracic aorta: There is atherosclerotic calcification of the thoracic aorta. Visualized portions of the thoracic aorta are normal in caliber. The aortic arch demonstrates standard 3-vessel anatomy. Right carotid arterial system: The right common carotid artery is widely patent, as are the right internal and external carotid arteries. Minimal calcified plaque is noted in the carotid bulb. Left carotid arterial system: The left common carotid artery is widely patent, as are the left internal and external carotid arteries. Minimal calcified plaque is seen in the carotid bulb. Vertebral arteries: The vertebral arteries are widely patent bilaterally and codominant. Subclavian arteries: Widely patent bilaterally. Intracranial vasculature: There is atherosclerotic calcification of the cavernous carotid and vertebral arteries. The internal carotid arteries are patent at the skull base, as are the anterior and middle cerebral arteries bilaterally. The vertebrobasilar system and posterior cerebral arteries are widely patent. 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 The vertebral arteries are codominant. There is no aneurysm, high-grade stenosis, or focal vessel cut off seen throughout the intracranial circulation. Jugular veins: Patent bilaterally. Dural sinuses: Patent. Lung apices: Partially visualized upper lobe lung parenchyma appears clear. Soft tissues: The visualized pharyngeal soft tissues are normal in appearance noting angiographic phase technique. The oropharyngeal airway appears widely patent. There is a large calcified sialolith in the left parotid gland. The salivary glands are otherwise normal in appearance. The thyroid gland is normal as visualized. No cervical lymphadenopathy is seen. Skeletal structures: The skeletal structures are osteopenic. The calvarium appears intact. The cervical spine is maintained noting Mild multilevel spondylosis. Orbits: The bony orbits are intact. Orbital contents are normal as visualized noting bilateral ocular lens implants. Sinuses and mastoids: The paranasal sinuses are clear. The mastoid air cells are well pneumatized. IMPRESSION: 1. There is no hemorrhage, mass effect, or evidence of acute territorial ischemia by CT criteria. 2. Unremarkable CT angiogram of the brain. 3. Unremarkable CT angiogram of the neck. ACT 112: Negative or not required by law. Electronically signed by: Biju Larry M.D. 05/14/2024 3:06 PM Head CTA 05/14/24 13:[address] OF THE BRAIN; CT ANGIOGRAM OF THE BRAIN; CT ANGIOGRAM OF THE NECK CLINICAL HISTORY: Neurologic deficit. Stroke like symptoms. Aphasia. COMPARISON STUDY: CT urogram of the head and neck dated 10/08/2022. CT of the brain dated 02/21/2024. MRI of the brain dated 02/23/2024. TECHNIQUE: Unenhanced axial CT scan of the brain is performed. Subsequently, following the IV administration of 120 of Optiray 320, CT angiogram of the head and neck was performed from the aortic arch to the vertex. Images are reviewed in the axial, sagittal, and coronal planes. 3-D MIPS images are created and assessed. IV contrast was administered without complication. All measurements were calculated based on NASCET criteria. A dose lowering technique was utilized adhering to the principles of ALARA. CT DOSE: 1149.05 mGy.cm FINDINGS: Brain parenchyma: There is age-related involutional change noting mild to moderate subcortical and periventricular microangiopathic disease. There is no hemorrhage, mass effect, or evidence of acute territorial ischemia by CT criteria. There is no evidence of enhancing mass lesion on the angiogram phase images. The ventricles, sulci, and cisterns are prominent secondary to involutional change. Yancey-white matter differentiation is preserved. No extra- axial fluid collection is seen. Thoracic aorta: There is atherosclerotic calcification of the thoracic aorta. Visualized portions of the thoracic aorta are normal in caliber. The aortic arch demonstrates standard 3-vessel anatomy. Right carotid arterial system: The right common carotid artery is widely patent, as are the right internal and external carotid arteries. Minimal calcified plaque is noted in the carotid bulb. Left carotid arterial system: The left common carotid artery is widely patent, as are the left internal and external carotid arteries. Minimal calcified plaque is seen in the carotid bulb. Vertebral arteries: The vertebral arteries are widely patent bilaterally and codominant. Subclavian arteries: Widely patent bilaterally. Intracranial vasculature: There is atherosclerotic calcification of the cavernous carotid and vertebral arteries. The internal carotid arteries are patent at the skull base, as are the anterior and middle cerebral arteries bilaterally. The vertebrobasilar system and posterior cerebral arteries are widely patent. 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 The vertebral arteries are codominant. There is no aneurysm, high-grade stenosis, or focal vessel cut off seen throughout the intracranial circulation. Jugular veins: Patent bilaterally. Dural sinuses: Patent. Lung apices: Partially visualized upper lobe lung parenchyma appears clear. Soft tissues: The visualized pharyngeal soft tissues are normal in appearance noting angiographic phase technique. The oropharyngeal airway appears widely patent. There is a large calcified sialolith in the left parotid gland. The salivary glands are otherwise normal in appearance. The thyroid gland is normal as visualized. No cervical lymphadenopathy is seen. Skeletal structures: The skeletal structures are osteopenic. The calvarium appears intact. The cervical spine is maintained noting Mild multilevel spondylosis. Orbits: The bony orbits are intact. Orbital contents are normal as visualized noting bilateral ocular lens implants. Sinuses and mastoids: The paranasal sinuses are clear. The mastoid air cells are well pneumatized. IMPRESSION: 1. There is no hemorrhage, mass effect, or evidence of acute territorial ischemia by CT criteria. 2. Unremarkable CT angiogram of the brain. 3. Unremarkable CT angiogram of the neck. ACT 112: Negative or not required by law. Electronically signed by: Biju Larry M.D. 05/14/2024 3:06 PM Neck CTA 05/14/24 13:[address] OF THE BRAIN; CT ANGIOGRAM OF THE BRAIN; CT ANGIOGRAM OF THE NECK CLINICAL HISTORY: Neurologic deficit. Stroke like symptoms. Aphasia. COMPARISON STUDY: CT urogram of the head and neck dated 10/08/2022. CT of the brain dated 02/21/2024. MRI of the brain dated 02/23/2024. TECHNIQUE: Unenhanced axial CT scan of the brain is performed. Subsequently, following the IV administration of 120 of Optiray 320, CT angiogram of the head and neck was performed from the aortic arch to the vertex. Images are reviewed in the axial, sagittal, and coronal planes. 3-D MIPS images are created and assessed. IV contrast was administered without complication. All measurements were calculated based on NASCET criteria. A dose lowering technique was utilized adhering to the principles of ALARA. CT DOSE: 1149.05 mGy.cm FINDINGS: Brain parenchyma: There is age-related involutional change noting mild to moderate subcortical and periventricular microangiopathic disease. There is no hemorrhage, mass effect, or evidence of acute territorial ischemia by CT criteria. There is no evidence of enhancing mass lesion on the angiogram phase images. The ventricles, sulci, and cisterns are prominent secondary to involutional change. Yancey-white matter differentiation is preserved. No extra- axial fluid collection is seen. Thoracic aorta: There is atherosclerotic calcification of the thoracic aorta. Visualized portions of the thoracic aorta are normal in caliber. The aortic arch demonstrates standard 3-vessel anatomy. Right carotid arterial system: The right common carotid artery is widely patent, as are the right internal and external carotid arteries. Minimal calcified plaque is noted in the carotid bulb. Left carotid arterial system: The left common carotid artery is widely patent, as are the left internal and external carotid arteries. Minimal calcified plaque is seen in the carotid bulb. Vertebral arteries: The vertebral arteries are widely patent bilaterally and codominant. Subclavian arteries: Widely patent bilaterally. Intracranial vasculature: There is atherosclerotic calcification of the cavernous carotid and vertebral arteries. The internal carotid arteries are patent at the skull base, as are the anterior and middle cerebral arteries bilaterally. The vertebrobasilar system and posterior cerebral arteries are widely patent. 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 The vertebral arteries are codominant. There is no aneurysm, high-grade stenosis, or focal vessel cut off seen throughout the intracranial circulation. Jugular veins: Patent bilaterally. Dural sinuses: Patent. Lung apices: Partially visualized upper lobe lung parenchyma appears clear. Soft tissues: The visualized pharyngeal soft tissues are normal in appearance noting angiographic phase technique. The oropharyngeal airway appears widely patent. There is a large calcified sialolith in the left parotid gland. The salivary glands are otherwise normal in appearance. The thyroid gland is normal as visualized. No cervical lymphadenopathy is seen. Skeletal structures: The skeletal structures are osteopenic. The calvarium appears intact. The cervical spine is maintained noting Mild multilevel spondylosis. Orbits: The bony orbits are intact. Orbital contents are normal as visualized noting bilateral ocular lens implants. Sinuses and mastoids: The paranasal sinuses are clear. The mastoid air cells are well pneumatized. IMPRESSION: 1. There is no hemorrhage, mass effect, or evidence of acute territorial ischemia by CT criteria. 2. Unremarkable CT angiogram of the brain. 3. Unremarkable CT angiogram of the neck. ACT 112: Negative or not required by law. Electronically signed by: Biju Larry M.D. 05/14/2024 3:06 PM Discharge Plan Visit Data Chief Complaint: Altered Mental Status Stated Complaint: AMS ED Provider: Delio Belcher Discharge Problem: Word finding difficulty, HTN (hypertension) Patient Disposition: Being Evaluated by Hospitalist Forms Stand Alone Forms: My [facility] Prescriptions Prescriptions: No Action (DME) lancets [OneTouch Delica Lancets] 33 gauge misc See Rx Instructions .Route Qty: 200 11RF Rx Instructions: Test 3 times a day nitroglycerin 0.4 mg tablet, sublingual 0.4 mg sublingual Q5M PRN (Reason: chest pain) Qty: 25 1RF Rx Instructions: until response; do not exceed 3 doses per episode (DME) pen needle, diabetic [Comfort EZ Pen [place]] 32 gauge x 5/32" needle See Rx Instructions .ROUTE .COMPLEX Qty: 100 3RF Dose Instruction: use one daily Rx Instructions: use one daily clopidogrel 75 mg tablet 75 mg PO .EVERY OTHER DAY Qty: 90 3RF Hold Instructions: hold unless your providers at [facility] recommend to resume Dose Instruction: TAKE 1 TABLET BY MOUTH DAILY ezetimibe 10 mg tablet 10 mg PO DAILY Qty: 90 3RF metformin 500 mg tablet extended release 24 hr 1,000 mg PO BID Qty: 360 3RF Hold Instructions: hold until your providers at [facility] recommend to resume Rx Instructions: TAKE 2 TABLETS BY MOUTH TWICE DAILY cyanocobalamin (vitamin B-12) 1,000 mcg capsule 1,000 mcg PO DAILY Qty: 30 3RF Rx Instructions: Take one capsule daily propranolol 80 mg capsule,extended release 24hr 80 mg PO DAILY Qty: 90 3RF (DME) lancets Misc See Rx Instructions .ROUTE .MEDSUPPLY Qty: 100 3RF Rx Instructions: testing three times daily (DME) OneTouch Verio test strips Strip See Rx Instructions .ROUTE .MEDSUPPLY Qty: 200 3RF Rx Instructions: Check blood sugars 2x a day rosuvastatin 40 mg tablet 40 mg PO DAILY Qty: 90 3RF aspirin 81 mg Tablet,Delayed Release (Dr/Ec) 81 mg PO QAM insulin aspart U-100 100 unit/mL (3 mL) insulin pen 1 sliding scale dose subcut ACHS Qty: 15 0RF Rx Instructions: unable to verify. No fill history available. Goal BSG 110-140 Carb ratio: 1 unit per 8 grams CHO correction factor: 20 mg/dL/unit insulin glargine [Lantus Solostar U-100 Insulin] 100 unit/mL (3 mL) insulin pen 20 unit subcut HS Qty: 3 0RF Referrals [facility] [Non-Staff] -
[2024-05-14 13:55] LABS: Basophils % (auto) 1.2 %; Eosinophils # (auto) 0.31 K/uL (0.00-0.50); Eosinophils % (auto) 3.8 %; Hematocrit (blood only) 45.8 % (42.0-52.0); Hemoglobin 15.8 g/dl (14.0-18.0); Immature Granulocytes # (auto) 0.02 K/uL (0.01-0.20); Immature Granulocytes % (auto) 0.2 %; Lymphocytes # (auto) 1.94 K/uL (1.20-3.40); Lymphocytes % (auto) 23.7 %; Mean Corpuscular Hemoglobin 29.4 pg (25.0-34.0); Mean Corpuscular Hgb Conc 34.5 g/dL (32.0-36.0); Mean Corpuscular Volume 85.1 fL (80.0-100.0); Mean Platelet Volume 10.3 fL (9.4-12.4); Monocytes # (auto) 0.82 K/uL (0.11-0.59); Neutrophils # (auto) 4.99 K/uL (1.40-6.50); Neutrophils % (auto) 61.1 %; Platelet Count 247 K/uL (130-400); RDW Coefficient of Variation 11.9 % (11.5-14.5); RDW Standard Deviation 36.4 fL (36.4-46.3); Red Blood Count 5.38 M/uL (4.70-6.10); White Blood Count 8.18 K/ul (4.8-10.8)
[2024-05-14 14:15] LABS: Albumin Globulin Ratio 1.8 (0.9-2); BUN Creatinine Ratio 18.2 (10-20); Bilirubin,Total 0.5 mg/dl (0.2-1.0); Calcium 9.2 mg/dl (8.6-10.3); Creatinine Clr Calc Pharmacy 77.8 ml/min; Est GFR (Non-African American) 86.3 ml/min; Globulin 2.2 gm/dl (2.5-4.0); Magnesium 1.8 mg/dl (1.7-2.4); Potassium 4.2 mmol/L (3.5-5.1); Total Protein 6.2 gm/dl (6.0-8.3); Troponin I High Sensitivity 3.6 pg/ml (0-20)
[2024-05-14 14:17] LABS: INR 1.1 (0.9-1.1); Partial Thromboplastin Time 27 Seconds (21-31)
[2024-05-14] MEDS: OPTIRAY 320 125ml IV ONE (14:47)
--- NOTE | 2024-05-14 15:08 | CT Scan Report ---
UNENHANCED CT OF THE BRAIN; CT ANGIOGRAM OF THE BRAIN; CT ANGIOGRAM OF THE NECK CLINICAL HISTORY: Neurologic deficit. Stroke like symptoms. Aphasia. COMPARISON STUDY: CT urogram of the head and neck dated 10/08/2022. CT of the brain dated 02/21/2024. MRI of the brain dated 02/23/2024. TECHNIQUE: Unenhanced axial CT scan of the brain is performed. Subsequently, following the IV adminis tration of 120 of Optiray 320, CT angiogram of the head and neck was performed from the aortic arch t o the vertex. Images are reviewed in the axial, sagittal, and coronal planes. 3-D MIPS images are cre ated and assessed. IV contrast was administered without complication. All measurements were calculate d based on NASCET criteria. A dose lowering technique was utilized adhering to the principles of ALA RA. CT DOSE: 1149.05 mGy.cm FINDINGS: Brain parenchyma: There is age-related involutional change noting mild to moderate subcortical and pe riventricular microangiopathic disease. There is no hemorrhage, mass effect, or evidence of acute ter ritorial ischemia by CT criteria. There is no evidence of enhancing mass lesion on the angiogram phas e images. The ventricles, sulci, and cisterns are prominent secondary to involutional change. Yancey-wh ite matter differentiation is preserved. No extra-axial fluid collection is seen. Thoracic aorta: There is atherosclerotic calcification of the thoracic aorta. Visualized portions of the thoracic aorta are normal in caliber. The aortic arch demonstrates standard 3-vessel anatomy. Right carotid arterial system: The right common carotid artery is widely patent, as are the right int ernal and external carotid arteries. Minimal calcified plaque is noted in the carotid bulb. Left carotid arterial system: The left common carotid artery is widely patent, as are the left product management internship al and external carotid arteries. Minimal calcified plaque is seen in the carotid bulb. Vertebral arteries: The vertebral arteries are widely patent bilaterally and codominant. Subclavian arteries: Widely patent bilaterally. Intracranial vasculature: There is atherosclerotic calcification of the cavernous carotid and vertebr al arteries. The internal carotid arteries are patent at the skull base, as are the anterior and midd le cerebral arteries bilaterally. The vertebrobasilar system and posterior cerebral arteries are wide ly patent. 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 The vertebral arteries are codominant. Th ere is no aneurysm, high-grade stenosis, or focal vessel cut off seen throughout the intracranial cir culation. Jugular veins: Patent bilaterally. Dural sinuses: Patent. Lung apices: Partially visualized upper lobe lung parenchyma appears clear. Soft tissues: The visualized pharyngeal soft tissues are normal in appearance noting angiographic pha se technique. The oropharyngeal airway appears widely patent. There is a large calcified sialolith in the left parotid gland. The salivary glands are otherwise normal in appearance. The thyroid gland is normal as visualized. No cervical lymphadenopathy is seen. Skeletal structures: The skeletal structures are osteopenic. The calvarium appears intact. The cervic al spine is maintained noting Mild multilevel spondylosis. Orbits: The bony orbits are intact. Orbital contents are normal as visualized noting bilateral ocular lens implants. Sinuses and mastoids: The paranasal sinuses are clear. The mastoid air cells are well pneumatized. IMPRESSION: 1. There is no hemorrhage, mass effect, or evidence of acute territorial ischemia by CT criteria. 2. Unremarkable CT angiogram of the brain. 3. Unremarkable CT angiogram of the neck. ACT 112: Negative or not required by law. Electronically signed by: Biju Larry M.D. 05/14/2024 3:06 PM
[2024-05-14] MEDS: SODIUM CHLORIDE 0.9% 500 ML IV ONE (15:41)
--- NOTE | 2024-05-14 15:54 | History & Physical Report ---
Date of Service May 14, 2024 Assessment & Plan (1) Dysarthria: Plan: CVA Punctate suspected acute to subacute left frontal stroke seen on MRI 02/22/2024 CT/CTA head and neck: No acute findings MRI pending Permissive hypertension until MRI resulted DDx includes recurrent stroke. Patient is already on dual antiplatelet therapy and rosuvastatin 40 mg He is also with a history of vascular dementia with superimposed delirium although currently appears at his cognitive baseline just frustrated by his dysarthria which is inconsistent with this Hyperglycemic at 372, managed as otherwise noted Follow on PCU Vascular dementia Patient is oriented to month, year, place, and name and does answer questions appropriately with some increased speech latency. Has known underlying vascular dementia and history of delirium. He describes his speech difficulties as sudden onset, with dysarthria but with the ability to form the words in his head and understand speech (not aphasic). Given focal deficit and without concurrent confusion CVA workup as above. Delirium precautions (2) Status post insertion of drug-eluting stent into left anterior descending (LAD) artery: Plan: CAD History of PCI with stent x 2 No chest pain on admission (3) Uncontrolled type 2 diabetes mellitus, with long-term current use of insulin: Plan: Type II DM Basal insulin continued, switched to SSI based on basal requirements 1 additional dose given for hyperglycemia on admit Does not appear volume contracted on admission DM2/HH diet once able to pass dysphagia screening (4) Dyslipidemia: Plan: Hyperlipidemia Continue statin (5) HTN (hypertension): Plan: Hypertension Home meds temporarily held until CVA is ruled out, allow for permissive hypertension. If no CVA then can resume home meds. History of Present Illness Primary Care Provider: Angélica Sotelo PA-C Juan Diego is a 78-year-old male with a past medical history of type 2 diabetes, BPH, cognitive impairment who was brought in by ambulance after he abruptly developed dysarthria around 9 AM without ipsilateral weakness or sensory change. Was brought in for CVA evaluation. In the ER is conversational but with difficulty finding words. No facial droop. No focal weakness was noted. CT/CTA head and neck without acute findings. Patient has history of prior stroke was recommended for completion of stroke evaluation with observation overnight and MRI in addition to the management of hyperglycemia in the 370s without evidence of HHS/DKA. Juan Diego is seen at the bedside. He reports that he woke up and felt normal. Abruptly around 99 30 he had sudden onset of difficulty speaking. He reports that he understood speech and knew in his head the words he wanted to say but had difficulty forming and actually saying those words. He did not have any facial droop as far as he knows at the time. He does not have a numbness, tingling, weakness, chest pain, chest pressure. He had felt lightheaded intermittently in the past when standing, but at that time he denies that he had recently stood up and did not feel like he was going to pass out when he was trying to find his words. He believes his speech has slowly returned to normal, although "you have to tell me if you think it is normal it is hard for me to tell " Medical History: Reviewed Medications: Reviewed Surgical History: Reviewed Family history: Reviewed Allergies: Reviewed Social History: no tobacco/etoh Code Status: Full Allergies Allergy/AdvReac Type Severity Reaction Status Date / Time No Known Allergies Allergy Verified 05/13/24 15:01 Home Medications Medication Instructions Recorded Confirmed Type lancets #100 ea 10/12/20 05/13/24 Rx lancets 33 gauge (OneTouch Delica #200 ea 11/27/22 05/13/24 Rx Lancets) blood sugar diagnostic (OneTouch #200 ea 07/10/23 05/13/24 Rx Verio test strips) propranolol 80 mg capsule,24 80 mg PO DAILY #90 caps 09/21/23 05/14/24 Rx hr,extended release nitroglycerin 0.4 mg sublingual 0.4 mg sublingual Q5M PRN chest 10/29/23 05/14/24 Rx tablet pain #25 tabs pen needle, diabetic 32 gauge x #100 ea 11/10/23 05/13/24 Rx 5/32" (Comfort EZ Pen [place]) aspirin 81 mg tablet,delayed 81 mg PO QAM 11/11/23 05/14/24 History release clopidogrel 75 mg tablet 75 mg PO .EVERY OTHER DAY #90 tabs 01/18/24 05/14/24 Rx ezetimibe 10 mg tablet 10 mg PO DAILY #90 tabs 01/18/24 05/14/24 Rx metformin 500 mg tablet,extended 1,000 mg (2 x 500 mg) PO BID #360 01/18/24 05/14/24 Rx release 24 hr tabs insulin aspart U-100 100 unit/mL 1 sliding scale dose subcut ACHS 02/25/24 05/13/24 Rx (3 mL) subcutaneous pen #15 mL insulin glargine 100 unit/mL (3 20 unit (0.2 mL) subcut HS #3 mL 02/25/24 05/14/24 Rx mL) subcutaneous pen (Lantus Solostar U-100 Insulin) cyanocobalamin (vitamin B-12) 1,000 mcg PO DAILY #30 caps 03/22/24 05/14/24 Rx 1,000 mcg capsule rosuvastatin 40 mg tablet 40 mg PO DAILY #90 tabs 04/13/24 05/14/24 Rx Past Med/Surg History Problem List (Updated 05/14/24 @ 16:32 by Dillon Barth MD) Dysarthria Status post insertion of drug-eluting stent into left anterior descending (LAD) artery B12 deficiency Vitamin D deficiency Stroke Elevated troponin H/O heart artery stent Hallucinations, visual Chest pain (Acute) Cognitive impairment Syncope (Acute) Uncontrolled type 2 diabetes mellitus, with long-term current use of insulin Mild cognitive impairment BPH (benign prostatic hyperplasia) Vascular dementia Grief reaction Left flank pain Sleep disturbances Confusion and disorientation Word finding difficulty (Acute) Antiplatelet or antithrombotic long-term use History of nephrolithiasis Intertrigo TIA (transient ischemic attack) (Acute) Medical History Uncontrolled type 2 diabetes mellitus with hyperglycemia, with long-term current use of insulin Depression CAD (coronary artery disease) Memory deficits Dyslipidemia Diabetes type 2, controlled Tremor Hypertensive urgency Hx of non-ST elevation myocardial infarction (NSTEMI) HTN (hypertension) Surgical History S/P tonsillectomy and adenoidectomy Hx of cataract surgery Family History Mother Stroke CHF (congestive heart failure) Father Stroke Prostate cancer Myocardial infarction Daughter Breast cancer Sister Psychiatric problem Other Diabetes Hypertension Denies family history of Ovarian cancer Colorectal cancer Social History Smoking Status: Never smoker Second Hand Exposure: No; Do You Dip or Chew Tobacco: No; Hx Alcohol Use: No Hx Substance Use: No Preferred Language: Belarusian Communication Ability: Effective Communication Ability Comment: CONFUSED/HALLUCINATING Visual Impairment: No Limitations Hearing Ability: Normal Outsole Paraffiner Required: No Beliefs That Will Affect Care: None marital status: / Current Living Situation: Alone Current Living Situation Comment: passed in 11/2020, is now living at [facility] current occupational status: retired 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 NAD. Cooperative. HEENT: Atraumatic, normocephalic. Pulm: CTAB A&P. -wheezes, -rales, -rhonchi. Symmetrical chest rise. No increased work of breathing. No respiratory distress. Cardiac: RRR, -mrg. Radial pulses intact and symmetrical. Abdominal: Nontender, nondistended, soft. BS present. CRANIAL NERVES: II: Pupils equal and reactive, no relative afferent pupillary defect, no VF cu ts III, IV, : EOM intact, no gaze preference or deviation, no nystagmus. V: normal sensation in V1, V2, and V3 segments bilaterally VII: no asymmetry, no nasolabial fold flattening VIII: normal hearing to speech IX, X: normal palatal elevation, no uvular deviation XI: 5/5 head turn and 5/5 shoulder shrug bilaterally XII: midline tongue protrusion MOTOR: RUE: 5/5 Shoulder internal rotation, external rotation, flexion, extension, abduction, adduction 5/5 Elbow flexion/extension, wrist flexi on/extension 5/5 obstetrics specialist strength LUE: 5/5 Shoulder internal rotation, external rotation, flexion, extension, abduction, adduction 5/5 Elbow flexion/extension, wrist flexi on/extension 5/5 obstetrics specialist strength RLE: 5/5 to hip flexion ankle dorsiflexion/pl antarflexion LLE: 5/5 to hip flexion ankle dorsiflexion/pl antarflexion SENSORY: Normal to touch in upper and lower extremities without deficit or asymmetry Results & Data Results & Data Vital Signs (Past 12 Hours) Vital Signs Temp Pulse Pulse Resp BP BP Pulse Ox 05/14/24 15:45 188/100 H 05/14/24 15:44 72 17 98 05/14/24 14:30 65 05/14/24 13:28 37.1 C 73 17 164/103 H 96 05/14/24 13:24 100 O2 Del Method 05/14/24 15:45 05/14/24 15:44 Room Air 05/14/24 14:30 05/14/24 13:28 Room Air 05/14/24 13:24 Room Air PG Care Time/CCT Total # of Minutes Spent Total Time Spent with Patient: Total time spent is greater than 50% in coordination of care (as documented) at patient's floor/unit and/or counseling patient: Coding Level of Care Code 61435 INT INP/OBS CARE 3/75MIN Diagnoses Dysarthria R47.1 Status post insertion of drug-eluting stent into left anterior descending (LAD) artery Z95.5 Uncontrolled type 2 diabetes mellitus, with long-term current use of insulin Dyslipidemia E78.5 HTN (hypertension) I10
[2024-05-14] MEDS ORDERED: GLUCOSE 40% GEL 15 GM TUBE PO PRN (16:13)
[2024-05-14] MEDS ORDERED: DEXTROSE 50% 50 ML SYRINGE IV PRN (16:13)
[2024-05-14] MEDS ORDERED: GLUCAGON FOR INJ 1 MG VIAL SQ PRN (16:13)
[2024-05-14] MEDS ORDERED: GLUCOSE 10 TAB/TUBE PO PRN (16:13)
[2024-05-14] MEDS ORDERED: CARBOHYDRATES FOR HYPOGLYCEMIA PO PRN (16:13)
[2024-05-14] MEDS ORDERED: LABETALOL HCL IV 5 MG/ML 20ML IV PRN (16:15)
[2024-05-14] MEDS: INSULIN ASPART PER UNIT CHARGE SC SCH (16:49)
[2024-05-14] MEDS: INSULIN ASPART PER UNIT CHARGE SC STA (16:50)
--- NOTE | 2024-05-14 19:06 | Magnetic Resonance Report ---
MRI OF THE BRAIN WITHOUT IV CONTRAST CLINICAL HISTORY: Dysarthria. Strokelike symptoms. COMPARISON STUDY: CT of the brain dated 05/14/2024. MRI of the brain dated 02/23/2024. TECHNIQUE: MRI of the brain was performed utilizing various T1 and T2-weighted sequences in the axial , sagittal, and coronal planes. IV contrast was not administered for this examination. FINDINGS: Brain parenchyma: There is age-related involutional change noting minimal microangiopathic disease. T here is no hemorrhage or mass effect. There is no restricted diffusion to suggest acute ischemia. Gra y-white matter differentiation is preserved. No extra-axial fluid collection is seen. The cerebellar tonsils are normal in configuration. Ventricles, sulci, and cisterns: Prominent significant involutional change. Pituitary and sella: Unremarkable. Intracranial vasculature: Normal flow voids are maintained at the skull base. Orbits: The bony orbits are grossly intact. Orbital contents are normal in appearance noting bilatera l ocular lens implant. Sinuses and mastoids: There is mild mucosal thickening in the left maxillary antrum. The remaining pa ranasal sinuses and the mastoid air cells are clear. Calvarium: Unremarkable. Cervical cord: Partially visualized cervical spinal cord is normal in morphology and signal intensity . IMPRESSION: No acute intracranial abnormality. ACT 112: Negative or not required by law. Electronically signed by: Biju Larry M.D. 05/14/2024 7:05 PM
[2024-05-14] MEDS ORDERED: ACETAMINOPHEN 325 MG TAB PO PRN (19:11)
[2024-05-14] MEDS: LANTUS PER UNIT CHARGE SQ SCH (20:41)
[2024-05-15 06:52] LABS: Basophils % (auto) 1.3 %; Eosinophils # (auto) 0.43 K/uL (0.00-0.50); Eosinophils % (auto) 5.8 %; Hematocrit (blood only) 46.5 % (42.0-52.0); Hemoglobin 15.8 g/dl (14.0-18.0); Immature Granulocytes # (auto) 0.02 K/uL (0.01-0.20); Immature Granulocytes % (auto) 0.3 %; Lymphocytes # (auto) 2.58 K/uL (1.20-3.40); Lymphocytes % (auto) 34.8 %; Mean Corpuscular Hemoglobin 28.9 pg (25.0-34.0); Mean Platelet Volume 9.9 fL (9.4-12.4); Monocytes # (auto) 0.69 K/uL (0.11-0.59); Monocytes % (auto) 9.3 %; Neutrophils # (auto) 3.59 K/uL (1.40-6.50); Neutrophils % (auto) 48.5 %; Platelet Count 240 K/uL (130-400); RDW Coefficient of Variation 11.9 % (11.5-14.5); RDW Standard Deviation 36.3 fL (36.4-46.3); Red Blood Count 5.47 M/uL (4.70-6.10); White Blood Count 7.41 K/ul (4.8-10.8)
[2024-05-15 07:11] LABS: BUN Creatinine Ratio 9.2 (10-20); Calcium 9.2 mg/dl (8.6-10.3); Creatinine Clr Calc Pharmacy 68.8 ml/min; Est GFR (African American) 95.1 ml/min; Est GFR (Non-African American) 82.1 ml/min; Potassium 4.6 mmol/L (3.5-5.1)
[2024-05-15] MEDS: ASPIRIN 81 MG ECTAB PO SCH (08:40)
[2024-05-15] MEDS: ROSUVASTATIN CALCIUM 20 MG TAB PO SCH (08:40)
[2024-05-15] MEDS: PROPRANOLOL HCL LA 80 MG CAPCR PO SCH (08:40)
[2024-05-15] MEDS: CLOPIDOGREL BISULFATE 75 MG TAB PO SCH (08:40)
[2024-05-15] MEDS ORDERED: CLOPIDOGREL BISULFATE 75 MG TAB PO SCH (09:00)
--- NOTE | 2024-05-15 14:20 | Hospitalist Progress Note ---
Date of Service May 15, 2024 Assessment & Plan (1) Dysarthria: Plan: Presents to ED with difficulty with speech/word finding. Known hx of vascular dementia. Punctate suspected acute to subacute left frontal stroke seen on MRI 02/22/2024 CT/CTA head and neck: No acute findings MRI: no acute abnormality Continue dual antiplatelet therapy and rosuvastatin 40 mg Feels like his speech is back to baseline 05/15 (and does seem similar from prior admissions) - patient does have memory deficits regarding his place of living and available help. Patient in the independent part of [facility]. Has been having someone draw up and deliver his lantus. PT/OT - unsafe to return to independent living -CM following (2) Status post insertion of drug-eluting stent into left anterior descending (LAD) artery: Plan: CAD History of PCI with stent x 2 No chest pain on admission. Continue ASA (3) Uncontrolled type 2 diabetes mellitus, with long-term current use of insulin: Plan: Type II DM. Hold metformin. Basal insulin continued, switched to SSI based on basal requirements - chaparrita patient is taking mealtime insulin - CF reduced to 30 05/15 AM A1c Plan Chronic stable issue: * HLD - continue statin & ezetimibe * HTN - continue Propranolol Dispo: continued inpatient stay as patient is unsafe to return to independent living. downgrade to tele. Family Jung (aunt) updated by phone 05/15 Admission and Anticipated Discharge Date Admission Date: May 14, 2024 Supervising Physician Co-Signing Physician Notes Attending Attestation - Chart reviewed, care plan d/w MARIELENA Hawley. I agree w/ the inman components of her documentation. Wesley Braun MD Subjective patient seen sitting in bed, has been ambulating in halls per RN. Patient does not recall many of the events from the last 24 hours - did not remember being in the hospital in October. Discussing his control of his blood sugar - is unsure how much insulin he takes and how often he takes it. He is unsure if there are people at the [facility] who can help him with his BS - spoke with CM and there is someone who has been delivering his lantus and watching him administer this everynight. Confirms patient is still living independent living Review of Systems Review of Systems: All systems reviewed & are unremarkable except as noted in Subjective Physical Exam Physical Exam: General: NAD, VS as above Resp: normal respiratory effort, lungs clear to auscultation CV: RRR, no murmur, Abd: normal bowel sounds, non tender, no hepatosplenomegaly Extremities: Moves all extremities, no edema Neuro: A&O to self, not to situation. no gross focal neuro deficits. normal speech Results & Data Results & Data Vital Signs (Past 12 Hours) Vital Signs Temp Pulse Resp BP BP Pulse Ox O2 Del Method 05/15/24 10:47 36.5 C 66 19 158/87 H 93 Room Air 05/15/24 07:17 36.4 C L 65 19 181/98 H 96 Room Air 05/15/24 03:18 36.5 C 65 16 168/82 H 97 Room Air Laboratory Results CBC and chemistry reviewed Diagnostic Findings brain MRI reviewed PG Care Time/CCT Total # of Minutes Spent Total Time Spent with Patient: Total time spent is greater than 50% in coordination of care (as documented) at patient's floor/unit and/or counseling patient: Coding Level of Care Code 18101 SUB INP/OBS CARE 3/50MIN Diagnoses Dysarthria R47.1 Status post insertion of drug-eluting stent into left anterior descending (LAD) artery Z95.5 Uncontrolled type 2 diabetes mellitus, with long-term current use of insulin
[2024-05-16 04:32] LABS: Appearance Urine Clear (Clear); Bilirubin Urine Negative (Negative); Blood Urine Negative (Negative); Color Urine Yellow; Glucose Urine UA 1+ (Negative); Ketones Urine Trace (Negative); Leukocyte Esterase Urine Negative (Negative); Nitrite Urine Negative (Negative); Protein Urine Negative (Negative); Specific Gravity Urine 1.019 (1.000-1.030); Urobilinogen Urine Negative (Negative)
[2024-05-16 07:16] LABS: Estimated Average Glucose 229 mg/dl; Hemoglobin A1C 9.6 % (4.5-5.6)
[2024-05-16] MEDS: EZETIMIBE 10 MG TAB PO SCH (07:49)
--- NOTE | 2024-05-16 12:01 | Hospitalist Progress Note ---
Date of Service May 16, 2024 Assessment & Plan (1) Dysarthria: Plan: Presents to ED with difficulty with speech/word finding. Known hx of vascular dementia. Punctate suspected acute to subacute left frontal stroke seen on MRI 02/22/2024 CT/CTA head and neck: No acute findings MRI: no acute abnormality Continue dual antiplatelet therapy and rosuvastatin 40 mg Feels like his speech is back to baseline 05/15 (and does seem similar from prior admissions) - patient does have memory deficits regarding his place of living and available help. Patient in the independent part of [facility]. Has been having someone draw up and deliver his lantus. PT/OT - unsafe to return to independent living Speech therapy consulted for evaluation due to regurgitating most of his dinner 05/16/2024 per nursing. Reportedly no cough, no nausea, no signs of aspiration. Patient reports this has happened multiple times in the past. Plan for discharge to [facility] at the [facility] on 05/17/2024. (2) Uncontrolled type 2 diabetes mellitus, with long-term current use of insulin: Plan: Type II DM. Hold metformin. Basal insulin continued, switched to SSI based on basal requirements - [facility] patient is taking mealtime insulin - CF reduced to 30 05/15 - HgbA1c 9.6% on 05/16/2024. Patient requires better glycemic control. Schedule follow-up appointment with endocrinology on discharge (3) Status post insertion of drug-eluting stent into left anterior descending (LAD) artery: Plan: CAD History of PCI with stent x 2 No chest pain on admission. Continue ASA Plan Updated family, vic nephbebeto Hanson, at bedside Discussed discharge planning with case management Counseled patient and family on importance of glycemic control and educated what his A1c level means Consulted speech therapy Chronic stable issue: * HLD - continue statin & ezetimibe * HTN - continue Propranolol CODE STATUS: Full code Admission and Anticipated Discharge Date Admission Date: May 14, 2024 Supervising Physician Co-Signing Physician Notes Attending Attestation - Chart reviewed, care plan d/w MARIELENA Escalante. I agree w/ the inman components of her documentation. Wesley Braun MD Subjective Patient seen and evaluated at bedside with great nephewValentin. Patient is very pleasant and notes that he feels confused at times. We had a lengthy discussion about blood sugar control in the setting of A1c being 9.6%. We also discussed how he is unsafe to return to his independent living. Patient is agreeable with more supervised level of care. He has no complaints at this time. Plan for discharge to [facility] at the [facility] tomorrow, 05/17/2024. Physical Exam Physical Exam: General: No acute distress, nondiaphoretic, well-developed, well-nourished. Skin: The skin was without rashes, erythema, edema, or bruising. Cardiac: Regular rate and rhythm without murmurs gallops or rubs. Pulm: Clear to auscultation bilaterally without wheezes, rales or rhonchi. No retractions or accessory muscle use. Abdominal: Soft, nontender, nondistended. Bowel sounds present. Neuro: A&O x3, but some forgetfulness/short-term memory deficits secondary to vascular dementia. No focal neurological deficits. Results & Data Results & Data Vital Signs (Past 12 Hours) Vital Signs Temp Pulse Resp BP Pulse Ox O2 Del Method 05/16/24 07:14 36.4 C L 69 14 175/88 H 96 Room Air Laboratory Results Reviewed HgbA1c Reviewed UA PG Care Time/CCT Total # of Minutes Spent Total Time Spent with Patient: Total time spent is greater than 50% in coordination of care (as documented) at patient's floor/unit and/or counseling patient: Coding Level of Care Code 34134 SUB INP/OBS CARE 3/50MIN Diagnoses Dysarthria R47.1 Uncontrolled type 2 diabetes mellitus, with long-term current use of insulin Status post insertion of drug-eluting stent into left anterior descending (LAD) artery Z95.5
[2024-05-17 06:19] LABS: Hematocrit (blood only) 47.5 % (42.0-52.0); Hemoglobin 16.5 g/dl (14.0-18.0); Mean Corpuscular Hemoglobin 29.5 pg (25.0-34.0); Mean Corpuscular Hgb Conc 34.7 g/dL (32.0-36.0); Mean Corpuscular Volume 84.8 fL (80.0-100.0); Mean Platelet Volume 10.2 fL (9.4-12.4); Platelet Count 265 K/uL (130-400); RDW Coefficient of Variation 11.8 % (11.5-14.5); RDW Standard Deviation 36.2 fL (36.4-46.3); White Blood Count 8.15 K/ul (4.8-10.8)
[2024-05-17 06:20] LABS: BUN Creatinine Ratio 14.7 (10-20); Calcium 9.1 mg/dl (8.6-10.3); Creatinine Clr Calc Pharmacy 63.1 ml/min; Est GFR (African American) 87.9 ml/min; Est GFR (Non-African American) 75.8 ml/min
--- NOTE | 2024-05-17 10:46 | Electrocardiogram Report ---
Test Reason : Blood Pressure : / mmHG Vent. 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 Confirmed By:Jeffry Boone
--- NOTE | 2024-05-17 18:05 | Discharge Summary ---
Discharge Summary Date of Service May 17, 2024 Principal Dx & Hospital Course #1 = Principal Diagnosis (1) Dysarthria: Presented to ED with difficulty with speech/word finding. Known hx of vascular dementia. Punctate suspected acute to subacute left frontal stroke seen on MRI 02/22/2024 CT/CTA head and neck: No acute findings MRI: no acute abnormality Continue dual antiplatelet therapy and rosuvastatin 40 mg Speech is back to baseline 05/15 (and does seem similar from prior admissions) - patient does have memory deficits regarding his place of living and available help. Patient in the independent part of [facility]. Has been having someone draw up and deliver his lantus. PT/OT - unsafe to return to independent living Speech therapy consulted for evaluation due to regurgitating most of his dinner 05/16/2024 per nursing. Per their report, no difficulty during evaluation. No dietary changes required at this time. Discharged to [facility] the [facility] on 05/17/2024. (2) Uncontrolled type 2 diabetes mellitus, with long-term current use of insulin: Type II DM. Hold metformin. Basal insulin continued, switched to SSI based on basal requirements - [facility] patient is taking mealtime insulin - CF reduced to 30 05/15 - HgbA1c 9.6% on 05/16/2024. Patient requires better glycemic control. Follow- up with endocrinology on discharge office contacted via nurse navigator (3) Status post insertion of drug-eluting stent into left anterior descending (LAD) artery: CAD History of PCI with stent x 2 No chest pain on admission. Continue ASA Plan Chronic stable issue: * HLD - continue statin & ezetimibe * HTN - continue Propranolol CODE STATUS: Full code Notes For Next Care Provider Patient requires better glycemic control. He is to follow-up with endocrinology, as this is who manages his diabetic regimen. Patient was discharged to [facility] at the [facility]. Admission HPI Per Admitting Provider Juan Diego is a 78-year-old male with a past medical history of type 2 diabetes, BPH, cognitive impairment who was brought in by ambulance after he abruptly developed dysarthria around 9 AM without ipsilateral weakness or sensory change. Was brought in for CVA evaluation. In the ER is conversational but with difficulty finding words. No facial droop. No focal weakness was noted. CT/CTA head and neck without acute findings. Patient has history of prior stroke was recommended for completion of stroke evaluation with observation overnight and MRI in addition to the management of hyperglycemia in the 370s without evidence of HHS/DKA. Juan Diego is seen at the bedside. He reports that he woke up and felt normal. Abruptly around 99 30 he had sudden onset of difficulty speaking. He reports that he understood speech and knew in his head the words he wanted to say but had difficulty forming and actually saying those words. He did not have any facial droop as far as he knows at the time. He does not have a numbness, tingling, weakness, chest pain, chest pressure. He had felt lightheaded intermittently in the past when standing, but at that time he denies that he had recently stood up and did not feel like he was going to pass out when he was trying to find his words. He believes his speech has slowly returned to normal, although "you have to tell me if you think it is normal it is hard for me to tell " Medical History: Reviewed Medications: Reviewed Surgical History: Reviewed Family history: Reviewed Allergies: Reviewed Social History: no tobacco/etoh Code Status: Full Admission Exam Per Admitting Provider General: A&Ox3. NAD. Cooperative. HEENT: Atraumatic, normocephalic. Pulm: CTAB A&P. -wheezes, -rales, -rhonchi. Symmetrical chest rise. No increased work of breathing. No respiratory distress. Cardiac: RRR, -mrg. Radial pulses intact and symmetrical. Abdominal: Nontender, nondistended, soft. BS present. CRANIAL NERVES: II: Pupils equal and reactive, no relative afferent pupillary defect, no VF cuts III, IV, : EOM intact, no gaze preference or deviation, no nystagmus. V: normal sensation in V1, V2, and V3 segments bilaterally VII: no asymmetry, no nasolabial fold flattening VIII: normal hearing to speech IX, X: normal palatal elevation, no uvular deviation XI: 5/5 head turn and 5/5 shoulder shrug bilaterally XII: midline tongue protrusion MOTOR: RUE: 5/5 Shoulder internal rotation, external rotation, flexion, extension, abduction, adduction 5/5 Elbow flexion/extension, wrist flexion/extension 5/5 mechanical engineering manager strength LUE: 5/5 Shoulder internal rotation, external rotation, flexion, extension, abduction, adduction 5/5 Elbow flexion/extension, wrist flexion/extension 5/5 mechanical engineering manager strength RLE: 5/5 to hip flexion ankle dorsiflexion/plantarflexion LLE: 5/5 to hip flexion ankle dorsiflexion/plantarflexion SENSORY: Normal to touch in upper and lower extremities without deficit or asymmetry Discharge Exam General: No acute distress, nondiaphoretic, well-developed, well-nourished. Skin: The skin was without rashes, erythema, edema, or bruising. Cardiac: Regular rate and rhythm without murmurs gallops or rubs. Pulm: Clear to auscultation bilaterally without wheezes, rales or rhonchi. No retractions or accessory muscle use. Abdominal: Soft, nontender, nondistended. Bowel sounds present. Neuro: A&O x3, but some forgetfulness/short-term memory deficits secondary to vascular dementia. No focal neurological deficits. Updated Medication List Medication Instructions Recorded Confirmed Type lancets #100 ea 10/12/20 05/13/24 [facility]ancets [facility] 11/27/22 05/13/24 Rx Lancets) blood sugar diagnostic ([facility] 07/10/23 05/13/24 Rx Verio test strips) propranolol 80 mg capsule,24 80 mg PO DAILY #90 caps 09/21/23 05/14/24 Rx hr,extended release nitroglycerin 0.4 mg sublingual 0.4 mg sublingual Q5M PRN chest 10/29/23 05/14/24 Rx tablet pain #25 tabs pen needle, diabetic 32 gauge x #100 ea 11/10/23 05/13/24 Rx 5/32" (Comfort EZ Pen [place]) aspirin 81 mg tablet,delayed 81 mg PO QAM 11/11/23 05/14/24 History release clopidogrel 75 mg tablet 75 mg PO .EVERY OTHER DAY #90 tabs 01/18/24 05/14/24 Rx ezetimibe 10 mg tablet 10 mg PO DAILY #90 tabs 01/18/24 05/14/24 Rx metformin 500 mg tablet,extended 1,000 mg (2 x 500 mg) PO BID #360 01/18/24 05/14/24 Rx release 24 hr tabs insulin aspart U-100 100 unit/mL 1 sliding scale dose subcut ACHS 02/25/24 05/14/24 Rx (3 mL) subcutaneous pen #15 mL insulin glargine 100 unit/mL (3 20 unit (0.2 mL) subcut HS #3 mL 02/25/24 05/14/24 Rx mL) subcutaneous pen (Lantus Solostar U-100 Insulin) cyanocobalamin (vitamin B-12) 1,000 mcg PO DAILY #30 caps 03/22/24 05/14/24 Rx 1,000 mcg capsule rosuvastatin 40 mg tablet 40 mg PO DAILY #90 tabs 04/13/24 05/14/24 Rx Hospital Stay Data Consultations 05/14/24 15:49 ED Decision to Admit Stat Diagnostic Imagining Performed Head CT 05/14/24 13:[address] OF THE BRAIN; CT ANGIOGRAM OF THE BRAIN; CT ANGIOGRAM OF THE NECK CLINICAL HISTORY: Neurologic deficit. Stroke like symptoms. Aphasia. COMPARISON STUDY: CT urogram of the head and neck dated 10/08/2022. CT of the brain dated 02/21/2024. MRI of the brain dated 02/23/2024. TECHNIQUE: Unenhanced axial CT scan of the brain is performed. Subsequently, following the IV administration of 120 of Optiray 320, CT angiogram of the head and neck was performed from the aortic arch to the vertex. Images are reviewed in the axial, sagittal, and coronal planes. 3-D MIPS images are created and assessed. IV contrast was administered without complication. All measurements were calculated based on NASCET criteria. A dose lowering technique was utilized adhering to the principles of ALARA. CT DOSE: 1149.05 mGy.cm FINDINGS: Brain parenchyma: There is age-related involutional change noting mild to moderate subcortical and periventricular microangiopathic disease. There is no hemorrhage, mass effect, or evidence of acute territorial ischemia by CT criteria. There is no evidence of enhancing mass lesion on the angiogram phase images. The ventricles, sulci, and cisterns are prominent secondary to involutional change. Yancey-white matter differentiation is preserved. No extra-ax ial fluid collection is seen. Thoracic aorta: There is atherosclerotic calcification of the thoracic aorta. Visualized portions of the thoracic aorta are normal in caliber. The aortic arch demonstrates standard 3-vessel anatomy. Right carotid arterial system: The right common carotid artery is widely patent, as are the right internal and external carotid arteries. Minimal calcified plaque is noted in the carotid bulb. Left carotid arterial system: The left common carotid artery is widely patent, as are the left internal and external carotid arteries. Minimal calcified plaque is seen in the carotid bulb. Vertebral arteries: The vertebral arteries are widely patent bilaterally and codominant. Subclavian arteries: Widely patent bilaterally. Intracranial vasculature: There is atherosclerotic calcification of the cavernous carotid and vertebral arteries. The internal carotid arteries are patent at the skull base, as are the anterior and middle cerebral arteries bilaterally. The vertebrobasilar system and posterior cerebral arteries are widely patent. 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 The vertebral arteries are codominant. There is no aneurysm, high-grade stenosis, or focal vessel cut off seen throughout the intracranial circulation. Jugular veins: Patent bilaterally. Dural sinuses: Patent. Lung apices: Partially visualized upper lobe lung parenchyma appears clear. Soft tissues: The visualized pharyngeal soft tissues are normal in appearance noting angiographic phase technique. The oropharyngeal airway appears widely patent. There is a large calcified sialolith in the left parotid gland. The salivary glands are otherwise normal in appearance. The thyroid gland is normal as visualized. No cervical lymphadenopathy is seen. Skeletal structures: The skeletal structures are osteopenic. The calvarium appears intact. The cervical spine is maintained noting Mild multilevel spondylosis. Orbits: The bony orbits are intact. Orbital contents are normal as visualized noting bilateral ocular lens implants. Sinuses and mastoids: The paranasal sinuses are clear. The mastoid air cells are well pneumatized. IMPRESSION: 1. There is no hemorrhage, mass effect, or evidence of acute territorial ischemia by CT criteria. 2. Unremarkable CT angiogram of the brain. 3. Unremarkable CT angiogram of the neck. ACT 112: Negative or not required by law. Electronically signed by: Biju Larry M.D. 05/14/2024 3:06 PM Head CTA 05/14/24 13:[address] OF THE BRAIN; CT ANGIOGRAM OF THE BRAIN; CT ANGIOGRAM OF THE NECK CLINICAL HISTORY: Neurologic deficit. Stroke like symptoms. Aphasia. COMPARISON STUDY: CT urogram of the head and neck dated 10/08/2022. CT of the brain dated 02/21/2024. MRI of the brain dated 02/23/2024. TECHNIQUE: Unenhanced axial CT scan of the brain is performed. Subsequently, following the IV administration of 120 of Optiray 320, CT angiogram of the head and neck was performed from the aortic arch to the vertex. Images are reviewed in the axial, sagittal, and coronal planes. 3-D MIPS images are created and assessed. IV contrast was administered without complication. All measurements were calculated based on NASCET criteria. A dose lowering technique was utilized adhering to the principles of ALARA. CT DOSE: 1149.05 mGy.cm FINDINGS: Brain parenchyma: There is age-related involutional change noting mild to moderate subcortical and periventricular microangiopathic disease. There is no hemorrhage, mass effect, or evidence of acute territorial ischemia by CT criteria. There is no evidence of enhancing mass lesion on the angiogram phase images. The ventricles, sulci, and cisterns are prominent secondary to involutional change. Yancey-white matter differentiation is preserved. No extra- axial fluid collection is seen. Thoracic aorta: There is atherosclerotic calcification of the thoracic aorta. Visualized portions of the thoracic aorta are normal in caliber. The aortic arch demonstrates standard 3-vessel anatomy. Right carotid arterial system: The right common carotid artery is widely patent, as are the right internal and external carotid arteries. Minimal calcified plaque is noted in the carotid bulb. Left carotid arterial system: The left common carotid artery is widely patent, as are the left internal and external carotid arteries. Minimal calcified plaque is seen in the carotid bulb. Vertebral arteries: The vertebral arteries are widely patent bilaterally and codominant. Subclavian arteries: Widely patent bilaterally. Intracranial vasculature: There is atherosclerotic calcification of the cavernous carotid and vertebral arteries. The internal carotid arteries are patent at the skull base, as are the anterior and middle cerebral arteries bilaterally. The vertebrobasilar system and posterior cerebral arteries are widely patent. 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 The vertebral arteries are codominant. There is no aneurysm, high-grade stenosis, or focal vessel cut off seen throughout the intracranial circulation. Jugular veins: Patent bilaterally. Dural sinuses: Patent. Lung apices: Partially visualized upper lobe lung parenchyma appears clear. Soft tissues: The visualized pharyngeal soft tissues are normal in appearance noting angiographic phase technique. The oropharyngeal airway appears widely patent. There is a large calcified sialolith in the left parotid gland. The salivary glands are otherwise normal in appearance. The thyroid gland is normal as visualized. No cervical lymphadenopathy is seen. Skeletal structures: The skeletal structures are osteopenic. The calvarium appears intact. The cervical spine is maintained noting Mild multilevel spondylosis. Orbits: The bony orbits are intact. Orbital contents are normal as visualized noting bilateral ocular lens implants. Sinuses and mastoids: The paranasal sinuses are clear. The mastoid air cells are well pneumatized. IMPRESSION: 1. There is no hemorrhage, mass effect, or evidence of acute territorial ischemia by CT criteria. 2. Unremarkable CT angiogram of the brain. 3. Unremarkable CT angiogram of the neck. ACT 112: Negative or not required by law. Electronically signed by: Biju Larry M.D. 05/14/2024 3:06 PM Neck CTA 05/14/24 13:[address] OF THE BRAIN; CT ANGIOGRAM OF THE BRAIN; CT ANGIOGRAM OF THE NECK CLINICAL HISTORY: Neurologic deficit. Stroke like symptoms. Aphasia. COMPARISON STUDY: CT urogram of the head and neck dated 10/08/2022. CT of the brain dated 02/21/2024. MRI of the brain dated 02/23/2024. TECHNIQUE: Unenhanced axial CT scan of the brain is performed. Subsequently, following the IV administration of 120 of Optiray 320, CT angiogram of the head and neck was performed from the aortic arch to the vertex. Images are reviewed in the axial, sagittal, and coronal planes. 3-D MIPS images are created and assessed. IV contrast was administered without complication. All measurements were calculated based on NASCET criteria. A dose lowering technique was utilized adhering to the principles of ALARA. CT DOSE: 1149.05 mGy.cm FINDINGS: Brain parenchyma: There is age-related involutional change noting mild to moderate subcortical and periventricular microangiopathic disease. There is no hemorrhage, mass effect, or evidence of acute territorial ischemia by CT criteria. There is no evidence of enhancing mass lesion on the angiogram phase images. The ventricles, sulci, and cisterns are prominent secondary to involutional change. Yancey-white matter differentiation is preserved. No extra- axial fluid collection is seen. Thoracic aorta: There is atherosclerotic calcification of the thoracic aorta. Visualized portions of the thoracic aorta are normal in caliber. The aortic arch demonstrates standard 3-vessel anatomy. Right carotid arterial system: The right common carotid artery is widely patent, as are the right internal and external carotid arteries. Minimal calcified plaque is noted in the carotid bulb. Left carotid arterial system: The left common carotid artery is widely patent, as are the left internal and external carotid arteries. Minimal calcified plaque is seen in the carotid bulb. Vertebral arteries: The vertebral arteries are widely patent bilaterally and codominant. Subclavian arteries: Widely patent bilaterally. Intracranial vasculature: There is atherosclerotic calcification of the cavernous carotid and vertebral arteries. The internal carotid arteries are patent at the skull base, as are the anterior and middle cerebral arteries bilaterally. The vertebrobasilar system and posterior cerebral arteries are widely patent. 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 The vertebral arteries are codominant. There is no aneurysm, high-grade stenosis, or focal vessel cut off seen throughout the intracranial circulation. Jugular veins: Patent bilaterally. Dural sinuses: Patent. Lung apices: Partially visualized upper lobe lung parenchyma appears clear. Soft tissues: The visualized pharyngeal soft tissues are normal in appearance noting angiographic phase technique. The oropharyngeal airway appears widely patent. There is a large calcified sialolith in the left parotid gland. The salivary glands are otherwise normal in appearance. The thyroid gland is normal as visualized. No cervical lymphadenopathy is seen. Skeletal structures: The skeletal structures are osteopenic. The calvarium appears intact. The cervical spine is maintained noting Mild multilevel spo ndylosis. Orbits: The bony orbits are intact. Orbital contents are normal as visualized noting bilateral ocular lens implants. Sinuses and mastoids: The paranasal sinuses are clear. The mastoid air cells are well pneumatized. IMPRESSION: 1. There is no hemorrhage, mass effect, or evidence of acute territorial ischemia by CT criteria. 2. Unremarkable CT angiogram of the brain. 3. Unremarkable CT angiogram of the neck. ACT 112: Negative or not required by law. Electronically signed by: Biju Larry M.D. 05/14/2024 3:06 PM Brain MRI 05/14/24 16:15 MRI OF THE BRAIN WITHOUT IV CONTRAST CLINICAL HISTORY: Dysarthria. Strokelike symptoms. COMPARISON STUDY: CT of the brain dated 05/14/2024. MRI of the brain dated 02/23/2024. TECHNIQUE: MRI of the brain was performed utilizing various T1 and T2-weighted sequences in the axial, sagittal, and coronal planes. IV contrast was not administered for this examination. FINDINGS: Brain parenchyma: There is age-related involutional change noting minimal microangiopathic disease. There is no hemorrhage or mass effect. There is no restricted diffusion to suggest acute ischemia. Yancey-white matter differentiation is preserved. No extra-axial fluid collection is seen. The cerebellar tonsils are normal in configuration. Ventricles, sulci, and cisterns: Prominent significant involutional change. Pituitary and sella: Unremarkable. Intracranial vasculature: Normal flow voids are maintained at the skull base. Orbits: The bony orbits are grossly intact. Orbital contents are normal in appearance noting bilateral ocular lens implant. Sinuses and mastoids: There is mild mucosal thickening in the left maxillary antrum. The remaining paranasal sinuses and the mastoid air cells are clear. Calvarium: Unremarkable. Cervical cord: Partially visualized cervical spinal cord is normal in morphology and signal intensity. IMPRESSION: No acute intracranial abnormality. ACT 112: Negative or not required by law. Electronically signed by: Biju Larry M.D. 05/14/2024 7:05 PM Pending Results Patient Have Any Pending Studies at Discharge: No Discharge Instructions Given to Patient (Per Discharging Provider) FOR [facility]: Mr. Woodson was admitted to the hospital due to difficulty with speech/word finding. His brain MRI and CT/CTA head and neck revealed no acute findings. His speech returned to baseline. PT/OT evaluated the patient and felt that he was unsafe to return to independent living. HgbA1c was 9.6% on 05/16/24. Patient requires better glycemic control. He is to follow-up with endocrinology for diabetic management. Patient was evaluated by speech therapy while hospitalized. No dietary changes required at this time. No medication changes at this time. Thank you, Fransisca Escalante PA-C Total Time Total Time Spent Total Time Spent (In Minutes): Greater than 30 minutes spent completing this discharge process including direct patient care, medication reconciliation, documentation, review of labs and images, and coordination of care. Coding Level of Care Code 05695 INP/OBS DISCH >30 MIN Diagnoses Dysarthria R47.1 Uncontrolled type 2 diabetes mellitus, with long-term current use of insulin Status post insertion of drug-eluting stent into left anterior descending (LAD) artery Z95.5
== END 2024-05-17 15:46 | disposition home or self-care (01) ==
LOC: ED 13:19 → 2S 13:19 → SUATTDRO 16:12 → 2S 19:08 → 3E 05-15 15:24

== ENCOUNTER 2024-12-26 05:01 | Observation (INO) ==
[2024-12-26 05:25] LABS: Basophils # (auto) 0.11 K/uL (0.00-0.20); Basophils % (auto) 1.1 %; Eosinophils # (auto) 0.44 K/uL (0.00-0.50); Eosinophils % (auto) 4.6 %; Hemoglobin 15.7 g/dl (14.0-18.0); Immature Granulocytes # (auto) 0.02 K/uL (0.01-0.20); Immature Granulocytes % (auto) 0.2 %; Lymphocytes # (auto) 1.81 K/uL (1.20-3.40); Lymphocytes % (auto) 18.9 %; Mean Corpuscular Hemoglobin 28.7 pg (25.0-34.0); Mean Corpuscular Hgb Conc 34.1 g/dL (32.0-36.0); Mean Corpuscular Volume 84.1 fL (80.0-100.0); Mean Platelet Volume 10.2 fL (9.4-12.4); Monocytes # (auto) 0.69 K/uL (0.11-0.59); Monocytes % (auto) 7.2 %; Neutrophils # (auto) 6.51 K/uL (1.40-6.50); Platelet Count 279 K/uL (130-400); RDW Coefficient of Variation 11.8 % (11.5-14.5); RDW Standard Deviation 35.8 fL (36.4-46.3); Red Blood Count 5.47 M/uL (4.70-6.10); White Blood Count 9.58 K/ul (4.8-10.8)
--- NOTE | 2024-12-26 05:29 | Emergency Department Note ---
Impression & Plan Chest pain, Acute non-ST elevation myocardial infarction (NSTEMI) ED Provider Note NAME: SOHAIL VAZ AGE: 79 SEX: M : 1945 ARRIVES VIA: Ambulance INFORMANT: Patient, ED PROVIDER(S): Brendon Dixon MD CHIEF COMPLAINT: Chest pain HPI: This an 79-year-old male presents for chest pain. Patient states that he woke up around 2:30 in the morning with chest pain. He is notes it is substernal, a tightness in his chest. He notes he is had this before, thinks it was when he had stents placed. He is unsure however. He notes that he does not have any specific worsening or improving factor. Is not exertional. She has no shortness of breath or pleurisy. ROS: See above HPI for pertinent positives & negatives. A total of 10 systems reviewed and were otherwise negative. PAST MEDICAL HISTORY: See Below PAST SURGICAL HISTORY: See Below FAMILY HISTORY: See Below SOCIAL HISTORY: See Below HOME MEDICATIONS: See Below ALLERGIES: See Below VITALS: See Below PHYSICAL EXAMINATION: General: resting comfortably in no acute distress Head: Normocephalic and atraumatic Eyes: Normal inspection, extraocular muscles intact Ear, nose, throat: Normal external exam Neck: Normal range of motion Respiratory: lungs clear to auscultation bilaterally Cardiovascular: Regular rate/rhythm, no murmur GI: soft, nontender, no guarding or rebound Extremities: nontender, moves all extremities Neuro: The patient awake and alert, appropriately conversive, no focal deficits, symmetric faces Skin: Warm, dry, and intact MEDICAL DECISION MAKING: Is an 79-year-old male presenting for chest pain. Patient has history of CAD status post stenting. Patient given aspirin and route. Initial EKGs by EMS did show inferior depressions in leads II, III and aVF. There are elevations in aVL as well. However on EKG here, this is not reproduced. Patient clinically well, not diaphoretic. Patient is nontachycardic or hypoxic. Low concern for PE clinically. Will do chest x-ray, EKG and basic blood work to assess for ACS. -ECG independently interpreted by me with normal sinus rhythm, rate of 67, first-degree AV block, normal QRS, normal QTc, no ST segment elevations consistent with STEMI criteria -Bloodwork is reviewed showing no significant leukocytosis, anemia, electrolyte or creatinine abnormality. Patient's troponin is slightly elevated at 23.4 -Patient does have persistent chest pain. Will admit due to patient having previous history of ACS and current chest pain. Will defer further cardiac workup and evaluation of NSTEMI -Chest Xray independently interpreted by me showing no pneumothorax, focal opacity, or pleural effusions. -Patient advised on findings and will be admitted to the hospital Differential diagnosis: ACS, PE, NSTEMI, musculoskeletal chest pain, GERD Independent History obtained from: EMS Diagnostics interpreted by me: ECG: See above Cardiac Monitoring: An order was placed for continuous cardiac monitoring. The monitor shows a rate of 98 with sinus rhythm. Past Med/Surg History Problem List (Updated 12/27/24 @ 04:10 by Brendon Dixon MD) Acute non-ST elevation myocardial infarction (NSTEMI) (Acute) Chest pain (Acute) Atherogenic dyslipidemia First degree heart block by electrocardiogram NSTEMI (non-ST elevated myocardial infarction) History of stroke HTN (hypertension) (Acute) B12 deficiency Vitamin D deficiency Cognitive impairment BPH (benign prostatic hyperplasia) Vascular dementia Sleep disturbances Antiplatelet or antithrombotic long-term use History of nephrolithiasis Medical History Status post insertion of drug-eluting stent into left anterior descending (LAD) artery Dysarthria Uncontrolled type 2 diabetes mellitus with hyperglycemia, with long-term current use of insulin Depression CAD (coronary artery disease) Memory deficits Diabetes type 2, controlled Tremor Hypertensive urgency Hx of non-ST elevation myocardial infarction (NSTEMI) Surgical History S/P tonsillectomy and adenoidectomy Hx of cataract surgery Family History Mother , age 91 Stroke CHF (congestive heart failure) Father , age 86 with stroke Stroke Prostate cancer Myocardial infarction Daughter Breast cancer Sister Psychiatric problem Other Diabetes Hypertension Denies family history of Ovarian cancer Colorectal cancer Social History Smoking Status: Never smoker Second Hand Exposure: No; Do You Dip or Chew Tobacco: No; Hx Alcohol Use: No Hx Substance Use: No Preferred Language: Urdu Communication Ability: Effective Communication Ability Comment: CONFUSED/HALLUCINATING Visual Impairment: No Limitations Hearing Ability: Normal 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[employer] Cutting Required: No Beliefs That Will Affect Care: None marital status: / Current Living Situation: Alone Current Living Situation Comment: Resides at the [facility] current occupational status: retired 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 Feels Safe at Home: Yes Childhood Exposure to Second-Hand Smoke: No Diet: regular Dental Care, Regularly: Yes Physical Activity Frequency: 3-4 Times per Week Seatbelt Use: always Sunscreen Use: No Assistive Devices: None Allergies Allergies Allergy/AdvReac Type Severity Reaction Status Date / Time No Known Allergies Allergy Verified 12/13/24 10:13 Home Meds Home Medications Medication Instructions Recorded Confirmed aspirin 81 mg tablet,delayed 81 mg PO QAM 11/11/23 12/26/24 release insulin glargine 100 unit/mL (3 20 unit subcut HS 12/26/24 12/26/24 mL) subcutaneous pen (Lantus Solostar U-100 Insulin) Previous Rx's Medication Instructions Recorded lancets #100 ea 10/12/20 nitroglycerin 0.4 mg sublingual 0.4 mg sublingual Q5M PRN chest 10/29/23 tablet pain #25 tabs ezetimibe 10 mg tablet 10 mg PO DAILY #90 tabs 01/18/24 metformin 500 mg tablet,extended 1,000 mg (2 x 500 mg) PO BID #360 01/18/24 release 24 hr tabs cyanocobalamin (vitamin B-12) 1,000 mcg PO DAILY #30 caps 03/22/24 1,000 mcg capsule rosuvastatin 40 mg tablet 40 mg PO DAILY #90 tabs 04/13/24 donepezil 5 mg tablet (Aricept) 5 mg PO DAILY #30 tabs 07/15/24 insulin aspart U-100 100 unit/mL See Rx Instructions .Route 07/20/24 (3 mL) subcutaneous pen .COMPLEX #15 mL blood sugar diagnostic (OneTouch #200 ea 08/01/24 Verio test strips) lancets 33 gauge #200 ea 08/01/24 melatonin 3 mg capsule 3 mg PO HS PRN sleep #30 caps 08/09/24 propranolol 80 mg capsule,24 80 mg PO DAILY #90 caps 10/10/24 hr,extended release pen needle, diabetic 32 gauge x #400 ea 11/17/24" (Comfort EZ Pen [place]) memantine 10 mg tablet 10 mg PO BID #60 tabs 12/14/24 Results & Data (ED) Vital Signs Vital Signs - 24 hr 12/26/24 05:09 12/26/24 05:11 12/26/24 05:11 Temperature 36.9 C Temperature Source Oral Pulse Rate 69 71 Pulse Rate [Apical] Pulse Rhythm Regular Pulse Rhythm [Apical] Pulse Strength Normal Pulse Strength [Apical] Respiratory Rate 18 Respiratory Effort / Characteristics Non-Labored Spontaneous Respiratory Depth Normal Respiratory Pattern Regular Blood Pressure 184/108 H Blood Pressure [Right Arm] Blood Pressure Mean 133 Blood Pressure Mean [Right Arm] Blood Pressure Position Semi-fowlers Blood Pressure Position [Right Arm] Pulse Oximetry 97 97 Oxygen Delivery Method Room Air Room Air Sepsis Recent Fever Within 48 Hours No Sepsis New/Unexplained Change in Mental Status N/A Sepsis Action Taken by Nursing No Action Required 12/26/24 05:11 12/26/24 05:11 Temperature 36.9 C Temperature Source Oral Pulse Rate 71 Pulse Rate [Apical] 71 Pulse Rhythm Regular Pulse Rhythm [Apical] Regular Pulse Strength Pulse Strength [Apical] Normal Respiratory Rate 18 18 Respiratory Effort / Characteristics Non-Labored Spontaneous Respiratory Depth Normal Respiratory Pattern Regular Blood Pressure Blood Pressure [Right Arm] 184/108 H Blood Pressure Mean Blood Pressure Mean [Right Arm] 133 Blood Pressure Position Blood Pressure Position [Right Arm] Semi-fowlers Pulse Oximetry 97 97 Oxygen Delivery Method Room Air Room Air Sepsis Recent Fever Within 48 Hours Sepsis New/Unexplained Change in Mental Status Sepsis Action Taken by Nursing Laboratory Data 12/26/24 05:11 12/26/24 05:11 Lab Results 12/26/24 12/26/24 Range/Units 05:11 05:24 WBC 9.58 (4.8-10.8) K/ul RBC 5.47 (4.70-6.10) M/uL Hgb 15.7 (14.0-18.0) g/dl POC Hgb 16.0 (14.0-18.0) g/dl Hct 46.0 (42.0-52.0) % POC Hct 47 (42-52) % MCV 84.1 (80.0-100.0) fL MCH 28.7 (25.0-34.0) pg MCHC 34.1 (32.0-36.0) g/dL RDW Std Deviation 35.8 L (36.4-46.3) fL RDW Coeff of Leanna 11.8 (11.5-14.5) % Plt Count 279 (130-400) K/uL MPV 10.2 (9.4-12.4) fL Immature Gran % (Auto) 0.2 % Neut % (Auto) 68.0 % Lymph % (Auto) 18.9 % [place] % (Auto) 7.2 % Eos % (Auto) 4.6 % Baso % (Auto) 1.1 % Neut # (Auto) 6.51 H (1.40-6.50) K/uL Lymph # (Auto) 1.81 (1.20-3.40) K/uL [place] # (Auto) 0.69 H (0.11-0.59) K/uL Eos # (Auto) 0.44 (0.00-0.50) K/uL Baso # (Auto) 0.11 (0.00-0.20) K/uL Immature Gran # (Auto) 0.02 (0.01-0.20) K/uL POC Sodium 138 (135-144) mmol/L Sodium 135 L (136-145) mmol/L POC Potassium 4.4 (3.3-5.0) mmol/L Potassium 4.5 (3.5-5.1) mmol/L POC Chloride 100 L (101-112) mmol/L Chloride 102 (98-107) mmol/L Carbon Dioxide 29 (21-32) mmol/L POC Total CO2 26 (24-31) mmol/L Anion Gap 4 (3-11) POC Anion Gap 18.0 (16-25) mmol/L POC BUN 15 (7-18) mg/dl BUN 15 (6-23) mg/dl Creatinine 0.89 (0.6-1.4) mg/dl POC Creatinine 1.0 (0.6-1.3) mg/dl Est Cr Clr Drug Dosing 66.2 ml/min eGFR 86.63 BUN/Creatinine Ratio 16.9 (10-20) Glucose 290 H (70-99(Fasting)) mg/dl POC Glucose (other) 286 H (70-99) mg/dl Calcium 8.5 L (8.6-10.3) mg/dl POC Ioniz Calcium Magalys 1.16 (1.12-1.32) mmol/l Total Bilirubin 0.6 (0.2-1.0) mg/dl AST 51 H (13-39) U/L ALT 53 H (7-52) U/L Alkaline Phosphatase 96 (34-104) U/L Troponin I High Sens 23.4 H (0-20) pg/ml Total Protein 6.5 (6.0-8.3) gm/dl Albumin 4.0 (3.4-5.0) gm/dl Globulin 2.5 (2.5-4.0) gm/dl Albumin/Globulin Ratio 1.6 (0.9-2) Lipase 42 (11-82) U/L Administered Medications Acetaminophen (Acetaminophen 325 Mg Tab) 650 mg PO Q4H PRN PRN Reason: Pain Stop: 01/26/25 03:30 Last Admin: 12/27/24 03:39 Dose: 650 mg Documented By: MAX Donepezil HCl (Donepezil Hcl 5 Mg Tab) 5 mg PO DAILY [facility] Stop: 01/25/25 08:59 Last Admin: 12/26/24 09:52 Dose: 5 mg Documented By: Ezetimibe (Ezetimibe 10 Mg Tab) 10 mg PO DAILY [facility] Stop: 01/25/25 08:59 Last Admin: 12/26/24 09:52 Dose: 10 mg Documented By: Heparin Sodium/Dextrose (Heparin 83619 Unit/500 Ml) 25,000 units in 500 mls @ 25 mls/hr IV .Q20H [facility]; Protocol Stop: 01/25/25 07:29 Last Admin: 12/27/24 03:15 Dose: 1,250 units/hr, 25 mls/hr Documented By: MAX Co-signed By: LAURENCE Titration: 12/27/24 03:15 Dose: Infused Documented By: MAX Co-signed By: LAURENCE Titration: 12/27/24 00:29 Dose: 1,250 units/hr, 25 mls/hr Documented By: MAX Co-signed By: LAURENCE Titration: 12/26/24 17:00 Dose: 1,250 units/hr, 25 mls/hr Documented By: ANDREA Co-signed By: JANAE Admin: 12/26/24 08:05 Dose: 1,300 units/hr, 26 mls/hr Documented By: Co-signed By: JULIAN Insulin Aspart (Insulin Aspart Per Unit Charge) 0 units SC ACHS [facility] Stop: 01/25/25 08:33 Last Admin: 12/26/24 21:47 Dose: 4 units Documented By: MAX Co-signed By: LAURENCE Admin: 12/26/24 17:57 Dose: 7 units Documented By: ANDREA Co-signed By: JANAE Admin: 12/26/24 13:52 Dose: Not Given Documented By: Admin: 12/26/24 09:53 Dose: 5 units Documented By: Co-signed By: ALESSANDRA Insulin Glargine (Lantus Per Unit Charge) 20 units SQ HS [facility] Stop: 01/25/25 20:59 Last Admin: 12/26/24 21:48 Dose: 20 units Documented By: MAX Co-signed By: LAURENCE Losartan Potassium (Losartan Potassium 25 Mg Tab) 25 mg PO QAM [facility] Stop: 01/25/25 14:29 Last Admin: 12/26/24 15:58 Dose: 25 mg Documented By: ANDREA Melatonin (Melatonin 3 Mg Tab) 3 mg PO HS PRN PRN Reason: sleep Last Admin: 12/26/24 23:33 Dose: 3 mg Documented By: MAX Memantine (Memantine Hcl 10 Mg Tab) 10 mg PO BID [facility] Stop: 01/25/25 08:59 Last Admin: 12/26/24 21:47 Dose: 10 mg Documented By: Admin: 12/26/24 09:52 Dose: 10 mg Documented By: Nitroglycerin (Nitroglycerin 2% Ointment 30gm Tube) 1 inch EXT Q6H [facility] Stop: 01/25/25 06:44 Last Admin: 12/27/24 00:45 Dose: 1 inch Documented By: Admin: 12/26/24 18:19 Dose: 1 inch Documented By: Admin: 12/26/24 13:06 Dose: 1 inch Documented By: Admin: 12/26/24 06:46 Dose: 1 inch Documented By: IDLisa Nitroglycerin (Nitroglycerin Sl 0.4 Mg/Tab Tab) 0.4 mg SL Q5M PRN PRN Reason: Chest Pain Stop: 01/25/25 06:24 Last Admin: 12/26/24 07:09 Dose: 0.4 mg Documented By: Admin: 12/26/24 06:54 Dose: 0.4 mg Documented By: VIVIANA Rosuvastatin Calcium (Rosuvastatin Calcium 20 Mg Tab) 40 mg PO DAILY [facility] Stop: 01/25/25 08:59 Last Admin: 12/26/24 09:52 Dose: 40 mg Documented By: MR Discontinued Medications Acetaminophen (Acetaminophen 325 Mg Tab) 650 mg PO NOW STA Stop: 12/26/24 06:50 Last Admin: 12/26/24 06:52 Dose: 650 mg Documented By: VIVIANA Heparin Sodium (Porcine) (Heparin Sod (Porcine) 1000 Unit/Ml) 6,000 units IV NOW ONE Stop: 12/26/24 07:23 Last Admin: 12/26/24 08:06 Dose: 6,000 units Documented By: Co-signed By: JULIAN Heparin Sodium/Dextrose (Heparin Iv Adult Wt-Based Standard W/ Initial Bolus Protocol) 1 each IV NOW STA; Protocol Stop: 12/26/24 07:07 Last Admin: 12/26/24 08:13 Dose: 1 each Documented By: Heparin Sodium/Sodium Chloride (Heparin In Nss Infusion 1000 Unit/500 Ml (2 U/Ml) Bag) Confirm Administered Dose 4,000 units IV .STK-MED ONE Stop: 12/26/24 08:30 Last Admin: 12/26/24 13:52 Dose: Not Given Documented By: SELAMR Lidocaine HCl (Lidocaine 1% Local 20 Ml Vial) Confirm Administered Dose 20 ml .ROUTE .STK-MED ONE Stop: 12/26/24 08:30 Last Admin: 12/26/24 13:52 Dose: Not Given Documented By: SELAMR Morphine Sulfate (Morphine Sulfate 2 Mg/Ml Carp) 1 mg IV NOW STA Stop: 12/26/24 07:59 Last Admin: 12/26/24 08:12 Dose: 1 mg Documented By: Nitroglycerin (Nitroglycerin Sl 0.4 Mg/Tab Tab) 0.4 mg SL NOW STA Stop: 12/26/24 06:26 Last Admin: 12/26/24 06:45 Dose: 0.4 mg Documented By: VIVIANA Nitroglycerin (Nitroglycerin 2% Ointment 30gm Tube) Confirm Administered Dose 18 inch EXT .STK-MED ONE Stop: 12/26/24 06:46 Last Admin: 12/26/24 06:47 Dose: Not Given Documented By: IDD Discharge Plan Visit Data Chief Complaint: Chest Pain Stated Complaint: CHEST PAIN SINCE 229 ED Provider: Brendon Dixon Discharge Problem: Chest pain, Acute non-ST elevation myocardial infarction (NSTEMI) Patient Disposition: Admitted As Inpatient Discharge Instructions Interventions: ED Discharge Assessment Last Done: 12/26/24 08:34
[2024-12-26 05:36] LABS: iSTAT Ionized Calcium 1.16 mmol/l (1.12-1.32); iSTAT Potassium 4.4 mmol/L (3.3-5.0)
[2024-12-26 05:41] LABS: Albumin Globulin Ratio 1.6 (0.9-2); BUN Creatinine Ratio 16.9 (10-20); Bilirubin,Total 0.6 mg/dl (0.2-1.0); Calcium 8.5 mg/dl (8.6-10.3); Creatinine Clr Calc Pharmacy 66.2 ml/min; Globulin 2.5 gm/dl (2.5-4.0); Potassium 4.5 mmol/L (3.5-5.1); Total Protein 6.5 gm/dl (6.0-8.3)
[2024-12-26 05:48] LABS: Troponin I High Sensitivity 23.4 pg/ml (0-20)
--- NOTE | 2024-12-26 06:42 | History & Physical Report ---
Date of Service December 26, 2024 Assessment & Plan (1) NSTEMI (non-ST elevated myocardial infarction): (2) HTN (hypertension): (3) Antiplatelet or antithrombotic long-term use: (4) First degree heart block by electrocardiogram: Plan The patient is a 79-year-old male with a past medical history including hypertension, history of stroke, B12 deficiency, vitamin D deficiency, cognitive impairment, BPH with LUTS, vascular dementia, sleep disturbances, history of nephrolithiasis, long-term use of aspirin, hyperlipidemia, and diabetes mellitus.The patient reports that he went to bed at about 10:30 PM last evening, in his usual time, after having a normal day yesterday. He noted, and he wakes up in the middle of the night, and fortunately woke up around 230 this morning, and noted substernal chest pressure across his chest. He has had this before, but this time was more intense and lasted longer. At 330, with the persistence of the symptoms, he called EMS, who administered 4 baby aspirin and was brought to the ED for assessment. He reports that since has been in emerg ency department he has developed bilateral shoulder discomfort, which is again new for him. He has no radiation into his arms and has no weakness in legs. He denies any recent illnesses or exposures. In particular denies any symptoms of the flu. He has no associated nausea or vomiting. He reports that he gets his medications from the nurses at his living facility 4 times daily, and as far as he knows, received all his evening medications yesterday. He reports that his pain is presently 6/10. Unchanged from when it first began. #NSTEMI/first-degree heart block/hypertension- The patient will be admitted to telemetry for serial cardiac enzymes, serial EKG's, cardiac rhythm monitoring and a 2-D echocardiogram with Dopplers. Initial troponin 23.4, with follow-up ordered Status post aspirin 3 and 24 mg from the EMS Placed on Nitropaste 1 inch to anterior chest wall every 6 hours now Nitroglycerin sublingual 0.5 mg. x 3 per protocol Chest pain presently 6/10, actively treating now with First-degree heart block limits use of beta-satish at this time, hold propranolol Consult cardiology #Diabetes mellitus- Continue glargine and SSI per regimen as noted hold metformin Check hemoglobin A1c #Hyperlipidemia- Continue simvastatin and Zetia Check a fasting lipid panel #Mild cognitive impairment- Continue donepezil and memantine History of Present Illness Chief Complaint: The patient reports that he went to bed at about 10:30 PM last evening, in his usual time, after having a normal day yesterday. He noted, and he wakes up in the middle of the night, and fortunately woke up around 230 this morning, and noted substernal chest pressure across his chest. He has had this before, but this time was more intense and lasted longer. At 330, with the persistence of the symptoms, he called EMS, who administered 4 baby aspirin and was brought to the ED for assessment. He reports that since has been in emergency department he has developed bilateral shoulder discomfort, which is again new for him. He has no radiation into his arms and has no weakness in legs. He denies any recent illnesses or exposures. In particular denies any symptoms of the flu. He has no associated nausea or vomiting. He reports that he gets his medications from the nurses at his living facility 4 times daily, and as far as he knows, received all his evening medications yesterday. He reports that his pain is presently 6/10. Unchanged from when it first began Primary Care Provider: Idalia North DO The patient is a 79-year-old male with a past medical history including hypertension, history of stroke, B12 deficiency, vitamin D deficiency, cognitive impairment, BPH with LUTS, vascular dementia, sleep disturbances, history of nephrolithiasis, long-term use of aspirin, hyperlipidemia, and diabetes mellitus.The patient reports that he went to bed at about 10:30 PM last evening, in his usual time, after having a normal day yesterday. He noted, and he wakes up in the middle of the night, and fortunately woke up around 230 this morning, and noted substernal chest pressure across his chest. He has had this before, but this time was more intense and lasted longer. At 330, with the persistence of the symptoms, he called EMS, who administered 4 baby aspirin and was brought to the ED for assessment. He reports that since has been in emergency department he has developed bilateral shoulder discomfort, which is again new for him. He has no radiation into his arms and has no weakness in legs. He denies any recent illnesses or exposures. In particular denies any symptoms of the flu. He has no associated nausea or vomiting. He reports that he gets his medications from the nurses at his living facility 4 times daily, and as far as he knows, received all his evening medications yesterday. He reports that his pain is presently 6/10. Unchanged from when it first began Allergies Allergy/AdvReac Type Severity Reaction Status Date / Time No Known Allergies Allergy Verified 12/13/24 10:13 Home Medications Medication Instructions Recorded Confirmed Type lancets #100 ea 10/12/20 12/13/24 Rx nitroglycerin 0.4 mg sublingual 0.4 mg sublingual Q5M PRN chest 10/29/23 12/26/24 Rx tablet pain #25 tabs aspirin 81 mg tablet,delayed 81 mg PO QAM 11/11/23 12/26/24 History release ezetimibe 10 mg tablet 10 mg PO DAILY #90 tabs 01/18/24 12/26/24 Rx metformin 500 mg tablet,extended 1,000 mg (2 x 500 mg) PO BID #360 01/18/24 12/26/24 Rx release 24 hr tabs cyanocobalamin (vitamin B-12) 1,000 mcg PO DAILY #30 caps 03/22/24 12/26/24 Rx 1,000 mcg capsule rosuvastatin 40 mg tablet 40 mg PO DAILY #90 tabs 04/13/24 12/26/24 Rx donepezil 5 mg tablet (Aricept) 5 mg PO DAILY #30 tabs 07/15/24 12/26/24 Rx insulin aspart U-100 100 unit/mL See Rx Instructions .Route 07/20/24 12/26/24 Rx (3 mL) subcutaneous pen .COMPLEX #15 mL blood sugar diagnostic (OneTouch #200 ea 08/01/24 12/13/24 Rx Verio test strips) lancets 33 gauge #200 ea 08/01/24 12/13/24 Rx melatonin 3 mg capsule 3 mg PO HS PRN sleep #30 caps 08/09/24 12/26/24 Rx propranolol 80 mg capsule,24 80 mg PO DAILY #90 caps 10/10/24 12/26/24 Rx hr,extended release pen needle, diabetic 32 gauge x #400 ea 11/17/24 12/13/24 Rx 5/32" (Comfort EZ Pen Newman) memantine 10 mg tablet 10 mg PO BID #60 tabs 12/14/24 Rx insulin glargine 100 unit/mL (3 20 unit subcut HS 12/26/24 12/26/24 History mL) subcutaneous pen (Lantus Solostar U-100 Insulin) Past Med/Surg History Problem List (Updated 12/26/24 @ 06:38 by Darnell Daniels MD) First degree heart block by electrocardiogram NSTEMI (non-ST elevated myocardial infarction) History of stroke HTN (hypertension) (Acute) B12 deficiency Vitamin D deficiency Cognitive impairment BPH (benign prostatic hyperplasia) Vascular dementia Sleep disturbances Antiplatelet or antithrombotic long-term use History of nephrolithiasis Medical History Status post insertion of drug-eluting stent into left anterior descending (LAD) artery Dysarthria Uncontrolled type 2 diabetes mellitus with hyperglycemia, with long-term current use of insulin Depression CAD (coronary artery disease) Memory deficits Diabetes type 2, controlled Tremor Hypertensive urgency Hx of non-ST elevation myocardial infarction (NSTEMI) Surgical History S/P tonsillectomy and adenoidectomy Hx of cataract surgery Family History Mother Stroke CHF (congestive heart failure) Father Stroke Prostate cancer Myocardial infarction Daughter Breast cancer Sister Psychiatric problem Other Diabetes Hypertension Denies family history of Ovarian cancer Colorectal cancer Social History Smoking Status: Never smoker Second Hand Exposure: No; Do You Dip or Chew Tobacco: No; Hx Alcohol Use: No Hx Substance Use: No Preferred Language: Congolese Communication Ability: Impaired Communication Ability Comment: CONFUSED/HALLUCINATING Visual Impairment: No Limitations Hearing Ability: Normal Ict Sales 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 Required: No Beliefs That Will Affect Care: None marital status: / Current Living Situation: Personal Care Facility Current Living Situation Comment: Resides at the [facility] current occupational status: retired 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 Feels Safe at Home: Yes Childhood Exposure to Second-Hand Smoke: No Diet: regular Dental Care, Regularly: Yes Physical Activity Frequency: 3-4 Times per Week Seatbelt Use: always Sunscreen Use: No Assistive Devices: Glasses Review of Systems Review of Systems: The patient denies palpitations, cough, lower extremity swelling, sore throat, fevers, chills, sweats, fatigue, nausea, vomiting, diarrhea , constipation, abdominal pain, pelvic pain, blood in urine or stool, dysuria, urinary frequency or urgency, lightheadedness, dizziness, headache, loss of consciousness, rash, abnormal bruising or bleeding, imbalance, focal or generalized weakness, numbness or tingling in arms or legs, generalized arthralgias or myalgias, back or neck pain, or night sweats. The review of systems is otherwise negative other than for that already noted above, and at least 10 systems have been reviewed. Physical Exam Physical Exam: The patient is awake, alert and oriented 3, well developed and well nourished, normocephalic and atraumatic, lying in bed and in no acute distress. HEENT--PERRL, EOMI, mucous membranes and oropharynx Neck--supple. No JVD. No bruits. Thyroid normal, trachea midline, no adenopathy. Heart--normal S1 and S2. No murmurs, rubs or gallops. Lungs--clear bilaterally, no respiratory distress, no accessory muscle use. Abdomen--normal bowel sounds and soft. Nontender. Nondistended, no hernias or masses, no organomegaly. Extremities--no cyanosis or clubbing. No edema. Dermatologic--normal skin turgor, normal color, no abnormal lymph nodes, no rash. Neurologic--cranial nerves II through XII grossly intact. Rheumatologic--normal range of motion. Psychiatric--normal affect. Results & Data Results & Data Vital Signs (Past 12 Hours) Vital Signs Temp Pulse Pulse Resp BP BP Pulse Ox 12/26/24 05:11 71 18 97 12/26/24 05:11 36.9 C 71 18 184/108 H 97 12/26/24 05:11 97 12/26/24 05:11 36.9 C 71 18 184/108 H 97 12/26/24 05:09 69 O2 Del Method 12/26/24 05:11 Room Air 12/26/24 05:11 Room Air 12/26/24 05:11 Room Air 12/26/24 05:11 Room Air 12/26/24 05:09 Laboratory Results Laboratory Results WBC 9.58 K/ul (4.8-10.8) 12/26/24 05:11 RBC 5.47 M/uL (4.70-6.10) 12/26/24 05:11 Hgb 15.7 g/dl (14.0-18.0) 12/26/24 05:11 POC Hgb 16.0 g/dl (14.0-18.0) 12/26/24 05:24 Hct 46.0 % (42.0-52.0) 12/26/24 05:11 POC Hct 47 % (42-52) 12/26/24 05:24 MCV 84.1 fL (80.0-100.0) 12/26/24 05:11 MCH 28.7 pg (25.0-34.0) 12/26/24 05:11 MCHC 34.1 g/dL (32.0-36.0) 12/26/24 05:11 RDW Std Deviation 35.8 fL (36.4-46.3) L 12/26/24 05:11 RDW Coeff of Leanna 11.8 % (11.5-14.5) 12/26/24 05:11 Plt Count 279 K/uL (130-400) 12/26/24 05:11 MPV 10.2 fL (9.4-12.4) 12/26/24 05:11 Immature Gran % (Auto) 0.2 % 12/26/24 05:11 Neut % (Auto) 68.0 % 12/26/24 05:11 Lymph % (Auto) 18.9 % 12/26/24 05:11 [place] % (Auto) 7.2 % 12/26/24 05:11 Eos % (Auto) 4.6 % 12/26/24 05:11 Baso % (Auto) 1.1 % 12/26/24 05:11 Neut # (Auto) 6.51 K/uL (1.40-6.50) H 12/26/24 05:11 Lymph # (Auto) 1.81 K/uL (1.20-3.40) 12/26/24 05:11 [place] # (Auto) 0.69 K/uL (0.11-0.59) H 12/26/24 05:11 Eos # (Auto) 0.44 K/uL (0.00-0.50) 12/26/24 05:11 Baso # (Auto) 0.11 K/uL (0.00-0.20) 12/26/24 05:11 Immature Gran # (Auto) 0.02 K/uL (0.01-0.20) 12/26/24 05:11 POC Sodium 138 mmol/L (135-144) 12/26/24 05:24 Sodium 135 mmol/L (136-145) L 12/26/24 05:11 POC Potassium 4.4 mmol/L (3.3-5.0) 12/26/24 05:24 Potassium 4.5 mmol/L (3.5-5.1) 12/26/24 05:11 POC Chloride 100 mmol/L (101-112) L 12/26/24 05:24 Chloride 102 mmol/L (98-107) 12/26/24 05:11 Carbon Dioxide 29 mmol/L (21-32) 12/26/24 05:11 POC Total CO2 26 mmol/L (24-31) 12/26/24 05:24 Anion Gap 4 (3-11) 12/26/24 05:11 POC Anion Gap 18.0 mmol/L (16-25) 12/26/24 05:24 POC BUN 15 mg/dl (7-18) 12/26/24 05:24 BUN 15 mg/dl (6-23) 12/26/24 05:11 Creatinine 0.89 mg/dl (0.6-1.4) 12/26/24 05:11 POC Creatinine 1.0 mg/dl (0.6-1.3) 12/26/24 05:24 Est Cr Clr Drug Dosing 66.2 ml/min 12/26/24 05:11 eGFR 86.63 12/26/24 05:11 BUN/Creatinine Ratio 16.9 (10-20) 12/26/24 05:11 Glucose 290 mg/dl (70-99(Fasting)) H 12/26/24 05:11 POC Glucose (other) 286 mg/dl (70-99) H 12/26/24 05:24 Calcium 8.5 mg/dl (8.6-10.3) L 12/26/24 05:11 POC Ioniz Calcium Magalys 1.16 mmol/l (1.12-1.32) 12/26/24 05:24 Total Bilirubin 0.6 mg/dl (0.2-1.0) 12/26/24 05:11 AST 51 U/L (13-39) H 12/26/24 05:11 ALT 53 U/L (7-52) H 12/26/24 05:11 Alkaline Phosphatase 96 U/L (34-104) 12/26/24 05:11 Troponin I High Sens 23.4 pg/ml (0-20) H 12/26/24 05:11 Total Protein 6.5 gm/dl (6.0-8.3) 12/26/24 05:11 Albumin 4.0 gm/dl (3.4-5.0) 12/26/24 05:11 Globulin 2.5 gm/dl (2.5-4.0) 12/26/24 05:11 Albumin/Globulin Ratio 1.6 (0.9-2) 12/26/24 05:11 Lipase 42 U/L (11-82) 12/26/24 05:11 Code Status & VTE Plan Code Status Full code VTE Prophylaxis Plan VTE Prophylaxis will be ordered: Yes PG Care Time/CCT Total # of Minutes Spent Total Time Spent with Patient: Total time spent is greater than 50% in coordination of care (as documented) at patient's floor/unit and/or counseling patient: Coding Level of Care Code 76112 INT INP/OBS CARE 3/75MIN Diagnoses NSTEMI (non-ST elevated myocardial infarction) I21.4 HTN (hypertension) I10 Antiplatelet or antithrombotic long-term use Z79.02 First degree heart block by electrocardiogram I44.0
[2024-12-26] MEDS: NITROGLYCERIN SL 0.4 MG/TAB TAB SL STA (06:45)
[2024-12-26] MEDS: NITROGLYCERIN 2% OINTMENT 30GM TUBE EXT SCH (06:46)
[2024-12-26] MEDS: NITROGLYCERIN 2% OINTMENT 30GM TUBE EXT ONE (06:47)
[2024-12-26] MEDS: ACETAMINOPHEN 325 MG TAB PO STA (06:52)
[2024-12-26] MEDS: NITROGLYCERIN SL 0.4 MG/TAB TAB SL PRN (06:54)
--- NOTE | 2024-12-26 06:58 | XRay Report ---
EXAM: XR chest 1V portable CLINICAL HISTORY: Chest pain, nonspecific. TECHNIQUE: An X-ray image of the chest is obtained in AP projection. COMPARISON: CR 02/22/2024. FINDINGS: Pulmonary Parenchyma: Bilateral prominent bronchovascular markings suggestive of congestive changes. No evidence of consolidation, collapse, or focal opacities. No pulmonary nodules are identified. No evidence of pleural effusion or pleural thickening. Heart and Mediastinum: Bilateral hilar vascular congestion was noted. Heart size and shape are normal. No mediastinal widening or masses. No hilar or mediastinal lymphadenopathy. Bony Thorax: Moderate spondylosis of the thoracic spine was noted. The bony thorax appears intact without fractures or deformities. Soft Tissues: Soft tissues overlying the chest wall are unremarkable. IMPRESSION: 1. Bilateral hilar vascular congestion 2. No acute findings. 3. No interval change since the prior study. Electronically signed by Moi Rodriguez 12-26-2024 06:58 AM
--- NOTE | 2024-12-26 07:48 | Communication Note ---
Date of Service: December 26, 2024 Addendum/bridge communication: Cardiac history review: History of HI 2003: Cath with 60% proximal LAD, 80% mid LAD, 80% distal LAD, 40% proximal RCA, 50% PDA, 60% ramus stenosis. 2004 distal and mid LAD stenting. 2005: Admission for NSTEMI. Subsequent cath at [place] with patent stents. Distal AD stent with concern for possible thrombus treated with Plavix and Integrilin 2011: Stress echo negative for ischemia 2020: Echo 65 to 70% Echo 2022: EF 60 to 65% 01/2024: Unstable angina. Troponin peak at 45. First-degree AV block Stress echo followed by cath: Multivessel CAD, 80% mid LAD stenosis at distal edge of stent, 95% ostial LAD, 40% ostial circumflex, 30% proximal RCA, 50 to 60% distal left main. Transfer to [facility] for intervention on left main and LAD stenosis. PCI 01/2024 with CARMEN to left main to mid LAD with some stent overlap. Patient seen at bedside at approximately 7 AM. Reevaluated for worsened chest pain. Mr. Woodson has a history of CAD with multiple stents and recent PCI to LAD 1 year ago who presented with chest pain onset at rest last night associated with some shortness of breath. No sweating. At time of the ER was continuing to have active chest pain around a 6/10. This transiently improved with nitro and aspirin, persisted at around 46 out of 10 and then following additional nitro has reduced to a 1/10. 1 mg of morphine ordered following several doses of nitro and near but not complete resolution. Prehospital EKG: Inferior depressions leads II/3/aVF, aVL elevation. EKG in ER with improved inferior depressions, aVL elevation was not redemonstrated. First-degree heart block, beta-satish use limited Repeat EKG with chest pain stable and without acute territorial ST/T wave changes. Chronic T wave inversion is redemonstrated in aVL. 1st degree HB remains present. There is a morphology change and negative axis of V2 new from prior without territorial ST change.? Lead placement versus conduction change He denies any recent GERD symptoms, no recent flu or infectious symptoms. No cough. No congestion. His chest pain has started substernally, goes into the outside of both shoulders. He is not initially hypertensive and EKG does not show mediastinal widening. As he has had chest pain onset at rest, high risk cardiac history including both history of PCI with recurrent LAD stent and diabetes with active chest pain and elevated troponin we will treat as NSTEMI and start heparin. Patient denies any bleeding complications including bright red blood/melena/ICH/nosebleeds/GERD in the past. Will discuss further with cardiology and? Repeat cath given high recent history and symptoms. On secondary reassessment chest pain has reduced to a 0-1/10. Patient reports he does think he had some dyspnea while in the ER this is improved. History is somewhat limited by some cognitive decline patient is sometimes forgetful but generally circumferential.
[2024-12-26] MEDS: HEPARIN 25000 UNIT/500 ML 25,000 UNITS/500 ML BAG IV SCH (08:05)
[2024-12-26] MEDS: HEPARIN SOD (PORCINE) 1000 UNIT/ML IV ONE (08:06)
[2024-12-26] MEDS: MoRPHine SULFATE 2 MG/ML CARP IV STA (08:12)
[2024-12-26] MEDS: Heparin IV Adult Wt-Based Standard w/ INITIAL Bolus Protocol IV STA (08:13)
[2024-12-26] MEDS ORDERED: GLUCOSE 40% GEL 15 GM TUBE PO PRN (08:34)
[2024-12-26] MEDS ORDERED: MoRPHine SULFATE 2 MG/ML CARP IV PRN (08:34)
[2024-12-26] MEDS ORDERED: CARBOHYDRATES FOR HYPOGLYCEMIA PO PRN (08:34)
[2024-12-26] MEDS ORDERED: DEXTROSE 50% 50 ML SYRINGE IV PRN (08:34)
[2024-12-26] MEDS ORDERED: GLUCOSE 10 TAB/TUBE PO PRN (08:34)
[2024-12-26] MEDS ORDERED: ONDANSETRON INJ 2 MG/ML 2 ML VIAL IV PRN (08:34)
[2024-12-26] MEDS ORDERED: GLUCAGON FOR INJ 1 MG VIAL SQ PRN (08:34)
--- NOTE | 2024-12-26 08:36 | Electrocardiogram Report ---
Test Reason : Blood Pressure : */* mmHG Vent. 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
--- NOTE | 2024-12-26 08:38 | Electrocardiogram Report ---
Test Reason : Blood Pressure : */* mmHG Vent. 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
[2024-12-26] MEDS: DONEPEZIL HCL 5 MG TAB PO SCH (09:52)
[2024-12-26] MEDS: MEMANTINE HCL 10 MG TAB PO SCH (09:52)
[2024-12-26] MEDS: ROSUVASTATIN CALCIUM 20 MG TAB PO SCH (09:52)
[2024-12-26] MEDS: EZETIMIBE 10 MG TAB PO SCH (09:52)
[2024-12-26] MEDS: INSULIN ASPART PER UNIT CHARGE SC SCH (09:53)
--- NOTE | 2024-12-26 13:10 | XCELERA ---
[id number]
[2024-12-26] MEDS: LIDOCAINE 1% LOCAL 20 ML VIAL ONE (13:52)
--- NOTE | 2024-12-26 14:15 | Cardiology Consultation ---
Date of Consultation December 26, 2024 Assessment & Plan (1) NSTEMI (non-ST elevated myocardial infarction): Unclear etiology. The echo does not suggest new segmental wall motion abnormality. We would anticipate these types of abnormalities if there was a large vessel occlusion. Moreover, he had a high risk left main to LAD stent performed less than a year ago. If this were the issue he would be in cardiogenic shock or . I am awaiting the third troponin as the second 1 was only modestly elevated. Noted that his blood pressure was very elevated on presentation and certainly we can see chest pain and elevated troponin for acute hypertensive episodes. He also has known apical disease which is not amenable to PCI and could cause elevation in troponin particularly if workload is increased such as would occur with hypertensive urgency. If his troponin increases significantly I think definitive evaluation by coronary angiography would be warranted. If he has only modest elevation then this may simply represent a type II non-ST elevation CO and not warrant the risk of catheterizat ion. For now, we will continue with medical management and make him n.p.o. after midnight in anticipation that he may need cath tomorrow. Current blood pressure remains above target. We should utilize a long-acting nitrate and because of diabetes he should also be on an BERNA inhibitor or angiotensin receptor satish plus his beta-satish. Not sure why propranolol is his beta- satish but we certainly can continue that at this time. He should also remain on low-dose aspirin and high intensity statin therapy with rosuvastatin plus Zetia. (2) HTN (hypertension): Blood pressure remains elevated. Previously on propranolol only which is on the surface insufficient given his cardiac disease. However, he does follow with Dr. Serrato and I will review Dr. Serrato's last note to see if the patient has had problems with a more robust regimen. 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 Tolerating rosuvastatin plus Zetia. He should continue. History of Present Illness Reason for Consultation: Elevated troponin, chest pain Attending Physician: Darnell Daniels MD History of Present Illness 79-year-old gentleman with a history of diabetes, hypertension, dyslipidemia, v ascular dementia with prior stroke, and complex cardiac history including CO in 2003 treated with PCI of the mid and distal LAD at [facility]. Taxis drug-eluting stents were utilized. In January 2024 he presented with chest pain and abnormal stress test. Underwent cardiac catheterization revealing severe left main and proximal LAD disease. He was transferred to [facility] where he underwent high risk PCI. A 3.5 x 38 [place] drug-eluting stent was implanted in the left main and proximal LAD extending from the ostium of the left main and overlapped with the mid LAD stent. Left main segment was postdilated to 4.5 mm. He was subsequently discharged. Patient presented with chest discomfort which he described as pressure radiating across his chest beginning at around 2:30 AM and at 3:30 AM he requested transportation to the emergency department as symptoms had not resolved. These were 6 out of 10. He also then developed bilateral shoulder pain. On arrival here his EKG showed normal sinus rhythm with first-degree AV block and no acute ischemic changes. Initial troponin was normal with the second 1 being modestly elevated. We have not yet received a third troponin. I evaluated the patient in the emergency department at which time he had no significant chest discomfort. Patient admits to some difficulty with memory. He is reported to have vascular dementia. Surprisingly, he could give me the years which she had cardiac events. He tells me that his heart attack in 2003 felt different than his current discomfort. He stated "it was on the right side of my chest and I kept thinking this cannot be my heart". He remembers being flown to [facility] where the doctor told him he was going to be much better after the cath. He then stated "and I felt better than I had for many years and this continued for many years afterward). He denies shortness of breath, syncope, near syncope, orthopnea, PND, racing heartbeat, palpitations, or edema. He voices no other complaints or concerns at this time. He is hungry. Cardiac catheterization and PCI January 2024: Left main-60% LAD-ostial 95% Mid and distal LAD stents patent. Apical 80% stenosis after the distal stent. LCx-ostial 30% RCA-30% PCI at [facility]: 3.5 x 38 mm [place] drug-eluting stent extending from the ostium of the left main and overlapped with the proximal portion of the mid LAD stent. Postdilatation of the left main as well as at the ostium of the LAD. Good angiographic outcome without compromise of the circumflex. Allergies Allergy/AdvReac Type Severity Reaction Status Date / Time No Known Allergies Allergy Verified 12/13/24 10:13 Home Medications Medication Instructions Recorded Confirmed Type lancets #100 ea 10/12/20 12/13/24 Rx nitroglycerin 0.4 mg sublingual 0.4 mg sublingual Q5M PRN chest 10/29/23 12/26/24 Rx tablet pain #25 tabs aspirin 81 mg tablet,delayed 81 mg PO QAM 11/11/23 12/26/24 History release ezetimibe 10 mg tablet 10 mg PO DAILY #90 tabs 01/18/24 12/26/24 Rx metformin 500 mg tablet,extended 1,000 mg (2 x 500 mg) PO BID #360 01/18/24 12/26/24 Rx release 24 hr tabs cyanocobalamin (vitamin B-12) 1,000 mcg PO DAILY #30 caps 03/22/24 12/26/24 Rx 1,000 mcg capsule rosuvastatin 40 mg tablet 40 mg PO DAILY #90 tabs 04/13/24 12/26/24 Rx donepezil 5 mg tablet (Aricept) 5 mg PO DAILY #30 tabs 07/15/24 12/26/24 Rx insulin aspart U-100 100 unit/mL See Rx Instructions .Route 07/20/24 12/26/24 Rx (3 mL) subcutaneous pen .COMPLEX #15 mL blood sugar diagnostic (OneTouch #200 ea 08/01/24 12/13/24 Rx Verio test strips) lancets 33 gauge #200 ea 08/01/24 12/13/24 Rx melatonin 3 mg capsule 3 mg PO HS PRN sleep #30 caps 08/09/24 12/26/24 Rx propranolol 80 mg capsule,24 80 mg PO DAILY #90 caps 10/10/24 12/26/24 Rx hr,extended release pen needle, diabetic 32 gauge x #400 ea 11/17/24 12/13/24 Rx 5/32" (Comfort EZ Pen [place]) memantine 10 mg tablet 10 mg PO BID #60 tabs 12/14/24 12/26/24 Rx insulin glargine 100 unit/mL (3 20 unit subcut HS 12/26/24 12/26/24 History mL) subcutaneous pen (Lantus Solostar U-100 Insulin) Patient History Medical History Status post insertion of drug-eluting stent into left anterior descending (LAD) artery Dysarthria Uncontrolled type 2 diabetes mellitus with hyperglycemia, with long-term current use of insulin Depression CAD (coronary artery disease) Memory deficits Diabetes type 2, controlled Tremor Hypertensive urgency Hx of non-ST elevation myocardial infarction (NSTEMI) Surgical History S/P tonsillectomy and adenoidectomy Hx of cataract surgery Family History Mother , age 91 Stroke CHF (congestive heart failure) Father , age 86 with stroke Stroke Prostate cancer Myocardial infarction Daughter Breast cancer Sister Psychiatric problem Other Diabetes Hypertension Denies family history of Ovarian cancer Colorectal cancer Social History Smoking Status: Never smoker Second Hand Exposure: No; Do You Dip or Chew Tobacco: No; Hx Alcohol Use: No Hx Substance Use: No Preferred Language: Kiswahili Communication Ability: Impaired Communication Ability Comment: CONFUSED/HALLUCINATING Visual Impairment: No Limitations Hearing Ability: Normal Rooming House Keeper Required: No Beliefs That Will Affect Care: None marital status: / Current Living Situation: Personal Care Facility Current Living Situation Comment: Resides at the [facility] current occupational status: retired 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 Sclera are anicteric. ENMT: Oral mucosa is pink moist and intact Neck: No JVD Respiratory: Clear to auscultation bilaterally. No wheezing, rhonchi, or rales. Cardiovascular: Regular rate and rhythm. S4 gallop. I do not appreciate any rubs or murmurs. No edema. Musculoskeletal: no cyanosis or clubbing, extremities motor strength 5/5 Neurologic: Cognition is intact. Speech is fluent. No focal deficits. Mild memory labs. No tremor. Psychiatric: A+Ox3, euthymic affect Results & Data Vital Signs (Past 12 Hours) Vital Signs Temp Pulse Pulse Resp BP BP Pulse Ox 12/26/24 11:43 58 L 20 149/79 H 95 12/26/24 10:24 75 18 160/82 H 97 12/26/24 08:00 77 18 147/86 H 94 12/26/24 07:09 82 22 140/90 94 12/26/24 06:22 75 18 189/100 H 97 12/26/24 05:11 71 18 97 12/26/24 05:11 36.9 C 71 18 184/108 H 97 12/26/24 05:11 97 12/26/24 05:11 36.9 C 71 18 184/108 H 97 12/26/24 05:09 69 O2 Del Method 12/26/24 11:43 Room Air 12/26/24 10:24 Room Air 12/26/24 08:00 12/26/24 07:09 12/26/24 06:22 Room Air 12/26/24 05:11 Room Air 12/26/24 05:11 Room Air 12/26/24 05:11 Room Air 12/26/24 05:11 Room Air 12/26/24 05:09 PG Care Time/CCT Total # of Minutes Spent Total Time Spent: 75 Total Time Spent with Patient: Total time spent is greater than 50% in coordination of care (as documented) at patient's floor/unit and/or counseling patient: Coding Level of Care Code 69044 INT INP/OBS CARE 3/75MIN Diagnoses NSTEMI (non-ST elevated myocardial infarction) I21.4 HTN (hypertension) I10 Atherogenic dyslipidemia E78.5 Time Spent (min) 75 Comment
[2024-12-26] MEDS ORDERED: LOSARTAN POTASSIUM 25 MG TAB PO ONE (15:17)
[2024-12-26] MEDS: LOSARTAN POTASSIUM 25 MG TAB PO SCH (15:58)
[2024-12-26 16:59] LABS: ANTI-Xa, UFH(UnfractionatedHep 0.76 IU/ml (0.3-0.7)
[2024-12-26] MEDS: LANTUS PER UNIT CHARGE SQ SCH (21:48)
[2024-12-26] MEDS: MELATONIN 3 MG TAB PO PRN (23:33)
[2024-12-27 00:16] LABS: ANTI-Xa, UFH(UnfractionatedHep 0.49 IU/ml (0.3-0.7)
[2024-12-27] MEDS: ACETAMINOPHEN 325 MG TAB PO PRN (03:39)
[2024-12-27 06:04] LABS: Eosinophils # (auto) 0.24 K/uL (0.00-0.50); Eosinophils % (auto) 2.4 %; Hematocrit (blood only) 43.1 % (42.0-52.0); Hemoglobin 15.2 g/dl (14.0-18.0); Immature Granulocytes # (auto) 0.03 K/uL (0.01-0.20); Immature Granulocytes % (auto) 0.3 %; Lymphocytes # (auto) 1.95 K/uL (1.20-3.40); Lymphocytes % (auto) 19.2 %; Mean Corpuscular Hemoglobin 29.2 pg (25.0-34.0); Mean Corpuscular Hgb Conc 35.3 g/dL (32.0-36.0); Mean Corpuscular Volume 82.9 fL (80.0-100.0); Mean Platelet Volume 10.5 fL (9.4-12.4); Monocytes # (auto) 0.88 K/uL (0.11-0.59); Monocytes % (auto) 8.7 %; Neutrophils # (auto) 6.97 K/uL (1.40-6.50); Neutrophils % (auto) 68.4 %; Platelet Count 231 K/uL (130-400); RDW Coefficient of Variation 11.7 % (11.5-14.5); RDW Standard Deviation 35.3 fL (36.4-46.3); White Blood Count 10.17 K/ul (4.8-10.8)
[2024-12-27 06:29] LABS: Albumin Globulin Ratio 1.6 (0.9-2); Albumin Level 3.6 gm/dl (3.4-5.0); BUN Creatinine Ratio 13.3 (10-20); Bilirubin,Total 0.7 mg/dl (0.2-1.0); Calcium 8.6 mg/dl (8.6-10.3); Chol HDL Ratio 2.2 (0-5); Creatinine Clr Calc Pharmacy 78.6 ml/min; Globulin 2.2 gm/dl (2.5-4.0); Magnesium 1.7 mg/dl (1.7-2.4); Potassium 3.9 mmol/L (3.5-5.1); Total Protein 5.8 gm/dl (6.0-8.3)
[2024-12-27 06:35] LABS: ANTI-Xa, UFH(UnfractionatedHep 0.45 IU/ml (0.3-0.7)
[2024-12-27] MEDS: ASPIRIN 81 MG ECTAB PO SCH (07:54)
[2024-12-27] MEDS ORDERED: ROSUVASTATIN CALCIUM 20 MG TAB PO SCH (09:00)
--- NOTE | 2024-12-27 11:16 | Pre Anesthesia Assessment ---
Date of Service December 27, 2024 Pre Sedation Assessment Vital Signs Temp Pulse Pulse Resp BP BP Pulse Ox 12/27/24 09:44 93 H 18 157/100 H 96 12/27/24 09:41 93 H 12/27/24 07:31 36.3 C L 93 H 18 138/78 96 12/27/24 06:38 158/83 H 12/27/24 03:21 36.5 C 98 H 16 157/85 H 95 12/26/24 23:58 36.8 C 98 H 18 175/97 H 93 12/26/24 21:44 105 H 12/26/24 19:51 36.7 C 78 17 148/80 H 95 12/26/24 16:37 85 12/26/24 15:46 36.4 C L 80 20 187/94 H 95 12/26/24 14:34 36.4 C L 82 18 174/91 H 98 12/26/24 11:43 58 L 20 149/79 H 95 O2 Del Method 12/27/24 09:44 Room Air 12/27/24 09:41 12/27/24 07:31 Room Air 12/27/24 06:38 12/27/24 03:21 Room Air 12/26/24 23:58 Room Air 12/26/24 21:44 12/26/24 19:51 Room Air 12/26/24 16:37 12/26/24 15:46 Room Air 12/26/24 14:34 Room Air 12/26/24 11:43 Room Air Cardiovascular RRR, no murmur, no edema Respiratory normal respiratory effort, lungs clear to auscultation Pre-Sedation Airway Assessment Smoking Status: Never smoker Hx Sleep Apnea: No Hx Difficult Intubation: No Short, Thick Neck: No Thyromental Distance: > or= 3.5 Finger Breadths Oral Cavity: + WNL Mallampati Class: III ASA: ASA3 NPO Status Date of Last Intake of Fluids: 12/27/24 Time of Last Intake of Fluids: 07:00 Date of Last Intake of Solid Food: 12/26/24 Time of Last Intake of Solid Foods: 18:00 Notes The planned sedation has been discussed with the patient. Informed Consent was obtained. I have identified the patient, determined the appropriateness of se dation and have assessed the patient immediately prior to the procedure. All medicine(s) and interventions are by my order.
[2024-12-27] MEDS: NITROGLYCERIN/D5W 100MCG/ML 20ML SYR ONE (11:30)
[2024-12-27] MEDS: niCARdipine 2,000 MCG/20 ML SYR ONE (11:30)
[2024-12-27] MEDS: MIDAZOLAM HCL 1 MG/ML 2ML VIAL ONE (12:03)
[2024-12-27] MEDS: fentaNYL citrate PF 100 MCG/2 ML VIAL ONE (12:03)
[2024-12-27] MEDS: OPTIRAY 350 ONE (12:03)
[2024-12-27] MEDS: HEPARIN (PORCINE) 1000 UNIT/ML 10 ML (CATH LAB USE ONLY) ONE (12:03)
--- NOTE | 2024-12-27 12:09 | Post Anesthesia Assessment ---
Date of Service December 27, 2024 Post Sedation Assessment Vital Signs Temp Pulse Pulse Resp BP BP Pulse Ox 12/27/24 09:44 93 H 18 157/100 H 96 12/27/24 09:41 93 H 12/27/24 07:31 36.3 C L 93 H 18 138/78 96 12/27/24 06:38 158/83 H 12/27/24 03:21 36.5 C 98 H 16 157/85 H 95 12/26/24 23:58 36.8 C 98 H 18 175/97 H 93 12/26/24 21:44 105 H 12/26/24 19:51 36.7 C 78 17 148/80 H 95 12/26/24 16:37 85 12/26/24 15:46 36.4 C L 80 20 187/94 H 95 12/26/24 14:34 36.4 C L 82 18 174/91 H 98 O2 Del Method 12/27/24 09:44 Room Air 12/27/24 09:41 12/27/24 07:31 Room Air 12/27/24 06:38 12/27/24 03:21 Room Air 12/26/24 23:58 Room Air 12/26/24 21:44 12/26/24 19:51 Room Air 12/26/24 16:37 12/26/24 15:46 Room Air 12/26/24 14:34 Room Air Discharge Sedation Level of Care: Fast Track Phase II Post Sedation Plan On clinical assessment, the patient appears to have tolerated the sedation without complications. Patient is recovering as anticipated. Patient will continue to be monitored by nursing and may be discharged when sedation discharge criteria are met per below protocol. Upon Completions of procedure up to 15 minutes continue every 5 minute vital signs and the P.A.R. score; then discharge to a Phase I or Fast Track to Phase II per the following guidelines: * Discharge Patient to appropriate Phase II area if PAR is 8 or greater or return to pre- procedure baseline. The post - procedure orders will be as directed. * If PAR score is less than 8 or not return to pre-procedure baseline then patient will follow Phase I monitoring till PAR is reached for Phase II. The Phase I may be done in procedure room or may call to secure a Phase I area. * If naloxone or flumazenil are used for reversal, hold in Phase I for continued monitoring from when last reversal dose was given for a minimum of 60 minutes or longer pending the nurse and/or physician discretion of patient condition before discharge to Phase II. Please call the Sedation Physician to re-evaluate and complete post-note for discharge to Phase II area. Do NOT discharge from procedure sedation or Phase 1 until post- sedation evaluation note is complete by procedure /sedation MD Sedation Discharge Instructions to be given to the patient at discharge to home. [facility] Procedure Codes (Charges) Indication for Procedure Indication for procedure: nstemi CAD Sedation/Anesthesia Procedure 1: Sedation/Anesthesia: 86417 Mod Sedation by the same physician;Init15 Min Child Age 5 & Up (Initial 15 minutes, start time 1143) Total Sedation Time (minutes): 20 Procedure 2: Sedation/Anesthesia: 20474 Mod Sedation by the same physician; Ea [id number] Minutes (Additional 5 minutes, end time 1203) Total Sedation Time (minutes): 20
--- NOTE | 2024-12-27 18:55 | Cardiac Catheterization ---
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 Cardiac Status Clinical evaluation leading to the procedure CAD Presenation: Non STEMI Anginal Classification: CCS IV Heart Failure: No Cardiogenic Shock within 24 Hours: No Cardiac Arrest within 24 Hours: No Imaging Studies Past 6 Months: No Stress Studies Past 6 Months: No Coronary Anatomy Dominant: Right Left Main (% Stenosis): Normal LAD (% Stenosis): Mid (80% in-stent restenosis then focal 40% after stent) and Distal (80% focal after stent) D1 (% Stenosis): Ostial (99%) D2 (% Stenosis): Ostial (99%) D3 (% Stenosis): Ostial (99%) Circumflex (% Stenosis): Ostial (Ostial to proximal 30 to 40%) OM1 (% Stenosis): Mid (40%) RCA (% Stenosis): Proximal (Less than 30%), Mid (Diffuse 30%) and Distal R PDA (% Stenosis): Ostial (30%) R PL1 (% Stenosis): Ostial (30%) Diagnostic Physicians Name: Valentin Doran MD, PhD Closure Device Percutaneous Entry Location: Radial Closure Device: Radial Band Recommendations: Medical Therapy and/or Counseling PCI Indication: PCI for high risk Non-TARAH Cardiac Cath Procedure Full Procedure Date December 27, 2024 Pre-Procedure Diagnosis Pre-Procedure Diagnosis: Non STEMI AUC Score AUC Score: 7 Post-Procedure Diagnosis Post-Procedure Diagnosis: Severe CAD Procedure(s) Performed Procedure(s) Performed: Coronary Angiography Syrup Maker Valentin Doran MD, PhD Estimated Blood Loss Estimated Blood Loss: 5 cc Medication(s) Medication(s): Fentanyl, Heparin, Lidocaine 1%, Nicardipine, Nitroglycerin and Versed Summary of Findings Brief description: Patient brought to the cardiac catheterization suite where he was shaved and prepped in a sterile fashion. Sedated using IV Versed and fentanyl. Soft tissues of the right wrist were anesthetized using 2 mL of 1% Xylocaine. The right radial artery was accessed with a modified Seldinger technique and a 6 [place] radial artery glide sheath was placed. Patient was provided anticoagulation with IV heparin and antispasmodics including nicardipine and nitroglycerin. All catheters were advanced and exchanged over a 0.035 J-tip wire. Left coronary angiography in orthogonal views with a 5 [place] 4 diagnostic catheter. Right coronary angiography in orthogonal views a 5 [place] 4 diagnostic catheter. Diagnostic catheters were removed. Radial artery sheath was removed. Hemostasis was obtained using the TR band. Patient remained hemodynamically stable and asymptomatic. He was returned to the recovery area. This ended the case. Coronary angiography findings: LMT and LAD-there is a stent extending from the ostium to the ostium of the LAD. The stent train continues throughout the LAD in the proximal and mid portions. There is no in-stent restenosis in the left main. There is mild in-stent restenosis of less than 20% in the mid LAD stent train. After the stent train there is up to 40% focal narrowing. LAD provides a large septal, small D1, small D2, and a small to medium D3. Each of these vessels have ostial 99% stenosis. There is a single stent in the distal LAD which has mild in-stent restenosis of 20%. Then, at its distal edge there is an 80% stenosis. This is a small caliber vessel and is unchanged from prior catheterization. LCx-ostial to proximal 30 to 40% stenosis. The vessel continues in the AV groove where it is essentially a large multi branching OM1/left-PLB. There is no more than 40% stenosis. OME-fdoog-[id number] and dominant. Proximal mild less than 30% stenosis. Mid diffuse mild less than 30% stenosis. Distal vessel without disease. Bifurcates into a large PDA and a large branching posterolateral. These each have ostial up to 30% stenosis and scattered luminal irregularities. Summary: 1. Prior stents are widely patent. 2. Severe disease is noted in the branch vessels of the LAD as well as in the apical segment of the LAD. These vessels are unchanged from prior and too small for PCI. 3. I recommend uptitrating the patient's antianginal regimen. If blood pressure will not tolerate additional vasoactive medications I would consider Ranexa beginning at 500 mg p.o. twice daily. 4. Continue guideline directed medical therapy for secondary prevention of coronary disease including aspirin 81 mg daily, rosuvastatin 40 mg daily, beta- satish per primary parole board member, plus or minus angiotensin receptor satish. Hemodynamics Rest Ao:: 63/40 mmHg Final Ao: 113/57 mm rangel LV: Not performed Recommendations Recommendations: Medical Therapy and/or Counseling Radiation Exposure (mGy) 600 mGy, fluoroscopy time 1.1 minutes Contrast (mls) 65 Anesthesia 1 mg Versed, 25 mcg fentanyl IV. Start time 1143, end time 1203 Procedural Complication(s) None Disposition Combat Systems Officer Holding/Recovery I attest to the content of the Intraoperative Record and any orders documented therein. Any exceptions are noted below. [facility] Card Cath Procedure Codes Cardiac Catheterization Procedure 1: Cardiovascular Cath Procedures: 71381 Coronaries Moderate Sedation Procedure 1: Sedation/Anesthesia: 30926 Mod Sedation by the same physician;Init15 Min Child Age 5 & Up (Initial 15 minutes, start time 1143) Procedure 2: Sedation/Anesthesia: 93905 Mod Sedation by the same physician; Ea [id number] Minutes (Additional 5 minutes, end time 1203) PG Care Time/CCT Total # of Minutes Spent Total Time Spent with Patient: Total time spent is greater than 50% in coordination of care (as documented) at patient's floor/unit and/or counseling patient:
[2024-12-27 19:40] VITALS: RESP 18
--- NOTE | 2024-12-27 20:51 | Hospitalist Progress Note ---
Date of Service December 27, 2024 Assessment & Plan (1) NSTEMI (non-ST elevated myocardial infarction): (2) HTN (hypertension): (3) Antiplatelet or antithrombotic long-term use: (4) First degree heart block by electrocardiogram: Plan The patient is a 79-year-old male with a past medical history including hypertension, history of stroke, B12 deficiency, vitamin D deficiency, cognitive impairment, BPH with LUTS, vascular dementia, sleep disturbances, history of nephrolithiasis, long-term use of aspirin, hyperlipidemia, and diabetes mellitus.The patient reports that he went to bed at about 10:30 PM last evening, in his usual time, after having a normal day yesterday. He noted, and he wakes up in the middle of the night, and fortunately woke up around 230 this morning, and noted substernal chest pressure across his chest. He has had this before, but this time was more intense and lasted longer. At 330, with the persistence of the symptoms, he called EMS, who administered 4 baby aspirin and was brought to the ED for assessment. He reports that since has been in emerg ency department he has developed bilateral shoulder discomfort, which is again new for him. He has no radiation into his arms and has no weakness in legs. He denies any recent illnesses or exposures. In particular denies any symptoms of the flu. He has no associated nausea or vomiting. He reports that he gets his medications from the nurses at his living facility 4 times daily, and as far as he knows, received all his evening medications yesterday. He reports that his pain is presently 6/10. Unchanged from when it first began. #NSTEMI/first-degree heart block/hypertension- The patient will be admitted to telemetry for serial cardiac enzymes, serial EKG's, cardiac rhythm monitoring and a 2-D echocardiogram with Dopplers. Initial troponin 23.4, with follow-up ordered Status post aspirin 3 and 24 mg from the EMS Placed on Nitropaste 1 inch to anterior chest wall every 6 hours now Nitroglycerin sublingual 0.5 mg. x 3 per protocol Chest pain presently 6/10, actively treating now with First-degree heart block limits use of beta-satish at this time, hold propranolol Consult cardiology #Diabetes mellitus- Continue glargine and SSI per regimen as noted hold metformin Check hemoglobin A1c #Hyperlipidemia- Continue simvastatin and Zetia Check a fasting lipid panel #Mild cognitive impairment- Continue donepezil and memantine Admission and Anticipated Discharge Date Admission Date: December 26, 2024 Subjective "I am ok. No complaints now. I am waiting for the heart catheterization." Review of Systems Constitutional: Negative for antecedent/coincident fevers, chills, diaphoresis, cough, wheeze, sore throat, hemoptysis, chest pains, palpitations, pleurisy, nausea, vomiting, diarrhea, abdominal pain, pelvic pain, hematemesis, hematochezia, melena, hematu liliane, dysuria, frequency, urgency, headaches, dizziness, lightheadedness, visual changes, hearing changes, weakness, falls, syncope, trauma, travel history, sick contacts, or food/drug ingestions novel or new. All other review of systems are reported as negative by the patient on 12/27/2024. Physical Exam Constitutional: General: comfortable, coherent, cooperative. Wide awake and alert. Not confused, lethargic, or obtunded. Patient speaks in complete, fluent, and articulate sentences without pause, interruption, cough, or wheeze. HEENT: NC/AT. EOMI, PERRL. No nystagmus, gaze paresis, anisocoria, miosis, mydriasis, hyphema, chemosis, scleral icterus, conjunctivitis, or pterygium. No otorrhea, no rhinorrhea. No pharyngeal discharge or erythema. Neck: Supple, no stridor, bruit, goiter, or hepatojugular reflux. Jugular venous pressure is estimated to be 8 cm above the sternal angle of Kana, which is typically 5 cm above the level of the right atrium. Hence, there is no jugular venous distention noted on discharge exam 12/27/2024. Lymphatics: No pre-post auricular, anterior/posterior cervical, supraclavicular/infraclavicular, axillary, epitrochlear, or inguinal adenopathy. Chest: Symmetric rise and fall with respirations. Non-tender to palpation. Heart: RRR, S1 and S2 noted. No S3 or S4 summation gallop noted. No tripartite friction rub. Grade II/ early systolic murmur @ LLSB without radiation to the carotids, axilla, or back, and which remains invariant in reg ards to the respiratory cycle. Lungs: Clear to auscultation and percussion. No audible expiratory wheeze, egophony, pectoriloquy, increase in tactile fremitus, or flatness/dullness to percussion at the bases. Abdomen: Soft, non-tender, non-distended. No rebound, guarding, Ortega's sign, or organomegaly. Bowel sounds auscultated in all 4 quadrants. Extremities: No clubbing, cyanosis, or edema. 2+ pedal pulses bilaterally. Skin: No decubitus ulcer, exanthem, or enanthem. Neurology: Alert and oriented in regards to person, place, time, and situation. DTR+ and symmetric. 5/5 motor strength in all 4 extremities, both proximally and distally. No myoclonus, tremors, or tics. Urology: No kent catheter. No urethral discharge. Psychiatry: Appropriate affect. Smiles occasionally. No homicidal/suicidal ideation. Results & Data Results & Data Vital Signs (Past 12 Hours) Vital Signs Temp Pulse Pulse Resp BP Pulse Ox O2 Del Method 12/27/24 19:39 36.7 C 78 18 172/85 H 95 Room Air 12/27/24 17:41 36.8 C 82 16 148/78 H 94 Room Air 12/27/24 16:41 36.6 C 84 18 127/73 95 Room Air 12/27/24 15:41 36.8 C 87 16 111/65 95 Room Air 12/27/24 15:40 104 H 12/27/24 14:41 36.8 C 86 18 116/70 94 Room Air 12/27/24 13:41 36.8 C 98 H 16 137/76 92 Room Air 12/27/24 13:41 36.8 C 98 H 18 138/76 94 Room Air 12/27/24 13:11 36.6 C 96 H 18 122/77 95 Room Air 12/27/24 12:41 36.3 C L 79 18 128/73 95 Room Air 12/27/24 12:30 73 16 117/67 94 Room Air 12/27/24 12:15 76 16 132/66 99 Room Air 12/27/24 09:44 93 H 18 157/100 H 96 Room Air 12/27/24 09:41 93 H PG Care Time/CCT Total # of Minutes Spent Total Time Spent with Patient: Total time spent is greater than 50% in coordination of care (as documented) at patient's floor/unit and/or counseling patient: Coding Level of Care Code 28971 SUB INP/OBS CARE 2MIN Diagnoses NSTEMI (non-ST elevated myocardial infarction) I21.4 HTN (hypertension) I10 Antiplatelet or antithrombotic long-term use Z79.02 First degree heart block by electrocardiogram I44.0
[2024-12-28 06:30] LABS: Basophils # (auto) 0.12 K/uL (0.00-0.20); Basophils % (auto) 1.7 %; Eosinophils # (auto) 0.46 K/uL (0.00-0.50); Eosinophils % (auto) 6.4 %; Hematocrit (blood only) 43.5 % (42.0-52.0); Hemoglobin 14.9 g/dl (14.0-18.0); Immature Granulocytes # (auto) 0.02 K/uL (0.01-0.20); Immature Granulocytes % (auto) 0.3 %; Lymphocytes # (auto) 2.05 K/uL (1.20-3.40); Lymphocytes % (auto) 28.4 %; Mean Corpuscular Hemoglobin 28.2 pg (25.0-34.0); Mean Corpuscular Hgb Conc 34.3 g/dL (32.0-36.0); Mean Corpuscular Volume 82.4 fL (80.0-100.0); Mean Platelet Volume 9.9 fL (9.4-12.4); Monocytes # (auto) 0.66 K/uL (0.11-0.59); Monocytes % (auto) 9.1 %; Neutrophils # (auto) 3.92 K/uL (1.40-6.50); Neutrophils % (auto) 54.1 %; Platelet Count 232 K/uL (130-400); RDW Standard Deviation 36.3 fL (36.4-46.3); Red Blood Count 5.28 M/uL (4.70-6.10); White Blood Count 7.23 K/ul (4.8-10.8)
[2024-12-28 06:51] LABS: ANTI-Xa, UFH(UnfractionatedHep < 0.10 IU/ml (0.3-0.7)
[2024-12-28 06:53] LABS: Albumin Globulin Ratio 1.5 (0.9-2); Albumin Level 3.4 gm/dl (3.4-5.0); BUN Creatinine Ratio 17.3 (10-20); Bilirubin,Total 0.7 mg/dl (0.2-1.0); Calcium 8.8 mg/dl (8.6-10.3); Creatinine Clr Calc Pharmacy 72.7 ml/min; Globulin 2.3 gm/dl (2.5-4.0); Magnesium 1.9 mg/dl (1.7-2.4); Potassium 4.1 mmol/L (3.5-5.1); Total Protein 5.7 gm/dl (6.0-8.3)
[2024-12-28 07:32] VITALS: TEMP 97.3; O2SAT 94
--- NOTE | 2024-12-28 09:53 | Discharge Summary ---
Discharge Summary Date of Service December 28, 2024 Principal Dx & Hospital Course #1 = Principal Diagnosis (1) NSTEMI (non-ST elevated myocardial infarction): (2) HTN (hypertension): (3) Antiplatelet or antithrombotic long-term use: (4) First degree heart block by electrocardiogram: Plan 79 years old, right-hand dominant male with a past medical history of FULL CODE @ [place] @ [facility], overweight with BMI 25.1 (height 175.3 cm; weight 77.0 kg), vitamin B12 deficiency, vitamin D deficiency, CVD s/p CVA with subsequent neurologic sequelae of cognitive impairment mitigated with donepezil 5mg PO daily and memantine 10mg PO bid, vascular dementia now on ASA 81mg PO daily, pravastatin 40mg PO daily, and zetia 10mg PO daily, poor sleep hygiene, BPH with LUTS, history of nephrolithiasis, insulin-dependent diabetes mellitus with HbA1c 8.3% (09/01/2024, 9:58am) on U- 100 insulin 3 units SQ tid with humalog insulin sliding scale tid before meals, lantus 20 units SQ qhs, and metformin 1000mg PO bid,who was wakened from sleep on 12/26/2024, 2:30am with substernal chest pressure, that did not relent on 12/26/2024, 3:30am, and hence, patient called EMS, which arrived shortly at the patient's home and administered ASA 81mg x 4 tablets PO x 1 dose, and subsequently transported patient to [facility]. Patient was subsequently admitted to the inpatient hospitalist service @ [facility] on 12/26/2024 with the following diagnosis: 1. Acute NSTEMI with troponin-I #1 23.4 pg/mL (12/26/2024, 5:11am), troponin-I #2 125.6 pg/mL (12/26/2024, 7:15am), troponin-I #3 11,041.1 pg/mL (12/26/2024, 3:14pm), troponin-I #4 11,307.0 pg/mL (12/26/2024, 9:18pm), troponin-I #5 9,658.1 pg/mL (12/26/2024, 11:30pm), and troponin-I #6 5,290.6 pg/mL (12/27/2024, 5:27am). The following medical issues were addressed while the patient remained in [facility] from 12/26/2024 to 12/28/2024: 1. Acute NSTEMI with troponin-I #1 23.4 pg/mL (12/26/2024, 5:11am), troponin-I #2 125.6 pg/mL (12/26/2024, 7:15am), troponin-I #3 11,041.1 pg/mL (12/26/2024, 3:14pm), troponin-I #4 11,307.0 pg/mL (12/26/2024, 9:18pm), troponin-I #5 9,658.1 pg/mL (12/26/2024, 11:30pm), and troponin-I #6 5,290.6 pg/mL (12/27/2024, 5:27am). Patient underwent EKG #1 (12/26/2024, 5:06am): NSR @ 67, VT 234 with no dropped QRS complexes, consistent with 1st degree AV block, QTC 416, q in V1, V2; no acute ST depressions/elevations (by my review). Patient underwent EKG #2 (12/26/2024, 7:20am): NSR @ 83, VT 228 with no dropped QRS complexes, consistent with 1st degree AV block, QTC 437, q in V1, V2; no acute ST depressions/elevations (by my review). Patient subsequently underwent fasting lipid panel testing (12/27/2024, 5:27am): total cholesterol 74, LDL 25, HDL 34, triglyceride 77. Patient subsequently underwent cardiac catheterization via right radial artery approach (12/27/2024, 12:10pm, Interventional CARDS Dr. Valentin Doran): Coronary Anatomy Dominant: Right Left Main (% Stenosis): Normal LAD (% Stenosis): Mid (80% in-stent restenosis then focal 40% after stent) and Distal (80% focal after stent) D1 (% Stenosis): Ostial (99%) D2 (% Stenosis): Ostial (99%) D3 (% Stenosis): Ostial (99%) Circumflex (% Stenosis): Ostial (Ostial to proximal 30 to 40%) OM1 (% Stenosis): Mid (40%) RCA (% Stenosis): Proximal (Less than 30%), Mid (Diffuse 30%) and Distal R PDA (% Stenosis): Ostial (30%) R PL1 (% Stenosis): Ostial (30%) Diagnostic Physicians Name: Valentin Doran MD, PhD Closure Device Percutaneous Entry Location: Radial Closure Device: Radial Band Recommendations: Medical Therapy and/or Counseling PCI Indication: PCI for high risk Non-TARAH Patient subsequently underwent TTE (12/27/2024, 1:10pm, Interventional CARDS Dr. Valentin Doran): 1. Compared to 02/17/2024 stress ECHO, there is no significant change. 2. Normal LV size and function with LVEF 60-65%. 3. Moderate LVH. 4. LV grade I diastolic dysfunction. 5. No segmental wall motion abnormalities. 6. Normal RV size and function. 7. Normal LA/RA sizes. 8. No significant valvular pathology. 9. Mild tricuspid regurgitation. 10.Aortic root normal size. Ascending aorta normal dimension. 11.No pericardial effusion. (as per Interventional CARDS Dr. Valentin Doran). Patient was monitored on telemetry while in [facility] from 12/26/2024 to 12/28/2024, with no arrhythmias recorded/reported. Patient received SHIVA (morphine, O2, NTG, ASA), ezetimibe 10mg PO daily, rosuvastatin 40mg PO daily, losartan 25mg PO qam, and heparin infusion while in [facility]. Of these medications, patient will continue with NTG 0.4mg SL q5 minutes prn chest pain (max of 3 tablets in 15 minutes), ASA 81mg PO daily, ezetimibe 10mg PO daily, rosuvastatin 40mg PO daily, losartan 25mg PO qam. Patient will not continue with morphine 2mg IVq30 minutes prn pain, O2 2 liters/minute via nasal cannula, or heparin infusion. In addition, patient's [id number] received an electronic prescription for losartan 25mg PO qam, #30 tablets, no refills, prior to hospital discharge [facility] 12/28/20[facility]. In addition, patient will resume his home-scheduled propanolol 80mg PO daily on hospital discharge back to [facility] on 12/28/2024. Patient was also advised to hold OFF his home-scheduled metformin 1000mg PO bid for 72 hours from cardiac catheterization via right radial artery approach (12/27/2024, 12:10pm, Interventional CARDS Dr. Valentin Doran), in order to mitigate potential development of post-contrast nephropathy, which was not present while patient remained in [facility]: cf., normal creatinine 0.89 mg/dL (12/26/2024, 5:11am). cf., normal creatinine 0.75 mg/dL (12/27/2024, 5:27am). cf., normal creatinine 0.81 mg/dL (12/28/2024, 6:09am). Patient reports that he will comply with the recommendation above, and will resume taking his home-scheduled metformin 1000mg PO bid on 12/30/2024, 12:11pm. Discharge time, 35 minutes. Of this time period, 18 minutes were spent in coordinating patient's discharge on 12/28/2024. Admission HPI Per Admitting Provider The patient is a 79-year-old male with a past medical history including hypertension, history of stroke, B12 deficiency, vitamin D deficiency, cognitive impairment, BPH with LUTS, vascular dementia, sleep disturbances, history of nephrolithiasis, long-term use of aspirin, hyperlipidemia, and diabetes mellitus.The patient reports that he went to bed at about 10:30 PM last evening, in his usual time, after having a normal day yesterday. He noted, and he wakes up in the middle of the night, and fortunately woke up around 230 this morning, and noted substernal chest pressure across his chest. He has had this before, but this time was more intense and lasted longer. At 330, with the persistence of the symptoms, he called EMS, who administered 4 baby aspirin and was brought to the ED for assessment. He reports that since has been in emergency department he has developed bilateral shoulder discomfort, which is again new for him. He has no radiation into his arms and has no weakness in legs. He denies any recent illnesses or exposures. In particular denies any symptoms of the flu. He has no associated nausea or vomiting. He reports that he gets his medications from the nurses at his living facility 4 times daily, and as far as he knows, received all his evening medications yesterday. He reports that his pain is presently 6/10. Unchanged from when it first began Discharge Exam Constitutional General: comfortable, coherent, cooperative. Wide awake and alert. Not confused, lethargic, or obtunded. Patient speaks in complete, fluent, and articulate sentences without pause, interruption, cough, or wheeze. HEENT: NC/AT. EOMI, PERRL. No nystagmus, gaze paresis, anisocoria, miosis, mydriasis, hyphema, chemosis, scleral icterus, conjunctivitis, or pterygium. No otorrhea, no rhinorrhea. No pharyngeal discharge or erythema. Neck: Supple, no stridor, bruit, goiter, or hepatojugular reflux. Jugular venous pressure is estimated to be 8 cm above the sternal angle of Kana, which is typically 5 cm above the level of the right atrium. Hence, there is no jugular venous distention noted on discharge exam 12/28/2024. Lymphatics: No pre-post auricular, anterior/posterior cervical, supraclavicular/infraclavicular, axillary, epitrochlear, or inguinal adenopathy. Chest: Symmetric rise and fall with respirations. Non-tender to palpation. Heart: RRR, S1 and S2 noted. No S3 or S4 summation gallop noted. No tripartite friction rub. Grade II/ early systolic murmur @ LLSB without radiation to the carotids, axilla, or back, and which remains invariant in regards to the respiratory cycle. Lungs: Clear to auscultation and percussion. No audible expiratory wheeze, egophony, pectoriloquy, increase in tactile fremitus, or flatness/dullness to percussion at the bases. Abdomen: Soft, non-tender, non-distended. No rebound, guarding, Ortega's sign, or organomegaly. Bowel sounds auscultated in all 4 quadrants. Extremities: No clubbing, cyanosis, or edema. 2+ pedal pulses bilaterally. Right radial artery catheterization site without ecchymosis or hematoma on discharge exam 12/28/2024. Skin: No decubitus ulcer, exanthem, or enanthem. Neurology: Alert and oriented in regards to person, place, time, and situation. DTR+ and symmetric. 5/5 motor strength in all 4 extremities, both proximally and distally. No myoclonus, tremors, or tics. Urology: No kent catheter. No urethral discharge. Psychiatry: Appropriate affect. Smiles occasionally. No homicidal/suicidal ideation. Discharge Plan Discharge Items Patient Disposition: Home - Self-Care Reason For Visit: CHEST PAIN WORKUP Discharge Diagnosis: Acute NSTEMI Activity: Resume your previous activity Non-emergency contact: Primary Care Provider Call non-emergency contact if: you have any medication questions Follow-up/Referrals: Idalia North DO [Primary Care Provider] - 01/03/25 3:00 pm (Hospital follow up scheduled January 03 at 3:00) Diet: Heart Healthy, Low Fat and Low Sodium (2gm) Addtl Attending Provider Instructions: See your CARDS Dr. John Serrato @ [facility] in the next 5-7 days. Call his office today, 12/28/2024, to make the appointment to see him in the next 5-7 days. Pending Studies at Discharge: No Stand-Alone Forms: My [facility] [employer], Smoking Cessation Medications and DC Order Prescriptions: New losartan 25 mg Tablet 25 mg PO QAM Qty: 30 0RF Continued nitroglycerin 0.4 mg tablet, sublingual 0.4 mg sublingual Q5M PRN (Reason: chest pain) Qty: 25 1RF Rx Instructions: until response; do not exceed 3 doses per episode ezetimibe 10 mg tablet 10 mg PO DAILY Qty: 90 3RF cyanocobalamin (vitamin B-12) 1,000 mcg capsule 1,000 mcg PO DAILY Qty: 30 3RF Rx Instructions: Take one capsule daily donepezil [Aricept] 5 mg tablet 5 mg PO DAILY Qty: 30 5RF insulin aspart U-100 100 unit/mL (3 mL) insulin pen See Rx Instructions .ROUTE .COMPLEX MDD 15 units Qty: 15 1RF Rx Instructions: Inject 3 units plus sliding scale three times a day before meals Goal BSG 110-140 Carb ratio: 1 unit per 8 grams CHO correction factor: 20 mg/dL/unit (DME) lancets 33 gauge misc See Rx Instructions .Route Qty: 200 11RF Rx Instructions: Test 4 times a day (DME) OneTouch Verio test strips Strip See Rx Instructions .ROUTE .MEDSUPPLY Qty: 200 11RF Rx Instructions: Check blood sugars 4x a day melatonin 3 mg capsule 3 mg PO HS PRN (Reason: sleep) Qty: 30 0RF propranolol 80 mg capsule,extended release 24hr 80 mg PO DAILY Qty: 90 3RF (DME) pen needle, diabetic [Comfort EZ Pen Boutte] 32 gauge x 5/32" needle See Rx Instructions .ROUTE .COMPLEX Qty: 400 3RF Dose Instruction: use one daily Rx Instructions: use 4x a day memantine 10 mg tablet 10 mg PO BID Qty: 60 11RF (DME) lancets Misc See Rx Instructions .ROUTE .MEDSUPPLY Qty: 100 3RF Rx Instructions: testing three times daily rosuvastatin 40 mg tablet 40 mg PO DAILY Qty: 90 3RF aspirin 81 mg Tablet,Delayed Release (Dr/Ec) 81 mg PO QAM insulin glargine [Lantus Solostar U-100 Insulin] 100 unit/mL (3 mL) insulin pen 20 unit subcut HS Held metformin 500 mg tablet extended release 24 hr 1,000 mg PO BID Qty: 360 3RF Hold Instructions: Resume on 12/30/24. Hold metformin 1000mg PO bid for 72 hours AFTER cardiac catheterization (12/27/2024, 6:41pm). Resume metformin 1000mg PO bid on 12/30/2024, 6:42pm. Rx Instructions: TAKE 2 TABLETS BY MOUTH TWICE DAILY Discharge Orders: Discharge Order (Routine); Ordered 12/28/24 Ordered By: Mario Mayfield Discharge Order- CHF (Routine); Ordered 12/28/24 Ordered By: Mario Mayfield Admission Data Admit Date/Time: 12/26/24 06:16 Attending Provider: Mario Mayfield Admit Provider: Darnell Daniels Primary Care Provider: Idalia North Other Providers: Darnell Daniels; Jeffry Boone Hospital Stay Data Consultations 12/26/24 06:07 ED Decision to Admit Stat 12/26/24 06:32 Consult Cardiology Stat Procedures Performed Operation Date: 12/27/24 11:00 Actual Procedures p Cineradiography w/Routine Exam - Valentin Doran MD, PhD p Cath, Coronaries ONLY (no LV) - Valentin Doran MD, PhD Diagnostic Imagining Performed 12/26/24 09:10 CL Cath Imgs for PACS use only Routine 12/27/24 06:56 CL Cath Imgs for PACS use only Routine Pending Results Patient Have Any Pending Studies at Discharge: No Discharge Instructions Given to Patient (Per Discharging Provider) See your CARDS Dr. John Serrato @ [facility] in the next 5-7 days. Call his office today, 12/28/2024, to make the appointment to see him in the next 5-7 days. Total Time Total Time Spent Total Time Spent (In Minutes): 35 minutes Coding Level of Care Code 61083 INP/OBS DISCH >30 MIN Diagnoses NSTEMI (non-ST elevated myocardial infarction) I21.4 HTN (hypertension) I10 Antiplatelet or antithrombotic long-term use Z79.02 First degree heart block by electrocardiogram I44.0
[2024-12-28 10:43] VITALS: BP 158/83; PULSE 76
[2024-12-29 06:47] LABS: Estimated Average Glucose 220 mg/dl; Hemoglobin A1C 9.3 % (4.5-5.6)
== END 2024-12-28 13:45 | disposition home or self-care (01) ==
LOC: SUATTDRO → EDINP 05:01 → ED 05:01 → SUATTDRO 06:16 → 4W 08:34
PROC: CLB.CCO (2024-12-27 11:00)

== ENCOUNTER 2024-12-28 20:29 | Observation (INO) ==
--- NOTE | 2024-12-28 20:31 | Emergency Department Note ---
Impression & Plan Chest pain, Hyperglycemia ED Provider Note HISTORY OF PRESENT ILLNESS: Patient is an 79-year-old male presenting with chest pain. Patient was just discharged from the hospital after being admitted for an NSTEMI and having a cardiac catheterization where no stents were placed. He had medication adjustments and was discharged on number of hours ago. He states that at 1700 this evening, he was not doing anything to exertional or stressful when he suddenly developed substernal chest pressure. He reports associated shortness of breath with the pain. He states the pain seemed to come and go but was becoming more persistent and intense and he decided to call 911. Patient was given aspirin and 50 mcg IV fentanyl with EMS. On arrival to the ER, he is still complaining of substernal chest pain, but rates it a 5 out of 10. He denies any nausea or vomiting. He states this feels similar to the pain he was having on presentation to the hospital for his last admission. He has a history of CAD with a stent in place. ROS: as above PHYSICAL EXAM: Constitutional: Patient appears in no acute distress. HENT: Head: Normocephalic and atraumatic. Eyes: EOMI, PERRL Mouth/Throat: Mucous membranes moist. Neck: Trachea midline. Neck supple. Cardiovascular: Tachycardic with regular rhythm. No murmurs, rubs or gallops. Intact distal pulses. Pulmonary/Chest: No respiratory distress. Breath sounds clear and equal bilaterally. No wheezes or rales. Abdominal: Abdomen soft, no tenderness, rebound or guarding. Musculoskeletal: No edema, tenderness or deformity noted. Skin: Warm and dry. No rash, erythema, pallor or cyanosis Psychiatric: Appropriate mood and affect for situation. Neurological: Alert and keenly responsive. CN II-XII grossly intact, moving all extremities equally and fully. MDM: - Vitals signs showed tachycardia - History obtained via patient. History as above. - Chronic conditions affecting care: HTN; HLD; DM-2; CAD (S/p PCI) - Differential diagnoses include, but are not limited to: Acute coronary syndrome; pulmonary embolism; dissection; tension pneumothorax; esophageal rupture; pneumonia - Order placed for continuous cardiac monitoring. At this time, monitor showed rate of 87 bpm with normal sinus rhythm, per my interpretation. - External medical records reviewed. Cardiac catheterization note dated 12/27/2024 was reviewed. Patient is noted to have severe CAD in the branch vessels in the LAD as well as in the apical segment of the LAD. They appeared stable from previous catheterization and were noted to be too small for PCI. - EKG interpreted by myself showed normal sinus rhythm. Rate 107 bpm. QT 330. No acute ischemic changes. However, noted to have significant artifact. - Laboratory workup interpreted by myself showed normal WBC; normal PT/INR; hyperglycemia (glucose 326); transaminitis (AST 81; ALT 81); elevated troponin (1044.5 - down from previous troponins); normal lipase - CXR negative for pneumonia, per my interpretation - UA negative for infection. Noted to have ketonuria and glucosuria - Patient offered pain meds in ER, but declined despite saying his chest pain is 5 out of 10. - Discussion was had with manager case about patient's case and need for admission - Hospitalist consulted for admission - [facility] ASSESSMENT AND PLAN: Diagnosis: Chest pain; hyperglycemia Plan: admit Past Med/Surg History Problem List (Updated 12/28/24 @ 23:52 by Lolita Black MD) Hyperglycemia (Acute) Chest pain (Acute) Acute non-ST elevation myocardial infarction (NSTEMI) (Acute) Chest pain (Acute) Atherogenic dyslipidemia First degree heart block by electrocardiogram NSTEMI (non-ST elevated myocardial infarction) History of stroke HTN (hypertension) (Acute) B12 deficiency Vitamin D deficiency Cognitive impairment BPH (benign prostatic hyperplasia) Vascular dementia Sleep disturbances Antiplatelet or antithrombotic long-term use History of nephrolithiasis Medical History Status post insertion of drug-eluting stent into left anterior descending (LAD) artery Dysarthria Uncontrolled type 2 diabetes mellitus with hyperglycemia, with long-term current use of insulin Depression CAD (coronary artery disease) Memory deficits Diabetes type 2, controlled Tremor Hypertensive urgency Hx of non-ST elevation myocardial infarction (NSTEMI) Surgical History S/P tonsillectomy and adenoidectomy Hx of cataract surgery Family History Mother , age 91 Stroke CHF (congestive heart failure) Father , age 86 with stroke Stroke Prostate cancer Myocardial infarction Daughter Breast cancer Sister Psychiatric problem Other Diabetes Hypertension Denies family history of Ovarian cancer Colorectal cancer Social History Smoking Status: Never smoker Second Hand Exposure: No; Do You Dip or Chew Tobacco: No; Hx Alcohol Use: No Hx Substance Use: No Preferred Language: Pashto Communication Ability: Effective Communication Ability Comment: CONFUSED/HALLUCINATING Visual Impairment: No Limitations Hearing Ability: Normal Rubber Process Hand Required: No Beliefs That Will Affect Care: None marital status: / Current Living Situation: Alone Current Living Situation Comment: Resides at the [facility] current occupational status: retired 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 Feels Safe at Home: Yes Childhood Exposure to Second-Hand Smoke: No Diet: regular Dental Care, Regularly: Yes Physical Activity Frequency: 3-4 Times per Week Seatbelt Use: always Sunscreen Use: No Assistive Devices: None Allergies Allergies Allergy/AdvReac Type Severity Reaction Status Date / Time No Known Allergies Allergy Verified 12/13/24 10:13 Home Meds Home Medications Medication Instructions Recorded Confirmed aspirin 81 mg tablet,delayed 81 mg PO QAM 11/11/23 12/28/24 release insulin glargine 100 unit/mL (3 20 unit subcut HS 12/26/24 12/28/24 mL) subcutaneous pen (Lantus Solostar U-100 Insulin) Previous Rx's Medication Instructions Recorded lancets #100 ea 10/12/20 nitroglycerin 0.4 mg sublingual 0.4 mg sublingual Q5M PRN chest 10/29/23 tablet pain #25 tabs ezetimibe 10 mg tablet 10 mg PO DAILY #90 tabs 01/18/24 metformin 500 mg tablet,extended 1,000 mg (2 x 500 mg) PO BID #360 01/18/24 release 24 hr tabs cyanocobalamin (vitamin B-12) 1,000 mcg PO DAILY #30 caps 03/22/24 1,000 mcg capsule rosuvastatin 40 mg tablet 40 mg PO DAILY #90 tabs 04/13/24 insulin aspart U-100 100 unit/mL See Rx Instructions .Route 07/20/24 (3 mL) subcutaneous pen .COMPLEX #15 mL blood sugar diagnostic (OneTouch #200 ea 08/01/24 Verio test strips) lancets 33 gauge #200 ea 08/01/24 melatonin 3 mg capsule 3 mg PO HS PRN sleep #30 caps 08/09/24 propranolol 80 mg capsule,24 80 mg PO DAILY #90 caps 10/10/24 hr,extended release pen needle, diabetic 32 gauge x #400 ea 11/17/24" (Comfort EZ Pen [place]) memantine 10 mg tablet 10 mg PO BID #60 tabs 12/14/24 donepezil 5 mg tablet (Aricept) 5 mg PO DAILY #30 tabs 12/28/24 losartan 25 mg tablet 25 mg PO QAM #30 tabs 12/28/24 Results & Data (ED) Vital Signs Vital Signs - 24 hr 12/28/24 20:35 12/28/24 20:35 12/28/24 20:41 Temperature 36.6 C 36.6 C Temperature Source Oral Oral Pulse Rate 108 H 120 H Pulse Rate [Apical] 108 H Pulse Rhythm Regular Pulse Rhythm [Apical] Regular Pulse Strength Normal Pulse Strength [Apical] Normal Respiratory Rate 18 18 Respiratory Effort / Characteristics Non-Labored Spontaneous Non-Labored Spontaneous Respiratory Depth Normal Normal Respiratory Pattern Regular Regular Blood Pressure 161/92 H Blood Pressure [Right Arm] 161/92 H Blood Pressure Mean 115 Blood Pressure Mean [Right Arm] 115 Blood Pressure Position Semi-fowlers Blood Pressure Position [Right Arm] Semi-fowlers Pulse Oximetry 96 96 Oxygen Delivery Method Room Air Room Air Oxygen Flow Rate Sepsis Recent Fever Within 48 Hours No Sepsis New/Unexplained Change in Mental Status No Sepsis Action Taken by Nursing No Action Required 12/28/24 20:56 12/28/24 20:56 12/28/24 21:00 Temperature Temperature Source Pulse Rate 108 H 104 H Pulse Rate [Apical] Pulse Rhythm Regular Pulse Rhythm [Apical] Pulse Strength Pulse Strength [Apical] Respiratory Rate 18 21 Respiratory Effort / Characteristics Respiratory Depth Respiratory Pattern Blood Pressure 145/86 H Blood Pressure [Right Arm] Blood Pressure Mean 105 Blood Pressure Mean [Right Arm] Blood Pressure Position Blood Pressure Position [Right Arm] Pulse Oximetry 93 93 93 Oxygen Delivery Method Room Air Room Air Oxygen Flow Rate 0 Sepsis Recent Fever Within 48 Hours Sepsis New/Unexplained Change in Mental Status Sepsis Action Taken by Nursing 12/28/24 21:30 12/28/24 22:00 12/28/24 22:35 Temperature Temperature Source Pulse Rate 93 H 90 87 Pulse Rate [Apical] Pulse Rhythm Pulse Rhythm [Apical] Pulse Strength Pulse Strength [Apical] Respiratory Rate 20 21 21 Respiratory Effort / Characteristics Respiratory Depth Respiratory Pattern Blood Pressure 142/88 H 142/90 H 151/83 H Blood Pressure [Right Arm] Blood Pressure Mean 95 107 105 Blood Pressure Mean [Right Arm] Blood Pressure Position Blood Pressure Position [Right Arm] Pulse Oximetry 94 95 95 Oxygen Delivery Method Oxygen Flow Rate Sepsis Recent Fever Within 48 Hours Sepsis New/Unexplained Change in Mental Status Sepsis Action Taken by Nursing Laboratory Data 12/28/24 20:45 12/28/24 20:45 Lab Results 12/28/24 12/28/24 Range/Units 20:45 22:24 WBC 6.59 (4.8-10.8) K/ul RBC 5.69 (4.70-6.10) M/uL Hgb 16.0 (14.0-18.0) g/dl Hct 46.9 (42.0-52.0) % MCV 82.4 (80.0-100.0) fL MCH 28.1 (25.0-34.0) pg MCHC 34.1 (32.0-36.0) g/dL RDW Std Deviation 36.5 (36.4-46.3) fL RDW Coeff of Leanna 12.1 (11.5-14.5) % Plt Count 255 (130-400) K/uL MPV 9.7 (9.4-12.4) fL Immature Gran % (Auto) 0.3 % Neut % (Auto) 61.8 % Lymph % (Auto) 22.9 % [place] % (Auto) 10.0 % Eos % (Auto) 3.9 % Baso % (Auto) 1.1 % Neut # (Auto) 4.07 (1.40-6.50) K/uL Lymph # (Auto) 1.51 (1.20-3.40) K/uL [place] # (Auto) 0.66 H (0.11-0.59) K/uL Eos # (Auto) 0.26 (0.00-0.50) K/uL Baso # (Auto) 0.07 (0.00-0.20) K/uL Immature Gran # (Auto) 0.02 (0.01-0.20) K/uL PT 11.6 (9.0-12.0) Seconds INR 1.1 (0.9-1.1) Sodium 135 L (136-145) mmol/L Potassium 4.3 (3.5-5.1) mmol/L Chloride 101 (98-107) mmol/L Carbon Dioxide 28 (21-32) mmol/L Anion Gap 6 (3-11) BUN 16 (6-23) mg/dl Creatinine 0.97 (0.6-1.4) mg/dl Est Cr Clr Drug Dosing 60.7 ml/min eGFR 78.92 BUN/Creatinine Ratio 16.5 (10-20) Glucose 326 H* (70-99(Fasting)) mg/dl Calcium 8.4 L (8.6-10.3) mg/dl Total Bilirubin 0.7 (0.2-1.0) mg/dl AST 81 H (13-39) U/L ALT 81 H (7-52) U/L Alkaline Phosphatase 88 (34-104) U/L Troponin I High Sens 1044.5 H* D (0-20) pg/ml Total Protein 6.7 (6.0-8.3) gm/dl Albumin 4.0 (3.4-5.0) gm/dl Globulin 2.7 (2.5-4.0) gm/dl Albumin/Globulin Ratio 1.5 (0.9-2) Lipase 25 (11-82) U/L Urine Color Yellow Urine Appearance Clear (Clear) Urine pH 5.0 (4.5-7.5) Ur Specific [place] 1.039 H (1.000-1.030) Urine Protein Negative (Negative) Urine Glucose (UA) 3+ H (Negative) Urine Ketones 1+ H (Negative) Urine Blood Negative (Negative) Urine Nitrite Negative (Negative) Urine Bilirubin Negative (Negative) Urine Urobilinogen Negative (Negative) Ur Leukocyte Esterase Negative (Negative) Imaging Data Radiologist's Impression: Chest X-Ray 12/28/24 20:30 Exam(s): XR CXR 1 VIEW EXAM: XR Chest, 1 View CLINICAL HISTORY: Reason for exam: Chest pain, nonspecific. TECHNIQUE: Frontal view of the chest. COMPARISON: No relevant prior studies available. FINDINGS: Lungs: Unremarkable. No consolidation. Pleural space: Unremarkable. No pneumothorax. Heart: Unremarkable. No cardiomegaly. Mediastinum: Unremarkable. Normal mediastinal contour. Bones/joints: Unremarkable. No acute fracture. IMPRESSION: Normal chest x-ray. Electronically signed by: Nicola Shepard MD 12/28/24 21:14 PM Discharge Plan Visit Data Chief Complaint: Chest Pain Stated Complaint: Chest pain, SOB ED Provider: Lolita Black Discharge Problem: Chest pain, Hyperglycemia Forms Stand Alone Forms: [facility] [place] Prescriptions Prescriptions: No Action nitroglycerin 0.4 mg tablet, sublingual 0.4 mg sublingual Q5M PRN (Reason: chest pain) Qty: 25 1RF Rx Instructions: until response; do not exceed 3 doses per episode ezetimibe 10 mg tablet 10 mg PO DAILY Qty: 90 3RF metformin 500 mg tablet extended release 24 hr 1,000 mg PO BID Qty: 360 3RF Hold Instructions: Resume on 12/30/24. Hold metformin 1000mg PO bid for 72 hours AFTER cardiac catheterization (12/27/2024, 6:41pm). Resume metformin 1000mg PO bid on 12/30/2024, 6:42pm. Rx Instructions: TAKE 2 TABLETS BY MOUTH TWICE DAILY cyanocobalamin (vitamin B-12) 1,000 mcg capsule 1,000 mcg PO DAILY Qty: 30 3RF Rx Instructions: Take one capsule daily insulin aspart U-100 100 unit/mL (3 mL) insulin pen See Rx Instructions .ROUTE .COMPLEX MDD 15 units Qty: 15 1RF Rx Instructions: Inject 3 units plus sliding scale three times a day before meals Goal BSG 110-140 Carb ratio: 1 unit per 8 grams CHO correction factor: 20 mg/dL/unit (DME) lancets 33 gauge misc See Rx Instructions .Route Qty: 200 11RF Rx Instructions: Test 4 times a day (DME) OneTouch Verio test strips Strip See Rx Instructions .ROUTE .MEDSUPPLY Qty: 200 11RF Rx Instructions: Check blood sugars 4x a day melatonin 3 mg capsule 3 mg PO HS PRN (Reason: sleep) Qty: 30 0RF propranolol 80 mg capsule,extended release 24hr 80 mg PO DAILY Qty: 90 3RF (DME) pen needle, diabetic [Comfort EZ Pen [place]] 32 gauge x 5/32" needle See Rx Instructions .ROUTE .COMPLEX Qty: 400 3RF Dose Instruction: use one daily Rx Instructions: use 4x a day memantine 10 mg tablet 10 mg PO BID Qty: 60 11RF donepezil [Aricept] 5 mg tablet 5 mg PO DAILY Qty: 30 5RF (DME) lancets Misc See Rx Instructions .ROUTE .MEDSUPPLY Qty: 100 3RF Rx Instructions: testing three times daily rosuvastatin 40 mg tablet 40 mg PO DAILY Qty: 90 3RF aspirin 81 mg Tablet,Delayed Release (Dr/Ec) 81 mg PO QAM insulin glargine [Lantus Solostar U-100 Insulin] 100 unit/mL (3 mL) insulin pen 20 unit subcut HS losartan 25 mg Tablet 25 mg PO QAM Qty: 30 0RF Referrals Referrals: Idalia North DO [Primary Care Provider] -
[2024-12-28 21:12] LABS: Basophils # (auto) 0.07 K/uL (0.00-0.20); Basophils % (auto) 1.1 %; Eosinophils # (auto) 0.26 K/uL (0.00-0.50); Eosinophils % (auto) 3.9 %; Hematocrit (blood only) 46.9 % (42.0-52.0); Immature Granulocytes # (auto) 0.02 K/uL (0.01-0.20); Immature Granulocytes % (auto) 0.3 %; Lymphocytes # (auto) 1.51 K/uL (1.20-3.40); Lymphocytes % (auto) 22.9 %; Mean Corpuscular Hemoglobin 28.1 pg (25.0-34.0); Mean Corpuscular Hgb Conc 34.1 g/dL (32.0-36.0); Mean Corpuscular Volume 82.4 fL (80.0-100.0); Mean Platelet Volume 9.7 fL (9.4-12.4); Monocytes # (auto) 0.66 K/uL (0.11-0.59); Neutrophils # (auto) 4.07 K/uL (1.40-6.50); Neutrophils % (auto) 61.8 %; Platelet Count 255 K/uL (130-400); RDW Coefficient of Variation 12.1 % (11.5-14.5); RDW Standard Deviation 36.5 fL (36.4-46.3); Red Blood Count 5.69 M/uL (4.70-6.10); White Blood Count 6.59 K/ul (4.8-10.8)
--- NOTE | 2024-12-28 21:15 | XRay Report ---
Exam(s): XR CXR 1 VIEW EXAM: XR Chest, 1 View CLINICAL HISTORY: Reason for exam: Chest pain, nonspecific. TECHNIQUE: Frontal view of the chest. COMPARISON: No relevant prior studies available. FINDINGS: Lungs: Unremarkable. No consolidation. Pleural space: Unremarkable. No pneumothorax. Heart: Unremarkable. No cardiomegaly. Mediastinum: Unremarkable. Normal mediastinal contour. Bones/joints: Unremarkable. No acute fracture. IMPRESSION: Normal chest x-ray. Electronically signed by: Nicola Shepard MD 12/28/24 21:14 PM
[2024-12-28 21:22] LABS: Albumin Globulin Ratio 1.5 (0.9-2); BUN Creatinine Ratio 16.5 (10-20); Bilirubin,Total 0.7 mg/dl (0.2-1.0); Calcium 8.4 mg/dl (8.6-10.3); Creatinine Clr Calc Pharmacy 60.7 ml/min; Globulin 2.7 gm/dl (2.5-4.0); Potassium 4.3 mmol/L (3.5-5.1); Total Protein 6.7 gm/dl (6.0-8.3); Troponin I High Sensitivity 1044.5 pg/ml (0-20)
[2024-12-28 21:34] LABS: INR 1.1 (0.9-1.1); Prothrombin Time 11.6 Seconds (9.0-12.0)
[2024-12-28 22:34] LABS: Appearance Urine Clear (Clear); Bilirubin Urine Negative (Negative); Blood Urine Negative (Negative); Color Urine Yellow; Glucose Urine UA 3+ (Negative); Ketones Urine 1+ (Negative); Leukocyte Esterase Urine Negative (Negative); Nitrite Urine Negative (Negative); Protein Urine Negative (Negative); Specific Gravity Urine 1.039 (1.000-1.030); Urobilinogen Urine Negative (Negative)
--- NOTE | 2024-12-29 00:48 | History & Physical Report ---
Date of Service December 29, 2024 Assessment & Plan (1) Hyperglycemia: Plan: Elevated blood sugar 326 on arrival -Continue Metformin -Continue Lantus -ISS -Goal blood sugar 110 - 140 (2) Chest pain: Plan: Resolved. No EKG changes. Troponin continues to decline following his NSTEMI. -Repeat troponin -Continue ASA -Continue Zetia -Continue Rosuvastatin -Continue Propranolol -Continue Losartan -Consider adding Ranexa 500mg po BID as recommended by Cardiology to optimize anti-anginal therapies Plan Cognitive impairment -Continue Aricept and Namenda Patient would like to review his medication list. Also would like to know what his pills look like - was recently switched to a pill pack at [facility] but he does not know which pills are which. If possible, would like to be provided with a list and pictures of his pills. History of Present Illness Chief Complaint: brief chest pain and SOB Primary Care Provider: DO Henok Ybarracitlalli Woodson is an 79yo male with h/o HTN, DM, Depression, recently hospitalized with NSTEMI s/p cardiac catheterization - no stents placed. Patient discharged 12/28/24. Got home and developed some mild chest pain and shortness of breath. Patient saw a nurse at the [facility] and was instructed to return to the ER. Chest pain started around 15:00 - mild, bandlike across chest - ended around 20:00 Reports blood sugars have been high Feels well now. No further chest pain or shortness of breath Allergies Allergy/AdvReac Type Severity Reaction Status Date / Time No Known Allergies Allergy Verified 12/13/24 10:13 Home Medications Medication Instructions Recorded Confirmed Type lancets #100 ea 10/12/20 12/28/24 Rx nitroglycerin 0.4 mg sublingual 0.4 mg sublingual Q5M PRN chest 10/29/23 12/28/24 Rx tablet pain #25 tabs aspirin 81 mg tablet,delayed 81 mg PO QAM 11/11/23 12/28/24 History release ezetimibe 10 mg tablet 10 mg PO DAILY #90 tabs 01/18/24 12/28/24 Rx metformin 500 mg tablet,extended 1,000 mg (2 x 500 mg) PO BID #360 01/18/24 12/28/24 Rx release 24 hr tabs cyanocobalamin (vitamin B-12) 1,000 mcg PO DAILY #30 caps 03/22/24 12/28/24 Rx 1,000 mcg capsule rosuvastatin 40 mg tablet 40 mg PO DAILY #90 tabs 04/13/24 12/28/24 Rx insulin aspart U-100 100 unit/mL See Rx Instructions .Route 07/20/24 12/28/24 Rx (3 mL) subcutaneous pen .COMPLEX #15 mL blood sugar diagnostic (OneTouch #200 ea 08/01/24 12/28/24 Rx Verio test strips) lancets 33 gauge #200 ea 08/01/24 12/28/24 Rx melatonin 3 mg capsule 3 mg PO HS PRN sleep #30 caps 08/09/24 12/28/24 Rx propranolol 80 mg capsule,24 80 mg PO DAILY #90 caps 10/10/24 12/28/24 Rx hr,extended release pen needle, diabetic 32 gauge x #400 ea 11/17/24 12/28/24 Rx 5/32" (Comfort EZ Pen [place]) memantine 10 mg tablet 10 mg PO BID #60 tabs 12/14/24 12/28/24 Rx insulin glargine 100 unit/mL (3 20 unit subcut HS 12/26/24 12/28/24 History mL) subcutaneous pen (Lantus Solostar U-100 Insulin) donepezil 5 mg tablet (Aricept) 5 mg PO DAILY #30 tabs 12/28/24 12/28/24 Rx losartan 25 mg tablet 25 mg PO QAM #30 tabs 12/28/24 12/28/24 Rx Past Med/Surg History Problem List Hyperglycemia (Acute) Chest pain (Acute) Acute non-ST elevation myocardial infarction (NSTEMI) (Acute) Chest pain (Acute) Atherogenic dyslipidemia First degree heart block by electrocardiogram NSTEMI (non-ST elevated myocardial infarction) History of stroke HTN (hypertension) (Acute) B12 deficiency Vitamin D deficiency Cognitive impairment BPH (benign prostatic hyperplasia) Vascular dementia Sleep disturbances Antiplatelet or antithrombotic long-term use History of nephrolithiasis Medical History Status post insertion of drug-eluting stent into left anterior descending (LAD) artery Dysarthria Uncontrolled type 2 diabetes mellitus with hyperglycemia, with long-term current use of insulin Depression CAD (coronary artery disease) Memory deficits Diabetes type 2, controlled Tremor Hypertensive urgency Hx of non-ST elevation myocardial infarction (NSTEMI) Surgical History S/P tonsillectomy and adenoidectomy Hx of cataract surgery Family History Mother , age 91 Stroke CHF (congestive heart failure) Father , age 86 with stroke Stroke Prostate cancer Myocardial infarction Daughter Breast cancer Sister Psychiatric problem Other Diabetes Hypertension Denies family history of Ovarian cancer Colorectal cancer Social History Smoking Status: Never smoker Second Hand Exposure: No; Do You Dip or Chew Tobacco: No; Hx Alcohol Use: No Hx Substance Use: No Preferred Language: Faroese Communication Ability: Effective Communication Ability Comment: CONFUSED/HALLUCINATING Visual Impairment: No Limitations Hearing Ability: Normal Highway Research 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 Required: No Beliefs That Will Affect Care: None marital status: / Current Living Situation: Alone Current Living Situation Comment: Resides at the [facility] at [facility] current occupational status: retired 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 Feels Safe at Home: Yes Childhood Exposure to Second-Hand Smoke: No Diet: regular Dental Care, Regularly: Yes Physical Activity Frequency: 3-4 Times per Week Seatbelt Use: always Sunscreen Use: No Assistive Devices: None Review of Systems Review of Systems: General: Patient denies fevers, chills, malaise, weight loss or weight gain Skin: Patient denies bruising, bleeding or rash HEENT: Patient denies headache, visual changes, sore throat, difficulty swallowing, stiff neck Cardio: Patient denies chest pain, palpitations, shortness of breath, lightheadedness Pulmonary: Patient denies cough, wheeze GI: Patient denies abdominal pain, nausea, vomiting, diarrhea, constipation : Patient denies dysuria, frequency, urgency or hematuria Musculoskeletal: Patient denies swelling or pain of the joints, edema Neuro: Patient denies numbness, tingling, weakness or falls Psych: Patient denies depression, anxiety Physical Exam Physical Exam: General: patient resting comfortably, NAD, non-toxic in appearance, AA&O x 4 Skin: warm, dry, intact, no rashes or lesions HEENT: NC/AT, PERRL, EOMI, anicteric sclera, conjunctiva without injection, external ear normal to inspection and nontender, nares patent, moist mucus membranes, dentition intact, no oropharyngeal lesions, neck supple, trachea midline, no LAD, no thyromegaly, no JVD Heart: +S1/S2, regular, no m/r/g Lungs: equal air entry bilaterally, no rales/rhonchi/wheezes Abd: +BS, soft, NT/ND, no masses/organomegaly/ascites Ext: warm, 2+ pulses in UE/LE bilaterally, no clubbing/cyanosis or edema Neuro: nonfocal, patient AA&O x 4, speech intact, no facial droop, moving all extremities on command with equal strength 5/5 Results & Data Results & Data Vital Signs (Past 12 Hours) Vital Signs Temp Pulse Pulse Resp BP BP Pulse Ox 12/29/24 00:30 89 18 149/103 H 95 12/29/24 00:00 83 19 121/73 95 12/28/24 23:30 84 21 146/83 H 93 12/28/24 23:00 87 21 121/73 94 12/28/24 22:35 87 21 151/83 H 95 12/28/24 22:00 90 21 142/90 H 95 12/28/24 21:30 93 H 20 142/88 H 94 12/28/24 21:00 104 H 21 145/86 H 93 12/28/24 20:56 93 12/28/24 20:56 108 H 18 93 12/28/24 20:41 120 H 12/28/24 20:35 36.6 C 108 H 18 161/92 H 96 12/28/24 20:35 36.6 C 108 H 18 161/92 H 96 O2 Del Method O2 Flow Rate 12/29/24 00:30 12/29/24 00:00 12/28/24 23:30 12/28/24 23:00 12/28/24 22:35 12/28/24 22:00 12/28/24 21:30 12/28/24 21:00 12/28/24 20:56 Room Air 0 12/28/24 20:56 Room Air 12/28/24 20:41 02/05/25 20:35 Room Air 12/28/24 20:35 Room Air Laboratory Results Laboratory Results WBC 6.59 K/ul (4.8-10.8) 12/28/24 20:45 RBC 5.69 M/uL (4.70-6.10) 12/28/24 20:45 Hgb 16.0 g/dl (14.0-18.0) 12/28/24 20:45 Hct 46.9 % (42.0-52.0) 12/28/24 20:45 MCV 82.4 fL (80.0-100.0) 12/28/24 20:45 MCH 28.1 pg (25.0-34.0) 12/28/24 20:45 MCHC 34.1 g/dL (32.0-36.0) 12/28/24 20:45 RDW Std Deviation 36.5 fL (36.4-46.3) 12/28/24 20:45 RDW Coeff of Leanna 12.1 % (11.5-14.5) 12/28/24 20:45 Plt Count 255 K/uL (130-400) 12/28/24 20:45 MPV 9.7 fL (9.4-12.4) 12/28/24 20:45 Immature Gran % (Auto) 0.3 % 12/28/24 20:45 Neut % (Auto) 61.8 % 12/28/24 20:45 Lymph % (Auto) 22.9 % 12/28/24 20:45 [place] % (Auto) 10.0 % 12/28/24 20:45 Eos % (Auto) 3.9 % 12/28/24 20:45 Baso % (Auto) 1.1 % 12/28/24 20:45 Neut # (Auto) 4.07 K/uL (1.40-6.50) 12/28/24 20:45 Lymph # (Auto) 1.51 K/uL (1.20-3.40) 12/28/24 20:45 [place] # (Auto) 0.66 K/uL (0.11-0.59) H 12/28/24 20:45 Eos # (Auto) 0.26 K/uL (0.00-0.50) 12/28/24 20:45 Baso # (Auto) 0.07 K/uL (0.00-0.20) 12/28/24 20:45 Immature Gran # (Auto) 0.02 K/uL (0.01-0.20) 12/28/24 20:45 PT 11.6 Seconds (9.0-12.0) 12/28/24 20:45 INR 1.1 (0.9-1.1) 12/28/24 20:45 Sodium 135 mmol/L (136-145) L 12/28/24 20:45 Potassium 4.3 mmol/L (3.5-5.1) 12/28/24 20:45 Chloride 101 mmol/L (98-107) 12/28/24 20:45 Carbon Dioxide 28 mmol/L (21-32) 12/28/24 20:45 Anion Gap 6 (3-11) 12/28/24 20:45 BUN 16 mg/dl (6-23) 12/28/24 20:45 Creatinine 0.97 mg/dl (0.6-1.4) 12/28/24 20:45 Est Cr Clr Drug Dosing 60.7 ml/min 12/28/24 20:45 eGFR 78.92 12/28/24 20:45 BUN/Creatinine Ratio 16.5 (10-20) 12/28/24 20:45 Glucose 326 mg/dl (70-99(Fasting)) H* 12/28/24 20:45 POC Glucose 205 mg/dl (70-99) H 12/29/24 02:00 Calcium 8.4 mg/dl (8.6-10.3) L 12/28/24 20:45 Total Bilirubin 0.7 mg/dl (0.2-1.0) 12/28/24 20:45 AST 81 U/L (13-39) H 12/28/24 20:45 ALT 81 U/L (7-52) H 12/28/24 20:45 Alkaline Phosphatase 88 U/L (34-104) 12/28/24 20:45 Troponin I High Sens 1040.2 pg/ml (0-20) H* 12/28/24 23:29 Total Protein 6.7 gm/dl (6.0-8.3) 12/28/24 20:45 Albumin 4.0 gm/dl (3.4-5.0) 12/28/24 20:45 Globulin 2.7 gm/dl (2.5-4.0) 12/28/24 20:45 Albumin/Globulin Ratio 1.5 (0.9-2) 12/28/24 20:45 Lipase 25 U/L (11-82) 12/28/24 20:45 Urine Color Yellow 12/28/24 22:24 Urine Appearance Clear (Clear) 12/28/24 22:24 Urine pH 5.0 (4.5-7.5) 12/28/24 22:24 Ur Specific [place] 1.039 (1.000-1.030) H 12/28/24 22:24 Urine Protein Negative (Negative) 12/28/24 22:24 Urine Glucose (UA) 3+ (Negative) H 12/28/24 22:24 Urine Ketones 1+ (Negative) H 12/28/24 22:24 Urine Blood Negative (Negative) 12/28/24 22:24 Urine Nitrite Negative (Negative) 12/28/24 22:24 Urine Bilirubin Negative (Negative) 12/28/24 22:24 Urine Urobilinogen Negative (Negative) 12/28/24 22:24 Ur Leukocyte Esterase Negative (Negative) 12/28/24 22:24 Impressions Chest X-Ray 12/28/24 20:30 Exam(s): XR CXR 1 VIEW EXAM: XR Chest, 1 View CLINICAL HISTORY: Reason for exam: Chest pain, nonspecific. TECHNIQUE: Frontal view of the chest. COMPARISON: No relevant prior studies available. FINDINGS: Lungs: Unremarkable. No consolidation. Pleural space: Unremarkable. No pneumothorax. Heart: Unremarkable. No cardiomegaly. Mediastinum: Unremarkable. Normal mediastinal contour. Bones/joints: Unremarkable. No acute fracture. IMPRESSION: Normal chest x-ray. Electronically signed by: Nicola Shepard MD 12/28/24 21:14 PM PG Care Time/CCT Total # of Minutes Spent Total Time Spent with Patient: Total time spent is greater than 50% in coordination of care (as documented) at patient's floor/unit and/or counseling patient: Coding Level of Care Code 77592 INT INP/OBS CARE 2/55MIN Diagnoses Hyperglycemia R73.9 Chest pain R07.9
[2024-12-29] MEDS ORDERED: CARBOHYDRATES FOR HYPOGLYCEMIA PO PRN (01:10)
[2024-12-29] MEDS ORDERED: DEXTROSE 50% 50 ML SYRINGE IV PRN (01:10)
[2024-12-29] MEDS ORDERED: GLUCAGON FOR INJ 1 MG VIAL SQ PRN (01:10)
[2024-12-29] MEDS ORDERED: GLUCOSE 10 TAB/TUBE PO PRN (01:10)
[2024-12-29] MEDS ORDERED: ACETAMINOPHEN 325 MG TAB PO PRN (01:10)
[2024-12-29] MEDS ORDERED: ONDANSETRON INJ 2 MG/ML 2 ML VIAL IV PRN (01:10)
[2024-12-29] MEDS ORDERED: GLUCOSE 40% GEL 15 GM TUBE PO PRN (01:10)
[2024-12-29] MEDS ORDERED: NITROGLYCERIN SL 0.4 MG/TAB TAB SL PRN (01:10)
[2024-12-29] MEDS: INSULIN ASPART PER UNIT CHARGE SC SCH (02:10)
--- NOTE | 2024-12-29 07:42 | Electrocardiogram Report ---
Test Reason : Blood Pressure : */* mmHG Vent. Rate : 107 BPM Atrial Rate : 107 BPM P-R Int : 216 ms QRS Dur : 78 ms QT Int : 330 ms P-R-T Axes : 59 25 80 degrees QTcB Int : 440 ms Sinus tachycardia with 1st degree A-V block Old Septal infarct (cited on or before 02-Feb-2019) Nonspecific ST abnormality Lateral leads Abnormal ECG When compared with ECG of 26-Dec-2024 07:20, No significant change Confirmed by Jeffry Boone ([id number]) on 12/29/2024 7:42:39 AM Referred By: REFERRED SELF Confirmed By: Jeffry Boone
--- NOTE | 2024-12-29 08:20 | Communication Note ---
Date of Service: December 29, 2024 79 y/o man with DM2, history of CVA and subsequent cognitive impairment, CAD. Recently admitted 12/26-12/28 with NSTEMI and underwent coronary angiogram, did not require PCI (see below). Returned to ED with chest pain. Troponin improved compared to discharge but trending up from 1000 --> 2000 overnight. Unclear significance. EKG unchanged from previous. -repeat EKG now - personally reviewed EKG and unchanged from prior -trend troponin - came down from 2000 --->1000s midday -likely need to add antianginal -consulted cardiology - discussed with Dr. Boone, expected extension of his NSTEMI, added ranexa 500 mg bid, monitor overnight can return home tomorrow if no further chest pain Elevated AST/ALT, normal bili and alk phos - persists, no significant change -continuing rosuvastatin -AM LFT Summary of previous admission: fasting lipid panel testing (12/27/2024, 5:27am): total cholesterol 74, LDL 25, HDL 34, triglyceride 77. Patient subsequently underwent cardiac catheterization via right radial artery approach (12/27/2024, 12:10pm, Interventional CARDS Dr. Valentin Doran): Coronary Anatomy Dominant: Right Left Main (% Stenosis): Normal LAD (% Stenosis): Mid (80% in-stent restenosis then focal 40% after stent) and Distal (80% focal after stent) D1 (% Stenosis): Ostial (99%) D2 (% Stenosis): Ostial (99%) D3 (% Stenosis): Ostial (99%) Circumflex (% Stenosis): Ostial (Ostial to proximal 30 to 40%) OM1 (% Stenosis): Mid (40%) RCA (% Stenosis): Proximal (Less than 30%), Mid (Diffuse 30%) and Distal R PDA (% Stenosis): Ostial (30%) R PL1 (% Stenosis): Ostial (30%) Diagnostic Physicians Name: Valentin Doran MD, PhD Closure Device Percutaneous Entry Location: Radial Closure Device: Radial Band Recommendations: Medical Therapy and/or Counseling PCI Indication: PCI for high risk Non-TARAH Patient subsequently underwent TTE (12/27/2024, 1:10pm, Interventional CARDS Dr. Valentin Doran): 1. Compared to 02/17/2024 stress ECHO, there is no significant change. 2. Normal LV size and function with LVEF 60-65%. 3. Moderate LVH. 4. LV grade I diastolic dysfunction. 5. No segmental wall motion abnormalities. 6. Normal RV size and function. 7. Normal LA/RA sizes. 8. No significant valvular pathology. 9. Mild tricuspid regurgitation. 10.Aortic root normal size. Ascending aorta normal dimension. 11.No pericardial effusion. (as per Interventional CARDS Dr. Valentin Doran).
[2024-12-29] MEDS: ROSUVASTATIN CALCIUM 20 MG TAB PO SCH (08:22)
[2024-12-29] MEDS: metFORMIN HCL ER 500 MG TABCR PO SCH (08:22)
[2024-12-29] MEDS: EZETIMIBE 10 MG TAB PO SCH (08:23)
[2024-12-29] MEDS: ASPIRIN 81 MG ECTAB PO SCH (08:23)
[2024-12-29] MEDS: LOSARTAN POTASSIUM 25 MG TAB PO SCH (08:23)
[2024-12-29] MEDS: DONEPEZIL HCL 5 MG TAB PO SCH (08:24)
[2024-12-29] MEDS: MEMANTINE HCL 10 MG TAB PO SCH (08:24)
[2024-12-29] MEDS: PROPRANOLOL HCL LA 80 MG CAPCR PO SCH (08:25)
[2024-12-29] MEDS: LANTUS PER UNIT CHARGE SQ SCH (08:33)
--- NOTE | 2024-12-29 10:44 | Electrocardiogram Report ---
Test Reason : Blood Pressure : */* mmHG Vent. Rate : 83 BPM Atrial Rate : 83 BPM P-R Int : 210 ms QRS Dur : 78 ms QT Int : 402 ms P-R-T Axes : 59 36 72 degrees QTcB Int : 472 ms Sinus rhythm with 1st degree A-V block Low voltage QRS Old Septal infarct (cited on or before 02-Feb-2019) Minor Nonspecific ST abnormality Anterolateral leads Abnormal ECG When compared with ECG of 28-Dec-2024 20:33, No significant change Confirmed by Jeffry Boone ([id number]) on 12/29/2024 10:44:04 AM Referred By: REFERRED SELF Confirmed By: Jeffry Boone
--- NOTE | 2024-12-29 15:26 | Cardiology Consultation ---
Date of Consultation December 29, 2024 Assessment & Plan (1) Chest pain: (2) Acute non-ST elevation myocardial infarction (NSTEMI): (3) CAD (coronary artery disease): (4) Status post insertion of drug-eluting stent into left anterior descending (LAD) artery: (5) History of placement of stent in LAD coronary artery: Plan 79-year-old man with known coronary disease admitted with non-STEMI, readmitted with probable mild extension of his earlier non-STEMI. No complications of dysrhythmias, heart failure, or refractory angina. As noted by Dr. Doran, coronary anatomy was not amenable to revascularization, therefore would recommend intensifying antianginal regimen by adding Ranexa 500 mg twice daily. If he remains asymptomatic overnight, could be discharged tomorrow morning. Routine cardiology follow-up with Dr. Serrato. History of Present Illness Attending Physician: Fransisca Green MD History of Present Illness 79-year-old man with multiple vascular risk factors (DM, HTN, dyslipidemia, prior CVA) and complex CAD ([place] 2003 with PCI mid & distal LAD, cath 2023 with CARMEN left main and proximal LAD) who was admitted 12/26/24 with chest pain, had non-STEMI (peak troponin 5290, no wall motion abnormalities on echo), cath 12/27/2024 showed patent stents with severe LAD branch vessel and apical disease (unchanged and too small for PCI), increased antianginal regimen recommended, upon return home to the [facility] patient developed additional chest pain and was readmitted, troponin increased from 1040 to 2025 before declining, ECG showed no dynamic ST changes. Cardiac data: Admission ECG showed sinus tachycardia at 107 bpm with first-degree AV block, old septal infarct, and minor nonspecific ST depression in the anterolateral leads. Compared with 12/26/2024 study, no significant change. ECG today showed sinus rhythm at 83 bpm, first-degree AV block, old septal infarct, no change in nonspecific anterolateral ST abnormality. Troponin values 1044, 1040, 2025, 1726. Chest x-ray unremarkable. Echocardiogram 12/26/2024 showed EF 66 5% with moderate LVH and no wall motion abnormalities nor significant valvular disease. Patient's symptoms occurred last night, he had no further chest pain this morning or throughout the day today. He was comfortable at the time my evaluation and denied any chest pain, dyspnea, palpitations, lightheadedness, or any other somatic complaints. Telemetry showed sinus rhythm without significant ectopy or dysrhythmia. Allergies Allergy/AdvReac Type Severity Reaction Status Date / Time No Known Allergies Allergy Verified 12/13/24 10:13 Home Medications Medication Instructions Recorded Confirmed Type lancets #100 ea 10/12/20 12/28/24 Rx nitroglycerin 0.4 mg sublingual 0.4 mg sublingual Q5M PRN chest 10/29/23 12/28/24 Rx tablet pain #25 tabs aspirin 81 mg tablet,delayed 81 mg PO QAM 11/11/23 12/28/24 History release ezetimibe 10 mg tablet 10 mg PO DAILY #90 tabs 01/18/24 12/28/24 Rx metformin 500 mg tablet,extended 1,000 mg (2 x 500 mg) PO BID #360 01/18/24 12/28/24 Rx release 24 hr tabs cyanocobalamin (vitamin B-12) 1,000 mcg PO DAILY #30 caps 03/22/24 12/28/24 Rx 1,000 mcg capsule rosuvastatin 40 mg tablet 40 mg PO DAILY #90 tabs 04/13/24 12/28/24 Rx insulin aspart U-100 100 unit/mL See Rx Instructions .Route 07/20/24 12/28/24 Rx (3 mL) subcutaneous pen .COMPLEX #15 mL blood sugar diagnostic (OneTouch #200 ea 08/01/24 12/28/24 Rx Verio test strips) lancets 33 gauge #200 ea 08/01/24 12/28/24 Rx melatonin 3 mg capsule 3 mg PO HS PRN sleep #30 caps 08/09/24 12/28/24 Rx propranolol 80 mg capsule,24 80 mg PO DAILY #90 caps 10/10/24 12/28/24 Rx hr,extended release pen needle, diabetic 32 gauge x #400 ea 11/17/24 12/28/24 Rx 5/32" (Comfort EZ Pen [place]) memantine 10 mg tablet 10 mg PO BID #60 tabs 12/14/24 12/28/24 Rx insulin glargine 100 unit/mL (3 20 unit subcut HS 12/26/24 12/28/24 History mL) subcutaneous pen (Lantus Solostar U-100 Insulin) donepezil 5 mg tablet (Aricept) 5 mg PO DAILY #30 tabs 12/28/24 12/28/24 Rx losartan 25 mg tablet 25 mg PO QAM #30 tabs 12/28/24 12/28/24 Rx Patient History Medical History (Updated 12/29/24 @ 15:22 by Jeffry Boone MD) History of placement of stent in LAD coronary artery (2003) Status post insertion of drug-eluting stent into left anterior descending (LAD) artery (2023) Left main and proximal LAD Dysarthria Uncontrolled type 2 diabetes mellitus with hyperglycemia, with long-term current use of insulin Depression CAD (coronary artery disease) Memory deficits Diabetes type 2, controlled Tremor Hypertensive urgency Hx of non-ST elevation myocardial infarction (NSTEMI) Surgical History S/P tonsillectomy and adenoidectomy Hx of cataract surgery Family History Mother , age 91 Stroke CHF (congestive heart failure) Father , age 86 with stroke Stroke Prostate cancer Myocardial infarction Daughter Breast cancer Sister Psychiatric problem Other Diabetes Hypertension Denies family history of Ovarian cancer Colorectal cancer Social History Smoking Status: Never smoker Second Hand Exposure: No; Do You Dip or Chew Tobacco: No; Hx Alcohol Use: No Hx Substance Use: No Preferred Language: [place] Citizen Communication Ability: Effective Communication Ability Comment: CONFUSED/HALLUCINATING Visual Impairment: No Limitations Hearing Ability: Normal Door Closer Required: No Beliefs That Will Affect Care: None marital status: / Current Living Situation: Alone Current Living Situation Comment: Resides at the [facility] at [facility] current occupational status: retired 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 BP normotensive. Pulse 74 bpm and regular. Respirations 22 but unlabored. Skin: no ecchymoses or generalized lesions. HEENT: unremarkable. Neck: JVP at the clavicle at 90 degrees, no carotid bruits. Lungs: clear. Cardiac: regular rhythm, normal S1-2, no murmur. Abdomen: benign. Extremities: no edema, pulses intact. Neurologic: normal affect and conversation, nonfocal. Results & Data Laboratory Results Normal CBC. Sodium 135, otherwise normal electrolytes, BUN 16, creatinine 0.97. PG Care Time/CCT Total # of Minutes Spent Total Time Spent with Patient: Total time spent is greater than 50% in coordination of care (as documented) at patient's floor/unit and/or counseling patient: Coding Level of Care Code 55498 IN/OBS CONSULT LVL 4,60M Diagnoses Chest pain R07.9 Acute non-ST elevation myocardial infarction (NSTEMI) I21.4 CAD (coronary artery disease) I25.10 Status post insertion of drug-eluting stent into left anterior descending (LAD) artery Z95.5 History of placement of stent in LAD coronary artery Z95.5
[2024-12-29] MEDS: RANOLAZINE 500 MG ER TAB PO SCH (18:20)
[2024-12-29] MEDS: MELATONIN 3 MG TAB PO PRN (21:04)
[2024-12-30 09:05] LABS: Albumin Globulin Ratio 1.5 (0.9-2); Albumin Level 3.4 gm/dl (3.4-5.0); Bilirubin,Total 0.7 mg/dl (0.2-1.0); Calcium 8.7 mg/dl (8.6-10.3); Creatinine Clr Calc Pharmacy 72.7 ml/min; Globulin 2.3 gm/dl (2.5-4.0); Potassium 4.1 mmol/L (3.5-5.1); Total Protein 5.7 gm/dl (6.0-8.3)
[2024-12-30 09:18] LABS: Troponin I High Sensitivity 1601.5 pg/ml (0-20)
[2024-12-30 10:17] VITALS: BP 128/76; RESP 18; TEMP 98.4; O2SAT 92
[2024-12-30 10:22] VITALS: PULSE 72
--- NOTE | 2024-12-30 10:42 | Cardiology Progress Note ---
Date of Service December 30, 2024 Assessment & Plan (1) Chest pain: (2) Acute non-ST elevation myocardial infarction (NSTEMI): (3) CAD (coronary artery disease): (4) Status post insertion of drug-eluting stent into left anterior descending (LAD) artery: (5) History of placement of stent in LAD coronary artery: Plan Doing well, okay for discharge on Ranexa 500 mg twice daily. Routine cardiology follow-up with Dr. Serrato. Admission and Anticipated Discharge Date Admission Date: December 29, 2024 Subjective No chest pain or other symptoms overnight. Feels well, being discharged today. Telemetry showed sinus rhythm in the 60 to 70 bpm range. Physical Exam Physical Exam: No distress. BP normotensive. Pulse 69 bpm regular. Respirations 18 and unlabored. Skin: no ecchymoses or generalized lesions. HEENT: unremarkable. Neck: JVP at the clavicle at 90 degrees, no carotid bruits. Lungs: clear. Cardiac: regular rhythm, normal S1-2, no murmur. Abdomen: benign. Extremities: no edema, pulses intact. Neurologic: normal affect and conversation, nonfocal. Results & Data Vital Signs (Past 12 Hours) Vital Signs Temp Pulse Pulse Resp BP BP Pulse Ox 12/30/24 08:02 98.4 F 69 18 128/76 92 12/30/24 06:45 72 12/30/24 03:28 97.7 F 65 16 126/73 96 12/29/24 23:06 97.9 F 65 18 142/73 H 98 O2 Del Method 12/30/24 08:02 Room Air 12/30/24 06:45 12/30/24 03:28 Room Air 12/29/24 23:06 Room Air Laboratory Results Normal electrolytes, BUN 17, creatinine 0.81. PG Care Time/CCT Total # of Minutes Spent Total Time Spent with Patient: Total time spent is greater than 50% in coordination of care (as documented) at patient's floor/unit and/or counseling patient: Coding Level of Care Code 33866 SUB INP/OBS CARE 12/17MIN Diagnoses Chest pain R07.9 Acute non-ST elevation myocardial infarction (NSTEMI) I21.4 CAD (coronary artery disease) I25.10 Status post insertion of drug-eluting stent into left anterior descending (LAD) artery Z95.5 History of placement of stent in LAD coronary artery Z95.5
--- NOTE | 2024-12-30 19:12 | Discharge Summary ---
Discharge Summary Date of Service December 30, 2024 Principal Dx & Hospital Course #1 = Principal Diagnosis (1) Chest pain: 79 y/o man with DM2, history of CVA and subsequent cognitive impairment, CAD. Recently admitted 12/26-12/28 with NSTEMI and underwent coronary angiogram, did not require PCI (see below). Returned to ED with chest pain. Troponin improved compared to discharge but trending up from 1000 --> 2000 overnight then back down to 1000s. EKG unchanged from previous. Chest pain resolved and did not recur. No EKG changes. Troponin continues to decline following his NSTEMI with some fluctuation, overall trend down however. -Consulted cardiology - recommended adding ranexa 500 mg bid for antianginal, has not had any subsequent chest pain -Continue ASA -Continue Zetia -Continue Rosuvastatin -Continue Propranolol -Continue Losartan -Has PRN nitroglycerin SL - discussed use Follow up with cardiology next week as scheduled with Dr. Serrato Meds are managed at the [facility] (2) Hyperglycemia: DM type 2 Elevated blood sugar 326 on arrival, treated with insulin. Subsequent to that BG was at goal -Continue Metformin -Continue Lantus Plan Elevated AST/ALT, normal bili and alk phos - persists, downtrended. no abdominal pain. LFT elevation started at time he presented with NSTEMI. Probably related to NSTEMI -continuing rosuvastatin -repeat LFT as outpatient for resolution Cognitive impairment / Vascular dementia -Continue Aricept and Namenda Admission HPI Per Admitting Provider Juan Diego Woodson is an 79yo male with h/o HTN, DM, Depression, recently hospitalized with NSTEMI s/p cardiac catheterization - no stents placed. Patient discharged 12/28/24. Got home and developed some mild chest pain and shortness of breath. Patient saw a nurse at the [facility] and was instructed to return to the ER. Chest pain started around 15:00 - mild, bandlike across chest - ended around 20:00 Reports blood sugars have been high Feels well now. No further chest pain or shortness of breath Discharge Plan Discharge Items Patient Disposition: Home - Self-Care Reason For Visit: Chest pain Discharge Diagnosis: Chest pain, nstemi Activity: Resume your previous activity Non-emergency contact: Primary Care Provider and Mail Processor Call non-emergency contact if: you have any medication questions and your symptoms worsen Follow-up/Referrals: Idalia North DO [Primary Care Provider] - 01/03/25 3:00 pm () Diet: Carb Consistent or DM2 and Heart Healthy Addtl Attending Provider Instructions: Chest pain episode - brief - related to recent heart attack Mail Processor consulted and recommended adding ranolazine for antianginal Continue your other medications. You can take sublingual nitroglycerin as needed for chest pain, see instructions. It was a pleasure taking care of you in the hospital, Fransisca Green MD Pending Studies at Discharge: No Stand-Alone Forms: [facility], Smoking Cessation Medications and DC Order Prescriptions: New ranolazine 500 mg Tablet Extended Release 12 Hr 500 mg PO BID Qty: 60 0RF Continued nitroglycerin 0.4 mg tablet, sublingual 0.4 mg sublingual Q5M PRN (Reason: chest pain) Qty: 25 1RF Rx Instructions: until response; do not exceed 3 doses per episode ezetimibe 10 mg tablet 10 mg PO DAILY Qty: 90 3RF metformin 500 mg tablet extended release 24 hr 1,000 mg PO BID Qty: 360 3RF Hold Instructions: Resume on 12/30/24. Hold metformin 1000mg PO bid for 72 hours AFTER cardiac catheterization (12/27/2024, 6:41pm). Resume metformin 1000mg PO bid on 12/30/2024, 6:42pm. Rx Instructions: TAKE 2 TABLETS BY MOUTH TWICE DAILY cyanocobalamin (vitamin B-12) 1,000 mcg capsule 1,000 mcg PO DAILY Qty: 30 3RF Rx Instructions: Take one capsule daily insulin aspart U-100 100 unit/mL (3 mL) insulin pen See Rx Instructions .ROUTE .COMPLEX MDD 15 units Qty: 15 1RF Rx Instructions: Inject 3 units plus sliding scale three times a day before meals Goal BSG 110-140 Carb ratio: 1 unit per 8 grams CHO correction factor: 20 mg/dL/unit (DME) lancets 33 gauge misc See Rx Instructions .Route Qty: 200 11RF Rx Instructions: Test 4 times a day (DME) OneTouch Verio test strips Strip See Rx Instructions .ROUTE .MEDSUPPLY Qty: 200 11RF Rx Instructions: Check blood sugars 4x a day melatonin 3 mg capsule 3 mg PO HS PRN (Reason: sleep) Qty: 30 0RF propranolol 80 mg capsule,extended release 24hr 80 mg PO DAILY Qty: 90 3RF (DME) pen needle, diabetic [Comfort EZ Pen [place]] 32 gauge x 5/32" needle See Rx Instructions .ROUTE .COMPLEX Qty: 400 3RF Dose Instruction: use one daily Rx Instructions: use 4x a day memantine 10 mg tablet 10 mg PO BID Qty: 60 11RF donepezil [Aricept] 5 mg tablet 5 mg PO DAILY Qty: 30 5RF (DME) lancets Misc See Rx Instructions .ROUTE .MEDSUPPLY Qty: 100 3RF Rx Instructions: testing three times daily rosuvastatin 40 mg tablet 40 mg PO DAILY Qty: 90 3RF aspirin 81 mg Tablet,Delayed Release (Dr/Ec) 81 mg PO QAM insulin glargine [Lantus Solostar U-100 Insulin] 100 unit/mL (3 mL) insulin pen 20 unit subcut HS losartan 25 mg Tablet 25 mg PO QAM Qty: 30 0RF Discharge Orders: Discharge Order (Routine); Ordered 12/30/24 Ordered By: Fransisca Abdi/Other Patient Handouts: Discharge Instructions for Angina Admission Data Admit Date/Time: 12/29/24 00:47 Attending Provider: Fransisca Green Admit Provider: Stacy Zepeda Primary Care Provider: Idalia North Other Providers: Stacy Zepeda; Obed Martinez; Jeffry Boone; Gallo Valentine; Valentin Doran; Mauro Teran; John Serrato Jr; Kristopher Pitts; Maricruz Ramirez; Abigail Che; Alvaro Cristobal; Alvaro Herron; Murray Blackwell; Nena Lopez; Mendoza Soto; Tara Stapleton; Mendoza Barnard; Carmelo Holden Other Interventions: Discharge Summary Assessment (RN) Last Done: 12/30/24 09:50 Hospital Stay Data Consultations 12/28/24 23:27 ED Decision to Admit Stat 12/29/24 08:14 Consult Cardiology Routine Pending Results Patient Have Any Pending Studies at Discharge: No Discharge Instructions Given to Patient (Per Discharging Provider) Chest pain episode - brief - related to recent heart attack Mail Processor consulted and recommended adding ranolazine for antianginal Continue your other medications. You can take sublingual nitroglycerin as needed for chest pain, see instructions. It was a pleasure taking care of you in the hospital, Fransisca Green MD Total Time Total Time Spent Total Time Spent (In Minutes): <30 Coding Level of Care Code 23213 IN/OBS DISCH 30 MIN/LESS Diagnoses Chest pain R07.9 Hyperglycemia R73.9
== END 2024-12-30 12:15 | disposition home or self-care (01) ==
LOC: ED 20:29 → EDINP 20:29 → SUATTDRO 12-29 00:47 → 2N 12-29 01:11